=== PATIENT | male | born 1935 | race Caucasian/White ===

== ENCOUNTER 2018-01-12 11:02 | Emergency (ER) | payer MEDICARE, OTHER ==
[2018-01-12 11:12] LABS: Glucose,Whole Blood 223 mg/dL (75-99)
--- NOTE | 2018-01-12 11:29 | ED ---
General Adult HPI - General Chief complaint: Recheck/Abnormal Lab/Rx Stated complaint: hypoglycemia Time Seen by Provider: 01/12/18 11:07 Source: patient, EMS, RN notes reviewed Mode of arrival: EMS Limitations: no limitations - History of Present Illness Initial comments: This is an 82-year-old male presents emergency Department via EMS with complaint of hypoglycemia. Patient states that he remembers leaving the bank states he felt very tired felt that shaky. They staff workers called EMS at that time. Patient's found to have blood sugar of 50 that dropped to 35. Patient was given glucose and at that time. Patient has no complaint this time. They did state that he came around after given medications. Patient denies headache, dizziness, chest pain, shortness breath, nausea, vomiting diarrhea constipation. Patient states he took 40 units of insulin long acting this morning and did not eat. - Related Data Home Medications Medication Instructions Recorded Confirmed Unable To Assess [Unable to Assess] 01/12/18 01/12/18 Allergies Allergy/AdvReac Type Severity Reaction Status Date / Time No Known Allergies Allergy Verified 01/12/18 11:07 Review of Systems ROS Statement: Those systems with pertinent positive or pertinent negative responses have been documented in the HPI. ROS Other: All systems not noted in ROS Statement are negative. Past Medical History Past Medical History: Diabetes Mellitus History of Any Multi-Drug Resistant Organisms: None Reported Past Surgical History: No Surgical Hx Reported Past Psychological History: No Psychological Hx Reported Smoking Status: Never smoker Past Alcohol Use History: None Reported Past Drug Use History: None Reported General Exam Limitations: no limitations General appearance: alert, in no apparent distress Head exam: Present: atraumatic, normocephalic, normal inspection Eye exam: Present: normal appearance, PERRL, EOMI. Absent: scleral icterus, conjunctival injection, periorbital swelling ENT exam: Present: normal exam, normal oropharynx, mucous membranes moist, TM's normal bilaterally Neck exam: Present: normal inspection. Absent: tenderness, meningismus, lymphadenopathy Respiratory exam: Present: normal lung sounds bilaterally. Absent: respiratory distress, wheezes, rales, rhonchi, stridor Cardiovascular Exam: Present: regular rate, normal rhythm, normal heart sounds. Absent: systolic murmur, diastolic murmur, rubs, gallop, clicks GI/Abdominal exam: Present: soft, normal bowel sounds. Absent: distended, tenderness, guarding, rebound, rigid Neurological exam: Present: alert, oriented X3, CN II-XII intact, reflexes normal. Absent: motor sensory deficit Skin exam: Present: warm, dry, intact, normal color. Absent: rash Course Vital Signs 01/12/18 01/12/18 01/12/18 11:04 12:02 13:34 Temperature 97.2 F L Pulse Rate 67 56 L 63 Respiratory 18 17 18 Rate Blood Pressure 124/57 162/69 166/99 O2 Sat by Pulse 97 100 100 Oximetry Medical Decision Making - Medical Decision Making 82-year-old male presents for hyperglycemia. Patient has been stable in the emergency from. He was monitored for 3 hours and had slight drop in his blood sugar though he's had no hyperglycemic events. Patient did eat food here without difficulties and most other complaints. - Lab Data Lab Results 01/12/18 01/12/18 01/12/18 Range/Units 11:07 11:45 12:21 POC Glucose (mg/dL) 223 H 123 H 117 H (75-99) mg/dL POC Glu Mapping Technician ID Maty Denis Pam Gorecki, Joanna 01/12/18 01/12/18 Range/Units 12:59 13:14 POC Glucose (mg/dL) 91 90 (75-99) mg/dL POC Glu Mapping Technician ID Hanane Tejada Joanna Disposition Clinical Impression: Hypoglycemia Disposition: HOME SELF-CARE Condition: Stable Instructions: Hypoglycemia in a Person with Diabetes (ED) Additional Instructions: Please return to the Emergency Department if symptoms worsen or any other concerns. Is patient prescribed a controlled substance at d/c from ED?: No Referrals: None,Stated [Primary Care Provider] - 1-2 days Time of Disposition: 13:55
[2018-01-12 12:13] LABS: Glucose,Whole Blood 123 mg/dL (75-99)
[2018-01-12 13:01] LABS: Glucose,Whole Blood 91 mg/dL (75-99)
[2018-01-12 13:01] LABS: Glucose,Whole Blood 117 mg/dL (75-99)
[2018-01-12 13:16] LABS: Glucose,Whole Blood 90 mg/dL (75-99)
[2018-01-12 13:35] VITALS: RESP 18
[2018-01-12 14:08] LABS: Glucose,Whole Blood 163 mg/dL (75-99)
[2018-01-12 14:13] VITALS: BP 156/70; PULSE 60; TEMP 98
== END 2018-01-12 14:15 | disposition home or self-care (01) ==
LOC: EC 11:02
DX: E11.649 Type 2 diabetes mellitus with hypoglycemia without coma (principal); Z79.4 Long term (current) use of insulin
CPT/HCPCS: 36415; 99285

== ENCOUNTER 2018-02-01 15:31 | Inpatient (IN) | payer MEDICARE, OTHER ==
[2018-02-01] MEDS ORDERED: ONDANSETRON 4 MG/2 ML VIAL IVP STA (15:54)
[2018-02-01] MEDS ORDERED: SODIUM CHLORIDE 0.9% 1,000 ML IV STA ×2 (15:54)
[2018-02-01] MEDS ORDERED: MORPHINE SULFATE 2 MG/ML SYRINGE IV STA (15:54)
[2018-02-01] MEDS ORDERED: PANTOPRAZOLE 40 MG/10 ML VIAL IVP STA (15:54)
--- NOTE | 2018-02-01 16:57 | ED ---
Abdominal Pain HPI - General Source: patient, RN notes reviewed, old records reviewed Mode of arrival: wheelchair Limitations: no limitations - History of Present Illness MD Complaint: abdominal pain <Melva Foster - Last Filed: 02/01/18 18:43> <Marcos Black - Last Filed: 02/01/18 19:09> - General Chief Complaint: Abdominal Pain Stated Complaint: Abd Pain Time Seen by Provider: 02/01/18 15:40 - History of Present Illness Initial Comments: 82-year-old male presents emergency Department chief complaint of diffuse epigastric abdominal pain. He reports he's been taking Tums and had some relief. Within the Patient is recur. He reports sinus has had some darker stools. Denies any fever or chills. No vomiting. He reports he does feel nauseated. He reports this is severe pain throughout his entire abdomen. No significant surgical history. He has never had a colonoscopy. (Melva Foster) - Related Data Home Medications Medication Instructions Recorded Confirmed Unable To Assess [Unable to Assess] 01/12/18 01/12/18 Allergies Allergy/AdvReac Type Severity Reaction Status Date / Time No Known Allergies Allergy Verified 02/01/18 15:38 Review of Systems ROS Other: All systems not noted in ROS Statement are negative. <Melva Foster - Last Filed: 02/01/18 18:43> ROS Other: All systems not noted in ROS Statement are negative. <Marcos Black - Last Filed: 02/01/18 19:09> ROS Statement: Those systems with pertinent positive or pertinent negative responses have been documented in the HPI. Past Medical History Past Medical History: Diabetes Mellitus History of Any Multi-Drug Resistant Organisms: None Reported Past Surgical History: No Surgical Hx Reported Past Psychological History: No Psychological Hx Reported Smoking Status: Never smoker Past Alcohol Use History: None Reported Past Drug Use History: None Reported <Melva Foster - Last Filed: 02/01/18 18:43> General Exam Limitations: no limitations General appearance: alert, in no apparent distress Head exam: Present: atraumatic, normocephalic, normal inspection Eye exam: Present: normal appearance, PERRL, EOMI. Absent: scleral icterus, conjunctival injection, periorbital swelling ENT exam: Present: normal exam, mucous membranes moist Neck exam: Present: normal inspection. Absent: tenderness, meningismus, lymphadenopathy Respiratory exam: Present: normal lung sounds bilaterally. Absent: respiratory distress, wheezes, rales, rhonchi, stridor Cardiovascular Exam: Present: regular rate, normal rhythm, normal heart sounds. Absent: systolic murmur, diastolic murmur, rubs, gallop, clicks GI/Abdominal exam: Present: soft, tenderness (diffuse tenderness, epigastric pain ), normal bowel sounds. Absent: distended, guarding, rebound, rigid, diminished bowel sounds, hyperactive bowel sounds, hypoactive bowel sounds Rectal exam: Present: heme (+) stool, black stool Extremities exam: Present: normal inspection, full ROM, normal capillary refill. Absent: tenderness, pedal edema, joint swelling, calf tenderness Back exam: Present: normal inspection Neurological exam: Present: alert, oriented X3, CN II-XII intact Psychiatric exam: Present: normal affect, normal mood Skin exam: Present: warm, dry, intact, normal color. Absent: rash <Melva Foster - Last Filed: 02/01/18 18:43> <Marcos Black - Last Filed: 02/01/18 19:09> - General Exam Comments Initial Comments: 82 year old male, alert and oriented. No acute distress. (Melva Foster) Course <Melva Foster - Last Filed: 02/01/18 18:43> <Marcos Black - Last Filed: 02/01/18 19:09> Vital Signs 02/01/18 02/01/18 02/01/18 15:35 16:53 17:30 Temperature 98.3 F Pulse Rate 79 63 67 Respiratory 20 16 16 Rate Blood Pressure 188/92 190/90 210/98 O2 Sat by Pulse 99 97 98 Oximetry 02/01/18 18:34 Temperature Pulse Rate 61 Respiratory 16 Rate Blood Pressure 210/98 O2 Sat by Pulse 98 Oximetry - Reevaluation(s) Reevaluation #1: 02/01/18 18:50 PA supervision: I personally saw and examined patient. I reviewed and agree with the PA findings including all diagnostic interpretation treatment plans as written was otherwise stated. I did personally review the physical findings labs and x-rays. I did discuss findings with the patient and with his son who was present. (Marcos Black) Reevaluation #2: 02/01/18 19:09 I did discuss case with Dr. Paiz. (Marcos Black) Medical Decision Making - Lab Data Result diagrams: 02/01/18 16:39 02/01/18 16:39 - Radiology Data Radiology results: report reviewed <Melva Foster - Last Filed: 02/01/18 18:43> - Lab Data Result diagrams: 02/01/18 16:39 02/01/18 16:39 <Marcos Black - Last Filed: 02/01/18 19:09> - Medical Decision Making 82-year-old male with history of diffuse abdominal pain for the past week. He reports he's been taking Tums with some relief. He has diffuse abdominal tenderness. Patient is given IV fluids labwork obtained. He also reports has had dark stools. Patient has not been able to eat or drink due to severe pain. At this time Patient hemoglobin is stable at 11.9. We have no previous lab work to compare from. He does have a positive occult. Also significant ablation a BUN and creatinine. Likely due to dehydration from poor oral intake. Patient was given Protonix and pain medication and reports he feels much better. At this time and would commit the Patient for observation for GI bleed and acute kidney injury. May need to see GI for possibility of a EGD for gastritis or ulcer. (Melva Foster) - Lab Data Lab Results 02/01/18 02/01/18 02/01/18 Range/Units 16:34 16:39 16:39 WBC 8.0 (3.8-10.6) k/uL RBC 4.22 L (4.30-5.90) m/uL Hgb 11.6 L (13.0-17.5) gm/dL Hct 35.3 L (39.0-53.0) % MCV 83.6 (80.0-100.0) fL MCH 27.5 (25.0-35.0) pg MCHC 33.0 (31.0-37.0) g/dL RDW 14.9 (11.5-15.5) % Plt Count 282 (150-450) k/uL Neutrophils % 77 % Lymphocytes % 10 % Monocytes % 10 % Eosinophils % 1 % Basophils % 0 % Neutrophils # 6.1 (1.3-7.7) k/uL Lymphocytes # 0.8 L (1.0-4.8) k/uL Monocytes # 0.8 (0-1.0) k/uL Eosinophils # 0.1 (0-0.7) k/uL Basophils # 0.0 (0-0.2) k/uL PT (9.0-12.0) sec INR (<1.2) APTT (22.0-30.0) sec Sodium 139 (137-145) mmol/L Potassium 4.2 (3.5-5.1) mmol/L Chloride 99 (98-107) mmol/L Carbon Dioxide 30 (22-30) mmol/L Anion Gap 10 mmol/L BUN 33 H (9-20) mg/dL Creatinine 2.00 H (0.66-1.25) mg/dL Est GFR (CKD-EPI)AfAm 35 (>60 ml/min/1.73 sqM) Est GFR (CKD-EPI)NonAf 31 (>60 ml/min/1.73 sqM) Glucose 242 H (74-99) mg/dL Calcium 12.2 H (8.4-10.2) mg/dL Total Bilirubin 0.3 (0.2-1.3) mg/dL AST 19 (17-59) U/L ALT 24 (21-72) U/L Alkaline Phosphatase 74 (38-126) U/L Troponin I (0.000-0.034) ng/mL Total Protein 6.2 L (6.3-8.2) g/dL Albumin 3.4 L (3.5-5.0) g/dL Amylase 38 (30-110) U/L Lipase 48 (23-300) U/L Urine Color Light Yellow Urine Appearance Clear (Clear) Urine pH 5.5 (5.0-8.0) Ur Specific [place] 1.015 (1.001-1.035) Urine Protein Trace H (Negative) Urine Glucose (UA) 2+ H (Negative) Urine Ketones Negative (Negative) Urine Blood Trace H (Negative) Urine Nitrite Negative (Negative) Urine Bilirubin Negative (Negative) Urine Urobilinogen <2.0 (<2.0) mg/dL Ur Leukocyte Esterase Negative (Negative) Urine RBC 6 H (0-5) /hpf Urine WBC 12 H (0-5) /hpf Hyaline Casts 5 H (0-2) /lpf Urine Mucus Rare H (None) /hpf Stool Occult Blood (Negative) 02/01/18 02/01/18 02/01/18 Range/Units 16:39 16:39 17:10 WBC (3.8-10.6) k/uL RBC (4.30-5.90) m/uL Hgb (13.0-17.5) gm/dL Hct (39.0-53.0) % MCV (80.0-100.0) fL MCH (25.0-35.0) pg MCHC (31.0-37.0) g/dL RDW (11.5-15.5) % Plt Count (150-450) k/uL Neutrophils % % Lymphocytes % % Monocytes % % Eosinophils % % Basophils % % Neutrophils # (1.3-7.7) k/uL Lymphocytes # (1.0-4.8) k/uL Monocytes # (0-1.0) k/uL Eosinophils # (0-0.7) k/uL Basophils # (0-0.2) k/uL PT 9.6 (9.0-12.0) sec INR 1.0 (<1.2) APTT 19.7 L (22.0-30.0) sec Sodium (137-145) mmol/L Potassium (3.5-5.1) mmol/L Chloride (98-107) mmol/L Carbon Dioxide (22-30) mmol/L Anion Gap mmol/L BUN (9-20) mg/dL Creatinine (0.66-1.25) mg/dL Est GFR (CKD-EPI)AfAm (>60 ml/min/1.73 sqM) Est GFR (CKD-EPI)NonAf (>60 ml/min/1.73 sqM) Glucose (74-99) mg/dL Calcium (8.4-10.2) mg/dL Total Bilirubin (0.2-1.3) mg/dL AST (17-59) U/L ALT (21-72) U/L Alkaline Phosphatase (38-126) U/L Troponin I <0.012 (0.000-0.034) ng/mL Total Protein (6.3-8.2) g/dL Albumin (3.5-5.0) g/dL Amylase (30-110) U/L Lipase (23-300) U/L Urine Color Urine Appearance (Clear) Urine pH (5.0-8.0) Ur Specific [place] (1.001-1.035) Urine Protein (Negative) Urine Glucose (UA) (Negative) Urine Ketones (Negative) Urine Blood (Negative) Urine Nitrite (Negative) Urine Bilirubin (Negative) Urine Urobilinogen (<2.0) mg/dL Ur Leukocyte Esterase (Negative) Urine RBC (0-5) /hpf Urine WBC (0-5) /hpf Hyaline Casts (0-2) /lpf Urine Mucus (None) /hpf Stool Occult Blood Positive (Negative) 02/01/18 18:05 EKG shows sinus rhythm, incomplete) a mesh 5. EKG. Ventricular rate 65 beats were any repairable 26 no seconds. She gnosticist 108. QTQTC 3-4/339 ms. (Melva Foster) - Radiology Data Nonacute abdomen. Normal appendix. Cholelithiasis. Nonobstructing right renal calculus, small hiatal hernia. Moderate sigmoid diverticulosis. ( Melva Foster) Disposition Is patient prescribed a controlled substance at d/c from ED?: No When asked, does pt state using other controlled substances?: No If prescribed controlled substance>3 days was MAPS reviewed?: No If opioid is for acute pain is fill amount 7 days or less?: No If Rx opioid, was Start Talking consent form obtained?: No Time of Disposition: 18:43 <Melva Foster - Last Filed: 02/01/18 18:43> <Marcos Black - Last Filed: 02/01/18 19:09> Clinical Impression: GI bleed, GORDON (acute kidney injury) Disposition: ADMITTED IP TO THIS HOSP Condition: Good
[2018-02-01 17:00] LABS: Basophils % (A) 0 %; Eosinophils # (A) 0.1 k/uL (0-0.7); Eosinophils % (A) 1 %; HCT 35.3 % (39.0-53.0); HGB 11.6 gm/dL (13.0-17.5); Lymphocytes # (A) 0.8 k/uL (1.0-4.8); Lymphocytes % (A) 10 %; MCH 27.5 pg (25.0-35.0); MCV 83.6 fL (80.0-100.0); Mean Platelet Volume 6.3; Monocytes # (A) 0.8 k/uL (0-1.0); Monocytes % (A) 10 %; Neutrophils # (A) 6.1 k/uL (1.3-7.7); Neutrophils % (A) 77 %; Platelet Count 282 k/uL (150-450); RBC 4.22 m/uL (4.30-5.90); RDW 14.9 % (11.5-15.5)
[2018-02-01 17:09] LABS: Albumin 3.4 g/dL (3.5-5.0); Calcium 12.2 mg/dL (8.4-10.2); Potassium 4.2 mmol/L (3.5-5.1); Total Bilirubin 0.3 mg/dL (0.2-1.3); Total Protein 6.2 g/dL (6.3-8.2)
[2018-02-01 17:11] LABS: Appearance,Urine Clear (Clear); Bilirubin,Urine Negative (Negative); Blood,Urine Trace (Negative); Color,Urine Light Yellow; Glucose,Urine (UA) 2+ (Negative); Hyaline Casts,Urine 5 /lpf (0-2); Ketones,Urine Negative (Negative); Leukocyte Esterase,Urine Negative (Negative); Mucus,Urine Rare /hpf; Nitrite,Urine Negative (Negative); PH, Urine 5.5 (5.0-8.0); Protein,Urine Trace (Negative); RBC,Urine 6 /hpf (0-5); Specific Gravity,Urine 1.015 (1.001-1.035); Urobilinogen,Urine <2.0 mg/dL (<2.0); WBC,Urine 12 /hpf (0-5)
[2018-02-01 17:18] LABS: Prothrombin Time 9.6 sec (9.0-12.0)
[2018-02-01 17:22] LABS: Partial Thromboplastin Time 19.7 sec (22.0-30.0)
--- NOTE | 2018-02-01 17:41 | CT ---
EXAMINATION TYPE: CT abdomen pelvis wo con DATE OF EXAM: 02/01/2018 COMPARISON: Abdominal pain HISTORY: Generalized abdominal pain x 1 1/[address] DLP: 757.9 mGycm Automated exposure control for dose reduction was used. TECHNIQUE: Helical acquisition of images was performed from the lung bases through the pelvis. FINDINGS: Lung bases are clear. There is no pleural effusion. Heart size is normal. Liver spleen pancreas appear normal. There are numerous calcified gallstones. Bile ducts are not dila valentín. There is no adrenal mass. Kidneys have normal size. There is 1.5 cm calculus in the right kidney. The re is no hydronephrosis. Ureters are not dilated. There is no retroperitoneal adenopathy. There is no ascites. Appendix appears normal. There are numerous diverticula in the sigmoid colon. There is no e vidence of diverticulitis. There is no ascites. There is posterior fusion surgery from L3 to S1. I se e no bony destructive process. There is multilevel laminectomy. There is small hiatal hernia. Bladder distends smoothly. There is no evidence of a pelvic mass. There are spondylotic changes in the lumba r spine. IMPRESSION: NONACUTE ABDOMEN. NORMAL APPENDIX. CHOLELITHIASIS. NONOBSTRUCTING RIGHT RENAL CALCULUS. SMALL HIATAL HERNIA. MODERATE SIGMOID DIVERTICUL OSIS.
[2018-02-01] MEDS ORDERED: LABETALOL 5 MG/ML VIAL MDV IVP STA (18:03)
[2018-02-01] MEDS ORDERED: ACETAMINOPHEN TAB 325 MG TAB PO PRN (18:44)
[2018-02-01] MEDS ORDERED: IBUPROFEN 400 MG TAB PO PRN (18:44)
[2018-02-01] MEDS ORDERED: ONDANSETRON 4 MG/2 ML VIAL IVP PRN (18:44)
[2018-02-01] MEDS ORDERED: NALOXONE 0.4 MG/ML 1 ML VIAL IV PRN (18:44)
[2018-02-01] MEDS ORDERED: MORPHINE SULFATE 2 MG/ML SYRINGE IV PRN (18:44)
[2018-02-01] MEDS ORDERED: hydrALAZINE HCL 20 MG/ML 1 ML VIAL IVP STA (18:55)
--- NOTE | 2018-02-01 18:56 | ED ---
Medical Decision Making - Lab Data Result diagrams: 02/01/18 16:39 02/01/18 16:39 Lab Results 02/01/18 02/01/18 02/01/18 Range/Units 16:34 16:39 16:39 WBC 8.0 (3.8-10.6) k/uL RBC 4.22 L (4.30-5.90) m/uL Hgb 11.6 L (13.0-17.5) gm/dL Hct 35.3 L (39.0-53.0) % MCV 83.6 (80.0-100.0) fL MCH 27.5 (25.0-35.0) pg MCHC 33.0 (31.0-37.0) g/dL RDW 14.9 (11.5-15.5) % Plt Count 282 (150-450) k/uL Neutrophils % 77 % Lymphocytes % 10 % Monocytes % 10 % Eosinophils % 1 % Basophils % 0 % Neutrophils # 6.1 (1.3-7.7) k/uL Lymphocytes # 0.8 L (1.0-4.8) k/uL Monocytes # 0.8 (0-1.0) k/uL Eosinophils # 0.1 (0-0.7) k/uL Basophils # 0.0 (0-0.2) k/uL PT (9.0-12.0) sec INR (<1.2) APTT (22.0-30.0) sec Sodium 139 (137-145) mmol/L Potassium 4.2 (3.5-5.1) mmol/L Chloride 99 (98-107) mmol/L Carbon Dioxide 30 (22-30) mmol/L Anion Gap 10 mmol/L BUN 33 H (9-20) mg/dL Creatinine 2.00 H (0.66-1.25) mg/dL Est GFR (CKD-EPI)AfAm 35 (>60 ml/min/1.73 sqM) Est GFR (CKD-EPI)NonAf 31 (>60 ml/min/1.73 sqM) Glucose 242 H (74-99) mg/dL Calcium 12.2 H (8.4-10.2) mg/dL Total Bilirubin 0.3 (0.2-1.3) mg/dL AST 19 (17-59) U/L ALT 24 (21-72) U/L Alkaline Phosphatase 74 (38-126) U/L Troponin I (0.000-0.034) ng/mL Total Protein 6.2 L (6.3-8.2) g/dL Albumin 3.4 L (3.5-5.0) g/dL Amylase 38 (30-110) U/L Lipase 48 (23-300) U/L Urine Color Light Yellow Urine Appearance Clear (Clear) Urine pH 5.5 (5.0-8.0) Ur Specific [place] 1.015 (1.001-1.035) Urine Protein Trace H (Negative) Urine Glucose (UA) 2+ H (Negative) Urine Ketones Negative (Negative) Urine Blood Trace H (Negative) Urine Nitrite Negative (Negative) Urine Bilirubin Negative (Negative) Urine Urobilinogen <2.0 (<2.0) mg/dL Ur Leukocyte Esterase Negative (Negative) Urine RBC 6 H (0-5) /hpf Urine WBC 12 H (0-5) /hpf Hyaline Casts 5 H (0-2) /lpf Urine Mucus Rare H (None) /hpf Stool Occult Blood (Negative) 02/01/18 02/01/18 02/01/18 Range/Units 16:39 16:39 17:10 WBC (3.8-10.6) k/uL RBC (4.30-5.90) m/uL Hgb (13.0-17.5) gm/dL Hct (39.0-53.0) % MCV (80.0-100.0) fL MCH (25.0-35.0) pg MCHC (31.0-37.0) g/dL RDW (11.5-15.5) % Plt Count (150-450) k/uL Neutrophils % % Lymphocytes % % Monocytes % % Eosinophils % % Basophils % % Neutrophils # (1.3-7.7) k/uL Lymphocytes # (1.0-4.8) k/uL Monocytes # (0-1.0) k/uL Eosinophils # (0-0.7) k/uL Basophils # (0-0.2) k/uL PT 9.6 (9.0-12.0) sec INR 1.0 (<1.2) APTT 19.7 L (22.0-30.0) sec Sodium (137-145) mmol/L Potassium (3.5-5.1) mmol/L Chloride (98-107) mmol/L Carbon Dioxide (22-30) mmol/L Anion Gap mmol/L BUN (9-20) mg/dL Creatinine (0.66-1.25) mg/dL Est GFR (CKD-EPI)AfAm (>60 ml/min/1.73 sqM) Est GFR (CKD-EPI)NonAf (>60 ml/min/1.73 sqM) Glucose (74-99) mg/dL Calcium (8.4-10.2) mg/dL Total Bilirubin (0.2-1.3) mg/dL AST (17-59) U/L ALT (21-72) U/L Alkaline Phosphatase (38-126) U/L Troponin I <0.012 (0.000-0.034) ng/mL Total Protein (6.3-8.2) g/dL Albumin (3.5-5.0) g/dL Amylase (30-110) U/L Lipase (23-300) U/L Urine Color Urine Appearance (Clear) Urine pH (5.0-8.0) Ur Specific [place] (1.001-1.035) Urine Protein (Negative) Urine Glucose (UA) (Negative) Urine Ketones (Negative) Urine Blood (Negative) Urine Nitrite (Negative) Urine Bilirubin (Negative) Urine Urobilinogen (<2.0) mg/dL Ur Leukocyte Esterase (Negative) Urine RBC (0-5) /hpf Urine WBC (0-5) /hpf Hyaline Casts (0-2) /lpf Urine Mucus (None) /hpf Stool Occult Blood Positive (Negative) Disposition Clinical Impression: GI bleed, GORDON (acute kidney injury) Disposition: ADMITTED IP TO THIS [facility] Condition: Good Referrals: None,Stated [Primary Care Provider] - 1-2 days Time of Disposition: 18:55
[2018-02-01] MEDS: SODIUM CHLORIDE 0.9% 1,000 ML IV SCH (19:35)
[2018-02-01 20:45] VITALS: BMI 27.1
[2018-02-01 22:11] LABS: Glucose,Whole Blood 204 mg/dL (75-99)
[2018-02-02] MEDS: SODIUM CHLORIDE 0.9% 1,000 ML IV SCH ×3 (05:17→13:51)
[2018-02-02 07:37] LABS: Glucose,Whole Blood 180 mg/dL (75-99)
[2018-02-02] MEDS: PANTOPRAZOLE 40 MG/10 ML VIAL IV SCH (08:38)
[2018-02-02] MEDS: INSULIN ASPART 100 UNIT/ML 1 ML 10 ML VIAL SQ SCH ×4 (08:45→21:49)
--- NOTE | 2018-02-02 10:28 | P.HPIM ---
History of Present Illness 82-year-old male presents emergency Department chief complaint of epigastric abdominal pain progressively getting worse for about 2 weeks and was severe yesterday.. He reports he's been taking Tums and had some relief. Within the Patient is recur. Patient reported dark stools to ER physician and the nurse but he denied any such stools to me. His hemoglobin is fairly stable today. No bowel movements today.. Denies any fever or chills. No vomiting. He cannot really tell me whether if his pain started after eating. When I evaluated the patient patient's abdomen is comparing is soft, CAT scan did show cholelithiasis. And in his dull pain in the mostly in the epigastric area.. He reports this is severe pain throughout his entire abdomen. No significant surgical history. He has never had a colonoscopy. Patient is also found to have elevated creatinine. Nonsteroidal anti-inflammatory medications will be discontinued except for tramadol will use Tylenol for pain. Patient denied any fever chills. Patient baseline creatinine about any ago is 1.2 patient is receiving IV fluids. Will monitor the patient and the leaving here if he doesn't have any dark stools or blood in the stools patient probably can be discharged once his creatinine comes back. I'll leave that and the patient. It's reasonable for him to stay overnight considering his acute renal failure and also patient being a poor historian and with concern of GI bleed. As of now his abdominal pain completely resolved. Patient will need to follow up with the surgery as an outpatient for cholelithiasis and probably gastroenterology if he continues to have pain for upper GI endoscopy as an outpatient. Patient says he's been losing weight as he is not been able to eat well. Review of Systems REVIEW OF SYSTEMS: CONSTITUTIONAL: No fever, no malaise, no fatigue. HEENT: No recent visual problems or hearing problems. Denied any sore throat. CARDIOVASCULAR: No chest pain, orthopnea, PND, no palpitations, no syncope. PULMONARY: No shortness of breath, no cough, no hemoptysis. GASTROINTESTINAL: As mentioned in HPI NEUROLOGICAL: No headaches, no weakness, no numbness. HEMATOLOGICAL: Denies any bleeding or petechiae. GENITOURINARY: Denies any burning micturition, frequency, or urgency. MUSCULOSKELETAL/RHEUMATOLOGICAL: Denies any joint pain, swelling, or any muscle pain. ENDOCRINE: Denies any polyuria or polydipsia. The rest of the 14-point review of systems is negative. Past Medical History Past Medical History: Diabetes Mellitus History of Any Multi-Drug Resistant Organisms: None Reported Past Surgical History: No Surgical Hx Reported Past Anesthesia/Blood Transfusion Reactions: No Reported Reaction Past Psychological History: No Psychological Hx Reported Smoking Status: Never smoker Past Alcohol Use History: None Reported Past Drug Use History: None Reported - Past Family History Daughter(s) Family Medical History: No Reported History Son(s) Family Medical History: No Reported History Medications and Allergies Home Medications Medication Instructions Recorded Confirmed Type Aspirin [Adult Low Dose Aspirin EC] 81 mg PO HS 02/01/18 02/02/18 History Insuln Asp Prt/Insulin Aspart 15 units SQ AC-SUPPER 02/01/18 02/02/18 History [NovoLOG MIX 70-30 VIAL] Insuln Asp Prt/Insulin Aspart 30 units SQ AC-BRKFST 02/01/18 02/02/18 History [NovoLOG MIX 70-30 VIAL] Saw [place] 160 mg PO DAILY 02/01/18 02/02/18 History Simvastatin 40 mg PO HS 02/01/18 02/02/18 History traZODone HCL 100 mg PO HS 02/01/18 02/02/18 History Omeprazole [PriLOSEC] 40 mg PO AC-BRKFST #30 capsule. 02/02/18 Rx Allergies Allergy/AdvReac Type Severity Reaction Status Date / Time No Known Allergies Allergy Verified 02/02/18 08:27 Physical Exam Vitals: Vital Signs Temp Pulse Pulse Resp BP BP Pulse Ox 02/02/18 07:29 98.2 F 59 L 16 124/58 95 02/01/18 20:57 97.8 F 74 16 141/64 98 02/01/18 19:48 98.6 F 62 16 178/80 98 02/01/18 18:34 61 16 210/98 98 02/01/18 17:30 67 16 210/98 98 02/01/18 16:53 63 16 190/90 97 02/01/18 15:35 98.3 F 79 20 188/92 99 Intake and Output 02/01/18 02/02/18 02/02/18 22:59 06:59 14:59 Intake Total 240 960 Output Total 150 700 Balance 90 260 Intake: IV 240 960 Sodium Chloride 0.9% 1, 240 960 000 ml @ 120 mls/hr IV . Q8H20M [facility] Rx#:[id number] Output: Urine 150 700 Other: Voiding Method Toilet Toilet Urinal Urinal Weight 88.451 kg PHYSICAL EXAMINATION: GENERAL: The patient is alert and oriented x3, not in any acute distress. Well developed, well nourished. HEENT: Pupils are round and equally reacting to light. EOMI. No scleral icterus. No conjunctival pallor. Normocephalic, atraumatic. No pharyngeal erythema. No thyromegaly. CARDIOVASCULAR: S1 and S2 present. No murmurs, rubs, or gallops. PULMONARY: Chest is clear to auscultation, no wheezing or crackles. ABDOMEN: Soft, nontender, nondistended, normoactive bowel sounds. No palpable organomegaly. MUSCULOSKELETAL: No joint swelling or deformity. EXTREMITIES: No cyanosis, clubbing, or pedal edema. NEUROLOGICAL: Gross neurological examination did not reveal any focal deficits. SKIN: No rashes. Results CBC & Chem 7: 02/01/18 16:39 02/01/18 16:39 Labs: Abnormal Lab Results - Last 24 Hours (Table) 02/01/18 02/01/18 02/01/18 Range/Units 16:34 16:39 16:39 RBC 4.22 L (4.30-5.90) m/uL Hgb 11.6 L (13.0-17.5) gm/dL Hct 35.3 L (39.0-53.0) % Lymphocytes # 0.8 L (1.0-4.8) k/uL APTT (22.0-30.0) sec BUN 33 H (9-20) mg/dL Creatinine 2.00 H (0.66-1.25) mg/dL Glucose 242 H (74-99) mg/dL POC Glucose (mg/dL) (75-99) mg/dL Calcium 12.2 H (8.4-10.2) mg/dL Total Protein 6.2 L (6.3-8.2) g/dL Albumin 3.4 L (3.5-5.0) g/dL Urine Protein Trace H (Negative) Urine Glucose (UA) 2+ H (Negative) Urine Blood Trace H (Negative) Urine RBC 6 H (0-5) /hpf Urine WBC 12 H (0-5) /hpf Hyaline Casts 5 H (0-2) /lpf Urine Mucus Rare H (None) /hpf 02/01/18 02/01/18 02/02/18 Range/Units 16:39 22:09 07:28 RBC (4.30-5.90) m/uL Hgb (13.0-17.5) gm/dL Hct (39.0-53.0) % Lymphocytes # (1.0-4.8) k/uL APTT 19.7 L (22.0-30.0) sec BUN (9-20) mg/dL Creatinine (0.66-1.25) mg/dL Glucose (74-99) mg/dL POC Glucose (mg/dL) 204 H 180 H (75-99) mg/dL Calcium (8.4-10.2) mg/dL Total Protein (6.3-8.2) g/dL Albumin (3.5-5.0) g/dL Urine Protein (Negative) Urine Glucose (UA) (Negative) Urine Blood (Negative) Urine RBC (0-5) /hpf Urine WBC (0-5) /hpf Hyaline Casts (0-2) /lpf Urine Mucus (None) /hpf Thrombosis Risk Factor Assmnt - Choose All That Apply Any of the Below Risk Factors Present?: Yes Each Factor Represents 1 point: Obesity (BMI >25) Other Risk Factors: Yes Each Risk Factor Represents 3 Points: Age 75 years or older Other congenital or acquired thrombophilia - If yes, enter type in comment: No Thrombosis Risk Factor Assessment Total Risk Factor Score: 4 Thrombosis Risk Factor Assessment Level: Moderate Risk Assessment and Plan Plan: - abdominal pain and epigastric probably related to gastritis, abdominal pain improved I believe is mostly because of Protonix, patient will be discharged on Prilosec. The other differential is cholelithiasis. I do not believe patient has cholecystitis. We will advance the diet to soft diet -Acute renal failure: Prerenal azotemia from poor peripheral intake. Continue with IV fluids. If patient is staying here with The Fluid to 75 ML Per Hour Considering His Age and Volume Overload Concerns -Hypertension -Type 2 Diabetes Mellitus. Continue with home regimen as his blood sugars are well controlled on that at this time. -Hypercalcemia due to intravascular depletion most probably repeat the lab if continues to be elevated the need to be further evaluated
[2018-02-02 10:44] LABS: Calcium 9.2 mg/dL (8.4-10.2); Potassium 3.8 mmol/L (3.5-5.1)
[2018-02-02 10:45] LABS: Basophils % (A) 0 %; Eosinophils # (A) 0.1 k/uL (0-0.7); Eosinophils % (A) 2 %; HCT 30.2 % (39.0-53.0); Lymphocytes # (A) 0.9 k/uL (1.0-4.8); Lymphocytes % (A) 15 %; MCH 26.9 pg (25.0-35.0); MCHC 31.9 g/dL (31.0-37.0); MCV 84.2 fL (80.0-100.0); Mean Platelet Volume 6.5; Monocytes # (A) 0.6 k/uL (0-1.0); Monocytes % (A) 10 %; Neutrophils # (A) 4.3 k/uL (1.3-7.7); Neutrophils % (A) 71 %; Platelet Count 228 k/uL (150-450); RBC 3.58 m/uL (4.30-5.90); RDW 14.8 % (11.5-15.5)
[2018-02-02 10:47] LABS: HGB 9.6 gm/dL (13.0-17.5)
[2018-02-02 11:35] LABS: Glucose,Whole Blood 129 mg/dL (75-99)
[2018-02-02 17:18] LABS: Glucose,Whole Blood 234 mg/dL (75-99)
[2018-02-02 21:13] LABS: Glucose,Whole Blood 239 mg/dL (75-99)
[2018-02-02] MEDS: traMADol 50 MG TAB PO PRN (21:50)
[2018-02-03] MEDS: SODIUM CHLORIDE 0.9% 1,000 ML IV SCH (02:40)
[2018-02-03] MEDS: traMADol 50 MG TAB PO PRN (03:08)
[2018-02-03 07:04] LABS: HCT 29.7 % (39.0-53.0); HGB 9.4 gm/dL (13.0-17.5); MCH 26.8 pg (25.0-35.0); MCHC 31.8 g/dL (31.0-37.0); MCV 84.2 fL (80.0-100.0); Mean Platelet Volume 6.6; Platelet Count 228 k/uL (150-450); RBC 3.52 m/uL (4.30-5.90); RDW 14.8 % (11.5-15.5); WBC 5.8 k/uL (3.8-10.6)
[2018-02-03 07:19] LABS: Glucose,Whole Blood 209 mg/dL (75-99)
[2018-02-03] MEDS: INSULIN ASPART 100 UNIT/ML 1 ML 10 ML VIAL SQ SCH ×2 (07:34→12:48)
[2018-02-03 07:58] VITALS: BP 177/85; PULSE 61; RESP 16; TEMP 97.4
[2018-02-03] MEDS: PANTOPRAZOLE 40 MG/10 ML VIAL IV SCH (10:55)
[2018-02-03 11:38] LABS: Glucose,Whole Blood 214 mg/dL (75-99)
[2018-02-03 12:22] LABS: Albumin 2.6 g/dL (3.5-5.0); Calcium 8.4 mg/dL (8.4-10.2); Potassium 3.8 mmol/L (3.5-5.1); Total Bilirubin 0.3 mg/dL (0.2-1.3); Total Protein 4.9 g/dL (6.3-8.2)
--- NOTE | 2018-02-03 15:45 | P.DS ---
Providers Date of admission: 02/01/18 18:42 Expected date of discharge: 02/03/18 Attending physician: Irvin Lundberg Primary care physician: Stated None Brice Hospital Course: - abdominal pain and epigastric probably related to gastritis, abdominal pain improved I believe is mostly because of Protonix, patient will be discharged on Prilosec. The other differential is cholelithiasis. I do not believe patient has cholecystitis. We will advance the diet to soft diet -Acute renal failure: Prerenal azotemia from poor peripheral intake. Continue with IV fluids. -Hypertension -Type 2 Diabetes Mellitus. -Hypercalcemia due to intravascular depletion most probably, now WNL with IV fluid hydration. Hospital course:82-year-old male presents emergency Department chief complaint of epigastric abdominal pain progressively getting worse for about 2 weeks and was severe yesterday.. He reports he's been taking Tums and had some relief. Within the Patient is recur. Patient reported dark stools to ER physician and the nurse but he denied any such stools to me. His hemoglobin is fairly stable today. No bowel movements today.. Denies any fever or chills. No vomiting. He cannot really tell me whether if his pain started after eating. When I evaluated the patient patient's abdomen is comparing is soft, CAT scan did show cholelithiasis. And in his dull pain in the mostly in the epigastric area.. He reports this is severe pain throughout his entire abdomen. No significant surgical history. He has never had a colonoscopy. Patient is also found to have elevated creatinine. Nonsteroidal anti-inflammatory medications will be discontinued except for tramadol will use Tylenol for pain. Patient denied any fever chills. Patient baseline creatinine about any ago is 1.2 patient is receiving IV fluids. Will monitor the patient and the leaving here if he doesn't have any dark stools or blood in the stools patient probably can be discharged once his creatinine comes back. I'll leave that and the patient. It's reasonable for him to stay overnight considering his acute renal failure and also patient being a poor historian and with concern of GI bleed. As of now his abdominal pain completely resolved. Patient will need to follow up with the surgery as an outpatient for cholelithiasis and probably gastroenterology if he continues to have pain for upper GI endoscopy as an outpatient. Patient says he's been losing weight as he is not been able to eat well. No clinical signs or symptoms of bleeding. No blood in stools, no dark stools. Hemoglobin 9.4. Renal function continued to improve with gentle IV fluid hydration, currently 1.48. Denies abdominal pain. Denies chest pain, palpitations or increased shortness of breath. Denies lightheadedness or dizziness or focal deficits. Significant clinical improvement. Patient is being discharged home in a stable condition with guarded prognosis. EXAMINATION: GENERAL: The patient is alert and oriented x3, not in any acute distress. CARDIOVASCULAR: S1 and S2 present. No murmurs, rubs, or gallops. PULMONARY: Chest is clear to auscultation, no wheezing or crackles. ABDOMEN: Soft, nontender, nondistended, normoactive bowel sounds. No palpable organomegaly. NEUROLOGICAL: Gross neurological examination did not reveal any focal deficits. The impression and plan of care has been dictated as directed. : I performed a history and examination of this patient, discussed the same with the dictator. I agree with the dictator's note ,documented as a scribe. Any additional findings or plans will be noted. Time taken: 35 minutes Patient Condition at Discharge: Stable Plan - Discharge Summary Discharge Rx Participant: No New Discharge Prescriptions: New Omeprazole [PriLOSEC] 40 mg PO AC-BRKFST #30 capsule.dr [place] Insuln Asp Prt/Insulin Aspart [NovoLOG MIX 70-30 VIAL] 30 units SQ AC-BRKFST traZODone HCL 100 mg PO HS Simvastatin 40 mg PO HS Insuln Asp Prt/Insulin Aspart [NovoLOG MIX 70-30 VIAL] 15 units SQ AC-SUPPER Discontinued Saw [place] 160 mg PO DAILY Aspirin [Adult Low Dose Aspirin EC] 81 mg PO HS Discharge Medication List Insuln Asp Prt/Insulin Aspart [NovoLOG MIX 70-30 VIAL] 15 units SQ AC-SUPPER 11/16 [History] Insuln Asp Prt/Insulin Aspart [NovoLOG MIX 70-30 VIAL] 30 units SQ AC-BRKFST 11/16 [History] Simvastatin 40 mg PO HS 02/01/18 [History] traZODone HCL 100 mg PO HS 02/01/18 [History] Omeprazole [PriLOSEC] 40 mg PO AC-BRKFST #30 capsule.dr 02/02/18 [Rx] Follow up Appointment(s)/Referral(s): Gianni Tavarez MD [STAFF PHYSICIAN] - 2 Weeks Obdulio Narvaez MD [STAFF PHYSICIAN] - 3 Days (Patient to call Dr. Narvaez's office Tuesday to schedule follow up appointment. The office is closed at time of discharge. ) Jose Arevalo MD [Medical Doctor] - 2 Weeks Ambulatory/Diagnostic Orders: Complete Blood Count w/diff [LAB.AMB] Time Frame: 3 Days, Location: None Selected Patient Instructions/Handouts: Omeprazole (By mouth), Gastrointestinal Bleeding (DC), Acute Kidney Injury (DC) Activity/Diet/Wound Care/Special Instructions: Aspirin on Hold Consistent Carbohydrate diet Limit activity until follow-up Discharge Disposition: HOME SELF-CARE
== END 2018-02-03 13:25 | disposition home or self-care (01) | DRG 392 ==
LOC: EC 15:31 → 5ONC 18:42
PROVIDERS: ADMIT Internal Medicine; ATTEND Internal Medicine
DX: K29.70 Gastritis, unspecified, without bleeding (principal); N17.9 Acute kidney failure, unspecified; E86.0 Dehydration; E83.52 Hypercalcemia; E11.9 Type 2 diabetes mellitus without complications; K80.20 Calculus of gallbladder without cholecystitis without obstruction; I10 Essential (primary) hypertension; Z79.82 Long term (current) use of aspirin; Z79.4 Long term (current) use of insulin; Z79.899 Other long term (current) drug therapy
CPT/HCPCS: 36415; 74176; 80048; 80053; 81001; 82150; 82272; 83690; 83970; 84484; 85025; 85027; 85610; 85730; 87040; 93005; 96361; 96374; 96375; 99285

== ENCOUNTER 2018-02-05 14:15 | Inpatient (IN) | payer MEDICARE, OTHER ==
[~2018-02-05 14:15] MED LIST: SODIUM CHLORIDE 0.9% 500 ML IV ONE
[2018-02-05] MEDS ORDERED: ACETAMINOPHEN TAB 325 MG TAB PO STA (14:25)
--- NOTE | 2018-02-05 14:44 | ED ---
General Adult HPI - General Source: patient, EMS, RN notes reviewed Mode of arrival: EMS Limitations: no limitations <Melvin Valles - Last Filed: 02/05/18 14:42> <Marcos Meehan - Last Filed: 02/05/18 17:59> - General Stated complaint: ABd Pain Time Seen by Provider: 02/05/18 14:16 - History of Present Illness Initial comments: This is an 82-year-old male presents emergency Department via EMS with chief complaint of left knee pain. Patient states he woke left knee pain and swelling has progressed and gotten worse. Patient states it no trauma no injury. Patient states that he was recently in the hospital for abdominal pain , dehydration and continued injury. Patient states that he has been home and this developed. Patient states she's never had any like this in the past. Patient reports no chest pain or shortness of breath. Patient states she just doesn't feel well patient did not realize that he had a fever at this time. Patient reports no discoloration to his leg. States he has no current abdominal pain. (Melvin Valles) - Related Data Home Medications Medication Instructions Recorded Confirmed Insuln Asp Prt/Insulin Aspart 15 units SQ AC-SUPPER 02/01/18 02/05/18 [NovoLOG MIX 70-30 VIAL] Insuln Asp Prt/Insulin Aspart 30 units SQ AC-BRKFST 02/01/18 02/05/18 [NovoLOG MIX 70-30 VIAL] Simvastatin 40 mg PO HS 02/01/18 02/05/18 traZODone HCL 100 mg PO HS 02/01/18 02/05/18 Previous Rx's Medication Instructions Recorded Omeprazole [PriLOSEC] 40 mg PO AC-BRKFST #30 capsule. 02/02/18 Allergies Allergy/AdvReac Type Severity Reaction Status Date / Time No Known Allergies Allergy Verified 02/05/18 17:08 Review of Systems ROS Other: All systems not noted in ROS Statement are negative. <Melvin Valles - Last Filed: 02/05/18 14:42> ROS Other: All systems not noted in ROS Statement are negative. <Marcos Meehan - Last Filed: 02/05/18 17:59> ROS Statement: Those systems with pertinent positive or pertinent negative responses have been documented in the HPI. Past Medical History Past Medical History: Diabetes Mellitus History of Any Multi-Drug Resistant Organisms: None Reported Past Surgical History: No Surgical Hx Reported Past Anesthesia/Blood Transfusion Reactions: No Reported Reaction Past Psychological History: No Psychological Hx Reported Smoking Status: Never smoker Past Alcohol Use History: None Reported Past Drug Use History: None Reported - Past Family History Daughter(s) Family Medical History: No Reported History Son(s) Family Medical History: No Reported History <Melvin Valles M - Last Filed: 02/05/18 14:42> General Exam Limitations: no limitations General appearance: alert, in no apparent distress Neck exam: Present: normal inspection. Absent: tenderness, meningismus, lymphadenopathy Respiratory exam: Present: normal lung sounds bilaterally. Absent: respiratory distress, wheezes, rales, rhonchi, stridor Cardiovascular Exam: Present: regular rate, normal rhythm, normal heart sounds. Absent: systolic murmur, diastolic murmur, rubs, gallop, clicks GI/Abdominal exam: Present: soft, normal bowel sounds. Absent: distended, tenderness, guarding, rebound, rigid Extremities exam: Present: other (Left knee there is moderate swelling noted, severe pain with range of motion moderate warmth with palpation there is no erythema pedal pulses equal bilaterally there is no calf tenderness) Neurological exam: Present: alert Skin exam: Present: warm, dry, intact, normal color. Absent: rash <Melvin Valles M - Last Filed: 02/05/18 14:42> Vital Signs 02/05/18 02/05/18 14:29 17:02 Temperature 101.8 F H 98 F Pulse Rate 80 69 Respiratory 18 18 Rate Blood Pressure 147/66 129/56 O2 Sat by Pulse 97 95 Oximetry Procedures - Joint Aspiration/Injection Consent Obtained: verbal consent Time Out Performed: Yes Indications: R/O septic arthritis Side of Body: left Joint Aspirated: knee Ultrasound Guidance: No Skin Prep: Povidone-Iodine1% Local Anesthesia Used: Lidocaine 1% Amount of Anesthesia Used (mLs): 7 Needle Size Used: 18G Syringe Size Used: 20cc Fluid Obtained: purulent Total Fluid Obtained (mls): 90 Patient Tolerated Procedure: well Complications: none <Marcos Meehan - Last Filed: 02/05/18 17:59> Medical Decision Making <Melvin Valles - Last Filed: 02/05/18 14:42> - Lab Data Result diagrams: 02/05/18 14:30 02/05/18 14:30 <Marcos Meehan - Last Filed: 02/05/18 17:59> - Medical Decision Making 82-year-old male presenting for evaluation of pain and swelling in the left knee. Patient is febrile with large joint effusion on the left. Elevated white blood cell count, elevated CRP. X-ray shows large joint effusion. Arthrocentesis is performed, results are pending at this time. Additional workup for fever is negative and clean chest x-ray and urinalysis. Patient is started on antibiotics after joint aspiration including ceftriaxone and vancomycin. Case discussed with orthopedics on-call Dr. Millan, patient will be taken to the operating room for washout. Cell count, culture, Gram stain,And crystals are pending. (Marcos Meehan) - Lab Data Lab Results 02/05/18 02/05/18 02/05/18 Range/Units 14:30 14:30 14:30 WBC 14.6 H (3.8-10.6) k/uL RBC 3.92 L (4.30-5.90) m/uL Hgb 10.8 L (13.0-17.5) gm/dL Hct 32.6 L (39.0-53.0) % MCV 83.1 (80.0-100.0) fL MCH 27.6 (25.0-35.0) pg MCHC 33.1 (31.0-37.0) g/dL RDW 14.9 (11.5-15.5) % Plt Count 261 (150-450) k/uL Neutrophils % 89 % Lymphocytes % 5 % Monocytes % 6 % Eosinophils % 0 % Basophils % 0 % Neutrophils # 12.9 H (1.3-7.7) k/uL Lymphocytes # 0.7 L (1.0-4.8) k/uL Monocytes # 0.8 (0-1.0) k/uL Eosinophils # 0.0 (0-0.7) k/uL Basophils # 0.0 (0-0.2) k/uL PT (9.0-12.0) sec INR (<1.2) APTT (22.0-30.0) sec Sodium 140 (137-145) mmol/L Potassium 3.4 L (3.5-5.1) mmol/L Chloride 105 (98-107) mmol/L Carbon Dioxide 24 (22-30) mmol/L Anion Gap 11 mmol/L BUN 17 (9-20) mg/dL Creatinine 1.20 (0.66-1.25) mg/dL Est GFR (CKD-EPI)AfAm 66 (>60 ml/min/1.73 sqM) Est GFR (CKD-EPI)NonAf 57 (>60 ml/min/1.73 sqM) Glucose 81 (74-99) mg/dL Plasma Lactic Acid [place]ilo 1.4 (0.7-2.0) mmol/L Uric Acid 4.0 (3.5-8.5) mg/dL Calcium 8.2 L (8.4-10.2) mg/dL Total Bilirubin 0.5 (0.2-1.3) mg/dL AST 22 (17-59) U/L ALT 21 (21-72) U/L Alkaline Phosphatase 62 (38-126) U/L C-Reactive Protein 84.4 H (<10.0) mg/L Total Protein 5.8 L (6.3-8.2) g/dL Albumin 3.2 L (3.5-5.0) g/dL Urine Color Urine Appearance (Clear) Urine pH (5.0-8.0) Ur Specific [place] (1.001-1.035) Urine Protein (Negative) Urine Glucose (UA) (Negative) Urine Ketones (Negative) Urine Blood (Negative) Urine Nitrite (Negative) Urine Bilirubin (Negative) Urine Urobilinogen (<2.0) mg/dL Ur Leukocyte Esterase (Negative) Urine RBC (0-5) /hpf Urine WBC (0-5) /hpf Hyaline Casts (0-2) /lpf Urine Mucus (None) /hpf 02/05/18 02/05/18 Range/Units 14:30 17:02 WBC (3.8-10.6) k/uL RBC (4.30-5.90) m/uL Hgb (13.0-17.5) gm/dL Hct (39.0-53.0) % MCV (80.0-100.0) fL MCH (25.0-35.0) pg MCHC (31.0-37.0) g/dL RDW (11.5-15.5) % Plt Count (150-450) k/uL Neutrophils % % Lymphocytes % % Monocytes % % Eosinophils % % Basophils % % Neutrophils # (1.3-7.7) k/uL Lymphocytes # (1.0-4.8) k/uL Monocytes # (0-1.0) k/uL Eosinophils # (0-0.7) k/uL Basophils # (0-0.2) k/uL PT 10.7 (9.0-12.0) sec INR 1.1 (<1.2) APTT 20.5 L (22.0-30.0) sec Sodium (137-145) mmol/L Potassium (3.5-5.1) mmol/L Chloride (98-107) mmol/L Carbon Dioxide (22-30) mmol/L Anion Gap mmol/L BUN (9-20) mg/dL Creatinine (0.66-1.25) mg/dL Est GFR (CKD-EPI)AfAm (>60 ml/min/1.73 sqM) Est GFR (CKD-EPI)NonAf (>60 ml/min/1.73 sqM) Glucose (74-99) mg/dL Plasma Lactic Acid [place]ilo (0.7-2.0) mmol/L Uric Acid (3.5-8.5) mg/dL Calcium (8.4-10.2) mg/dL Total Bilirubin (0.2-1.3) mg/dL AST (17-59) U/L ALT (21-72) U/L Alkaline Phosphatase (38-126) U/L C-Reactive Protein (<10.0) mg/L Total Protein (6.3-8.2) g/dL Albumin (3.5-5.0) g/dL Urine Color Yellow Urine Appearance Clear (Clear) Urine pH 6.5 (5.0-8.0) Ur Specific [place] 1.015 (1.001-1.035) Urine Protein 1+ H (Negative) Urine Glucose (UA) Negative (Negative) Urine Ketones Trace H (Negative) Urine Blood Negative (Negative) Urine Nitrite Negative (Negative) Urine Bilirubin Negative (Negative) Urine Urobilinogen <2.0 (<2.0) mg/dL Ur Leukocyte Esterase Negative (Negative) Urine RBC 3 (0-5) /hpf Urine WBC 1 (0-5) /hpf Hyaline Casts 1 (0-2) /lpf Urine Mucus Occasional H (None) /hpf Disposition <Melvin Valles - Last Filed: 02/05/18 14:42> Is patient prescribed a controlled substance at d/c from ED?: No Decision to Admit Reason: Admit from EC Decision Date: 02/05/18 Decision Time: 16:00 <Marcos Meehan - Last Filed: 02/05/18 17:59> Clinical Impression: Septic arthritis Disposition: ADMITTED IP TO THIS HOSP Condition: Stable Referrals: Nonstaff,Physician [REFERRING] - 1-2 days
[2018-02-05 14:47] LABS: Basophils % (A) 0 %; Eosinophils % (A) 0 %; HCT 32.6 % (39.0-53.0); HGB 10.8 gm/dL (13.0-17.5); Lymphocytes # (A) 0.7 k/uL (1.0-4.8); Lymphocytes % (A) 5 %; MCH 27.6 pg (25.0-35.0); MCHC 33.1 g/dL (31.0-37.0); MCV 83.1 fL (80.0-100.0); Mean Platelet Volume 6.4; Monocytes # (A) 0.8 k/uL (0-1.0); Monocytes % (A) 6 %; Neutrophils # (A) 12.9 k/uL (1.3-7.7); Neutrophils % (A) 89 %; Platelet Count 261 k/uL (150-450); RBC 3.92 m/uL (4.30-5.90); RDW 14.9 % (11.5-15.5); WBC 14.6 k/uL (3.8-10.6)
[2018-02-05 14:56] LABS: Albumin 3.2 g/dL (3.5-5.0); C Reactive Protein 84.4 mg/L (<10.0); Calcium 8.2 mg/dL (8.4-10.2); Potassium 3.4 mmol/L (3.5-5.1); Total Bilirubin 0.5 mg/dL (0.2-1.3); Total Protein 5.8 g/dL (6.3-8.2)
--- NOTE | 2018-02-05 15:00 | XR ---
EXAMINATION TYPE: XR knee complete LT DATE OF EXAM: 02/05/2018 COMPARISON: NONE HISTORY: 82-year-old male with left knee swelling, pain TECHNIQUE: 3 views FINDINGS: [id number] tricompartmental degenerative spurring. There is a large knee joint effusion and sug gestion of some synovial calcifications in the suprapatellar pouch. Extensor mechanism itself appears intact. No acute fracture, subluxation, or dislocation seen. IMPRESSION: 1. Large knee joint effusion. If concern for internal derangement, MRI can be performed. Given the pr esence of calcifications in the suprapatellar pouch, gout is an additional consideration. Arthrocente sis can be considered for this or other possible infectious/inflammatory etiologies as clinically ind icated. 2. No acute osseous abnormality seen. [id number] tricompartmental osteoarthrosis.
[2018-02-05 15:01] LABS: INR 1.1 (<1.2); Prothrombin Time 10.7 sec (9.0-12.0)
[2018-02-05 15:03] LABS: Partial Thromboplastin Time 20.5 sec (22.0-30.0)
[2018-02-05] MEDS ORDERED: LIDOCAINE 1% INJ 10MG/ML (20 ML MDV) SQ ONE (15:42)
--- NOTE | 2018-02-05 16:05 | US ---
EXAMINATION TYPE: US venous doppler duplex LE LT DATE OF EXAM: 02/05/2018 3:58 PM COMPARISON: NONE CLINICAL HISTORY: 82-year-old male Pain. Left knee pain. Large amount of edema left knee noticed 2 da ys ago SIDE PERFORMED: Left TECHNIQUE: The lower extremity deep venous system is examined utilizing real time linear array sonog maddison with graded compression, doppler sonography and color-flow sonography. FINDINGS: VESSELS IMAGED: External Iliac Vein (EIV) Common Femoral Vein Deep Femoral Vein Greater Saphenous Vein * Femoral Vein Popliteal Vein Small Saphenous Vein * Proximal Calf Veins (* superficial vessels) Left Leg: No evidence of DVT IMPRESSION: No evidence for DVT within the left lower extremity imaged from the groin to the upper calf.
[2018-02-05] MEDS ORDERED: cefTRIAXone IN SWFI 2,000 MG/20 ML SYRINGE IVP STA (16:11)
[2018-02-05] MEDS ORDERED: VANCOMYCIN IV PER PHARMACY 1 EACH MISC MISCELLANE PRN (16:11)
[2018-02-05] MEDS ORDERED: VANCOMYCIN 1,500 MG in SODIUM CHLORIDE 0.9% 250 ML IVPB STA (16:17)
--- NOTE | 2018-02-05 17:08 | XR ---
EXAMINATION TYPE: XR chest 2V DATE OF EXAM: 02/05/2018 COMPARISON: None HISTORY: 82-year-old male with left leg swelling and pain TECHNIQUE: AP and lateral views FINDINGS: Heart borderline enlarged. Mild elongation/ectasia of the thoracic aorta. Mild interstitial prominenc e mid part be chronic. No consolidation or pleural effusion seen. ACDF hardware. IMPRESSION: 1. Borderline heart size. 2. Interstitial changes may in part be chronic. Correlate for possible bronchitis or asthma.
[2018-02-05 17:18] LABS: Appearance,Urine Clear (Clear); Bilirubin,Urine Negative (Negative); Blood,Urine Negative (Negative); Color,Urine Yellow; Glucose,Urine (UA) Negative (Negative); Hyaline Casts,Urine 1 /lpf (0-2); Ketones,Urine Trace (Negative); Leukocyte Esterase,Urine Negative (Negative); Mucus,Urine Occasional /hpf; Nitrite,Urine Negative (Negative); PH, Urine 6.5 (5.0-8.0); Protein,Urine 1+ (Negative); RBC,Urine 3 /hpf (0-5); Specific Gravity,Urine 1.015 (1.001-1.035); Urobilinogen,Urine <2.0 mg/dL (<2.0); WBC,Urine 1 /hpf (0-5)
[2018-02-05] MEDS ORDERED: NALOXONE 0.4 MG/ML 1 ML VIAL IV PRN (17:56)
[2018-02-05 18:11] LABS: Appearance,BF Cloudy; Color,BF Yellow; Nucleated Cells, Body Fluid 37700 /uL; RBC, Body Fluid 50 /uL
[2018-02-05 18:12] LABS: Mononuclear WBC,Body Fluid 9 %; Polynuclear WBC,Body Fluid 91 %; Total Cells Counted,Body Fluid 100
[2018-02-05] MEDS ORDERED: DEXTROSE 50%-WATER 50 ML SYRINGE IVP ONE (19:12)
[2018-02-05 19:14] LABS: Glucose,Whole Blood 48 mg/dL (75-99)
[2018-02-05 19:15] LABS: Glucose,Whole Blood 48 mg/dL (75-99)
[2018-02-05] MEDS ORDERED: DEXTROSE 50%-WATER 50 ML SYRINGE IVP STA (19:15)
[2018-02-05] MEDS ORDERED: MIDAZOLAM 2 MG/2 ML VIAL ONE (19:42)
[2018-02-05] MEDS ORDERED: fentaNYL (PF) 50 MCG/ML 2 ML AMP ONE (19:42)
[2018-02-05] MEDS ORDERED: SUCCINYLCHOLINE CHLORIDE 100 MG/5 ML SYR IV ONE (19:42)
[2018-02-05] MEDS ORDERED: LIDOCAINE 1% INJ 10MG/ML (20 ML MDV) ONE (19:42)
[2018-02-05] MEDS ORDERED: ePHEDrine SULFATE/0.9% NACL/PF 50 MG/5 ML SYRINGE IV ONE (19:42)
[2018-02-05] MEDS ORDERED: PROPOFOL 10 MG/ML 20 ML VIAL IV ONE (19:42)
--- NOTE | 2018-02-05 19:47 | P.HPOR ---
History of Present Illness H&P Date: 02/05/18 Chief Complaint: Left knee infection Mr. Bauer is an 82-year-old insulin-dependent diabetic male who over the past 24-48 hours as developed increasing left knee redness, swelling, pain, and fever. He presented to the emergency room and I was consulted for further evaluation and management. A tap of his knee showed nearly 40,000 white blood cells with 91 percent neutrophils. Culture has been submitted but is obviously pending. Considering his presentation, I feel that he has an active left knee joint sepsis. Review of Systems Positive for recent fever of 102, sugars are well controlled, no chest pain or shortness of breath, unable to bend knee and significant swelling and pain to left knee Past Medical History Past Medical History: Diabetes Mellitus History of Any Multi-Drug Resistant Organisms: None Reported Past Surgical History: No Surgical Hx Reported Past Anesthesia/Blood Transfusion Reactions: No Reported Reaction Past Psychological History: No Psychological Hx Reported Smoking Status: Never smoker Past Alcohol Use History: None Reported Past Drug Use History: None Reported - Past Family History Daughter(s) Family Medical History: No Reported History Son(s) Family Medical History: No Reported History Medications and Allergies Home Medications Medication Instructions Recorded Confirmed Type Insuln Asp Prt/Insulin Aspart 15 units SQ AC-SUPPER 02/01/18 02/05/18 History [NovoLOG MIX 70-30 VIAL] Insuln Asp Prt/Insulin Aspart 30 units SQ AC-BRKFST 02/01/18 02/05/18 History [NovoLOG MIX 70-30 VIAL] Simvastatin 40 mg PO HS 02/01/18 02/05/18 History traZODone HCL 100 mg PO HS 02/01/18 02/05/18 History Omeprazole [PriLOSEC] 40 mg PO AC-BRKFST #30 capsule. 02/02/18 02/05/18 Rx Allergies Allergy/AdvReac Type Severity Reaction Status Date / Time No Known Allergies Allergy Verified 02/05/18 17:08 Physical Examination Exam is limited to the left lower extremity. He has a large effusion of the left knee, the knee is swollen, and tender to touch with slight warmth. Redness is minimal. He is able to only bend the knee to approximately 10 before significant pain occurs. He cannot bear weight on that left knee. Ligaments are stable. Distal neurovascular exam is normal. Results As above, show a left knee fluid from aspiration yielding 37,700 white blood cells with 91% neutrophils. - Labs Labs: Abnormal Lab Results - Last 24 Hours (Table) 02/05/18 02/05/18 02/05/18 Range/Units 14:30 14:30 14:30 WBC 14.6 H (3.8-10.6) k/uL RBC 3.92 L (4.30-5.90) m/uL Hgb 10.8 L (13.0-17.5) gm/dL Hct 32.6 L (39.0-53.0) % Neutrophils # 12.9 H (1.3-7.7) k/uL Lymphocytes # 0.7 L (1.0-4.8) k/uL APTT 20.5 L (22.0-30.0) sec Potassium 3.4 L (3.5-5.1) mmol/L POC Glucose (mg/dL) (75-99) mg/dL Calcium 8.2 L (8.4-10.2) mg/dL C-Reactive Protein 84.4 H (<10.0) mg/L Total Protein 5.8 L (6.3-8.2) g/dL Albumin 3.2 L (3.5-5.0) g/dL Urine Protein (Negative) Urine Ketones (Negative) Urine Mucus (None) /hpf 02/05/18 02/05/18 02/05/18 Range/Units 17:02 19:11 19:13 WBC (3.8-10.6) k/uL RBC (4.30-5.90) m/uL Hgb (13.0-17.5) gm/dL Hct (39.0-53.0) % Neutrophils # (1.3-7.7) k/uL Lymphocytes # (1.0-4.8) k/uL APTT (22.0-30.0) sec Potassium (3.5-5.1) mmol/L POC Glucose (mg/dL) 48 L 48 L (75-99) mg/dL Calcium (8.4-10.2) mg/dL C-Reactive Protein (<10.0) mg/L Total Protein (6.3-8.2) g/dL Albumin (3.5-5.0) g/dL Urine Protein 1+ H (Negative) Urine Ketones Trace H (Negative) Urine Mucus Occasional H (None) /hpf H & H 02/05/18 Range/Units 14:30 Hgb 10.8 L (13.0-17.5) gm/dL Hct 32.6 L (39.0-53.0) % Coagulation 02/05/18 Range/Units 14:30 INR 1.1 (<1.2) Result Diagrams: 02/05/18 14:30 02/05/18 14:30 - Diagnostic results Knee x-ray: report reviewed, image reviewed Assessment and Plan Assessment: #1 left knee septic arthritis #2 insulin-dependent diabetes mellitus (1) Septic arthritis Narrative/Plan: I have spoken to the patient about the seriousness of this problem and recommended operative intervention. He agrees to proceed and I have described the procedure of arthroscopic irrigation and debridement of the left knee with drain placement in detail. I discussed the steps of the procedure as well as potential risks and Locations as being inclusive of, but not limited to: Bleeding, infection, scarring, discomfort, blood vessel and/or nerve damage, recurrence of the infection, failure to relieve problem, joint distraction due to septic arthritis, osteomyelitis, knee arthrofibrosis or stiffness, inability to walk on the knee, possible need for amputation, loss of life, and other risks. The patient is aware these risks and wishes to proceed with surgery. The consent form has been signed. Current Visit: Yes Status: Acute Code(s): M00.9 - PYOGENIC ARTHRITIS, UNSPECIFIED SNOMED Code(s): 752650547
[2018-02-05] MEDS ORDERED: ceFAZolin 3,000 MG in SODIUM CHLORIDE 0.9% IRRIGATIO 3,000 ML IRRIGATION ONE (20:19)
[2018-02-05 20:51] LABS: Glucose,Whole Blood 132 mg/dL (75-99)
[2018-02-05] MEDS ORDERED: SODIUM CHLORIDE 0.9% 1,000 ML IV ONE (21:00)
[2018-02-05] MEDS: SODIUM CHLORIDE 0.9% 1,000 ML IV SCH (21:31)
--- NOTE | 2018-02-05 22:41 | P.OP ---
Date of Procedure: 02/05/18 Procedure(s) Performed: PREOPERATIVE DIAGNOSES: 1. Left knee septic arthritis POSTOPERATIVE DIAGNOSES: 1. Left knee septic arthritis 2. Positive Insulin dependent diabetes PROCEDURES PERFORMED: 1. Left knee arthroscopic irrigation and debridement (lavage with 3 L normal saline) 2. Left knee Arthroscopic drain placement, Hemovac ANESTHESIA: Gen. POLICEMAN: None COMPLICATIONS: None ESTIMATED BLOOD LOSS: Minimal DISPOSITION: To post-anesthesia care unit INDICATIONS: Mr. Bauer is an 82-year-old male who has unfortunately come down with a case of septic arthritis of his left knee. He presents to the operating today for arthroscopic irrigation and debridement. I discussed with him the steps of the procedure and potential risks and complications as documented in my preoperative note. His questions were answered and he has signed a consent form.. PROCEDURE: After appropriate consent was obtained, the patient was taken to the operating room placed in the supine position. Anesthesia was initiated, and after confirmation of adequate anesthesia, the patient was carefully positioned. Care was taken to make sure that all pressure points were adequately padded. Prepping and draping were completed in the usual aseptic fashion using ChloraPrep. Timeout was called, confirming patient identity, side , procedure, and no antibiotics were administered prior to repeat culture. Pneumo tourniquet was used high on the thigh, and the leg was gently exsanguinated using gravity and the tourniquet was inflated to 300 millimeters mercury. Standard anterior lateral and anterior medial portals were created at the joint line and camera and instrument were inserted into the joint. Gross pus was able to be seen and cultures were taken through the portal. The knee was first drained of fluid arthroscopically and then filled with the arthroscopic normal saline fluid. Visualization of structures took place uneventfully. Noted were: Grade IV arthrosis patellofemoral joint; Grade IV arthrosis medial compartment; Grade III arthrosis lateral compartment; mild synovitis throughout; ACL/PCL normal for age; medial meniscus and lateral meniscus with degenerative changes but no significant unstable tears seen. Approximately 3 liters of normal saline containing 1 gram per liter Cefazolin was circulated throughout the knee for lavage. Partial synovectomy was performed with a shaver mainly in the patellofemoral compartment and suprapatellar pouch. Appearance of the knee was improved. A drain was placed and emerged laterally, connected to suction cannister. Drain stitch was applied. Portals closed with 4-0 monocryl suture and steristrips. Sterile dressing was applied. Patient tolerated the procedure well and taken to recovery room in stable condition. Sponge and needle counts were correct.
[2018-02-06] MEDS ORDERED: MORPHINE SULFATE 2 MG/ML SYRINGE IVP PRN (03:28)
[2018-02-06] MEDS ORDERED: HYDROcodone/APAP 5-325MG 1 EACH TAB PO PRN (03:30)
[2018-02-06] MEDS: HYDROcodone/APAP 5-325MG 1 EACH TAB PO PRN ×4 (03:52→21:29)
[2018-02-06 06:59] LABS: Glucose,Whole Blood 122 mg/dL (75-99)
--- NOTE | 2018-02-06 08:37 | P.PN ---
Subjective Progress Note Date: 02/06/18 Principal diagnosis: Septic arthritis left knee S/p I & D left knee Patient is post op day 1 s/p I & D left knee. Patient has been afebrile since last night. He complains of decreased strength of the left leg. Objective - Vital Signs Vital signs: Vital Signs Temp 98.3 F 02/06/18 07:07 Pulse 73 02/06/18 07:07 Resp 19 02/06/18 07:07 BP 137/68 02/06/18 07:07 Pulse Ox 97 02/06/18 07:07 Intake & Output 02/05/18 02/06/18 02/06/18 18:59 06:59 18:59 Intake Total 400 1301 Output Total 708 Balance 400 593 Weight 88.451 kg Intake: IV 400 51 Intake, IV Titration 1000 Amount Sodium Chloride 0.9% 1, 750 000 ml @ 75 mls/hr IV . [id number] [facility] Rx#:[id number] Vancomycin 1,500 mg In 250 Sodium Chloride 0.9% 250 ml @ 125 mls/hr IVPB Q16H [facility] Rx#:[id number] Oral 250 Output: Drainage 30 Left Knee 30 Urine 675 Estimated Blood Loss 3 Other: Voiding Method Urinal # Voids 3 - Exam 82 yo M lying in bed. Drains and surgical dressings in place. Dressing in clean , dry, intact. Blood present in drain. - Labs CBC & Chem 7: 02/05/18 14:30 02/05/18 14:30 Labs: Abnormal Lab Results - Last 24 Hours (Table) 02/05/18 02/05/18 02/05/18 Range/Units 14:30 14:30 14:30 WBC 14.6 H (3.8-10.6) k/uL RBC 3.92 L (4.30-5.90) m/uL Hgb 10.8 L (13.0-17.5) gm/dL Hct 32.6 L (39.0-53.0) % Neutrophils # 12.9 H (1.3-7.7) k/uL Lymphocytes # 0.7 L (1.0-4.8) k/uL APTT 20.5 L (22.0-30.0) sec Potassium 3.4 L (3.5-5.1) mmol/L POC Glucose (mg/dL) (75-99) mg/dL Calcium 8.2 L (8.4-10.2) mg/dL C-Reactive Protein 84.4 H (<10.0) mg/L Total Protein 5.8 L (6.3-8.2) g/dL Albumin 3.2 L (3.5-5.0) g/dL Urine Protein (Negative) Urine Ketones (Negative) Urine Mucus (None) /hpf 02/05/18 02/05/18 02/05/18 Range/Units 17:02 19:11 19:13 WBC (3.8-10.6) k/uL RBC (4.30-5.90) m/uL Hgb (13.0-17.5) gm/dL Hct (39.0-53.0) % Neutrophils # (1.3-7.7) k/uL Lymphocytes # (1.0-4.8) k/uL APTT (22.0-30.0) sec Potassium (3.5-5.1) mmol/L POC Glucose (mg/dL) 48 L 48 L (75-99) mg/dL Calcium (8.4-10.2) mg/dL C-Reactive Protein (<10.0) mg/L Total Protein (6.3-8.2) g/dL Albumin (3.5-5.0) g/dL Urine Protein 1+ H (Negative) Urine Ketones Trace H (Negative) Urine Mucus Occasional H (None) /hpf 02/05/18 02/06/18 Range/Units 20:49 06:45 WBC (3.8-10.6) k/uL RBC (4.30-5.90) m/uL Hgb (13.0-17.5) gm/dL Hct (39.0-53.0) % Neutrophils # (1.3-7.7) k/uL Lymphocytes # (1.0-4.8) k/uL APTT (22.0-30.0) sec Potassium (3.5-5.1) mmol/L POC Glucose (mg/dL) 132 H 122 H (75-99) mg/dL Calcium (8.4-10.2) mg/dL C-Reactive Protein (<10.0) mg/L Total Protein (6.3-8.2) g/dL Albumin (3.5-5.0) g/dL Urine Protein (Negative) Urine Ketones (Negative) Urine Mucus (None) /hpf Microbiology - Last 24 Hours (Table) 02/05/18 16:21 Gram Stain - Preliminary Knee - Left Body Fluid Culture - Preliminary Assessment and Plan (1) Septic arthritis Current Visit: Yes Status: Acute Code(s): M00.9 - PYOGENIC ARTHRITIS, UNSPECIFIED SNOMED Code(s): 536942410 Plan: Keep dressings intact, keep drain in place today. Continue IV antibiotics, infectious disease consult placed. Will change antibiotics if recommended.
[2018-02-06] MEDS: INSULIN ASPART 100 UNIT/ML 1 ML 10 ML VIAL SQ SCH ×4 (09:16→20:48)
[2018-02-06] MEDS: cefTRIAXone IN SWFI 2,000 MG/20 ML SYRINGE IVP SCH (09:23)
[2018-02-06] MEDS: VANCOMYCIN 1,500 MG in SODIUM CHLORIDE 0.9% 250 ML IVPB SCH (09:30)
[2018-02-06] MEDS: SODIUM CHLORIDE 0.9% 1,000 ML IV SCH ×2 (09:30→20:44)
--- NOTE | 2018-02-06 09:32 | P.CONS ---
History of Present Illness - Reason for Consult Consult date: 02/06/18 Antibiotic recommendations - History of Present Illness This is an 82-year-old male patient gives history of sudden onset of pain to his left knee with redness swelling. He denies any injury, fall or overuse to the knee. He came into [facility] emergency center for evaluation. Venous Doppler study was negative for DVT. X-ray of the left knee showed a large knee joint effusion. Calcifications in the suprapatellar pouch, gout is additional consideration. No acute osseous abnormality seen. 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 White count was 14.6 with fever of 101.8, CRP 84. Patient has been admitted to the hospital in the care of Dr. Millan and on February 05 patient underwent I&D and lavage with Hemovac placement to the left knee. Synovial fluid was cloudy, RBC 50, nucleated cells 37,700, Eliane nuclear WBCs 91, mononuclear WBCs 9. Culture is showing rare gram -positive cocci. He is on IV antibiotics in form of Zosyn and vancomycin. Patient has been nonweightbearing. He states he has significant pain in his knee when he tries to move in bed. He complains of weakness to the lower extremity. Review of Systems All systems: negative Constitutional: Reports chills, Reports fever, Denies anorexia, Denies fatigue, Denies poor appetite Eyes: denies blurred vision, denies pain Ears, nose, mouth and throat: Denies headache, Denies sore throat Cardiovascular: Denies chest pain, Denies lightheadedness, Denies shortness of breath, Denies syncope Respiratory: Denies cough, Denies cough with sputum, Denies dyspnea, Denies excessive sputum, Denies hemoptysis, Denies wheezing Gastrointestinal: Denies abdominal pain, Denies diarrhea, Denies loss of appetite, Denies nausea, Denies vomiting Genitourinary: Denies dysuria Musculoskeletal: Denies frequent falls, Denies gait dysfunction, Denies myalgias Musculoskeletal: left: knee pain, knee stiffness, knee swelling Integumentary: Denies pruritus, Denies rash Neurological: Denies numbness, Denies weakness Psychiatric: Denies anxiety, Denies depression Endocrine: Denies fatigue, Denies weight change Past Medical History Past Medical History: Diabetes Mellitus History of Any Multi-Drug Resistant Organisms: None Reported Past Surgical History: No Surgical Hx Reported Additional Past Surgical History / Comment(s): 01/2018 left knee arthroscopic irrigation and debridement Past Anesthesia/Blood Transfusion Reactions: No Reported Reaction Past Psychological History: No Psychological Hx Reported Smoking Status: Never smoker Past Alcohol Use History: None Reported Additional Past Alcohol Use History / Comment(s): Patient is a lifelong nonsmoker. He denies any illicit drug use or alcohol use. 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 His second one year ago. His grandson, his grandson's and daughter along with a dog live with him. He spends sprague in [place]. Past Drug Use History: None Reported - Past Family History Daughter(s) Family Medical History: No Reported History Son(s) Family Medical History: No Reported History Medications and Allergies Home Medications Medication Instructions Recorded Confirmed Type Insuln Asp Prt/Insulin Aspart 15 units SQ AC-SUPPER 02/01/18 02/05/18 History [NovoLOG MIX 70-30 VIAL] Insuln Asp Prt/Insulin Aspart 30 units SQ AC-BRKFST 02/01/18 02/05/18 History [NovoLOG MIX 70-30 VIAL] Simvastatin 40 mg PO HS 02/01/18 02/05/18 History traZODone HCL 100 mg PO HS 02/01/18 02/05/18 History Omeprazole [PriLOSEC] 40 mg PO AC-BRKFST #30 capsule. 02/02/18 02/05/18 Rx Allergies Allergy/AdvReac Type Severity Reaction Status Date / Time No Known Allergies Allergy Verified 02/05/18 17:08 Physical Exam Vitals: Vital Signs Temp Pulse Pulse Pulse Pulse Resp BP 02/06/18 07:07 98.3 F 73 19 02/06/18 00:15 16 02/05/18 23:53 98.4 F 74 16 02/05/18 22:55 70 02/05/18 22:40 78 02/05/18 22:25 73 02/05/18 22:10 64 02/05/18 21:55 67 02/05/18 21:40 69 02/05/18 21:25 97.8 F 71 16 02/05/18 21:15 71 16 02/05/18 21:00 69 17 02/05/18 20:55 71 16 02/05/18 20:49 16 02/05/18 20:44 97.2 F L 79 18 02/05/18 19:10 98.2 F 65 16 02/05/18 18:25 97.9 F 69 18 156/69 02/05/18 18:08 16 02/05/18 17:02 98 F 69 18 129/56 02/05/18 14:29 101.8 F H 80 18 147/66 BP Pulse Ox 02/06/18 07:07 137/68 97 02/06/18 00:15 02/05/18 23:53 162/80 99 02/05/18 22:55 158/77 02/05/18 22:40 160/74 02/05/18 22:25 157/78 02/05/18 22:10 137/74 02/05/18 21:55 152/75 02/05/18 21:40 154/76 02/05/18 21:25 155/71 97 02/05/18 21:15 158/84 97 02/05/18 21:00 159/83 100 02/05/18 20:55 02/05/18 20:49 99 02/05/18 20:44 156/73 95 02/05/18 19:10 157/75 98 02/05/18 18:25 97 02/05/18 18:08 02/05/18 17:02 95 02/05/18 14:29 97 Intake and Output 02/05/18 02/06/18 02/06/18 22:59 06:59 14:59 Intake Total 501 800 Output Total 253 455 Balance 248 345 Intake: IV 51 Intake, IV Titration 400 600 Amount Sodium Chloride 0.9% 1, 150 600 000 ml @ 75 mls/hr IV . [id number] [facility] Rx#:[id number] Vancomycin 1,500 mg In 250 Sodium Chloride 0.9% 250 ml @ 125 mls/hr IVPB Q16H [facility] Rx#:[id number] Oral 50 200 Output: Drainage 30 Left Knee 30 Urine 250 425 Estimated Blood Loss 3 Other: Voiding Method Urinal # Voids 2 3 Gen: This is an 82-year-old male patient. He is in bed and appears to be comfortable and in no acute distress. HEENT: Head is atraumatic, normocephalic. Pupils equal, round. Sclerae is anicteric. Conjunctiva pink. Mucous members of the mouth are moist. NECK: Supple. No JVD. No lymphadenopathy. No thyromegaly. LUNGS: Clear to auscultation. No wheezes or rhonchi. No intercostal retractions. HEART: Regular rate and rhythm. No murmur. ABDOMEN: Soft. Bowel sounds are present. No masses. No tenderness. EXTREMITIES: No pedal edema. No calf tenderness. Dorsalis pedis is +2 bilaterally. Onychomycosis bilaterally. Large dressing in place to the left knee with Hemovac in place. NEUROLOGICAL: Patient is awake, alert and oriented x3. Cranial nerves 2 through 12 are grossly intact. Results Results: Laboratory Results WBC 14.6 k/uL (3.8-10.6) H 02/05/18 14:30 RBC 3.92 m/uL (4.30-5.90) L 02/05/18 14:30 Hgb 10.8 gm/dL (13.0-17.5) L 02/05/18 14:30 Hct 32.6 % (39.0-53.0) L 02/05/18 14:30 MCV 83.1 fL (80.0-100.0) 02/05/18 14:30 MCH 27.6 pg (25.0-35.0) 02/05/18 14:30 MCHC 33.1 g/dL (31.0-37.0) 02/05/18 14:30 RDW 14.9 % (11.5-15.5) 02/05/18 14:30 Plt Count 261 k/uL (150-450) 02/05/18 14:30 Neutrophils % 89 % 02/05/18 14:30 Lymphocytes % 5 % 02/05/18 14:30 Monocytes % 6 % 02/05/18 14:30 Eosinophils % 0 % 02/05/18 14:30 Basophils % 0 % 02/05/18 14:30 Neutrophils # 12.9 k/uL (1.3-7.7) H 02/05/18 14:30 Lymphocytes # 0.7 k/uL (1.0-4.8) L 02/05/18 14:30 Monocytes # 0.8 k/uL (0-1.0) 02/05/18 14:30 Eosinophils # 0.0 k/uL (0-0.7) 02/05/18 14:30 Basophils # 0.0 k/uL (0-0.2) 02/05/18 14:30 PT 10.7 sec (9.0-12.0) 02/05/18 14:30 INR 1.1 (<1.2) 02/05/18 14:30 APTT 20.5 sec (22.0-30.0) L 02/05/18 14:30 Sodium 140 mmol/L (137-145) 02/05/18 14:30 Potassium 3.4 mmol/L (3.5-5.1) L 02/05/18 14:30 Chloride 105 mmol/L (98-107) 02/05/18 14:30 Carbon Dioxide 24 mmol/L (22-30) 02/05/18 14:30 Anion Gap 11 mmol/L 02/05/18 14:30 BUN 17 mg/dL (9-20) 02/05/18 14:30 Creatinine 1.20 mg/dL (0.66-1.25) 02/05/18 14:30 Est GFR (CKD-EPI)AfAm 66 (>60 ml/min/1.73 sqM) 02/05/18 14:30 Est GFR (CKD-EPI)NonAf 57 (>60 ml/min/1.73 sqM) 02/05/18 14:30 Glucose 81 mg/dL (74-99) 02/05/18 14:30 POC Glucose (mg/dL) 122 mg/dL (75-99) H 02/06/18 06:45 POC Glu Nurse Practical LATONYA Rosie Blanco 02/06/18 06:45 Plasma Lactic Acid Shilo 1.4 mmol/L (0.7-2.0) 02/05/18 14:30 Uric Acid 4.0 mg/dL (3.5-8.5) 02/05/18 14:30 Calcium 8.2 mg/dL (8.4-10.2) L 02/05/18 14:30 Total Bilirubin 0.5 mg/dL (0.2-1.3) 02/05/18 14:30 AST 22 U/L (17-59) 02/05/18 14:30 ALT 21 U/L (21-72) 02/05/18 14:30 Alkaline Phosphatase 62 U/L (38-126) 02/05/18 14:30 C-Reactive Protein 84.4 mg/L (<10.0) H 02/05/18 14:30 Total Protein 5.8 g/dL (6.3-8.2) L 02/05/18 14:30 Albumin 3.2 g/dL (3.5-5.0) L 02/05/18 14:30 Urine Color Yellow 02/05/18 17:02 Urine Appearance Clear (Clear) 02/05/18 17:02 Urine pH 6.5 (5.0-8.0) 02/05/18 17:02 Ur Specific [place] 1.015 (1.001-1.035) 02/05/18 17:02 Urine Protein 1+ (Negative) H 02/05/18 17:02 Urine Glucose (UA) Negative (Negative) 02/05/18 17:02 Urine Ketones Trace (Negative) H 02/05/18 17:02 Urine Blood Negative (Negative) 02/05/18 17:02 Urine Nitrite Negative (Negative) 02/05/18 17:02 Urine Bilirubin Negative (Negative) 02/05/18 17:02 Urine Urobilinogen <2.0 mg/dL (<2.0) 02/05/18 17:02 Ur Leukocyte Esterase Negative (Negative) 02/05/18 17:02 Urine RBC 3 /hpf (0-5) 02/05/18 17:02 Urine WBC 1 /hpf (0-5) 02/05/18 17:02 Hyaline Casts 1 /lpf (0-2) 02/05/18 17:02 Urine Mucus Occasional /hpf (None) H 02/05/18 17:02 Fluid Source Synovial 02/05/18 16:21 Fluid Color Yellow 02/05/18 16:21 Fluid Appearance Cloudy 02/05/18 16:21 Fluid RBC 50 /uL 02/05/18 16:21 Fluid Nucleated Cells 60166 /uL 02/05/18 16:21 Fluid Polynuclear WBCs 91 % 02/05/18 16:21 Fluid Mononuclear WBCs 9 % 02/05/18 16:21 CBC & Chem 7: 02/05/18 14:30 02/05/18 14:30 Labs: Abnormal Lab Results - Last 24 Hours (Table) 02/05/18 02/05/18 02/05/18 Range/Units 14:30 14:30 14:30 WBC 14.6 H (3.8-10.6) k/uL RBC 3.92 L (4.30-5.90) m/uL Hgb 10.8 L (13.0-17.5) gm/dL Hct 32.6 L (39.0-53.0) % Neutrophils # 12.9 H (1.3-7.7) k/uL Lymphocytes # 0.7 L (1.0-4.8) k/uL APTT 20.5 L (22.0-30.0) sec Potassium 3.4 L (3.5-5.1) mmol/L POC Glucose (mg/dL) (75-99) mg/dL Calcium 8.2 L (8.4-10.2) mg/dL C-Reactive Protein 84.4 H (<10.0) mg/L Total Protein 5.8 L (6.3-8.2) g/dL Albumin 3.2 L (3.5-5.0) g/dL Urine Protein (Negative) Urine Ketones (Negative) Urine Mucus (None) /hpf 02/05/18 02/05/18 02/05/18 Range/Units 17:02 19:11 19:13 WBC (3.8-10.6) k/uL RBC (4.30-5.90) m/uL Hgb (13.0-17.5) gm/dL Hct (39.0-53.0) % Neutrophils # (1.3-7.7) k/uL Lymphocytes # (1.0-4.8) k/uL APTT (22.0-30.0) sec Potassium (3.5-5.1) mmol/L POC Glucose (mg/dL) 48 L 48 L (75-99) mg/dL Calcium (8.4-10.2) mg/dL C-Reactive Protein (<10.0) mg/L Total Protein (6.3-8.2) g/dL Albumin (3.5-5.0) g/dL Urine Protein 1+ H (Negative) Urine Ketones Trace H (Negative) Urine Mucus Occasional H (None) /hpf 02/05/18 02/06/18 Range/Units 20:49 06:45 WBC (3.8-10.6) k/uL RBC (4.30-5.90) m/uL Hgb (13.0-17.5) gm/dL Hct (39.0-53.0) % Neutrophils # (1.3-7.7) k/uL Lymphocytes # (1.0-4.8) k/uL APTT (22.0-30.0) sec Potassium (3.5-5.1) mmol/L POC Glucose (mg/dL) 132 H 122 H (75-99) mg/dL Calcium (8.4-10.2) mg/dL C-Reactive Protein (<10.0) mg/L Total Protein (6.3-8.2) g/dL Albumin (3.5-5.0) g/dL Urine Protein (Negative) Urine Ketones (Negative) Urine Mucus (None) /hpf Microbiology - Last 24 Hours (Table) 02/05/18 16:21 Gram Stain - Preliminary Knee - Left Body Fluid Culture - Preliminary Assessment and Plan Plan: This is an 82-year-old male patient who presents with septic arthritis with signs of sepsis with leukocytosis and fever. Patient is currently on antibiotics in form of Rocephin and vancomycin. Wound culture is in progress. Blood cultures status received. Hemoglobin A1c will be checked. Blood sugars have been uncontrolled. Continue supportive care. Further recommendations as patient progresses. The above dictated assessment and findings were discussed with Dr. Saez. The impression and plan of care have been directed as dictated. Lore Dawkins nurse practitioner acting as scribe for Dr. Saez.
[2018-02-06 11:35] LABS: Glucose,Whole Blood 342 mg/dL (75-99)
[2018-02-06 17:00] LABS: Glucose,Whole Blood 344 mg/dL (75-99)
[2018-02-06 20:07] LABS: Glucose,Whole Blood 309 mg/dL (75-99)
--- NOTE | 2018-02-06 21:10 | P.CON ---
Consult Note - . Consult date: 02/06/18 Assessment/Plan:: This is an 82-year-old male patient gives history of sudden onset of pain to his left knee with redness swelling. He denies any injury, fall or overuse to the knee. He came into [facility] emergency [facility] for evaluation. Venous Doppler study was negative for DVT. X-ray of the left knee showed a large knee joint effusion. Calcifications in the suprapatellar pouch, gout is additional consideration. No acute osseous abnormality seen. 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 White count was 14.6 with fever of 101.8, CRP 84. Patient has been admitted to the hospital in the care of Dr. Millan and on February 05 patient underwent I&D and lavage with Hemovac placement to the left knee. Synovial fluid was cloudy, RBC 50, nucleated cells 37,700, Eliane nuclear WBCs 91, mononuclear WBCs 9. Culture is showing rare gram -positive cocci. He is on IV antibiotics in form of Zosyn and vancomycin. Patient has been nonweightbearing. He states he has significant pain in his knee when he tries to move in bed. He complains of weakness to the lower extremity. Please see the consult as dictated by COIL CUTTER Yanick Lore Dawkins. This pleasant gentleman relates that he did have some changes of activity. 2 weddings and were out of town. Spent a good amount of time traveling to [place] in the [facility]. He was also quite active with these activities. Was after the second wedding that he started to have the swelling and discomfort to the left knee. Denies specific trauma but again was a marked increase of his baseline activity. He has noticed been taken the operating room and he has been aspirated and bacteria are being seen. The patient understands that he will require a course of outpatient intravenous antibiotic therapy for home IV antibiotic therapy at discharge. Is very independent gentleman and does not have desire to go to the extended care facility. He does have 2 adult children including his oldest son who lives close by would be able to assist if needed. The culture will help determine best possible choice of antibiotic therapy at discharge. Physical leukocytosis directly related to the septic arthritis of his left knee. 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 Pain is still problematic at this point in time. I agree with the evaluation assessment and plan as dictated by COIL CUTTER Mrs. Lore Dawkins.
[2018-02-07] MEDS: HYDROcodone/APAP 5-325MG 1 EACH TAB PO PRN ×6 (00:59→21:23)
[2018-02-07] MEDS: VANCOMYCIN 1,500 MG in SODIUM CHLORIDE 0.9% 250 ML IVPB SCH ×2 (01:36→17:44)
[2018-02-07 06:50] LABS: Glucose,Whole Blood 160 mg/dL (75-99)
[2018-02-07 08:03] LABS: Calcium 7.3 mg/dL (8.4-10.2); Potassium 3.8 mmol/L (3.5-5.1)
[2018-02-07] MEDS: INSULIN ASPART 100 UNIT/ML 1 ML 10 ML VIAL SQ SCH ×4 (08:12→20:19)
--- NOTE | 2018-02-07 09:36 | P.PN ---
Subjective Progress Note Date: 02/07/18 Principal diagnosis: Septic arthritis left knee S/p I & D left knee Patient is post op day 1 s/p I & D left knee. Patient has been afebrile. He complains of decreased strength of the left leg. Vital signs are stable. Objective - Vital Signs Vital signs: Vital Signs Temp 97.3 F L 02/07/18 08:05 Pulse 74 02/07/18 08:05 Resp 16 02/07/18 08:05 BP 150/68 02/07/18 08:05 Pulse Ox 97 02/07/18 00:33 Intake & Output 02/06/18 02/07/18 02/07/18 18:59 06:59 18:59 Output Total 400 770 Balance -400 -770 Output: Drainage 70 Left Knee 70 Urine 400 700 Other: Voiding Method Urinal - Exam This is a pleasant 82-year-old male in no acute distress. He is alert and oriented 3. Exam of left lower extremity reveals that his drain is intact. There is minimal erythema. He has a 1-2+ effusion. No active drainage from the portal sites. He has full foot and ankle motion without difficulty or pain. Neurovascular status to the lower extremity is intact. - Labs CBC & Chem 7: 02/05/18 14:30 02/07/18 07:29 Labs: Abnormal Lab Results - Last 24 Hours (Table) 02/05/18 02/06/18 02/06/18 Range/Units 14:30 11:32 16:54 Glucose (74-99) mg/dL POC Glucose (mg/dL) 342 H 344 H (75-99) mg/dL Hemoglobin A1c 10.0 H (4.0-6.0) % Calcium (8.4-10.2) mg/dL 02/06/18 02/07/18 02/07/18 Range/Units 20:00 06:43 07:29 Glucose 153 H (74-99) mg/dL POC Glucose (mg/dL) 309 H 160 H (75-99) mg/dL Hemoglobin A1c (4.0-6.0) % Calcium 7.3 L (8.4-10.2) mg/dL Microbiology - Last 24 Hours (Table) 02/05/18 20:35 Gram Stain - Preliminary Knee - Left Wound Culture - Preliminary 02/05/18 14:30 Blood Culture - Preliminary Blood No Growth after 24 hours 02/05/18 16:21 Gram Stain - Preliminary Knee - Left Body Fluid Culture - Preliminary 02/05/18 20:35 Anaerobic Culture - Preliminary Knee - Left Assessment and Plan (1) Septic arthritis Current Visit: Yes Status: Acute Code(s): M00.9 - PYOGENIC ARTHRITIS, UNSPECIFIED SNOMED Code(s): 966111109 Plan: Keep dressings intact, keep drain in place today. Continue IV antibiotics, infectious disease consult placed. Will change antibiotics if recommended.
[2018-02-07 11:35] LABS: Glucose,Whole Blood 235 mg/dL (75-99)
[2018-02-07] MEDS ORDERED: LIDOCAINE 1% INJ 10MG/ML (20 ML MDV) SQ ONE (13:20)
--- NOTE | 2018-02-07 14:28 | IR ---
EXAMINATION TYPE: IR cvc insert >=5 years DATE OF EXAM: 02/07/2018 COMPARISON: NONE CLINICAL HISTORY: Infection Needs long-term intravenous access for antibiotics. PROCEDURE: After informed consent, the skin overlying the left basilic vein was localized with ultrasound and no valentín to be compressible and patent. An ultrasound image was obtained and submitted on the patient's c riddle. The overlying skin was prepped and draped and Lidocaine was used for local anesthesia. A skin luis was made with a scalpel. Access was gained to the vein under ultrasound guidance with a 21 gau ge needle and a 0.018 inch wire was advanced. Access site was dilated with Peel-Away sheath and cath eter tailored to the appropriate length and advanced such that the distal tip is at the cavoatrial ju nction. Spot image was obtained verifying placement. Catheter was fixed to the skin and a sterile d ressing was placed following hemostasis. Catheter was aspirated and flushed with saline. Patient wa s discharged in stable condition without complication.Maximal barrier technique is utilized. Ultraso und image is documented on the chart. Ultrasound used with sterile technique. Fluoro time and fluoroscopic images submitted to document procedure: 66 intraoperative C-arm images, 0.3 minutes fluoroscopy time IMPRESSION: STATUS POST ULTRASOUND AND FLUOROSCOPIC GUIDED PICC LINE PLACEMENT, READY FOR USE. THIS PROCEDURE WAS PERFORMED BY THE UNDERSIGNED.
[2018-02-07] MEDS: cefTRIAXone IN SWFI 2,000 MG/20 ML SYRINGE IVP SCH (14:43)
[2018-02-07] MEDS: SODIUM CHLORIDE 0.9% 1,000 ML IV SCH (14:43)
[2018-02-07 15:07] VITALS: BMI 26.4
[2018-02-07 17:01] LABS: Glucose,Whole Blood 247 mg/dL (75-99)
[2018-02-07 19:52] LABS: Glucose,Whole Blood 237 mg/dL (75-99)
[2018-02-08] MEDS ORDERED: HYDROcodone/APAP 5-325MG 1 EACH TAB ONE (03:20)
[2018-02-08] MEDS: SODIUM CHLORIDE 0.9% 1,000 ML IV SCH ×2 (05:31→17:50)
--- NOTE | 2018-02-08 06:41 | P.PN ---
Subjective Progress Note Date: 02/07/18 This is an 82-year-old male patient gives history of sudden onset of pain to his left knee with redness swelling. He denies any injury, fall or overuse to the knee. He came into [facility] emergency center for evaluation. Venous Doppler study was negative for DVT. X-ray of the left knee showed a large knee joint effusion. Calcifications in the suprapatellar pouch, gout is additional consideration. No acute osseous abnormality seen. 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 White count was 14.6 with fever of 101.8, CRP 84. Patient has been admitted to the hospital in the care of Dr. Millan and on February 05 patient underwent I&D and lavage with Hemovac placement to the left knee. Synovial fluid was cloudy, RBC 50, nucleated cells 37,700, Polynuclear WBCs 91, mononuclear WBCs 9. Culture is showing rare gram- positive cocci. He is on IV antibiotics in form of Zosyn and vancomycin. Patient has been nonweightbearing. He states he has significant pain in his knee when he tries to move in bed. He complains of weakness to the lower extremity. 02/07/2018 patient is still feeling quite poorly with significant amount of pain into the left knee. Still has pain with any attempts for weight bearing, including his position in bed which causes the severe pain in the knee. He is not having significant fevers or chills. IV access became problematic and a PICC line has been placed. Objective - Vital Signs Vital signs: Vital Signs Temp 98.6 F 02/07/18 19:28 Pulse 75 02/07/18 19:28 Resp 16 02/07/18 19:28 BP 153/74 02/07/18 19:28 Pulse Ox 99 02/07/18 15:06 Intake & Output 02/07/18 02/07/18 02/08/18 06:59 18:59 06:59 Intake Total 600 Output Total 770 875 137 Balance -770 -875 -70 Weight 88.451 kg 88.451 kg Intake: Intake, IV Titration 600 Amount Sodium Chloride 0.9% 1, 600 000 ml @ 75 mls/hr IV . [id number] [facility] Rx#:[id number] Output: Drainage 70 75 20 Left Knee 70 75 20 Urine 700 800 650 Other: Voiding Method Urinal Urinal Urinal # Voids 1 1 - Exam Gen: This is an 82-year-old male patient. He is in bed and appears to be comfortable and in no acute distress. HEENT: Head is atraumatic, normocephalic. Pupils equal, round. Sclerae is anicteric. Conjunctiva pink. Mucous members of the mouth are moist. NECK: Supple. No JVD. No lymphadenopathy. No thyromegaly. LUNGS: Clear to auscultation. No wheezes or rhonchi. No intercostal retractions. HEART: Regular rate and rhythm. No murmur. ABDOMEN: Soft. Bowel sounds are present. No masses. No tenderness. EXTREMITIES: No pedal edema. No calf tenderness. Dorsalis pedis is +2 bilaterally. Onychomycosis bilaterally. Large dressing in place to the left knee with Hemovac in place. NEUROLOGICAL: Patient is awake, alert and oriented x3. - Labs CBC & Chem 7: 02/05/18 14:30 02/07/18 07:29 Labs: Abnormal Lab Results - Last 24 Hours (Table) 02/05/18 02/07/18 02/07/18 Range/Units 14:30 06:43 07:29 Glucose 153 H (74-99) mg/dL POC Glucose (mg/dL) 160 H (75-99) mg/dL Hemoglobin A1c 10.0 H (4.0-6.0) % Calcium 7.3 L (8.4-10.2) mg/dL 02/07/18 02/07/18 02/07/18 Range/Units 11:32 16:58 19:49 Glucose (74-99) mg/dL POC Glucose (mg/dL) 235 H 247 H 237 H (75-99) mg/dL Hemoglobin A1c (4.0-6.0) % Calcium (8.4-10.2) mg/dL Microbiology - Last 24 Hours (Table) 02/05/18 16:21 Gram Stain - Preliminary Knee - Left Body Fluid Culture - Preliminary 02/05/18 14:30 Blood Culture - Preliminary Blood No Growth after 48 hours 02/05/18 20:35 Gram Stain - Preliminary Knee - Left Wound Culture - Preliminary Laboratory Results WBC 14.6 k/uL (3.8-10.6) H 02/05/18 14:30 RBC 3.92 m/uL (4.30-5.90) L 02/05/18 14:30 Hgb 10.8 gm/dL (13.0-17.5) L 02/05/18 14:30 Hct 32.6 % (39.0-53.0) L 02/05/18 14:30 MCV 83.1 fL (80.0-100.0) 02/05/18 14:30 MCH 27.6 pg (25.0-35.0) 02/05/18 14:30 MCHC 33.1 g/dL (31.0-37.0) 02/05/18 14:30 RDW 14.9 % (11.5-15.5) 02/05/18 14:30 Plt Count 261 k/uL (150-450) 02/05/18 14:30 Neutrophils % 89 % 02/05/18 14:30 Lymphocytes % 5 % 02/05/18 14:30 Monocytes % 6 % 02/05/18 14:30 Eosinophils % 0 % 02/05/18 14:30 Basophils % 0 % 02/05/18 14:30 Neutrophils # 12.9 k/uL (1.3-7.7) H 02/05/18 14:30 Lymphocytes # 0.7 k/uL (1.0-4.8) L 02/05/18 14:30 Monocytes # 0.8 k/uL (0-1.0) 02/05/18 14:30 Eosinophils # 0.0 k/uL (0-0.7) 02/05/18 14:30 Basophils # 0.0 k/uL (0-0.2) 02/05/18 14:30 PT 10.7 sec (9.0-12.0) 02/05/18 14:30 INR 1.1 (<1.2) 02/05/18 14:30 APTT 20.5 sec (22.0-30.0) L 02/05/18 14:30 Sodium 140 mmol/L (137-145) 02/07/18 07:29 Potassium 3.8 mmol/L (3.5-5.1) 02/07/18 07:29 Chloride 107 mmol/L (98-107) 02/07/18 07:29 Carbon Dioxide 23 mmol/L (22-30) 02/07/18 07:29 Anion Gap 10 mmol/L 02/07/18 07:29 BUN 16 mg/dL (9-20) 02/07/18 07:29 Creatinine 1.23 mg/dL (0.66-1.25) 02/07/18 07:29 Est GFR (CKD-EPI)AfAm 64 (>60 ml/min/1.73 sqM) 02/07/18 07:29 Est GFR (CKD-EPI)NonAf 55 (>60 ml/min/1.73 sqM) 02/07/18 07:29 Glucose 153 mg/dL (74-99) H 02/07/18 07:29 POC Glucose (mg/dL) 237 mg/dL (75-99) H 02/07/18 19:49 POC Glu Life Underwriter ID Almaz Soto 02/07/18 19:[address] Glu mg/dL 77 02/05/18 14:30 Hemoglobin A1c 10.0 % (4.0-6.0) H 02/05/18 14:30 Plasma Lactic Acid Shilo 1.4 mmol/L (0.7-2.0) 02/05/18 14:30 Uric Acid 4.0 mg/dL (3.5-8.5) 02/05/18 14:30 Calcium 7.3 mg/dL (8.4-10.2) L 02/07/18 07:29 Total Bilirubin 0.5 mg/dL (0.2-1.3) 02/05/18 14:30 AST 22 U/L (17-59) 02/05/18 14:30 ALT 21 U/L (21-72) 02/05/18 14:30 Alkaline Phosphatase 62 U/L (38-126) 02/05/18 14:30 C-Reactive Protein 84.4 mg/L (<10.0) H 02/05/18 14:30 Total Protein 5.8 g/dL (6.3-8.2) L 02/05/18 14:30 Albumin 3.2 g/dL (3.5-5.0) L 02/05/18 14:30 Urine Color Yellow 02/05/18 17:02 Urine Appearance Clear (Clear) 02/05/18 17:02 Urine pH 6.5 (5.0-8.0) 02/05/18 17:02 Ur Specific [place]on 1.015 (1.001-1.035) 02/05/18 17:02 Urine Protein 1+ (Negative) H 02/05/18 17:02 Urine Glucose (UA) Negative (Negative) 02/05/18 17:02 Urine Ketones Trace (Negative) H 02/05/18 17:02 Urine Blood Negative (Negative) 02/05/18 17:02 Urine Nitrite Negative (Negative) 02/05/18 17:02 Urine Bilirubin Negative (Negative) 02/05/18 17:02 Urine Urobilinogen <2.0 mg/dL (<2.0) 02/05/18 17:02 Ur Leukocyte Esterase Negative (Negative) 02/05/18 17:02 Urine RBC 3 /hpf (0-5) 02/05/18 17:02 Urine WBC 1 /hpf (0-5) 02/05/18 17:02 Hyaline Casts 1 /lpf (0-2) 02/05/18 17:02 Urine Mucus Occasional /hpf (None) H 02/05/18 17:02 Fluid Source Synovial 02/05/18 16:21 Fluid Color Yellow 02/05/18 16:21 Fluid Appearance Cloudy 02/05/18 16:21 Fluid RBC 50 /uL 02/05/18 16:21 Fluid Nucleated Cells 84141 /uL 02/05/18 16:21 Fluid Polynuclear WBCs 91 % 02/05/18 16:21 Fluid Mononuclear WBCs 9 % 02/05/18 16:21 Synovial Source Left Knee 02/05/18 16:21 Microbiology 02/05/18 16:21 Knee - Left Gram Stain - Preliminary 02/05/18 16:21 Knee - Left Body Fluid Culture - Preliminary 02/05/18 14:30 Blood Blood Culture - Preliminary No Growth after 48 hours 02/05/18 20:35 Knee - Left Gram Stain - Preliminary 02/05/18 20:35 Knee - Left Wound Culture - Preliminary 02/05/18 20:35 Knee - Left Anaerobic Culture - Preliminary Assessment and Plan (1) Septic arthritis Narrative/Plan: This pleasant gentleman relates that he did have some changes of activity. 2 weddings and were out of town. Spent a good amount of time traveling to [place] in the [facility]. He was also quite active with these activities. Was after the second wedding that he started to have the swelling and discomfort to the left knee. Denies specific trauma but again was a marked increase of his baseline activity. He has noticed been taken the operating room and he has been aspirated and bacteria are being seen. The patient understands that he will require a course of outpatient intravenous antibiotic therapy for home IV antibiotic therapy at discharge. Is very independent gentleman and does not have desire to go to the extended care facility. He does have 2 adult children including his oldest son who lives close by would be able to assist if needed. The culture will help determine best possible choice of antibiotic therapy at discharge. The leukocytosis directly related to the septic arthritis of his left knee. 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 Pain is still problematic at this point in time. 02/07/2018 patient continues to have ongoing pain to the knee person with his ability to attempt to bear weight the knee. Orthopedics is following. PICC line has been placed and at this time awaiting final cultures to determine the course of outpatient intravenous antibiotic therapy, may need to go to a facility if he is not able to care for himself. Follow-up of the leukocytosis is in process. Pain control is moderate at best today. Current Visit: Yes Status: Acute Code(s): M00.9 - PYOGENIC ARTHRITIS, UNSPECIFIED SNOMED Code(s): 036529424 (2) Pain in left knee Current Visit: Yes Status: Acute Code(s): M25.562 - PAIN IN LEFT KNEE SNOMED Code(s): 87610113
[2018-02-08 07:17] LABS: Glucose,Whole Blood 249 mg/dL (75-99)
[2018-02-08] MEDS: INSULIN ASPART 100 UNIT/ML 1 ML 10 ML VIAL SQ SCH ×4 (08:00→21:58)
[2018-02-08] MEDS ORDERED: VANCOMYCIN TROUGH DUE 1 EACH MISC MISCELLANE ONE (08:00)
--- NOTE | 2018-02-08 08:53 | P.PN ---
Subjective Progress Note Date: 02/08/18 Principal diagnosis: Septic arthritis left knee S/p I & D left knee Patient is post op day #3 s/p I & D left knee. Patient has been afebrile. PICC line was placed yesterday. He complains of decreased strength of the left leg. He had 95 mL out of his Hemovac since yesterday. Vital signs are stable. Objective - Vital Signs Vital signs: Vital Signs Temp 98.6 F 02/07/18 19:28 Pulse 75 02/07/18 19:28 Resp 16 02/07/18 19:28 BP 153/74 02/07/18 19:28 Pulse Ox 99 02/07/18 15:06 Intake & Output 02/07/18 02/08/18 02/08/18 18:59 06:59 18:59 Intake Total 600 Output Total 875 670 Balance -875 -70 Weight 88.451 kg 88.451 kg Intake: Intake, IV Titration 600 Amount Sodium Chloride 0.9% 1, 600 000 ml @ 75 mls/hr IV . [id number] [facility] Rx#:[id number] Output: Drainage 75 20 Left Knee 75 20 Urine 800 650 Other: Voiding Method Urinal Urinal # Voids 1 1 - Exam This is a pleasant 82-year-old male in no acute distress. He is alert and oriented 3. Exam of left lower extremity reveals that his drain is intact. There is minimal erythema. He has a 1-2+ effusion. No active drainage from the portal sites. He has full foot and ankle motion without difficulty or pain. Neurovascular status to the lower extremity is intact. - Labs CBC & Chem 7: 02/05/18 14:30 02/07/18 07:29 Labs: Abnormal Lab Results - Last 24 Hours (Table) 02/07/18 02/07/18 02/07/18 Range/Units 11:32 16:58 19:49 POC Glucose (mg/dL) 235 H 247 H 237 H (75-99) mg/dL 02/08/18 Range/Units 07:12 POC Glucose (mg/dL) 249 H (75-99) mg/dL Microbiology - Last 24 Hours (Table) 02/05/18 16:21 Gram Stain - Preliminary Knee - Left Body Fluid Culture - Preliminary 02/05/18 14:30 Blood Culture - Preliminary Blood No Growth after 48 hours 02/05/18 20:35 Gram Stain - Preliminary Knee - Left Wound Culture - Preliminary Assessment and Plan (1) Septic arthritis Current Visit: Yes Status: Acute Code(s): M00.9 - PYOGENIC ARTHRITIS, UNSPECIFIED SNOMED Code(s): 817808587 Plan: The clinical findings are discussed the patient. Dressing is changed today. We will keep drain in place today. Continue IV antibiotics per Dr. Saez. Possible discharge to inpatient rehab tomorrow.
[2018-02-08] MEDS: cefTRIAXone IN SWFI 2,000 MG/20 ML SYRINGE IVP SCH (09:12)
[2018-02-08] MEDS: HYDROcodone/APAP 5-325MG 1 EACH TAB PO PRN ×4 (09:13→22:00)
[2018-02-08] MEDS: VANCOMYCIN 1,500 MG in SODIUM CHLORIDE 0.9% 250 ML IVPB SCH (09:14)
[2018-02-08 11:46] LABS: Glucose,Whole Blood 285 mg/dL (75-99)
[2018-02-08 16:52] LABS: Glucose,Whole Blood 338 mg/dL (75-99)
[2018-02-08] MEDS ORDERED: LISINOPRIL 10 MG TAB PO STA (20:20)
[2018-02-08] MEDS ORDERED: amLODIPine 5 MG TAB PO STA (20:20)
[2018-02-08 20:51] LABS: Glucose,Whole Blood 267 mg/dL (75-99)
[2018-02-08] MEDS: DOCUSATE 100 MG CAP PO SCH (21:59)
--- NOTE | 2018-02-09 00:17 | P.PN ---
Subjective Progress Note Date: 02/08/18 This is an 82-year-old male patient gives history of sudden onset of pain to his left knee with redness swelling. He denies any injury, fall or overuse to the knee. He came into [facility] emergency [facility] for evaluation. Venous Doppler study was negative for DVT. X-ray of the left knee showed a large knee joint effusion. Calcifications in the suprapatellar pouch, gout is additional consideration. No acute osseous abnormality seen. 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 White count was 14.6 with fever of 101.8, CRP 84. Patient has been admitted to the hospital in the care of Dr. Millan and on February 05 patient underwent I&D and lavage with Hemovac placement to the left knee. Synovial fluid was cloudy, RBC 50, nucleated cells 37,700, Polynuclear WBCs 91, mononuclear WBCs 9. Culture is showing rare gram- positive cocci. He is on IV antibiotics in form of Zosyn and vancomycin. Patient has been nonweightbearing. He states he has significant pain in his knee when he tries to move in bed. He complains of weakness to the lower extremity. 02/07/2018 patient is still feeling quite poorly with significant amount of pain into the left knee. Still has pain with any attempts for weight bearing, including his position in bed which causes the severe pain in the knee. He is not having significant fevers or chills. IV access became problematic and a PICC line has been placed. 02/08/2018 patient continues to have the left knee pain with difficulties with weightbearing. He is a bit better but will be heading to rehab to complete his course of antibiotic therapy and physical therapy to regain his functional status. Objective - Vital Signs Vital signs: Vital Signs Temp 98.4 F 02/09/18 00:06 Pulse 68 02/09/18 00:06 Resp 16 02/09/18 00:06 BP 142/66 02/09/18 00:06 Pulse Ox 97 02/09/18 00:06 Intake & Output 02/08/18 02/08/18 02/09/18 06:59 18:59 06:59 Intake Total 600 480 220 Output Total 670 1195 175 Balance -70 -715 45 Weight 88.451 kg Intake: Intake, IV Titration 600 Amount Sodium Chloride 0.9% 1, 600 000 ml @ 75 mls/hr IV . [id number] [facility] Rx#:[id number] Oral 480 220 Output: Drainage 20 70 25 Left Knee 20 70 25 Urine 650 1125 150 Other: Voiding Method Urinal Urinal # Voids 1 3 1 - Exam Gen: This is an 82-year-old male patient. He is in bed and appears to be comfortable and in no acute distress. HEENT: Head is atraumatic, normocephalic. Pupils equal, round. Sclerae is anicteric. Conjunctiva pink. Mucous members of the mouth are moist. NECK: Supple. No JVD. No lymphadenopathy. No thyromegaly. LUNGS: Clear to auscultation. No wheezes or rhonchi. No intercostal retractions. HEART: Regular rate and rhythm. No murmur. ABDOMEN: Soft. Bowel sounds are present. No masses. No tenderness. EXTREMITIES: No pedal edema. No calf tenderness. Dorsalis pedis is +2 bilaterally. Onychomycosis bilaterally. Large dressing in place to the left knee with Hemovac in place. Is now less drainage from the Hemovac still has pain with range of motion NEUROLOGICAL: Patient is awake, alert and oriented x3. - Labs CBC & Chem 7: 02/05/18 14:30 02/07/18 07:29 Labs: Abnormal Lab Results - Last 24 Hours (Table) 02/08/18 02/08/18 02/08/18 Range/Units 07:12 11:44 16:40 POC Glucose (mg/dL) 249 H 285 H 338 H (75-99) mg/dL 02/08/18 Range/Units 20:43 POC Glucose (mg/dL) 267 H (75-99) mg/dL Microbiology - Last 24 Hours (Table) 02/05/18 14:30 Blood Culture - Preliminary Blood No Growth after 72 hours 02/05/18 20:35 Anaerobic Culture - Preliminary Knee - Left 02/05/18 20:35 Gram Stain - Final Knee - Left Wound Culture - Final Laboratory Results WBC 14.6 k/uL (3.8-10.6) H 02/05/18 14:30 RBC 3.92 m/uL (4.30-5.90) L 02/05/18 14:30 Hgb 10.8 gm/dL (13.0-17.5) L 02/05/18 14:30 Hct 32.6 % (39.0-53.0) L 02/05/18 14:30 MCV 83.1 fL (80.0-100.0) 02/05/18 14:30 MCH 27.6 pg (25.0-35.0) 02/05/18 14:30 MCHC 33.1 g/dL (31.0-37.0) 02/05/18 14:30 RDW 14.9 % (11.5-15.5) 02/05/18 14:30 Plt Count 261 k/uL (150-450) 02/05/18 14:30 Neutrophils % 89 % 02/05/18 14:30 Lymphocytes % 5 % 02/05/18 14:30 Monocytes % 6 % 02/05/18 14:30 Eosinophils % 0 % 02/05/18 14:30 Basophils % 0 % 02/05/18 14:30 Neutrophils # 12.9 k/uL (1.3-7.7) H 02/05/18 14:30 Lymphocytes # 0.7 k/uL (1.0-4.8) L 02/05/18 14:30 Monocytes # 0.8 k/uL (0-1.0) 02/05/18 14:30 Eosinophils # 0.0 k/uL (0-0.7) 02/05/18 14:30 Basophils # 0.0 k/uL (0-0.2) 02/05/18 14:30 PT 10.7 sec (9.0-12.0) 02/05/18 14:30 INR 1.1 (<1.2) 02/05/18 14:30 APTT 20.5 sec (22.0-30.0) L 02/05/18 14:30 Sodium 140 mmol/L (137-145) 02/07/18 07:29 Potassium 3.8 mmol/L (3.5-5.1) 02/07/18 07:29 Chloride 107 mmol/L (98-107) 02/07/18 07:29 Carbon Dioxide 23 mmol/L (22-30) 02/07/18 07:29 Anion Gap 10 mmol/L 02/07/18 07:29 BUN 16 mg/dL (9-20) 02/07/18 07:29 Creatinine 1.23 mg/dL (0.66-1.25) 02/07/18 07:29 Est GFR (CKD-EPI)AfAm 64 (>60 ml/min/1.73 sqM) 02/07/18 07:29 Est GFR (CKD-EPI)NonAf 55 (>60 ml/min/1.73 sqM) 02/07/18 07:29 Glucose 153 mg/dL (74-99) H 02/07/18 07:29 POC Glucose (mg/dL) 267 mg/dL (75-99) H 02/08/18 20:43 POC Glu [employer] Resource Assessor ID Dianna Baum 02/08/18 20:[address] Glu mg/dL 77 02/05/18 14:30 Hemoglobin A1c 10.0 % (4.0-6.0) H 02/05/18 14:30 Plasma Lactic Acid Shilo 1.4 mmol/L (0.7-2.0) 02/05/18 14:30 Uric Acid 4.0 mg/dL (3.5-8.5) 02/05/18 14:30 Calcium 7.3 mg/dL (8.4-10.2) L 02/07/18 07:29 Total Bilirubin 0.5 mg/dL (0.2-1.3) 02/05/18 14:30 AST 22 U/L (17-59) 02/05/18 14:30 ALT 21 U/L (21-72) 02/05/18 14:30 Alkaline Phosphatase 62 U/L (38-126) 02/05/18 14:30 C-Reactive Protein 84.4 mg/L (<10.0) H 02/05/18 14:30 Total Protein 5.8 g/dL (6.3-8.2) L 02/05/18 14:30 Albumin 3.2 g/dL (3.5-5.0) L 02/05/18 14:30 Urine Color Yellow 02/05/18 17:02 Urine Appearance Clear (Clear) 02/05/18 17:02 Urine pH 6.5 (5.0-8.0) 02/05/18 17:02 Ur Specific [place] 1.015 (1.001-1.035) 02/05/18 17:02 Urine Protein 1+ (Negative) H 02/05/18 17:02 Urine Glucose (UA) Negative (Negative) 02/05/18 17:02 Urine Ketones Trace (Negative) H 02/05/18 17:02 Urine Blood Negative (Negative) 02/05/18 17:02 Urine Nitrite Negative (Negative) 02/05/18 17:02 Urine Bilirubin Negative (Negative) 02/05/18 17:02 Urine Urobilinogen <2.0 mg/dL (<2.0) 02/05/18 17:02 Ur Leukocyte Esterase Negative (Negative) 02/05/18 17:02 Urine RBC 3 /hpf (0-5) 02/05/18 17:02 Urine WBC 1 /hpf (0-5) 02/05/18 17:02 Hyaline Casts 1 /lpf (0-2) 02/05/18 17:02 Urine Mucus Occasional /hpf (None) H 02/05/18 17:02 Fluid Source Synovial 02/05/18 16:21 Fluid Color Yellow 02/05/18 16:21 Fluid Appearance Cloudy 02/05/18 16:21 Fluid RBC 50 /uL 02/05/18 16:21 Fluid Nucleated Cells 21758 /uL 02/05/18 16:21 Fluid Polynuclear WBCs 91 % 02/05/18 16:21 Fluid Mononuclear WBCs 9 % 02/05/18 16:21 Synovial Source Left Knee 02/05/18 16:21 Synovial Crystals 02/05/18 16:21 Vancomycin Trough 11.9 ug/mL 02/08/18 07:15 Microbiology 02/05/18 14:30 Blood Blood Culture - Preliminary No Growth after 72 hours 02/05/18 20:35 Knee - Left Anaerobic Culture - Preliminary 02/05/18 20:35 Knee - Left Gram Stain - Final 02/05/18 20:35 Knee - Left Wound Culture - Final 02/05/18 16:21 Knee - Left Gram Stain - Preliminary 02/05/18 16:21 Knee - Left Body Fluid Culture - Preliminary Assessment and Plan (1) Septic arthritis Narrative/Plan: This pleasant gentleman relates that he did have some changes of activity. 2 weddings and were out of town. Spent a good amount of time traveling to [place] in the [facility]. He was also quite active with these activities. Was after the second wedding that he started to have the swelling and discomfort to the left knee. Denies specific trauma but again was a marked increase of his baseline activity. He has noticed been taken the operating room and he has been aspirated and bacteria are being seen. The patient understands that he will require a course of outpatient intravenous antibiotic therapy for home IV antibiotic therapy at discharge. Is very independent gentleman and does not have desire to go to the extended care facility. He does have 2 adult children including his oldest son who lives close by would be able to assist if needed. The culture will help determine best possible choice of antibiotic therapy at discharge. The leukocytosis directly related to the septic arthritis of his left knee. 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 Pain is still problematic at this point in time. 02/07/2018 patient continues to have ongoing pain to the knee person with his ability to attempt to bear weight the knee. Orthopedics is following. PICC line has been placed and at this time awaiting final cultures to determine the course of outpatient intravenous antibiotic therapy, may need to go to a facility if he is not able to care for himself. Follow-up of the leukocytosis is in process. Pain control is moderate at best today. 02/08/2018 patient is having pain and difficulty bearing weight. He has been followed by orthopedics with no plans for further surgical intervention. Due to his slow progress he'll go to extended care to receive physical therapy and antibiotic therapy. The family is aware of the 40 day timeframe. If he does improve there was complete his course of antibiotic therapy in the office after his discharge. Current Visit: Yes Status: Acute Code(s): M00.9 - PYOGENIC ARTHRITIS, UNSPECIFIED SNOMED Code(s): 665957064 (2) Pain in left knee Current Visit: Yes Status: Acute Code(s): M25.562 - PAIN IN LEFT KNEE SNOMED Code(s): 15925772
[2018-02-09] MEDS: VANCOMYCIN 1,500 MG in SODIUM CHLORIDE 0.9% 250 ML IVPB SCH ×2 (01:42→17:12)
[2018-02-09] MEDS: SODIUM CHLORIDE 0.9% 1,000 ML IV SCH ×2 (01:43→08:07)
[2018-02-09 06:57] LABS: Glucose,Whole Blood 226 mg/dL (75-99)
[2018-02-09] MEDS: LISINOPRIL 10 MG TAB PO SCH (07:58)
[2018-02-09] MEDS: DOCUSATE 100 MG CAP PO SCH ×2 (07:58→19:52)
[2018-02-09] MEDS: cefTRIAXone IN SWFI 2,000 MG/20 ML SYRINGE IVP SCH (07:59)
[2018-02-09] MEDS: INSULIN ASPART 100 UNIT/ML 1 ML 10 ML VIAL SQ SCH ×4 (07:59→22:14)
[2018-02-09 08:01] LABS: Calcium 7.8 mg/dL (8.4-10.2); Potassium 4.3 mmol/L (3.5-5.1)
--- NOTE | 2018-02-09 08:15 | P.CONS ---
History of Present Illness - Reason for Consult Consult date: 02/09/18 Hypertension - Chief Complaint Knee pain. - History of Present Illness This is a consultation on an 82-year-old white male essentially admitted for left knee pain and found to have infected joint. I have consulted because of appropriate medical management for hypertension. I started Zestril and Norvasc today. The patient states no significant chest pain or shortness of breath. No nausea, vomiting or diarrhea. No headache stated. Review of Systems Constitutional: Denies chills, Denies fever Eyes: denies blurred vision, denies pain Ears, nose, mouth and throat: Denies headache, Denies sore throat Cardiovascular: Denies chest pain Respiratory: Denies cough Gastrointestinal: Denies abdominal pain, Denies diarrhea, Denies nausea, Denies vomiting Musculoskeletal: Reports as per HPI, Denies neck stiffness Musculoskeletal: left: knee pain, knee swelling Integumentary: Denies acne Neurological: Denies numbness, Denies weakness Psychiatric: Denies anxiety, Denies depression Endocrine: Denies fatigue, Denies weight change Past Medical History Past Medical History: Diabetes Mellitus History of Any Multi-Drug Resistant Organisms: None Reported Past Surgical History: No Surgical Hx Reported Additional Past Surgical History / Comment(s): 01/2018 left knee arthroscopic irrigation and debridement Past Anesthesia/Blood Transfusion Reactions: No Reported Reaction Past Psychological History: No Psychological Hx Reported Smoking Status: Never smoker Past Alcohol Use History: None Reported Additional Past Alcohol Use History / Comment(s): Patient is a lifelong nonsmoker. He denies any illicit drug use or alcohol use. 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 His second one year ago. His grandson, his grandson's and daughter along with a dog live with him. He spends sprague in [place]. Past Drug Use History: None Reported - Past Family History Daughter(s) Family Medical History: No Reported History Son(s) Family Medical History: No Reported History Medications and Allergies Home Medications Medication Instructions Recorded Confirmed Type Insuln Asp Prt/Insulin Aspart 15 units SQ AC-SUPPER 02/01/18 02/05/18 History [NovoLOG MIX 70-30 VIAL] Insuln Asp Prt/Insulin Aspart 30 units SQ AC-BRKFST 02/01/18 02/05/18 History [NovoLOG MIX 70-30 VIAL] Simvastatin 40 mg PO HS 02/01/18 02/05/18 History traZODone HCL 100 mg PO HS 02/01/18 02/05/18 History Omeprazole [PriLOSEC] 40 mg PO AC-BRKFST #30 capsule. 02/02/18 02/05/18 Rx Allergies Allergy/AdvReac Type Severity Reaction Status Date / Time No Known Allergies Allergy Verified 02/05/18 17:08 Physical Exam Vitals: Vital Signs Temp Pulse Resp BP Pulse Ox 02/09/18 00:06 98.4 F 68 16 142/66 97 02/08/18 20:17 77 17 02/08/18 19:44 71 16 187/76 02/08/18 19:06 98.7 F 77 17 172/83 98 02/08/18 14:49 98.5 F 76 16 167/72 98 02/08/18 08:53 98.8 F 72 16 177/75 98 Intake and Output 02/08/18 02/09/18 02/09/18 22:59 06:59 14:59 Intake Total 1070 1100 Output Total 1100 Balance -30 1100 Intake: Intake, IV Titration 850 1100 Amount Sodium Chloride 0.9% 1, 600 600 000 ml @ 75 mls/hr IV . [id number] [facility] Rx#:[id number] Vancomycin 1,500 mg In 250 500 Sodium Chloride 0.9% 250 ml @ 125 mls/hr IVPB Q16H [facility] Rx#:[id number] Oral 220 Output: Drainage 25 Left Knee 25 Urine 1075 Other: Voiding Method Urinal # Voids 1 2 - Constitutional General appearance: no acute distress - EENT Eyes: EOMI - Neck Neck: no lymphadenopathy - Respiratory Respiratory: bilateral: CTA - Cardiovascular Rhythm: regular Heart sounds: normal: S1, S2 Abnormal Heart Sounds: no S3 Gallop - Gastrointestinal General gastrointestinal: soft, no tenderness - Integumentary Integumentary: normal - Psychiatric Psychiatric: A&O x's 3, appropriate affect Results CBC & Chem 7: 02/05/18 14:30 02/07/18 07:29 Labs: Abnormal Lab Results - Last 24 Hours (Table) 02/08/18 02/08/18 02/08/18 Range/Units 11:44 16:40 20:43 POC Glucose (mg/dL) 285 H 338 H 267 H (75-99) mg/dL 02/09/18 Range/Units 06:54 POC Glucose (mg/dL) 226 H (75-99) mg/dL Microbiology - Last 24 Hours (Table) 02/05/18 14:30 Blood Culture - Preliminary Blood No Growth after 72 hours 02/05/18 20:35 Anaerobic Culture - Preliminary Knee - Left 02/05/18 20:35 Gram Stain - Final Knee - Left Wound Culture - Final Assessment and Plan (1) Hypertension Current Visit: Yes Status: Acute Code(s): I10 - ESSENTIAL (PRIMARY) HYPERTENSION SNOMED Code(s): 32573831 (2) Effusion, left knee Current Visit: Yes Status: Acute Code(s): M25.462 - EFFUSION, LEFT KNEE SNOMED Code(s): 288973049 (3) Septic arthritis Current Visit: Yes Status: Acute Code(s): M00.9 - PYOGENIC ARTHRITIS, UNSPECIFIED SNOMED Code(s): 083811319 Plan: We'll go ahead and start appropriate antihypertensive therapy. Check CMP in a.m. We'll continue to follow. Appreciate consultation. She orders otherwise. Time with Patient: Greater than 30
[2018-02-09] MEDS: HYDROcodone/APAP 5-325MG 1 EACH TAB PO PRN ×2 (08:19→19:52)
[2018-02-09] MEDS ORDERED: amLODIPine 5 MG TAB PO SCH (09:00)
--- NOTE | 2018-02-09 09:21 | P.DS ---
Providers Date of admission: 02/05/18 17:57 Expected date of discharge: 02/09/18 Attending physician: Yuniel Millan Consults: 02/05/18 22:31 Consult Physician Routine Consulting Provider: Taj Saez Consult Reason/Comments: 82 year old patient with septic arthritis Do you want consulting provider notified?: Yes, Notify in am 02/08/18 20:19 Consult Physician Routine Consulting Provider: Obdulio Narvaez Consult Reason/Comments: Medical Management Do you want consulting provider notified?: Already Contacted Primary care physician: Obdulio Narvaez - Discharge Diagnosis(es) (1) Septic arthritis Current Visit: Yes Status: Acute Hospital Course: This is an 82-year-old male admitted to [facility] on 2017 with infection to the left knee. He is taken to surgery on 02/05/2018 for arthroscopic debridement of the left knee. A Hemovac drain was placed. The drain remained in throughout his inpatient stay. Drain is removed on postoperative day #4. The patient has remained afebrile throughout his stay. Cultures are still pending at this point. Gram stain shows Levi positive cocci. The patient had a PICC line insertion on 02/07/2018. His antibiotics are managed by Dr. Saez. The patient is discharged to inpatient rehab on 02/09/2018 in good condition. Patient Condition at Discharge: Stable Plan - Discharge Summary Discharge Rx Participant: No New Discharge Prescriptions: New HYDROcodone/APAP 5-325MG [[place] 5-325] 1 - 2 each PO Q4-6H PRN #90 tab PRN Reason: Pain Sennosides-Docusate Sodium [Senokot-S] 1 tab PO BID #60 tablet No Action Insuln Asp Prt/Insulin Aspart [NovoLOG MIX 70-30 VIAL] 30 units SQ AC-BRKFST traZODone HCL 100 mg PO HS Simvastatin 40 mg PO HS Insuln Asp Prt/Insulin Aspart [NovoLOG MIX 70-30 VIAL] 15 units SQ AC-SUPPER Omeprazole [PriLOSEC] 40 mg PO AC-BRKFST #30 capsule. Discharge Medication List Insuln Asp Prt/Insulin Aspart [NovoLOG MIX 70-30 VIAL] 15 units SQ AC-SUPPER 11/16 [History] Insuln Asp Prt/Insulin Aspart [NovoLOG MIX 70-30 VIAL] 30 units SQ AC-BRKFST 11/16 [History] Simvastatin 40 mg PO HS 02/01/18 [History] traZODone HCL 100 mg PO HS 02/01/18 [History] Omeprazole [PriLOSEC] 40 mg PO AC-BRKFST #30 capsule. 02/02/18 [Rx] HYDROcodone/APAP 5-325MG [[place] 5-325] 1 - 2 each PO Q4-6H PRN #90 tab 02/09/18 [Rx] Sennosides-Docusate Sodium [Senokot-S] 1 tab PO BID #60 tablet 02/09/18 [Rx] Follow up Appointment(s)/Referral(s): Nonstaff,Physician [REFERRING] - 1-2 days Yuniel Millan MD [STAFF PHYSICIAN] - 10 Days Activity/Diet/Wound Care/Special Instructions: Keep a compressive dressing on the left knee. Change dressing daily. May bear weight as tolerated with walker. Antibiotics per infectious disease. Discharge Disposition: TRANSFER TO SNF/ECF
[2018-02-09 11:41] LABS: Glucose,Whole Blood 328 mg/dL (75-99)
[2018-02-09 17:16] LABS: Glucose,Whole Blood 345 mg/dL (75-99)
[2018-02-09 22:40] LABS: Glucose,Whole Blood 246 mg/dL (75-99)
--- NOTE | 2018-02-09 23:16 | P.PN ---
Subjective Progress Note Date: 02/09/18 This is an 82-year-old male patient gives history of sudden onset of pain to his left knee with redness swelling. He denies any injury, fall or overuse to the knee. He came into [facility] emergency center for evaluation. Venous Doppler study was negative for DVT. X-ray of the left knee showed a large knee joint effusion. Calcifications in the suprapatellar pouch, gout is additional consideration. No acute osseous abnormality seen. 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 White count was 14.6 with fever of 101.8, CRP 84. Patient has been admitted to the hospital in the care of Dr. Millan and on February 05 patient underwent I&D and lavage with Hemovac placement to the left knee. Synovial fluid was cloudy, RBC 50, nucleated cells 37,700, Polynuclear WBCs 91, mononuclear WBCs 9. Culture is showing rare gram- positive cocci. He is on IV antibiotics in form of Zosyn and vancomycin. Patient has been nonweightbearing. He states he has significant pain in his knee when he tries to move in bed. He complains of weakness to the lower extremity. 02/07/2018 patient is still feeling quite poorly with significant amount of pain into the left knee. Still has pain with any attempts for weight bearing, including his position in bed which causes the severe pain in the knee. He is not having significant fevers or chills. IV access became problematic and a PICC line has been placed. 02/08/2018 patient continues to have the left knee pain with difficulties with weightbearing. He is a bit better but will be heading to rehab to complete his course of antibiotic therapy and physical therapy to regain his functional status. 02/09/2018 patient continues to have significant pain to the left knee but apparently it is starting to improve slowly at this time status post the drainage and antibiotic therapy.. He is not having severe pain while he is moving the knee in bed. But does have pain with any attempt to ambulate. Denies fevers or chills. Objective - Vital Signs Vital signs: Vital Signs Temp 98.3 F 02/09/18 14:28 Pulse 82 02/09/18 14:28 Resp 17 02/09/18 14:28 BP 160/70 02/09/18 14:28 Pulse Ox 99 02/09/18 14:28 Intake & Output 02/09/18 02/09/18 02/10/18 06:59 18:59 06:59 Intake Total 2170 1350 Output Total 175 Balance 1994 1350 Intake: Intake, IV Titration 1950 600 Amount Sodium Chloride 0.9% 1, 1200 600 000 ml @ 75 mls/hr IV . [id number] OLY Rx#:[id number] Vancomycin 1,500 mg In 750 Sodium Chloride 0.9% 250 ml @ 125 mls/hr IVPB Q16H OLY Rx#:[id number] Oral 220 750 Output: Drainage 25 Left Knee 25 Urine 150 Other: Voiding Method Urinal Urinal # Voids 2 2 - Exam Gen: This is an 82-year-old male patient. He is in bed and appears to be comfortable and in no acute distress. HEENT: Head is atraumatic, normocephalic. Pupils equal, round. Sclerae is anicteric. Conjunctiva pink. Mucous members of the mouth are moist. NECK: Supple. No JVD. No lymphadenopathy. No thyromegaly. LUNGS: Clear to auscultation. No wheezes or rhonchi. No intercostal retractions. HEART: Regular rate and rhythm. No murmur. ABDOMEN: Soft. Bowel sounds are present. No masses. No tenderness. EXTREMITIES: No pedal edema. No calf tenderness. Dorsalis pedis is +2 bilaterally. Onychomycosis bilaterally. Large dressing in place to the left knee with Hemovac in place. Is now less drainage from the Hemovac much less pain with range of motion NEUROLOGICAL: Patient is awake, alert and oriented x3. - Labs CBC & Chem 7: 02/05/18 14:30 02/09/18 07:06 Labs: Abnormal Lab Results - Last 24 Hours (Table) 02/09/18 02/09/18 02/09/18 Range/Units 06:54 07:06 11:15 Glucose 220 H (74-99) mg/dL POC Glucose (mg/dL) 226 H 328 H (75-99) mg/dL Calcium 7.8 L (8.4-10.2) mg/dL 02/09/18 02/09/18 Range/Units 17:13 21:44 Glucose (74-99) mg/dL POC Glucose (mg/dL) 345 H 246 H (75-99) mg/dL Calcium (8.4-10.2) mg/dL Microbiology - Last 24 Hours (Table) 02/05/18 16:21 Gram Stain - Preliminary Knee - Left Body Fluid Culture - Preliminary 02/05/18 14:30 Blood Culture - Preliminary Blood No Growth after 96 hours Laboratory Results WBC 14.6 k/uL (3.8-10.6) H 02/05/18 14:30 RBC 3.92 m/uL (4.30-5.90) L 02/05/18 14:30 Hgb 10.8 gm/dL (13.0-17.5) L 02/05/18 14:30 Hct 32.6 % (39.0-53.0) L 02/05/18 14:30 MCV 83.1 fL (80.0-100.0) 02/05/18 14:30 MCH 27.6 pg (25.0-35.0) 02/05/18 14:30 MCHC 33.1 g/dL (31.0-37.0) 02/05/18 14:30 RDW 14.9 % (11.5-15.5) 02/05/18 14:30 Plt Count 261 k/uL (150-450) 02/05/18 14:30 Neutrophils % 89 % 02/05/18 14:30 Lymphocytes % 5 % 02/05/18 14:30 Monocytes % 6 % 02/05/18 14:30 Eosinophils % 0 % 02/05/18 14:30 Basophils % 0 % 02/05/18 14:30 Neutrophils # 12.9 k/uL (1.3-7.7) H 02/05/18 14:30 Lymphocytes # 0.7 k/uL (1.0-4.8) L 02/05/18 14:30 Monocytes # 0.8 k/uL (0-1.0) 02/05/18 14:30 Eosinophils # 0.0 k/uL (0-0.7) 02/05/18 14:30 Basophils # 0.0 k/uL (0-0.2) 02/05/18 14:30 PT 10.7 sec (9.0-12.0) 02/05/18 14:30 INR 1.1 (<1.2) 02/05/18 14:30 APTT 20.5 sec (22.0-30.0) L 02/05/18 14:30 Sodium 141 mmol/L (137-145) 02/09/18 07:06 Potassium 4.3 mmol/L (3.5-5.1) 02/09/18 07:06 Chloride 106 mmol/L (98-107) 02/09/18 07:06 Carbon Dioxide 25 mmol/L (22-30) 02/09/18 07:06 Anion Gap 10 mmol/L 02/09/18 07:06 BUN 14 mg/dL (9-20) 02/09/18 07:06 Creatinine 1.09 mg/dL (0.66-1.25) 02/09/18 07:06 Est GFR (CKD-EPI)AfAm 74 (>60 ml/min/1.73 sqM) 02/09/18 07:06 Est GFR (CKD-EPI)NonAf 64 (>60 ml/min/1.73 sqM) 02/09/18 07:06 Glucose 220 mg/dL (74-99) H 02/09/18 07:06 POC Glucose (mg/dL) 246 mg/dL (75-99) H 02/09/18 21:44 POC Glu Embossing Clerk ID Grace Akhtar 02/09/18 21:[address] Glu mg/dL 77 02/05/18 14:30 Hemoglobin A1c 10.0 % (4.0-6.0) H 02/05/18 14:30 Plasma Lactic Acid Shilo 1.4 mmol/L (0.7-2.0) 02/05/18 14:30 Uric Acid 4.0 mg/dL (3.5-8.5) 02/05/18 14:30 Calcium 7.8 mg/dL (8.4-10.2) L 02/09/18 07:06 Total Bilirubin 0.5 mg/dL (0.2-1.3) 02/05/18 14:30 AST 22 U/L (17-59) 02/05/18 14:30 ALT 21 U/L (21-72) 02/05/18 14:30 Alkaline Phosphatase 62 U/L (38-126) 02/05/18 14:30 C-Reactive Protein 84.4 mg/L (<10.0) H 02/05/18 14:30 Total Protein 5.8 g/dL (6.3-8.2) L 02/05/18 14:30 Albumin 3.2 g/dL (3.5-5.0) L 02/05/18 14:30 Urine Color Yellow 02/05/18 17:02 Urine Appearance Clear (Clear) 02/05/18 17:02 Urine pH 6.5 (5.0-8.0) 02/05/18 17:02 Ur Specific [place] 1.015 (1.001-1.035) 02/05/18 17:02 Urine Protein 1+ (Negative) H 02/05/18 17:02 Urine Glucose (UA) Negative (Negative) 02/05/18 17:02 Urine Ketones Trace (Negative) H 02/05/18 17:02 Urine Blood Negative (Negative) 02/05/18 17:02 Urine Nitrite Negative (Negative) 02/05/18 17:02 Urine Bilirubin Negative (Negative) 02/05/18 17:02 Urine Urobilinogen <2.0 mg/dL (<2.0) 02/05/18 17:02 Ur Leukocyte Esterase Negative (Negative) 02/05/18 17:02 Urine RBC 3 /hpf (0-5) 02/05/18 17:02 Urine WBC 1 /hpf (0-5) 02/05/18 17:02 Hyaline Casts 1 /lpf (0-2) 02/05/18 17:02 Urine Mucus Occasional /hpf (None) H 02/05/18 17:02 Fluid Source Synovial 02/05/18 16:21 Fluid Color Yellow 02/05/18 16:21 Fluid Appearance Cloudy 02/05/18 16:21 Fluid RBC 50 /uL 02/05/18 16:21 Fluid Nucleated Cells 56559 /uL 02/05/18 16:21 Fluid Polynuclear WBCs 91 % 02/05/18 16:21 Fluid Mononuclear WBCs 9 % 02/05/18 16:21 Synovial Source Left Knee 02/05/18 16:21 Synovial Crystals 02/05/18 16:21 Vancomycin Trough 11.9 ug/mL 02/08/18 07:15 Microbiology 02/05/18 16:21 Knee - Left Gram Stain - Preliminary 02/05/18 16:21 Knee - Left Body Fluid Culture - Preliminary 02/05/18 14:30 Blood Blood Culture - Preliminary No Growth after 96 hours 02/05/18 20:35 Knee - Left Anaerobic Culture - Preliminary 02/05/18 20:35 Knee - Left Gram Stain - Final 02/05/18 20:35 Knee - Left Wound Culture - Final Assessment and Plan (1) Septic arthritis Narrative/Plan: This pleasant gentleman relates that he did have some changes of activity. 2 weddings and were out of town. Spent a good amount of time traveling to [place] in the [facility]. He was also quite active with these activities. Was after the second wedding that he started to have the swelling and discomfort to the left knee. Denies specific trauma but again was a marked increase of his baseline activity. He has noticed been taken the operating room and he has been aspirated and bacteria are being seen. The patient understands that he will require a course of outpatient intravenous antibiotic therapy for home IV antibiotic therapy at discharge. Is very independent gentleman and does not have desire to go to the extended care facility. He does have 2 adult children including his oldest son who lives close by would be able to assist if needed. The culture will help determine best possible choice of antibiotic therapy at discharge. The leukocytosis directly related to the septic arthritis of his left knee. 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 Pain is still problematic at this point in time. 02/07/2018 patient continues to have ongoing pain to the knee person with his ability to attempt to bear weight the knee. Orthopedics is following. PICC line has been placed and at this time awaiting final cultures to determine the course of outpatient intravenous antibiotic therapy, may need to go to a facility if he is not able to care for himself. Follow-up of the leukocytosis is in process. Pain control is moderate at best today. 02/08/2018 patient is having pain and difficulty bearing weight. He has been followed by orthopedics with no plans for further surgical intervention. Due to his slow progress he'll go to extended care to receive physical therapy and antibiotic therapy. The family is aware of the 40 day timeframe. If he does improve there was complete his course of antibiotic therapy in the office after his discharge. 02/09/2018 patient for shall he is starting to have some improvement of his pain. Surgery believes no further surgical intervention is needed. He will complete his 42 days of antibiotic therapy at the [facility] care facility, if he does have a marked improvement he may be able to finish up in the office with the family transporting him there. He'll follow-up with me in the office in 3 and 6 weeks. The family is aware of this plan. Current Visit: Yes Status: Acute Code(s): M00.9 - PYOGENIC ARTHRITIS, UNSPECIFIED SNOMED Code(s): 086348622 (2) Pain in left knee Current Visit: Yes Status: Acute Code(s): M25.562 - PAIN IN LEFT KNEE SNOMED Code(s): 08666414
[2018-02-10 02:35] VITALS: RESP 16
[2018-02-10] MEDS: HYDROcodone/APAP 5-325MG 1 EACH TAB PO PRN (04:04)
[2018-02-10] MEDS: SODIUM CHLORIDE 0.9% 1,000 ML IV SCH ×2 (05:12→10:29)
[2018-02-10 07:54] LABS: Glucose,Whole Blood 261 mg/dL (75-99)
[2018-02-10] MEDS: INSULIN ASPART 100 UNIT/ML 1 ML 10 ML VIAL SQ SCH ×2 (08:11→11:56)
--- NOTE | 2018-02-10 08:20 | P.PN ---
Subjective Progress Note Date: 02/10/18 This is an 82-year-old white male essentially admitted for septic arthritis patient is now postoperatively day for and doing quite well. Otherwise, blood pressure still elevated. I told the patient that the antihypertensive medication could take 2-4 weeks to start bringing his blood pressure down consistently. Otherwise no chest pain or shortness breath. No headache or visual complaints Objective - Vital Signs Vital signs: Vital Signs Temp 98.2 F 02/10/18 02:34 Pulse 57 L 02/10/18 02:34 Resp 16 02/10/18 02:34 BP 182/81 02/10/18 02:34 Pulse Ox 97 02/10/18 02:34 Intake & Output 02/09/18 02/10/18 02/10/18 18:59 06:59 18:59 Intake Total 1350 350 Output Total 300 Balance 1350 50 Intake: Intake, IV Titration 600 350 Amount Sodium Chloride 0.9% 1, 600 350 000 ml @ 75 mls/hr IV . [id number] OLY Rx#:[id number] Oral 750 Output: Urine 300 Other: Voiding Method Urinal Urinal # Voids 2 1 - Constitutional General appearance: Present: average body habitus - EENT Eyes: Absent: abnormal pupil - Respiratory Respiratory: bilateral: CTA - Cardiovascular Rhythm: regular Heart sounds: normal: S1, S2 Abnormal Heart Sounds: Absent: S3 Gallop - Gastrointestinal General gastrointestinal: Present: soft. Absent: tenderness - Integumentary Integumentary: Present: cellulitis - Neurologic Neurologic: Absent: CNII-XII intact - Labs CBC & Chem 7: 02/05/18 14:30 02/09/18 07:06 Labs: Abnormal Lab Results - Last 24 Hours (Table) 02/09/18 02/09/18 02/09/18 Range/Units 11:15 17:13 21:44 POC Glucose (mg/dL) 328 H 345 H 246 H (75-99) mg/dL 02/10/18 Range/Units 07:52 POC Glucose (mg/dL) 261 H (75-99) mg/dL Microbiology - Last 24 Hours (Table) 02/05/18 16:21 Gram Stain - Preliminary Knee - Left Body Fluid Culture - Preliminary 02/05/18 14:30 Blood Culture - Preliminary Blood No Growth after 96 hours Assessment and Plan (1) Hypertension Current Visit: Yes Status: Acute Code(s): I10 - ESSENTIAL (PRIMARY) HYPERTENSION SNOMED Code(s): 46254726 (2) Effusion, left knee Current Visit: Yes Status: Acute Code(s): M25.462 - EFFUSION, LEFT KNEE SNOMED Code(s): 309841440 (3) Septic arthritis Current Visit: Yes Status: Acute Code(s): M00.9 - PYOGENIC ARTHRITIS, UNSPECIFIED SNOMED Code(s): 983035850 Plan: Continue current regimen medication except that we will go ahead and increase Norvasc today. Anticipate discharge once cleared by orthopedics. We'll continue to follow as an outpatient. The patient is to follow-up with me in about 7 days.
[2018-02-10 08:24] VITALS: BP 167/73; PULSE 72; TEMP 98.3
[2018-02-10] MEDS ORDERED: amLODIPine 10 MG TAB PO SCH (09:00)
--- NOTE | 2018-02-10 09:08 | P.PN ---
Progress Note - Text Progress Note Date: 02/10/18 This is an addendum to the discharge summary. Patient's discharge was held yesterday. We're hoping he can go to inpatient rehab today. Please see previous orders and plan.
[2018-02-10] MEDS: VANCOMYCIN 1,500 MG in SODIUM CHLORIDE 0.9% 250 ML IVPB SCH (10:19)
[2018-02-10] MEDS: cefTRIAXone IN SWFI 2,000 MG/20 ML SYRINGE IVP SCH (10:19)
[2018-02-10] MEDS: DOCUSATE 100 MG CAP PO SCH (10:21)
[2018-02-10] MEDS: LISINOPRIL 10 MG TAB PO SCH (10:22)
[2018-02-10 11:21] LABS: Glucose,Whole Blood 314 mg/dL (75-99)
== END 2018-02-10 12:09 | DRG 489 ==
LOC: EC 14:15 → 3SUR 17:57
PROVIDERS: ADMIT Orthopaedic Surgery; ATTEND Orthopaedic Surgery
PROC: 0SBD4ZZ Excision of Left Knee Joint, Percutaneous Endoscopic Approach (ICD-10-PCS; 2018-02-05 19:30)
PROC: 02HV33Z Insertion of Infusion Device into Superior Vena Cava, Percutaneous Approach (ICD-10-PCS; principal; 2018-02-07 13:05)
DX: M00.9 Pyogenic arthritis, unspecified (principal); E11.9 Type 2 diabetes mellitus without complications; I10 Essential (primary) hypertension; M10.9 Gout, unspecified; M17.12 Unilateral primary osteoarthritis, left knee; M65.9 Synovitis and tenosynovitis, unspecified; Z79.4 Long term (current) use of insulin; Z79.899 Other long term (current) drug therapy
CPT/HCPCS: 20610; 36415; 36569; 71046; 76937; 77001; 80048; 80053; 80202; 81001; 83036; 83605; 84550; 85025; 85610; 85730; 86140; 87040; 87070; 87075; 87205; 89050; 89060; 96365; 96366; 96375; 99285

== ENCOUNTER 2018-04-03 14:54 | Emergency (ER) | payer MEDICARE, OTHER ==
[2018-04-03 15:05] LABS: Glucose,Whole Blood 132 mg/dL (75-99)
--- NOTE | 2018-04-03 15:10 | ED ---
General Adult HPI - General Stated complaint: Altered Mental status Time Seen by Provider: 04/03/18 14:55 Source: RN notes reviewed - History of Present Illness Initial comments: This is a 82-year-old male who presents emergency department with past medical history significant for diabetes. Patient comes in after having been found altered by his grandson. Patient was given D50 one amp when his sugar came back in the 40s per EMS since then he been alert and oriented 4. Patient states he did not eat breakfast or lunch today he doesn't know why he just forgot. Patient states he did however take his insulin. Patient denies any symptoms before the incident or after. Patient denies headache patient denies numbness weakness. Patient denies lightheadedness or dizziness. Patient denies any recent fever chills or cough. Patient denies chest pain difficult breathing shortest breath. Patient denies any abdominal pain patient denies nausea vomiting diarrhea. Patient denies any recent injury or trauma. Patient denies dysuria hematuria urinary frequency. - Related Data Home Medications Medication Instructions Recorded Confirmed Insuln Asp Prt/Insulin Aspart 15 units SQ AC-SUPPER 02/01/18 03/21/18 [NovoLOG MIX 70-30 VIAL] Insuln Asp Prt/Insulin Aspart 30 units SQ AC-BRKFST 02/01/18 03/21/18 [NovoLOG MIX 70-30 VIAL] Simvastatin 40 mg PO HS 02/01/18 03/21/18 traZODone HCL 100 mg PO HS 02/01/18 03/21/18 Previous Rx's Medication Instructions Recorded Omeprazole [PriLOSEC] 40 mg PO AC-BRKFST #30 capsule. 02/02/18 HYDROcodone/APAP 5-325MG [[place] 1 - 2 each PO Q4-6H PRN #90 tab 02/09/18 5-325] Sennosides-Docusate Sodium 1 tab PO BID #60 tablet 02/09/18 [Senokot-S] Docusate [Colace] 100 mg PO BID #30 cap 02/10/18 Lisinopril [Zestril] 10 mg PO DAILY #30 tab 02/10/18 Vancomycin 1,500 mg IVPB Q16H #50 bag 02/10/18 amLODIPine [Norvasc] 10 mg PO DAILY #30 tab 02/10/18 Allergies Allergy/AdvReac Type Severity Reaction Status Date / Time No Known Allergies Allergy Verified 03/21/18 09:16 Review of Systems ROS Statement: Those systems with pertinent positive or pertinent negative responses have been documented in the HPI. ROS Other: All systems not noted in ROS Statement are negative. Past Medical History Past Medical History: Diabetes Mellitus History of Any Multi-Drug Resistant Organisms: None Reported Past Surgical History: No Surgical Hx Reported Additional Past Surgical History / Comment(s): 01/2018 left knee arthroscopic irrigation and debridement Past Anesthesia/Blood Transfusion Reactions: No Reported Reaction Smoking Status: Former smoker - Past Family History Daughter(s) Family Medical History: No Reported History Son(s) Family Medical History: No Reported History General Exam - General Exam Comments Initial Comments: GENERAL: Patient is well-developed and well-nourished. Patient is nontoxic and well- hydrated and is in no acute distress. ENT: Neck is soft and supple. No significant lymphadenopathy is noted. Oropharynx is clear. Moist mucous membranes. Neck has full range of motion without eliciting any pain. EYES: The sclera were anicteric and conjunctiva were pink and moist. Extraocular movements were intact and pupils were equal round and reactive to light. Eyelids were unremarkable. PULMONARY: Unlabored respirations. Good breath sounds bilaterally. No audible rales rhonchi or wheezing was noted. CARDIOVASCULAR: There is a regular rate and rhythm without any murmurs gallops or rubs. ABDOMEN: Soft and nontender with normal bowel sounds. No palpable organomegaly was noted. There is no palpable pulsatile mass. SKIN: Skin is clear with no lesions or rashes and otherwise unremarkable. NEUROLOGIC: Patient is alert and oriented x3. Cranial nerves II through XII are grossly intact. Motor and sensory are also intact. Normal speech, volume and content. Symmetrical smile. MUSCULOSKELETAL: Normal extremities with adequate strength and full range of motion. LYMPHATICS: No significant lymphadenopathy is noted PSYCHIATRIC: Normal psychiatric evaluation. Normal interpersonal interactions appears functionally intact in deals appropriately with others. No signs of depression. No signs of anxiety. Course Vital Signs 04/03/18 15:42 Temperature 96.9 F L Pulse Rate 60 Respiratory 18 Rate Blood Pressure 163/74 O2 Sat by Pulse 99 Oximetry Medical Decision Making - Medical Decision Making EKG shows normal sinus rhythm at 73 bpm [place] interval is 200 QRS is under QT intervals 4:30 QTC is 473. Patient's EKG shows no ST segment elevation or depression or T wave abnormalities are noted. Patient ate in the emergency department. - Lab Data Result diagrams: 04/03/18 15:37 04/03/18 15:37 Lab Results 04/03/18 04/03/18 04/03/18 Range/Units 15:03 15:37 15:37 WBC 7.1 (3.8-10.6) k/uL RBC 3.84 L (4.30-5.90) m/uL Hgb 10.1 L (13.0-17.5) gm/dL Hct 31.8 L (39.0-53.0) % MCV 82.7 (80.0-100.0) fL MCH 26.3 (25.0-35.0) pg MCHC 31.9 (31.0-37.0) g/dL RDW 15.8 H (11.5-15.5) % Plt Count 210 (150-450) k/uL Neutrophils % 87 % Lymphocytes % 5 % Monocytes % 7 % Eosinophils % 0 % Basophils % 0 % Neutrophils # 6.2 (1.3-7.7) k/uL Lymphocytes # 0.4 L (1.0-4.8) k/uL Monocytes # 0.5 (0-1.0) k/uL Eosinophils # 0.0 (0-0.7) k/uL Basophils # 0.0 (0-0.2) k/uL Hypochromasia Slight Poikilocytosis Slight Sodium 144 (137-145) mmol/L Potassium 3.3 L (3.5-5.1) mmol/L Chloride 110 H (98-107) mmol/L Carbon Dioxide 26 (22-30) mmol/L Anion Gap 8 mmol/L BUN 14 (9-20) mg/dL Creatinine 1.20 (0.66-1.25) mg/dL Est GFR (CKD-EPI)AfAm 66 (>60 ml/min/1.73 sqM) Est GFR (CKD-EPI)NonAf 57 (>60 ml/min/1.73 sqM) Glucose 110 H (74-99) mg/dL POC Glucose (mg/dL) 132 H (75-99) mg/dL POC Glu [employer] ID Fabiana Uriarte Calcium 8.6 (8.4-10.2) mg/dL Total Bilirubin 0.2 (0.2-1.3) mg/dL AST 21 (17-59) U/L ALT 22 (21-72) U/L Alkaline Phosphatase 77 (38-126) U/L Total Protein 6.0 L (6.3-8.2) g/dL Albumin 3.2 L (3.5-5.0) g/dL 04/03/18 Range/Units 15:50 WBC (3.8-10.6) k/uL RBC (4.30-5.90) m/uL Hgb (13.0-17.5) gm/dL Hct (39.0-53.0) % MCV (80.0-100.0) fL MCH (25.0-35.0) pg MCHC (31.0-37.0) g/dL RDW (11.5-15.5) % Plt Count (150-450) k/uL Neutrophils % % Lymphocytes % % Monocytes % % Eosinophils % % Basophils % % Neutrophils # (1.3-7.7) k/uL Lymphocytes # (1.0-4.8) k/uL Monocytes # (0-1.0) k/uL Eosinophils # (0-0.7) k/uL Basophils # (0-0.2) k/uL Hypochromasia Poikilocytosis Sodium (137-145) mmol/L Potassium (3.5-5.1) mmol/L Chloride (98-107) mmol/L Carbon Dioxide (22-30) mmol/L Anion Gap mmol/L BUN (9-20) mg/dL Creatinine (0.66-1.25) mg/dL Est GFR (CKD-EPI)AfAm (>60 ml/min/1.73 sqM) Est GFR (CKD-EPI)NonAf (>60 ml/min/1.73 sqM) Glucose (74-99) mg/dL POC Glucose (mg/dL) 133 H (75-99) mg/dL POC Glu [employer] ID Fabiana Uriarte Calcium (8.4-10.2) mg/dL Total Bilirubin (0.2-1.3) mg/dL AST (17-59) U/L ALT (21-72) U/L Alkaline Phosphatase (38-126) U/L Total Protein (6.3-8.2) g/dL Albumin (3.5-5.0) g/dL Disposition Clinical Impression: Hypoglycemia Disposition: HOME SELF-CARE Condition: Good Instructions: Hypoglycemia in a Person with Diabetes (ED) Additional Instructions: Patient needs to eat meals on a regular basis. Patient needs to take his blood sugar prior to eating. Is patient prescribed a controlled substance at d/c from ED?: No Referrals: None,Stated [Primary Care Provider] - 1-2 days Time of Disposition: 16:28
[2018-04-03 15:49] VITALS: PULSE 60; RESP 18
[2018-04-03 16:03] LABS: Glucose,Whole Blood 133 mg/dL (75-99)
[2018-04-03 16:05] LABS: Basophils % (A) 0 %; Eosinophils % (A) 0 %; HCT 31.8 % (39.0-53.0); HGB 10.1 gm/dL (13.0-17.5); Hypochromasia Slight; Lymphocytes # (A) 0.4 k/uL (1.0-4.8); Lymphocytes % (A) 5 %; MCH 26.3 pg (25.0-35.0); MCHC 31.9 g/dL (31.0-37.0); MCV 82.7 fL (80.0-100.0); Mean Platelet Volume 6.4; Monocytes # (A) 0.5 k/uL (0-1.0); Monocytes % (A) 7 %; Neutrophils # (A) 6.2 k/uL (1.3-7.7); Neutrophils % (A) 87 %; Platelet Count 210 k/uL (150-450); Poikilocytosis Slight; RBC 3.84 m/uL (4.30-5.90); RDW 15.8 % (11.5-15.5); WBC 7.1 k/uL (3.8-10.6)
[2018-04-03 16:06] LABS: Albumin 3.2 g/dL (3.5-5.0); Calcium 8.6 mg/dL (8.4-10.2); Potassium 3.3 mmol/L (3.5-5.1); Total Bilirubin 0.2 mg/dL (0.2-1.3)
[2018-04-03 17:13] VITALS: BP 165/74; TEMP 96.8
== END 2018-04-03 17:13 | disposition home or self-care (01) ==
LOC: EC 14:54
DX: E11.649 Type 2 diabetes mellitus with hypoglycemia without coma (principal); Z87.891 Personal history of nicotine dependence; Z79.4 Long term (current) use of insulin; Z79.899 Other long term (current) drug therapy
CPT/HCPCS: 36415; 80053; 85025; 93005; 99285

== ENCOUNTER 2022-10-17 09:33 | Inpatient (IN) | payer MEDICARE, OTHER ==
[2022-10-17] MEDS ORDERED: PANTOPRAZOLE 40 MG/10 ML VIAL IVP STA (10:09)
--- NOTE | 2022-10-17 10:25 | ED ---
Nausea/Vomiting/Diarrhea HPI - General Chief complaint: Abdominal Pain Stated complaint: Vomiting Blood Time Seen by Provider: 10/17/22 09:49 Source: patient, RN notes reviewed Mode of arrival: ambulatory Limitations: no limitations - History of Present Illness Initial comments: This is an 86-year-old male who presents to the emergency department for abd ominal pain and vomiting. Patient has dementia and presents with his son, who provides most of the history. His son states that yesterday, he was complaining of abdominal pain. This morning, he had 2 episodes of coffee-ground emesis and seemed to be particularly pale. He had one problem many years ago where he had some gastric ulcers as a result of excessive ibuprofen use. However he has been fine since then and he has not had any ibuprofen in a very long period of time. His son is unsure if he has any changes to his bowel movements. MD complaint: nausea, abdominal pain Description of Vomiting: coffee grounds - Related Data Home Medications Medication Instructions Recorded Confirmed Pioglitazone [Actos] 15 mg PO DAILY 10/17/22 10/17/22 glipiZIDE [Glucotrol] 10 mg PO BID 10/17/22 10/17/22 metFORMIN HCL 1,000 mg PO BID 10/17/22 10/17/22 Allergies Allergy/AdvReac Type Severity Reaction Status Date / Time No Known Allergies Allergy Verified 10/17/22 11:47 Review of Systems ROS Statement: Those systems with pertinent positive or pertinent negative responses have been documented in the HPI. ROS Other: All systems not noted in ROS Statement are negative. Limitations: ROS unobtainable due to patients medical condition Past Medical History Past Medical History: Dementia, Diabetes Mellitus History of Any Multi-Drug Resistant Organisms: None Reported Past Surgical History: No Surgical Hx Reported Additional Past Surgical History / Comment(s): 01/2018 left knee arthroscopic irrigation and debridement Past Anesthesia/Blood Transfusion Reactions: No Reported Reaction Past Psychological History: No Psychological Hx Reported Smoking Status: Never smoker Past Alcohol Use History: Rare Past Drug Use History: None Reported - Past Family History Daughter(s) Family Medical History: No Reported History Son(s) Family Medical History: No Reported History General Exam Limitations: no limitations General appearance: alert, in no apparent distress Head exam: Present: atraumatic, normocephalic, normal inspection Respiratory exam: Present: normal lung sounds bilaterally. Absent: respiratory distress, wheezes, rales, rhonchi, stridor Cardiovascular Exam: Present: regular rate, normal rhythm, normal heart sounds. Absent: systolic murmur, diastolic murmur, rubs, gallop, clicks GI/Abdominal exam: Present: soft, tenderness (mild and diffuse), normal bowel sounds. Absent: distended Neurological exam: Present: alert, oriented X3, CN II-XII intact Psychiatric exam: Present: normal affect, normal mood Skin exam: Present: warm, dry, intact, normal color. Absent: rash Course Vital Signs 10/17/22 10/17/22 10/17/22 09:41 10:09 11:06 Temperature 97.8 F Pulse Rate 106 H 95 96 Respiratory 18 18 18 Rate Blood Pressure 136/82 140/84 138/81 O2 Sat by Pulse 97 94 L 97 Oximetry 10/17/22 10/17/22 13:19 13:52 Temperature Pulse Rate 92 98 Respiratory 18 Rate Blood Pressure 154/88 154/87 O2 Sat by Pulse 97 96 Oximetry Medical Decision Making - Medical Decision Making This is an 86-year-old male who presents to the emergency department for abdominal pain and coffee-ground emesis. Was pt. sent in by a medical professional or institution? @ -No Did you speak to anyone other than the patient for history? @ -His son Did you review nursing and triage notes? @ -Yes, and I agree, it is accurate with regards to the patient's symptoms. Were old charts reviewed? @ -No Differential Diagnosis? @ -Differential Abdominal Pain Men: Appendicitis, cholecystitis, diverticulosis, ischemic bowel, pancreatitis, hepatitis, UTI, gastroenteritis, AAA, incarcerated hernia, bowel obstruction, constipation, inflammatory bowel, hepatitis, peptic ulcer disease, splenic infarction, perforated viscus, testicular torsion, this is not meant to be an all-inclusive list EKG interpreted by me (3pts min.)? @ -Sinus rhythm. Ventricular rate 92 bpm, OK interval 185 ms, QRS duration, 101 ms, QTC [address] interpreted by me (1pt min.)? @ -Computed tomography scan of the abdomen and pelvis obtained. My interpretation reveals multiple dilated small bowel loops with air-fluid levels. What testing was considered but not performed? (CT, X-rays, U/S, labs)? Why? @ -None What meds were considered but not given? Why? @ -None Did you discuss the management of the patient with other professionals? @ -Yes, Dr. Aguilar with [facility], who accepts the patient for admission. Case discussed with Dr. Zamorano as well, who is in agreement with IV fluids, Protonix, Zosyn, and an NG tube. Did you reconcile home meds? @ -No Was smoking cessation discussed for >3mins.? @ -No Was critical care preformed (if so, how long)? @ -No Were there social determinants of health that impacted care today? How? (Homelessness, low income, unemployed, alcoholism, drug addiction, transportation, low edu. Level, literacy, decrease access to med. care, assisted, rehab)? @ -No Was there de-escalation of care discussed even if they declined? (Discuss DNR or withdrawal of care, Hospice)? @ -No What co-morbidities impacted this encounter? (DM, HTN, Smoking, COPD, CAD, Cancer, CVA, Hep., AIDS, mental health diagnosis, sleep apnea, morbid obesity)? @ -Dementia, DM Was patient admitted / discharged? @ -Admitted. Lab work obtained revealing leukocytosis. Glucose is also elevated consistent with the patient's history of diabetes. Additionally, la ctic acid and troponin are elevated as well. Patient denies any chest pain or shortness of breath. Computed tomography scan of the abdomen and pelvis obtained, findings consistent with a high-grade small bowel obstruction. Patient was started on IV fluids, Protonix, and Zosyn. NG tube was also placed and abdominal x-ray confirmed placement. Case discussed with Dr. Zamorano, who is agreeable with the IV fluids, Protonix, Zosyn, and NG tube. Patient admitted to medicine with Gen. surgery listed as consult. Undiagnosed new problem with uncertain prognosis? @ -None Drug Therapy requiring intensive monitoring for toxicity (Heparin, Nitro, Insulin, Cardizem)? @ -None Were any procedures done? @ -None Diagnosis/symptom? @ -Small bowel obstruction Acute, or Chronic, or Acute on Chronic? @ -Acute Uncomplicated (without systemic symptoms) or Complicated (systemic symptoms)? @ -Complicated Side effects of treatment? @ -None Exacerbation, Progression, or Severe Exacerbation] @ -Not applicable Poses a threat to life or bodily function? @ -Yes This case was discussed in detail with the attending ED physician, Dr. Meehan. Presentation, findings, and treatment plan discussed in detail as well. - Lab Data Result diagrams: 10/17/22 10:11 10/17/22 10:11 Lab Results 10/17/22 10/17/22 10/17/22 Range/Units 10:11 10:11 10:11 WBC 11.5 H (3.8-10.6) k/uL RBC 5.19 (4.30-5.90) m/uL Hgb 15.5 (13.0-17.5) gm/dL Hct 46.1 (39.0-53.0) % MCV 88.9 (80.0-100.0) fL MCH 29.9 (25.0-35.0) pg MCHC 33.7 (31.0-37.0) g/dL RDW 14.8 (11.5-15.5) % Plt Count 189 (150-450) k/uL MPV 7.7 Neutrophils % 91 % Lymphocytes % 4 % Monocytes % 5 % Eosinophils % 0 % Basophils % 0 % Neutrophils # 10.4 H (1.3-7.7) k/uL Lymphocytes # 0.4 L (1.0-4.8) k/uL Monocytes # 0.6 (0-1.0) k/uL Eosinophils # 0.0 (0-0.7) k/uL Basophils # 0.0 (0-0.2) k/uL PT 10.8 (9.0-12.0) sec INR 1.0 (<1.2) APTT 22.6 (22.0-30.0) sec Sodium 136 L (137-145) mmol/L Potassium 4.3 (3.5-5.1) mmol/L Chloride 102 (98-107) mmol/L Carbon Dioxide 23 (22-30) mmol/L Anion Gap 11 mmol/L BUN 27 H (9-20) mg/dL Creatinine 1.22 (0.66-1.25) mg/dL Est GFR (CKD-EPI)AfAm 63 (>60 ml/min/1.73 sqM) Est GFR (CKD-EPI)NonAf 54 (>60 ml/min/1.73 sqM) Glucose 406 H (74-99) mg/dL Lactic Ac Sepsis Rflx Plasma Lactic Acid Shilo (0.7-2.0) mmol/L Calcium 9.4 (8.4-10.2) mg/dL Total Bilirubin 1.0 (0.2-1.3) mg/dL AST 27 (17-59) U/L ALT 21 (4-49) U/L Alkaline Phosphatase 84 (38-126) U/L Troponin I (0.000-0.034) ng/mL Total Protein 6.6 (6.3-8.2) g/dL Albumin 3.8 (3.5-5.0) g/dL Amylase 43 (30-110) U/L Lipase 43 (23-300) U/L 10/17/22 10/17/22 10/17/22 Range/Units 10:11 10:11 10:53 WBC (3.8-10.6) k/uL RBC (4.30-5.90) m/uL Hgb (13.0-17.5) gm/dL Hct (39.0-53.0) % MCV (80.0-100.0) fL MCH (25.0-35.0) pg MCHC (31.0-37.0) g/dL RDW (11.5-15.5) % Plt Count (150-450) k/uL MPV Neutrophils % % Lymphocytes % % Monocytes % % Eosinophils % % Basophils % % Neutrophils # (1.3-7.7) k/uL Lymphocytes # (1.0-4.8) k/uL Monocytes # (0-1.0) k/uL Eosinophils # (0-0.7) k/uL Basophils # (0-0.2) k/uL PT (9.0-12.0) sec INR (<1.2) APTT (22.0-30.0) sec Sodium (137-145) mmol/L Potassium (3.5-5.1) mmol/L Chloride (98-107) mmol/L Carbon Dioxide (22-30) mmol/L Anion Gap mmol/L BUN (9-20) mg/dL Creatinine (0.66-1.25) mg/dL Est GFR (CKD-EPI)AfAm (>60 ml/min/1.73 sqM) Est GFR (CKD-EPI)NonAf (>60 ml/min/1.73 sqM) Glucose (74-99) mg/dL Lactic Ac Sepsis Rflx Y Plasma Lactic Acid Shilo 2.6 H* (0.7-2.0) mmol/L Calcium (8.4-10.2) mg/dL Total Bilirubin (0.2-1.3) mg/dL AST (17-59) U/L ALT (4-49) U/L Alkaline Phosphatase (38-126) U/L Troponin I 0.411 H* (0.000-0.034) ng/mL Total Protein (6.3-8.2) g/dL Albumin (3.5-5.0) g/dL Amylase (30-110) U/L Lipase (23-300) U/L - Radiology Data Radiology results: report reviewed, image reviewed Disposition Clinical Impression: Small bowel obstruction Disposition: ADMITTED IP TO THIS HOSP
[2022-10-17 10:26] LABS: Basophils % (A) 0 %; Eosinophils % (A) 0 %; HCT 46.1 % (39.0-53.0); HGB 15.5 gm/dL (13.0-17.5); Lymphocytes # (A) 0.4 k/uL (1.0-4.8); Lymphocytes % (A) 4 %; MCH 29.9 pg (25.0-35.0); MCHC 33.7 g/dL (31.0-37.0); MCV 88.9 fL (80.0-100.0); Mean Platelet Volume 7.7; Monocytes # (A) 0.6 k/uL (0-1.0); Monocytes % (A) 5 %; Neutrophils # (A) 10.4 k/uL (1.3-7.7); Neutrophils % (A) 91 %; Platelet Count 189 k/uL (150-450); RBC 5.19 m/uL (4.30-5.90); RDW 14.8 % (11.5-15.5); WBC 11.5 k/uL (3.8-10.6)
[2022-10-17 10:36] LABS: Albumin 3.8 g/dL (3.5-5.0); Calcium 9.4 mg/dL (8.4-10.2); Potassium 4.3 mmol/L (3.5-5.1); Total Protein 6.6 g/dL (6.3-8.2)
[2022-10-17 10:46] LABS: Partial Thromboplastin Time 22.6 sec (22.0-30.0); Prothrombin Time 10.8 sec (9.0-12.0)
[2022-10-17] MEDS ORDERED: SODIUM CHLORIDE 0.9% 1,000 ML IV STA ×2 (10:56→12:28)
--- NOTE | 2022-10-17 11:46 | CT ---
EXAMINATION TYPE: CT abdomen pelvis w con DATE OF EXAM: 10/17/2022 COMPARISON: 02/01/2018 HISTORY: 86-year-old male Coffee ground emesis TECHNIQUE: Contiguous axial scanning of the abdomen and pelvis following administration of 100 ml Iso anatoliy 300 IV contrast. Delayed images through the kidneys and coronal/sagittal reconstructions perform ed. CT DLP: 1478.2 mGycm Automated exposure control for dose reduction was used. FINDINGS: Heart upper limits of normal in size without pericardial effusion. Tiny hiatal hernia. Mild circumfer ential wall thickening distal esophagus. Scattered calcified mediastinal and hilar lymph nodes sugges ting sequela of prior granulomatous disease. Some strandy scarring and atelectasis in the lower lungs . No pleural effusion. No focal liver lesion. Portal venous system is patent. No biliary ductal dilatation seen. No gallblad afia hydrops. Innumerable tiny stones fill the lumen of the gallbladder. Nodular configuration to the pancreatic tail with punctate calcification appears unchanged from 2018. Adrenal glands, spleen within normal limits. Both kidneys show cortical thinning. Symmetric uptake and excretion of contrast from both kidneys. A few scattered 5 mm and smaller benign cortical cysts are noted on both sides. Some possible focal fold thickening along the anterior wall of the gastric body, axial image 23. Ther e may be some mild adjacent fat stranding, axial image 24. There is a high grade small bowel obstruction at the anterior right lower quadrant, transition point axial image 70 and coronal image 32. Multiple air-fluid levels, small bowel dilatation up to 3.7 cm, reactive mesenteric edema. There is also trace perihepatic and perisplenic ascites and trace interloop ascites. Distal small bow el is collapsed. No mesenteric or retroperitoneal lymphadenopathy. Appendix is normal. Mild scattered colonic diverticulosis, greatest in the sigmoid colon. No definit e pericolonic inflammation. Bladder partially distended. Prostate gland enlargement 5.2 cm wide. Pelvic phleboliths. Mild pelvic ascites. No pelvic lymphadenopathy seen. Both colon post surgical change L3-S1 posterior lumbar fusion. Some anterior spondylosis lower thorac ic spine. Moderate to advanced degenerative disc disease above the fusion at L1-L2. At least moderate spinal canal stenosis at this level. Moderate degenerative change of the hips. IMPRESSION: 1. HIGH-GRADE SMALL BOWEL OBSTRUCTION, TRANSITION POINT ANTERIOR RIGHT LOWER QUADRANT, axial image 70 and coronal image 32. Small bowel dilatation up to 3.7 cm. 2. Reactive mild mesenteric edema. There is also mild abdominopelvic ascites which may be reactive as well. No free air. 3. Possible focal wall thickening along the anterior wall of the gastric body. Correlate for any unde rlying gastritis or peptic ulcer disease. Given patient's symptoms, consider direct visualization to exclude the less likely possibility of neoplasm. 4. Tiny hiatal hernia. Mild circumferential wall thickening of the distal esophagus could reflect ref lux esophagitis. 5. Numerous small gallstones filling the gallbladder. 6. Scattered colonic diverticulosis, greatest in the sigmoid colon. No evidence for acute diverticuli tis.
[2022-10-17] MEDS ORDERED: ACETAMINOPHEN TAB 325 MG TAB PO PRN (12:34)
[2022-10-17] MEDS ORDERED: KETOROLAC 15 MG/ML 1 ML VIAL IVP PRN (12:34)
[2022-10-17] MEDS ORDERED: NALOXONE 0.4 MG/ML 1 ML VIAL IV PRN (12:34)
[2022-10-17] MEDS ORDERED: ONDANSETRON 4 MG/2 ML VIAL IVP PRN (12:34)
[2022-10-17] MEDS ORDERED: IBUPROFEN 400 MG TAB PO PRN (12:34)
[2022-10-17] MEDS: MORPHINE SULFATE 2 MG/ML SYRINGE IV PRN (13:47)
--- NOTE | 2022-10-17 14:46 | XR ---
EXAMINATION TYPE: XR abdomen 1V DATE OF EXAM: 10/17/2022 COMPARISON: NONE HISTORY: Tube placement TECHNIQUE: 2 views supine FINDINGS: There are multiple dilated loops of air and fluid-filled small bowel in the abdomen. There is nasogastric tube and the tip is over the gastric fundus. No evidence of free air. IMPRESSION: Dilated small bowel suggestive of mechanical small bowel obstruction.
[2022-10-17] MEDS ORDERED: DEXTROSE 50% SYRINGE 50 ML IVP PRN ×2 (14:54)
[2022-10-17] MEDS: PIPERACILLIN-TAZOBACTAM 3.375 GM in SODIUM CHLORIDE 0.9% 100 ML IVPB SCH ×2 (16:14→23:45)
[2022-10-17 16:56] LABS: Glucose,Whole Blood 270 mg/dL (70-110)
[2022-10-17 17:41] LABS: Glucose,Whole Blood 318 mg/dL (70-110)
[2022-10-17] MEDS: INSULIN ASPART (NovoLOG) 100 UNIT/ML VIAL SQ SCH ×2 (18:04→21:27)
[2022-10-17 19:45] LABS: Glucose,Whole Blood 276 mg/dL (70-110)
[2022-10-17] MEDS: hydrALAZINE HCL 20 MG/ML 1 ML VIAL IVP PRN (22:32)
--- NOTE | 2022-10-18 00:57 | P.HPIM ---
History of Present Illness H&P Date: 10/17/22 Chief Complaint: Abdominal pain Patient is a 87-year-old male with a known history of diabetes type 2 [id number], dementia presents to ER with complaints of abdominal pain and vomiting. Patient was brought to the hospital by his son. Currently patient has been having abdominal pain and 2 episodes of coffee-ground emesis started last night and today. Patient had history of gastric ulcers due to use of ibuprofen previously. He has been doing well and is not using ibuprofen at this time. Denies any dark-colored stools. No fever no chills. No complaints of chest pain or shortness of breath. CT of the abdomen pelvis showed high-grade small bowel obstruction, transition point anterior right lower quadrant. Reactive mild mesenteric edema, possible focal thickening around the anterior wall of the gastric body correlate for underlying gastritis or peptic ulcer disease. Consider direct visualization to exclude possible neoplasm. Tiny hiatal hernia. Numerous small gallstones filling the gallbladder. Scattered diverticulosis colonic greatest in the sigmoid colon. No evidence of acute diverticulitis. Abdominal x-ray showed dilated small bowel suggestive of mechanical small bowel obstruction. EKG showed sinus rhythm. Laboratory data showed WBC 11.4 hemoglobin 15.5 and platelets 189 neutrophils 10.4 sodium 136 potassium 4.3 chloride 102 bicarb is 23 BUN 27 creatinine 1.22 and blood sugar is 406 and lactic acid 2.6 LFTs not elevated, troponin 0.111, 0.516 and 0.334 Review of Systems Constitutional: Patient denies any fever or chills . no Generalized weakness. Abdomen: Does have nausea and episode of vomiting and abdominal pain. No diarrhea. Cardiovascular: Patient denies any chest pain or short of breath no palpitations. Respiratory: patient denied any cough . no sputum production. No shortness of breath Neurologic: Patient denied any numbness or tingling headache. Musculoskeletal: Patient denies any complaints of joint swelling or deformity. Complete review of systems could not be obtained except As per HPI Past Medical History Past Medical History: Dementia, Diabetes Mellitus History of Any Multi-Drug Resistant Organisms: None Reported Past Surgical History: No Surgical Hx Reported Additional Past Surgical History / Comment(s): 01/2018 left knee arthroscopic irrigation and debridement Past Anesthesia/Blood Transfusion Reactions: No Reported Reaction Past Psychological History: No Psychological Hx Reported Smoking Status: Never smoker Past Alcohol Use History: Rare Past Drug Use History: None Reported - Past Family History Daughter(s) Family Medical History: No Reported History Son(s) Family Medical History: No Reported History Medications and Allergies Home Medications Medication Instructions Recorded Confirmed Type Pioglitazone [Actos] 15 mg PO DAILY 10/17/22 10/17/22 History glipiZIDE [Glucotrol] 10 mg PO BID 10/17/22 10/17/22 History metFORMIN HCL 1,000 mg PO BID 10/17/22 10/17/22 History Allergies Allergy/AdvReac Type Severity Reaction Status Date / Time No Known Allergies Allergy Verified 10/17/22 11:47 Physical Exam Vitals: Vital Signs Temp Pulse Resp BP Pulse Ox 10/17/22 13:52 98 154/87 96 10/17/22 13:19 92 18 154/88 97 10/17/22 11:06 96 18 138/81 97 10/17/22 10:09 95 18 140/84 94 L 10/17/22 09:41 97.8 F 106 H 18 136/82 97 Intake and Output 10/16/22 10/17/22 10/17/22 22:59 06:59 14:59 Other: Weight 95.254 kg PHYSICAL EXAMINATION: Patient is lying in the bed comfortably, no acute distress, awake alert and oriented.. HEENT: Normocephalic. Neck is supple. Pupils reactive. Nostrils clear. Oral cavity is moist. Neck reveals no JVD, carotid bruits, or thyromegaly. CHEST EXAMINATION: Trachea is central. Symmetrical expansion. Lung wiseman clear to auscultation and percussion. CARDIAC: Normal S1, S2 with no gallops. No murmurs ABDOMEN: Soft. Bowel sounds diminished. Nontender. No organomegaly. No a bdominal bruits. Extremities: reveal no edema. No clubbing or cyanosis Neurologically awake, alert, oriented x3 with well-coordinated movements. Mild cognitive impairment no gross focal deficits noted Skin: No rash or skin lesions. Psychiatric: Coperative. Could not be assessed completely., Musculoskeletal: No joint swelling or deformity. Normal range of motion. Results CBC & Chem 7: 10/17/22 10:11 10/17/22 10:11 Labs: Abnormal Lab Results - Last 24 Hours (Table) 10/17/22 10/17/22 10/17/22 Range/Units 10:11 10:11 10:11 WBC 11.5 H (3.8-10.6) k/uL Neutrophils # 10.4 H (1.3-7.7) k/uL Lymphocytes # 0.4 L (1.0-4.8) k/uL Sodium 136 L (137-145) mmol/L BUN 27 H (9-20) mg/dL Glucose 406 H (74-99) mg/dL Plasma Lactic Acid Shilo 2.6 H* (0.7-2.0) mmol/L Troponin I (0.000-0.034) ng/mL 10/17/22 Range/Units 10:11 WBC (3.8-10.6) k/uL Neutrophils # (1.3-7.7) k/uL Lymphocytes # (1.0-4.8) k/uL Sodium (137-145) mmol/L BUN (9-20) mg/dL Glucose (74-99) mg/dL Plasma Lactic Acid Shilo (0.7-2.0) mmol/L Troponin I 0.411 H* (0.000-0.034) ng/mL Thrombosis Risk Factor Assmnt - DVT/VTE Prophylaxis DVT/VTE Prophylaxis: Pharmacologic Prophylaxis ordered Assessment and Plan Assessment: Acute small bowel obstruction. Transition point anterior right lower quadrant. Abdominal pain and vomiting secondary above Lactic acidosis Elevated troponin level Remote history of gastric ulcer due to ibuprofen excessive use. Numerous cholelithiasis Colonic diverticulosis Dementia Diabetes type 2 [id number] uncontrolled with hyperglycemia DVT prophylaxis with heparin subcu Plan: Patient will be continued on IV hydration and nothing by mouth. NG tube insertion to decompress. Continue with IV Protonix and monitor H&H. General surgery and cardiology evaluation. Continue to follow closely. Prognosis is guarded. Time with Patient: Greater than 30
[2022-10-18] MEDS: INSULIN DETEMIR (LEVEMIR) 100 UNIT/ML SYR SQ SCH ×2 (02:39→20:17)
[2022-10-18 06:31] LABS: Glucose,Whole Blood 251 mg/dL (70-110)
[2022-10-18] MEDS: INSULIN ASPART (NovoLOG) 100 UNIT/ML VIAL SQ SCH ×4 (06:42→20:17)
[2022-10-18] MEDS: SODIUM CHLORIDE 0.9% 1,000 ML IV SCH ×2 (06:43→17:10)
[2022-10-18] MEDS: hydrALAZINE HCL 20 MG/ML 1 ML VIAL IVP PRN (06:46)
[2022-10-18] MEDS ORDERED: cloNIDine 0.1 MG/24HR PATCH TRANSDERM SCH (07:00)
[2022-10-18] MEDS ORDERED: HEPARIN SODIUM,PORCINE/PF 5,000 UNIT/0.5 ML SYRINGE SQ SCH (08:00)
[2022-10-18] MEDS ORDERED: PANTOPRAZOLE 40 MG/10 ML VIAL IV SCH (09:00)
[2022-10-18] MEDS: PIPERACILLIN-TAZOBACTAM 3.375 GM in SODIUM CHLORIDE 0.9% 100 ML IVPB SCH ×3 (09:06→23:02)
--- NOTE | 2022-10-18 11:30 | P.CRDCN ---
History of Present Illness Consult date: 10/18/22 History of present illness: HISTORY OF PRESENT ILLNESS: This is a 86-year-old male with a past medical history significant for diabetes. Patient does not follow with a front desk administrator. We have been asked to see the patient in consultation for elevated troponins. Patient examined at the bedside. Patient presented to the hospital with a chief complaint of abdominal pain and vomiting. Patient was found to have a small bowel obstruction and general surgery was consulted. Patient denies history of SBO. He denies any chest pain or pressure. Denies SOB. Denies any previous cardiac history. * EKG reveals sinus mechanism with no signs of acute ischemia. * Abdominal x-ray: Dilated small bowel suggestive of mechanical small bowel obstruction * CT abdomen and pelvis: High-grade small bowel obstruction with transition point anterior right lower quadrant. * Laboratory data: WBC 11.5. Hemoglobin 15.5. Platelet count 189. Sodium 136 and potassium 4.3. BUN 27. Creatinine 1.22. Troponin 0.411. 0.516. 0.334. * Current home cardiac medications include none. REVIEW OF SYSTEMS: At the time of my exam: CONSTITUTIONAL: Denies fever or chills. HEENT: Denies blurred vision, vision changes, or eye pain. Denies hemoptysis CARDIOVASCULAR: Denies chest pain. Denies orthopnea. Denies PND. Denies palpitations RESPIRATORY: Denies shortness of breath. GASTROINTESTINAL: + abdominal pain. Denies nausea or vomiting. HEMATOLOGIC: Denies bleeding disorders. GENITOURINARY: Denies any blood in urine. SKIN: Denies pruitis. Denies rash. PHYSICAL EXAM: VITAL SIGNS: Reviewed. GENERAL: Well-developed in no acute distress. HEENT: Head is normocephalic. Pupils are equal, round. Sclerae anicteric. Mucous membranes of the mouth are moist. Neck supple. No JVD or thyromegaly LUNGS: Respirations even and unlabored. Lungs essentially clear to auscultation bilaterally. HEART: Regular rate and rhythm. S1 and S2 heard. ABDOMEN: Soft. Distended. + tenderness. EXTREMITIES: Normal range of motion. No clubbing or cyanosis. Peripheral pulses intact. 1+ bilateral lower extremity edema NEUROLOGIC: Awake and alert. ASSESSMENT: Abdominal pain Small bowel obstruction Elevated troponin Hypertension Diabetes Dementia PLAN: Patient currently NPO. He has been started on Clonidine patch per primary medicine for elevated BP. Continue to monitor BP Obtain 2D echo to assess cardiac structure and function Obtain lipid panel and hemoglobin A1C Not cleared at this time to undergo surgery from a cardiac standpoint per Dr. Solis Further recommendations pending patient course Nurse practitioner note has been reviewed by physician. Signing provider agrees with the documented findings, assessment, and plan of care. Past Medical History Past Medical History: Dementia, Diabetes Mellitus History of Any Multi-Drug Resistant Organisms: None Reported Past Surgical History: No Surgical Hx Reported Additional Past Surgical History / Comment(s): 01/2018 left knee arthroscopic irrigation and debridement Past Anesthesia/Blood Transfusion Reactions: No Reported Reaction Past Psychological History: No Psychological Hx Reported Smoking Status: Never smoker Past Alcohol Use History: Rare Past Drug Use History: None Reported - Past Family History Daughter(s) Family Medical History: No Reported History Son(s) Family Medical History: No Reported History Medications and Allergies Home Medications Medication Instructions Recorded Confirmed Type Pioglitazone [Actos] 15 mg PO DAILY 10/17/22 10/17/22 History glipiZIDE [Glucotrol] 10 mg PO BID 10/17/22 10/17/22 History metFORMIN HCL 1,000 mg PO BID 10/17/22 10/17/22 History Allergies Allergy/AdvReac Type Severity Reaction Status Date / Time No Known Allergies Allergy Verified 10/17/22 11:47 Physical Exam Vitals: Vital Signs Temp Pulse Pulse Resp BP BP Pulse Ox 10/18/22 04:00 97.8 F 91 14 181/75 98 10/17/22 23:48 98.6 F 92 14 135/75 98 10/17/22 20:00 98.5 F 83 14 170/85 98 10/17/22 19:06 171/78 10/17/22 18:09 189/77 10/17/22 17:35 98.5 F 87 16 189/91 98 10/17/22 17:15 92 18 168/90 96 10/17/22 15:46 89 18 168/90 97 10/17/22 13:52 98 154/87 96 10/17/22 13:19 92 18 154/88 97 10/17/22 11:06 96 18 138/81 97 10/17/22 10:09 95 18 140/84 94 L 10/17/22 09:41 97.8 F 106 H 18 136/82 97 Intake and Output 10/17/22 10/18/22 10/18/22 22:59 06:59 14:59 Output Total 150 Balance -150 Output: Urine 150 Other: Voiding Method Toilet Toilet Urinal Urinal # Voids 3 Results 10/17/22 10:11 10/17/22 10:11 Cardiac Enzymes 10/17/22 10/17/22 10/17/22 Range/Units 10:11 10:11 15:10 AST 27 (17-59) U/L Troponin I 0.411 H* 0.516 H* (0.000-0.034) ng/mL 10/17/22 Range/Units 18:20 AST (17-59) U/L Troponin I 0.334 H* (0.000-0.034) ng/mL Coagulation 10/17/22 Range/Units 10:11 PT 10.8 (9.0-12.0) sec APTT 22.6 (22.0-30.0) sec CBC 10/17/22 Range/Units 10:11 WBC 11.5 H (3.8-10.6) k/uL RBC 5.19 (4.30-5.90) m/uL Hgb 15.5 (13.0-17.5) gm/dL Hct 46.1 (39.0-53.0) % Plt Count 189 (150-450) k/uL Comprehensive Metabolic Panel 10/17/22 Range/Units 10:11 Sodium 136 L (137-145) mmol/L Potassium 4.3 (3.5-5.1) mmol/L Chloride 102 (98-107) mmol/L Carbon Dioxide 23 (22-30) mmol/L BUN 27 H (9-20) mg/dL Creatinine 1.22 (0.66-1.25) mg/dL Glucose 406 H (74-99) mg/dL Calcium 9.4 (8.4-10.2) mg/dL AST 27 (17-59) U/L ALT 21 (4-49) U/L Alkaline Phosphatase 84 (38-126) U/L Total Protein 6.6 (6.3-8.2) g/dL Albumin 3.8 (3.5-5.0) g/dL Current Medications Generic Name Dose Route Start Last Admin Trade Name Freq PRN Reason Stop Dose Admin Acetaminophen 650 mg 10/17/22 12:34 Acetaminophen Tab 325 Mg Tab PO Q6HR PRN Mild Pain or Fever > 100.5 Clonidine HCl 1 patch 10/18/22 07:00 Clonidine 0.1 Mg/24hr Patch TRANSDERM Q7D OLY Dextrose/Water 25 ml 10/17/22 14:54 Dextrose 50% Syringe 50 Ml IVP PER PROTOCOL PRN Hypoglycemia Protocol Dextrose/Water 50 ml 10/17/22 14:54 Dextrose 50% Syringe 50 Ml IVP PER PROTOCOL PRN Hypoglycemia Protocol Heparin Sodium (Porcine) 5,000 unit 10/18/22 08:00 Heparin Sodium,Porcine/Pf 5,000 Unit/0.5 Ml Syringe SQ Q8HR [facility] Hydralazine HCl 5 mg 10/17/22 22:26 10/18/22 06:46 Hydralazine Hcl 20 Mg/Ml 1 Ml Vial IVP 5 mg Q4HR PRN Administration Blood Pressure - High Piperacillin Sod/Tazobactam 100 mls @ 25 mls/hr 10/17/22 16:00 10/17/22 23:45 Sod 3.375 gm/ Sodium Chloride IVPB 25 mls/hr Q8HR OLY Administration Protocol Sodium Chloride 1,000 mls @ 75 mls/hr 10/18/22 01:00 10/18/22 06:43 Saline 0.9% IV 75 mls/hr .[id number] OLY Administration Insulin Aspart 0 unit 10/17/22 17:30 10/18/22 06:42 Insulin Aspart (Novolog) 100 Unit/Ml Vial SQ 3 unit ACHS [facility] Administration Protocol Insulin Detemir 10 unit 10/18/22 01:00 10/18/22 02:39 Insulin Detemir (Levemir) 100 Unit/Ml Syr SQ Not Given HS [facility] Morphine Sulfate 2 mg 10/17/22 12:34 10/17/22 13:47 Morphine Sulfate 2 Mg/Ml Syringe IV 2 mg Q4HR PRN Administration Severe Pain (Scale 7 to 10) Naloxone HCl 0.2 mg 10/17/22 12:34 Naloxone 0.4 Mg/Ml 1 Ml Vial IV Q2M PRN Opioid Reversal Ondansetron HCl 4 mg 10/17/22 12:34 Ondansetron 4 Mg/2 Ml Vial IVP Q8HR PRN Nausea And Vomiting Pantoprazole Sodium 40 mg 10/18/22 09:00 Pantoprazole 40 Mg/10 Ml Vial IV DAILY OLY Intake and Output 10/17/22 10/18/22 10/18/22 22:59 06:59 14:59 Output Total 150 Balance -150 Output: Urine 150 Other: Voiding Method Toilet Toilet Urinal Urinal # Voids 3 10/17/22 10:11 10/17/22 10:11
[2022-10-18 11:48] LABS: Glucose,Whole Blood 213 mg/dL (70-110)
--- NOTE | 2022-10-18 13:27 | P.PN ---
Subjective Patient is a 87-year-old male with a known history of diabetes type 2 [id number], dementia presents to ER with complaints of abdominal pain and vomiting. Patient was brought to the hospital by his son. Currently patient has been having abdominal pain and 2 episodes of coffee-ground emesis started last night and today. Patient had history of gastric ulcers due to use of ibuprofen previously. He has been doing well and is not using ibuprofen at this time. Denies any dark-colored stools. No fever no chills. No complaints of chest pain or shortness of breath. CT of the abdomen pelvis showed high-grade small bowel obstruction, transition point anterior right lower quadrant. Reactive mild mesenteric edema, possible focal thickening around the anterior wall of the gastric body correlate for underlying gastritis or peptic ulcer disease. Consider direct visualization to exclude possible neoplasm. Tiny hiatal hernia. Numerous small gallstones filling the gallbladder. Scattered diverticulosis colonic greatest in the sigmoid colon. No evidence of acute diverticulitis. Abdominal x-ray showed dilated small bowel suggestive of mechanical small bowel obstruction. EKG showed sinus rhythm. Laboratory data showed WBC 11.4 hemoglobin 15.5 and platelets 189 neutrophils 10.4 sodium 136 potassium 4.3 chloride 102 bicarb is 23 BUN 27 creatinine 1.22 and blood sugar is 406 and lactic acid 2.6 LFTs not elevated, troponin 0.111, 0.516 and 0.334 10/18/2022 Patient still had right upper quadrant abdominal pain, still nothing by mouth, he says he has normal bowel movement this morning. Patient with no chest pain or dyspnea. Patient denies any urinary symptoms. Patient denies using NSAIDs prior to hospitalization. His abdomen looks markedly distended. No labs from today. Glucose slightly elevated at 213 Blood pressure is better at 153/75 after started on clonidine patch. Patient continued on Zosyn, normal saline at 75 mm/h and Levemir 10 units. His home diabetic medication on hold occluding metformin, glipizide and Actos Cardiology team on the case for preop evaluation. Surgery team recommended surgical intervention. Objective - Vital Signs Vital signs: Vital Signs Temp 98.4 F 10/18/22 09:00 Pulse 92 10/18/22 09:00 Resp 16 10/18/22 09:00 BP 153/75 10/18/22 09:00 Pulse Ox 99 10/18/22 09:00 FiO2 Intake & Output 10/17/22 10/18/22 10/18/22 18:59 06:59 18:59 Output Total 150 Balance -150 Weight 95.254 kg Output: Urine 150 Other: Voiding Method Toilet Toilet Urinal Urinal # Voids 3 - Exam GENERAL: The patient is alert and oriented x3, not in any acute distress. Well developed, well nourished. HEENT: Pupils are round and equally reacting to light. EOMI. No scleral icterus. No conjunctival pallor. Normocephalic, atraumatic. No pharyngeal erythema. No thyromegaly. CARDIOVASCULAR: S1 and S2 present. No murmurs, rubs, or gallops. PULMONARY: Chest is clear to auscultation, no wheezing or crackles. -ABDOMEN: Soft, nontende upper abdominal tenderness with no rebound tenderness r, distended, normoactive bowel sounds. No palpable organomegaly. MUSCULOSKELETAL: No joint swelling or deformity. EXTREMITIES: No cyanosis, clubbing, or pedal edema. NEUROLOGICAL: Gross neurological examination did not reveal any focal deficits. SKIN: No rashes. no petechiae. - Labs CBC & Chem 7: 10/17/22 10:11 10/17/22 10:11 Labs: Abnormal Lab Results - Last 24 Hours (Table) 10/17/22 10/17/22 10/17/22 Range/Units 15:10 16:46 17:40 POC Glucose (mg/dL) 270 H 318 H (70-110) mg/dL Troponin I 0.516 H* (0.000-0.034) ng/mL 10/17/22 10/17/22 10/18/22 Range/Units 18:20 19:43 06:30 POC Glucose (mg/dL) 276 H 251 H (70-110) mg/dL Troponin I 0.334 H* (0.000-0.034) ng/mL 10/18/22 Range/Units 11:44 POC Glucose (mg/dL) 213 H (70-110) mg/dL Troponin I (0.000-0.034) ng/mL Assessment and Plan Assessment: Acute small bowel obstruction. Transition point anterior right lower quadrant. Suspicion of hematemesis, evidence of gastric wall thickening on computed tomography scan suspicious for gastritis versus peptic ulcer disease Abdominal pain and vomiting secondary above Lactic acidosis Elevated troponin level Remote history of gastric ulcer due to ibuprofen excessive use. Numerous cholelithiasis Colonic diverticulosis Dementia Diabetes type 2 [id number] uncontrolled with hyperglycemia Plan: Patient will be continued on IV hydration and nothing by mouth. NG tube insertion to decompress. Continue with IV Protonix and monitor H&H. Continue Zosyn Cardiology team recommended echo and possible stress test as part of preop evaluation. Surgical team on the case for bowel obstruction but given her patient abnormal stomach vitamins we will consult them for possible EGD General surgery and cardiology evaluation. Labs and medication were reviewed.. Continue same treatment. Continue with symptomatic treatment. Resume home medication. Monitor labs and vitals. DVT and GI prophylaxis. Further recommendations as per clinical course of the patient DVT prophylaxis: Patient already started on Subcutaneous heparin, we will monitor serum hemoglobin Mostly GI Prophylaxis: Pepcid PT/OT: Pending Prognosis is guarded
--- NOTE | 2022-10-18 13:41 | P.GSCN ---
History of Present Illness Consult date: 10/18/22 History of present illness: CHIEF COMPLAINT: Abdominal pain and chest pain HISTORY OF PRESENT ILLNESS: This is a 86-year-old male with history of dementia. He presented to the hospital with complaints of abdominal pain and vomiting. Per chart the son had reported 2 episodes of coffee ground emesis. He was concerned because patient has a known history of gastric ulcer due to ibuprofen use. Patient did have NG tube placed in ER. Patient had pulled out NG tube th is morning. Computed tomography scan had shown evidence of a high-grade small bowel obstruction with transition point in the right lower quadrant. Patient was found to have elevated troponins. He has been seen by cardiology. They have not cleared patient for surgery. PAST MEDICAL HISTORY: See below. Dementia. Diabetes mellitus. History of GI bleed with peptic ulcer disease and NSAID use PAST SURGICAL HISTORY: See below MEDICATIONS: See below ALLERGIES: See below SOCIAL HISTORY: No illicit drug use. REVIEW OF SYSTEMS: CONSTITUTIONAL: Denies fever or chills. HEENT: Denies blurred vision, vision changes, or eye pain. Denies hemoptysis CARDIOVASCULAR: Denies chest pain or pressure. RESPIRATORY: No shortness of breath. GASTROINTESTINAL: See HPI for pertinent findings HEMATOLOGIC: Denies bleeding disorders. GENITOURINARY: Denies any blood in urine or increased urinary frequency. SKIN: Denies pruitis. Denies rash. PHYSICAL EXAM: VITAL SIGNS: Reviewed GENERAL: Well-developed in no acute distress. HEENT: No sclera icterus. Extraocular movements grossly intact. Moist buccal mucosa. Head is atraumatic, normocephalic. No nasal drainage. ABDOMEN: Distended. Tenderness with palpation across the lower abdomen more so on the right lower quadrant NEUROLOGIC: Awake and alert. Confused. LABORATORY DATA: WBC is 11.5 Hgb 15.5 platelets 189 Sodium is 136 potassium 4.3 creatinine 1.2 to Glucose 213 Lactic acid 2.6 down to 1.4 Elevated troponins Lipase 43 LFTs normal IMAGING: Computed tomography scan abdomen and pelvis shows a high-grade small bowel obstruction with transition point anterior right lower quadrant. Reactive mild mesenteric edema. There is also mild abdominal pelvic ascites which may be reactive as well. No free air. Possible focal wall thickening along the anterior wall gastric body. When correlate for any underlying gastritis or pep tic ulcer disease. Given patient's incisions consider direct visualization to exclude less likely possibility of neoplasm. Tiny hiatal hernia. Mild circumferential wall thickening of the distal esophagus could reflect reflux esophagitis. Numerous small gallstones filling the gallbladder. Scattered colonic diverticulosis greatest in the sigmoid colon. No evidence for acute diverticulitis ASSESSMENT: 1. High-grade small bowel obstruction with transition point anterior right lower quadrant 2. Elevated troponins being evaluated by cardiology 3. Possible focal wall thickening along the anterior wall of the gastric body. Correlate for gastritis or peptic ulcer disease noted on computed tomography scan 4. Incidental cholelithiasis PLAN: -Keep patient nothing by mouth -Recommend to replace NG tube for decompression. Patient pulled out NG Tube this morning -Continue IV Protonix -Continue IV fluids -Continue supportive care -Awaiting cardiac clearance for surgical intervention Physician [employer] Top Installer note has been reviewed by physician. Signing provider agrees with the documented findings, assessment, and plan of care. Past Medical History Past Medical History: Dementia, Diabetes Mellitus History of Any Multi-Drug Resistant Organisms: None Reported Past Surgical History: No Surgical Hx Reported Additional Past Surgical History / Comment(s): 01/2018 left knee arthroscopic irrigation and debridement Past Anesthesia/Blood Transfusion Reactions: No Reported Reaction Past Psychological History: No Psychological Hx Reported Smoking Status: Never smoker Past Alcohol Use History: Rare Past Drug Use History: None Reported - Past Family History Daughter(s) Family Medical History: No Reported History Son(s) Family Medical History: No Reported History Medications and Allergies Home Medications Medication Instructions Recorded Confirmed Type Pioglitazone [Actos] 15 mg PO DAILY 10/17/22 10/17/22 History glipiZIDE [Glucotrol] 10 mg PO BID 10/17/22 10/17/22 History metFORMIN HCL 1,000 mg PO BID 10/17/22 10/17/22 History Allergies Allergy/AdvReac Type Severity Reaction Status Date / Time No Known Allergies Allergy Verified 10/17/22 11:47 Surgical - Exam Vital Signs Temp Pulse Resp BP Pulse Ox 97.8 F 106 H 18 136/82 97 10/17/22 09:41 10/17/22 09:41 10/17/22 09:41 10/17/22 09:41 10/17/22 09:41 Results - Labs 10/17/22 10:11 10/17/22 10:11 Abnormal Lab Results - Last 24 Hours (Table) 10/17/22 10/17/22 10/17/22 Range/Units 10:11 10:11 15:10 POC Glucose (mg/dL) (70-110) mg/dL Plasma Lactic Acid Shilo 2.6 H* (0.7-2.0) mmol/L Troponin I 0.411 H* 0.516 H* (0.000-0.034) ng/mL 10/17/22 10/17/22 10/17/22 Range/Units 16:46 17:40 18:20 POC Glucose (mg/dL) 270 H 318 H (70-110) mg/dL Plasma Lactic Acid Shilo (0.7-2.0) mmol/L Troponin I 0.334 H* (0.000-0.034) ng/mL 10/17/22 10/18/22 Range/Units 19:43 06:30 POC Glucose (mg/dL) 276 H 251 H (70-110) mg/dL Plasma Lactic Acid Shilo (0.7-2.0) mmol/L Troponin I (0.000-0.034) ng/mL
--- NOTE | 2022-10-18 13:44 | CA ---
Transthoracic Echo Report Name: Tadeo Bauer Age: 86 Gender: M : 1935 Exam Date: 10/18/2022 11:36 Exam Location: [facility] Ht (in): Wt (lb): Ordering Physician: Maile Cedeno Attending/Referring Phys: [id number], Wilian Administrative Processor Wilma Roper, BAL Procedure CPT: Indications: LV function, abnormal trops Cardiac Hx: Technical Quality: Fair Contrast 1: Total Dose (mL): Contrast 2: Total Dose (mL): MEASUREMENTS (Male / Female) Normal Values 2D ECHO LV Diastolic Diameter PLAX 4.6 cm 4.2 - 5.9 / 3.9 - 5.3 cm LV Systolic Diameter PLAX 3.1 cm IVS Diastolic Thickness 1.0 cm 0.6 - 1.0 / 0.6 - 0.9 cm LVPW Diastolic Thickness 1.3 cm 0.6 - 1.0 / 0.6 - 0.9 cm LV Relative Wall Thickness 0.5 LA Volume 45.7 cm??? 18 - 58 / 22 - 52 cm??? M-MODE Aortic Root Diameter MM 3.7 cm AV Cusp Separation MM 1.9 cm DOPPLER AV Peak Velocity 152.8 cm/s AV Peak Gradient 9.3 mmHg LVOT Peak Velocity 93.4 cm/s LVOT Peak Gradient 3.5 mmHg MV Area PHT 5.2 cm??? Mitral E Point Velocity 50.5 cm/s Mitral A Point Velocity 65.0 cm/s Mitral E to A Ratio 0.8 MV Deceleration Time 145.6 ms TR Peak Velocity 236.7 cm/s TR Peak Gradient 22.4 mmHg FINDINGS Left Ventricle Left ventricular ejection fraction is estimated at 55- 60 %. Left ventricular cavity size normal. Left ventricular wall thickness normal. Right Ventricle Mild right ventricular dilatation. Normal right ventricular global systolic function. Right ventricular systolic pressure within normal limits. Right Atrium normal right atrial size. Left Atrium Normal left atrial size. Mitral Valve Structurally normal mitral valve. Trace mitral regurgitation. Aortic Valve Trileaflet aortic valve. Thickened aortic valve without stenosis. No aortic regurgitation. Mild aortic sclerosis Tricuspid Valve Mild tricuspid regurgitation.structurally normal tricuspid valve. Pulmonic Valve Structurally normal pulmonic valve. Pericardium No pericardial or pleural effusion. Aorta Normal size aortic root and proximal ascending aorta. CONCLUSIONS 1. Normal left ventricle size and systolic function 2. Mild tricuspid regurgitation with normal right-sided pressure 3. Trace mitral regurgitation. Previewed by: Dr. Masood Gomez MD (Electronically Signed) Final Date: 18 October 2022 13:43
[2022-10-18 13:57] LABS: Basophils % (A) 1 %; Eosinophils % (A) 0 %; HCT 42.2 % (39.0-53.0); HGB 14.5 gm/dL (13.0-17.5); Lymphocytes # (A) 0.5 k/uL (1.0-4.8); Lymphocytes % (A) 9 %; MCH 30.6 pg (25.0-35.0); MCHC 34.5 g/dL (31.0-37.0); MCV 88.7 fL (80.0-100.0); Mean Platelet Volume 7.6; Monocytes # (A) 0.9 k/uL (0-1.0); Monocytes % (A) 17 %; Neutrophils # (A) 3.9 k/uL (1.3-7.7); Neutrophils % (A) 71 %; Platelet Count 126 k/uL (150-450); RBC 4.75 m/uL (4.30-5.90); WBC 5.5 k/uL (3.8-10.6)
[2022-10-18 14:18] LABS: Calcium 8.8 mg/dL (8.4-10.2); Potassium 4.1 mmol/L (3.5-5.1)
[2022-10-18] MEDS ORDERED: BENZOCAINE SPRAY 1 CAN MUCOUS MEM PRN (14:55)
[2022-10-18 16:33] LABS: Glucose,Whole Blood 182 mg/dL (70-110)
--- NOTE | 2022-10-18 17:57 | XR ---
EXAMINATION TYPE: XR chest 1V portable DATE OF EXAM: 10/18/2022 5:30 PM COMPARISON: Chest radiographs from 02/05/2018, CT 10/17/2022 TECHNIQUE: XR chest 1V portable Frontal view of the chest. CLINICAL INDICATION:Male, 86 years old with history of NG tube placement; FINDINGS: Lungs/Pleura: Prominent interstitial lung markings are seen scattered throughout the lungs. No eviden ce of focal consolidation, pneumothorax or pleural effusion. Pulmonary vascularity: Unremarkable. Heart/mediastinum: Cardiomediastinal silhouette is unremarkable. Musculoskeletal: No acute osseous pathology. There is fixation hardware in the lower cervical spine. Other findings: None Lines/Tubes: Interval placement of nasogastric and side-port projecting under the diaphragm. IMPRESSION: 1. Nasogastric tube appears to be projecting over the gastric lumen. 2. COPD with chronic interstitial changes.
[2022-10-18 20:08] LABS: Glucose,Whole Blood 141 mg/dL (70-110)
[2022-10-18] MEDS: PANTOPRAZOLE 40 MG/10 ML VIAL IV SCH (20:16)
[2022-10-18] MEDS ORDERED: TEMAZEPAM 7.5 MG CAP PO ONE (22:11)
[2022-10-19 05:55] LABS: Glucose,Whole Blood 165 mg/dL (70-110)
[2022-10-19] MEDS: INSULIN ASPART (NovoLOG) 100 UNIT/ML VIAL SQ SCH ×4 (06:19→20:04)
[2022-10-19] MEDS: SODIUM CHLORIDE 0.9% 1,000 ML IV SCH ×2 (07:03→17:19)
[2022-10-19 07:37] LABS: Appearance,Urine Clear (Clear); Bilirubin,Urine Negative (Negative); Blood,Urine Negative (Negative); Color,Urine Yellow; Glucose,Urine (UA) Trace (Negative); Ketones,Urine 1+ (Negative); Leukocyte Esterase,Urine Negative (Negative); Mucus,Urine Rare /hpf; Nitrite,Urine Negative (Negative); PH, Urine 5.5 (5.0-8.0); Protein,Urine 1+ (Negative); RBC,Urine 1 /hpf (0-5); Specific Gravity,Urine 1.032 (1.001-1.035); Urobilinogen,Urine <2.0 mg/dL (<2.0); WBC,Urine <1 /hpf (0-5)
[2022-10-19] MEDS: PIPERACILLIN-TAZOBACTAM 3.375 GM in SODIUM CHLORIDE 0.9% 100 ML IVPB SCH ×3 (08:50→23:33)
[2022-10-19] MEDS: PANTOPRAZOLE 40 MG/10 ML VIAL IV SCH ×2 (08:51→20:09)
[2022-10-19 11:02] LABS: Bilirubin, Delta 0.4 mg/dL (0.0-0.2); Bilirubin,Unconjugated 0.4 mg/dL (0.0-1.1); Calcium 7.9 mg/dL (8.4-10.2); Potassium 3.9 mmol/L (3.5-5.1); Total Bilirubin 0.8 mg/dL (0.2-1.3); Total Protein 5.5 g/dL (6.3-8.2)
[2022-10-19 11:32] LABS: Basophils % (A) 0 %; Eosinophils % (A) 1 %; HCT 38.4 % (39.0-53.0); HGB 12.9 gm/dL (13.0-17.5); Lymphocytes # (A) 0.6 k/uL (1.0-4.8); Lymphocytes % (A) 14 %; MCH 30.2 pg (25.0-35.0); MCHC 33.7 g/dL (31.0-37.0); MCV 89.6 fL (80.0-100.0); Mean Platelet Volume 7.8; Monocytes # (A) 0.6 k/uL (0-1.0); Monocytes % (A) 14 %; Neutrophils # (A) 2.8 k/uL (1.3-7.7); Neutrophils % (A) 68 %; Platelet Count 142 k/uL (150-450); RBC 4.28 m/uL (4.30-5.90); WBC 4.1 k/uL (3.8-10.6)
[2022-10-19 11:36] LABS: Glucose,Whole Blood 151 mg/dL (70-110)
--- NOTE | 2022-10-19 12:54 | P.PN ---
Subjective Progress Note Date: 10/19/22 HISTORY OF PRESENT ILLNESS: This is a 86-year-old male with a past medical history significant for diabetes. Patient does not follow with a drop forger helper. We have been asked to see the patient in consultation for elevated troponins. Patient examined at the bedside. Patient presented to the hospital with a chief complaint of abdominal pain and vomiting. Patient was found to have a small bowel obstruction and general surgery was consulted. Patient denies history of SBO. He denies any chest pain or pressure. Denies SOB. Denies any previous cardiac history. * EKG reveals sinus mechanism with no signs of acute ischemia. * Abdominal x-ray: Dilated small bowel suggestive of mechanical small bowel obstruction * CT abdomen and pelvis: High-grade small bowel obstruction with transition point anterior right lower quadrant. * Laboratory data: WBC 11.5. Hemoglobin 15.5. Platelet count 189. Sodium 136 and potassium 4.3. BUN 27. Creatinine 1.22. Troponin 0.411. 0.516. 0.334. * Current home cardiac medications include none. 10/19/2022 Patient examined this morning at the bedside. Patient denies chest pain or pressure. He denies shortness of breath. Echocardiogram completed revealing ejection fraction 55-60%, trace MR, mild TR. PHYSICAL EXAM: VITAL SIGNS: Reviewed. GENERAL: Well-developed in no acute distress. HEENT: Head is normocephalic. Pupils are equal, round. Sclerae anicteric. Mucous membranes of the mouth are moist. Neck supple. No JVD or thyromegaly LUNGS: Respirations even and unlabored. Lungs essentially clear to auscultation bilaterally. HEART: Regular rate and rhythm. S1 and S2 heard. ABDOMEN: Soft. Distended. + tenderness. EXTREMITIES: Normal range of motion. No clubbing or cyanosis. Peripheral pulses intact. 1+ bilateral lower extremity edema NEUROLOGIC: Awake and alert. ASSESSMENT: Abdominal pain Small bowel obstruction Elevated troponin, acute coronary syndrome ruled out, likely secondary to above Hypertension Diabetes Dementia PLAN: Patient currently NPO. He has been started on Clonidine patch per primary medicine for elevated BP. Continue to monitor BP Patient is moderate to high risk to undergo surgery from a cardiac standpoint. However, there are no absolute contraindications Further recommendations pending patient course Nurse practitioner note has been reviewed by physician. Signing provider agrees with the documented findings, assessment, and plan of care. Objective - Vital Signs Vital signs: Vital Signs Temp 98.2 F 10/19/22 08:00 Pulse 69 10/19/22 12:00 Resp 16 10/19/22 08:00 BP 150/76 10/19/22 12:00 Pulse Ox 96 10/18/22 20:00 FiO2 Intake & Output 10/18/22 10/19/22 10/19/22 18:59 06:59 18:59 Intake Total 250 Output Total 200 175 Balance -200 -175 250 Intake: Intake, IV Titration 250 Amount Piperacillin-Tazobactam 3 100 .375 gm In Sodium Chloride 0.9% 100 ml @ 25 mls/hr IVPB Q8HR [facility] Rx# :[id number] Sodium Chloride 0.9% 1, 150 000 ml @ 75 mls/hr IV . [id number] [facility] Rx#:[id number] Output: Gastric Drainage 200 Urine 175 Other: Voiding Method Toilet Toilet Urinal Urinal # Voids 1 - Labs CBC & Chem 7: 10/19/22 09:36 10/19/22 09:36 Labs: Abnormal Lab Results - Last 24 Hours (Table) 10/18/22 10/18/22 10/18/22 Range/Units 07:23 13:13 13:13 RBC (4.30-5.90) m/uL Hgb (13.0-17.5) gm/dL Hct (39.0-53.0) % Plt Count 126 L (150-450) k/uL Lymphocytes # 0.5 L (1.0-4.8) k/uL Chloride 110 H (98-107) mmol/L BUN 21 H (9-20) mg/dL Creatinine (0.66-1.25) mg/dL Glucose 208 H (74-99) mg/dL POC Glucose (mg/dL) (70-110) mg/dL Hemoglobin A1c (0.0-6.0) % Calcium (8.4-10.2) mg/dL Delta Bilirubin (0.0-0.2) mg/dL Total Protein (6.3-8.2) g/dL Albumin (3.5-5.0) g/dL Procalcitonin (0.02-0.09) ng/mL Urine Protein 1+ H (Negative) Urine Glucose (UA) Trace H (Negative) Urine Ketones 1+ H (Negative) Urine Mucus Rare H (None) /hpf 10/18/22 10/18/22 10/18/22 Range/Units 14:13 14:13 16:27 RBC (4.30-5.90) m/uL Hgb (13.0-17.5) gm/dL Hct (39.0-53.0) % Plt Count (150-450) k/uL Lymphocytes # (1.0-4.8) k/uL Chloride (98-107) mmol/L BUN (9-20) mg/dL Creatinine (0.66-1.25) mg/dL Glucose (74-99) mg/dL POC Glucose (mg/dL) 182 H (70-110) mg/dL Hemoglobin A1c 7.2 H (0.0-6.0) % Calcium (8.4-10.2) mg/dL Delta Bilirubin (0.0-0.2) mg/dL Total Protein (6.3-8.2) g/dL Albumin (3.5-5.0) g/dL Procalcitonin 0.53 H (0.02-0.09) ng/mL Urine Protein (Negative) Urine Glucose (UA) (Negative) Urine Ketones (Negative) Urine Mucus (None) /hpf 10/18/22 10/19/22 10/19/22 Range/Units 20:06 05:54 09:36 RBC 4.28 L (4.30-5.90) m/uL Hgb 12.9 L (13.0-17.5) gm/dL Hct 38.4 L (39.0-53.0) % Plt Count 142 L (150-450) k/uL Lymphocytes # 0.6 L (1.0-4.8) k/uL Chloride (98-107) mmol/L BUN (9-20) mg/dL Creatinine (0.66-1.25) mg/dL Glucose (74-99) mg/dL POC Glucose (mg/dL) 141 H 165 H (70-110) mg/dL Hemoglobin A1c (0.0-6.0) % Calcium (8.4-10.2) mg/dL Delta Bilirubin (0.0-0.2) mg/dL Total Protein (6.3-8.2) g/dL Albumin (3.5-5.0) g/dL Procalcitonin (0.02-0.09) ng/mL Urine Protein (Negative) Urine Glucose (UA) (Negative) Urine Ketones (Negative) Urine Mucus (None) /hpf 10/19/22 10/19/22 Range/Units 09:36 11:31 RBC (4.30-5.90) m/uL Hgb (13.0-17.5) gm/dL Hct (39.0-53.0) % Plt Count (150-450) k/uL Lymphocytes # (1.0-4.8) k/uL Chloride 108 H (98-107) mmol/L BUN (9-20) mg/dL Creatinine 1.31 H (0.66-1.25) mg/dL Glucose 149 H (74-99) mg/dL POC Glucose (mg/dL) 151 H (70-110) mg/dL Hemoglobin A1c (0.0-6.0) % Calcium 7.9 L (8.4-10.2) mg/dL Delta Bilirubin 0.4 H (0.0-0.2) mg/dL Total Protein 5.5 L (6.3-8.2) g/dL Albumin 3.0 L (3.5-5.0) g/dL Procalcitonin (0.02-0.09) ng/mL Urine Protein (Negative) Urine Glucose (UA) (Negative) Urine Ketones (Negative) Urine Mucus (None) /hpf Microbiology - Last 24 Hours (Table) 10/17/22 16:09 Blood Culture - Preliminary Blood No Growth after 24 hours
--- NOTE | 2022-10-19 13:25 | P.PN ---
Subjective Progress Note Date: 10/19/22 CHIEF COMPLAINT: Abdominal pain HISTORY OF PRESENT ILLNESS: Surgical service following in regards to patient's small bowel obstruction. He pulled out his NG tube again during the night. Patient remains distended. He does have abdominal pain. No nausea or vomiting. Patient evaluated by cardiology regarding elevated troponins. Cardiology has cleared patient to proceed with surgery there is no absolute contraindications for surgery. He is considered moderate to high risk. Afebrile. WBC is 4.1EB 12.9 platelets 142 sodium 141 potassium is 3.9 creatinine 1.31 Patient seen and examined with Dr. francois PHYSICAL EXAM: VITAL SIGNS: Reviewed. GENERAL: Well-developed in no acute distress. HEENT: No sclera icterus. Extraocular movements grossly intact. Moist buccal mucosa. Head is atraumatic, normocephalic. ABDOMEN: Distended. Tenderness to palpation of the lower abdomen on both the right and left sides NEUROLOGIC: Alert and alert ASSESSMENT: 1. High-grade small bowel obstruction with transition point anterior right lower quadrant 2. Elevated troponins being evaluated by cardiology 3. Coffee-ground emesis prior to admission. With computed tomography scan findings of Possible focal wall thickening along the anterior wall of the gastric body. Correlate for gastritis or peptic ulcer disease. 4. Incidental cholelithiasis PLAN: -Patient scheduled for exploratory laparotomy tomorrow with Dr. francois -Reinsert NG tube for decompression -Keep patient nothing by mouth except for ice chips -NPO after midnight -Continue IV antibiotics -Continue IV fluids -Continue supportive care -Continue IV protonix BID -Avoid blood thinners Physician Mental Health Technician note has been reviewed by physician. Signing provider agrees with the documented findings, assessment, and plan of care. Objective - Vital Signs Vital signs: Vital Signs Temp 98.2 F 10/19/22 08:00 Pulse 69 10/19/22 12:00 Resp 16 10/19/22 08:00 BP 150/76 10/19/22 12:00 Pulse Ox 96 10/18/22 20:00 FiO2 Intake & Output 10/18/22 10/19/22 10/19/22 18:59 06:59 18:59 Intake Total 250 Output Total 200 175 Balance -200 -175 250 Intake: Intake, IV Titration 250 Amount Piperacillin-Tazobactam 3 100 .375 gm In Sodium Chloride 0.9% 100 ml @ 25 mls/hr IVPB Q8HR [facility] Rx# :[id number] Sodium Chloride 0.9% 1, 150 000 ml @ 75 mls/hr IV . [id number] [facility] Rx#:[id number] Output: Gastric Drainage 200 Urine 175 Other: Voiding Method Toilet Toilet Urinal Urinal # Voids 1 - Labs CBC & Chem 7: 10/19/22 09:36 10/19/22 09:36 Labs: Abnormal Lab Results - Last 24 Hours (Table) 10/18/22 10/18/22 10/18/22 Range/Units 07:23 13:13 13:13 RBC (4.30-5.90) m/uL Hgb (13.0-17.5) gm/dL Hct (39.0-53.0) % Plt Count 126 L (150-450) k/uL Lymphocytes # 0.5 L (1.0-4.8) k/uL Chloride 110 H (98-107) mmol/L BUN 21 H (9-20) mg/dL Creatinine (0.66-1.25) mg/dL Glucose 208 H (74-99) mg/dL POC Glucose (mg/dL) (70-110) mg/dL Hemoglobin A1c (0.0-6.0) % Calcium (8.4-10.2) mg/dL Delta Bilirubin (0.0-0.2) mg/dL Total Protein (6.3-8.2) g/dL Albumin (3.5-5.0) g/dL Procalcitonin (0.02-0.09) ng/mL Urine Protein 1+ H (Negative) Urine Glucose (UA) Trace H (Negative) Urine Ketones 1+ H (Negative) Urine Mucus Rare H (None) /hpf 10/18/22 10/18/22 10/18/22 Range/Units 14:13 14:13 16:27 RBC (4.30-5.90) m/uL Hgb (13.0-17.5) gm/dL Hct (39.0-53.0) % Plt Count (150-450) k/uL Lymphocytes # (1.0-4.8) k/uL Chloride (98-107) mmol/L BUN (9-20) mg/dL Creatinine (0.66-1.25) mg/dL Glucose (74-99) mg/dL POC Glucose (mg/dL) 182 H (70-110) mg/dL Hemoglobin A1c 7.2 H (0.0-6.0) % Calcium (8.4-10.2) mg/dL Delta Bilirubin (0.0-0.2) mg/dL Total Protein (6.3-8.2) g/dL Albumin (3.5-5.0) g/dL Procalcitonin 0.53 H (0.02-0.09) ng/mL Urine Protein (Negative) Urine Glucose (UA) (Negative) Urine Ketones (Negative) Urine Mucus (None) /hpf 10/18/22 10/19/22 10/19/22 Range/Units 20:06 05:54 09:36 RBC 4.28 L (4.30-5.90) m/uL Hgb 12.9 L (13.0-17.5) gm/dL Hct 38.4 L (39.0-53.0) % Plt Count 142 L (150-450) k/uL Lymphocytes # 0.6 L (1.0-4.8) k/uL Chloride (98-107) mmol/L BUN (9-20) mg/dL Creatinine (0.66-1.25) mg/dL Glucose (74-99) mg/dL POC Glucose (mg/dL) 141 H 165 H (70-110) mg/dL Hemoglobin A1c (0.0-6.0) % Calcium (8.4-10.2) mg/dL Delta Bilirubin (0.0-0.2) mg/dL Total Protein (6.3-8.2) g/dL Albumin (3.5-5.0) g/dL Procalcitonin (0.02-0.09) ng/mL Urine Protein (Negative) Urine Glucose (UA) (Negative) Urine Ketones (Negative) Urine Mucus (None) /hpf 10/19/22 10/19/22 Range/Units 09:36 11:31 RBC (4.30-5.90) m/uL Hgb (13.0-17.5) gm/dL Hct (39.0-53.0) % Plt Count (150-450) k/uL Lymphocytes # (1.0-4.8) k/uL Chloride 108 H (98-107) mmol/L BUN (9-20) mg/dL Creatinine 1.31 H (0.66-1.25) mg/dL Glucose 149 H (74-99) mg/dL POC Glucose (mg/dL) 151 H (70-110) mg/dL Hemoglobin A1c (0.0-6.0) % Calcium 7.9 L (8.4-10.2) mg/dL Delta Bilirubin 0.4 H (0.0-0.2) mg/dL Total Protein 5.5 L (6.3-8.2) g/dL Albumin 3.0 L (3.5-5.0) g/dL Procalcitonin (0.02-0.09) ng/mL Urine Protein (Negative) Urine Glucose (UA) (Negative) Urine Ketones (Negative) Urine Mucus (None) /hpf Microbiology - Last 24 Hours (Table) 10/17/22 16:09 Blood Culture - Preliminary Blood No Growth after 24 hours
[2022-10-19 16:11] LABS: Glucose,Whole Blood 142 mg/dL (70-110)
[2022-10-19] MEDS: LACTATED RINGERS 1,000 ML IV SCH (17:19)
[2022-10-19 20:02] LABS: Glucose,Whole Blood 136 mg/dL (70-110)
[2022-10-19] MEDS: INSULIN DETEMIR (LEVEMIR) 100 UNIT/ML SYR SQ SCH (20:04)
--- NOTE | 2022-10-19 20:11 | P.PN ---
Subjective Patient is a 87-year-old male with a known history of diabetes type 2 [id number], dementia presents to ER with complaints of abdominal pain and vomiting. Patient was brought to the hospital by his son. Currently patient has been having abdominal pain and 2 episodes of coffee-ground emesis started last night and today. Patient had history of gastric ulcers due to use of ibuprofen previously. He has been doing well and is not using ibuprofen at this time. Denies any dark-colored stools. No fever no chills. No complaints of chest pain or shortness of breath. CT of the abdomen pelvis showed high-grade small bowel obstruction, transition point anterior right lower quadrant. Reactive mild mesenteric edema, possible focal thickening around the anterior wall of the gastric body correlate for underlying gastritis or peptic ulcer disease. Consider direct visualization to exclude possible neoplasm. Tiny hiatal hernia. Numerous small gallstones filling the gallbladder. Scattered diverticulosis colonic greatest in the sigmoid colon. No evidence of acute diverticulitis. Abdominal x-ray showed dilated small bowel suggestive of mechanical small bowel obstruction. EKG showed sinus rhythm. Laboratory data showed WBC 11.4 hemoglobin 15.5 and platelets 189 neutrophils 10.4 sodium 136 potassium 4.3 chloride 102 bicarb is 23 BUN 27 creatinine 1.22 and blood sugar is 406 and lactic acid 2.6 LFTs not elevated, troponin 0.111, 0.516 and 0.334 10/18/2022 Patient still had right upper quadrant abdominal pain, still nothing by mouth, he says he has normal bowel movement this morning. Patient with no chest pain or dyspnea. Patient denies any urinary symptoms. Patient denies using NSAIDs prior to hospitalization. His abdomen looks markedly distended. No labs from today. Glucose slightly elevated at 213 Blood pressure is better at 153/75 after started on clonidine patch. Patient continued on Zosyn, normal saline at 75 mm/h and Levemir 10 units. His home diabetic medication on hold occluding metformin, glipizide and Actos Cardiology team on the case for preop evaluation. Surgery team recommended surgical intervention. 10/19/2022 Patient still with signs of bowel obstruction with no improvement, she does not have bowel movement. Minimal abdominal pain but NG tube in place. 1 planned for exploratory laparotomy by surgery team tomorrow Cardiology preop evaluation is appreciated, patient is moderate to high risk but contraindication Blood pressure is better controlled on clonidine. Glucose is controlled. Objective - Vital Signs Vital signs: Vital Signs Temp 98.2 F 10/19/22 14:17 Pulse 74 10/19/22 14:17 Resp 16 10/19/22 14:17 BP 151/75 10/19/22 14:17 Pulse Ox 96 10/18/22 20:00 FiO2 Intake & Output 10/18/22 10/19/22 10/19/22 18:59 06:59 18:59 Intake Total 250 Output Total 200 175 Balance -200 -175 250 Intake: Intake, IV Titration 250 Amount Piperacillin-Tazobactam 3 100 .375 gm In Sodium Chloride 0.9% 100 ml @ 25 mls/hr IVPB Q8HR [facility] Rx# :[id number] Sodium Chloride 0.9% 1, 150 000 ml @ 75 mls/hr IV . [id number] [facility] Rx#:[id number] Output: Gastric Drainage 200 Urine 175 Other: Voiding Method Toilet Toilet Urinal Urinal # Voids 1 - Exam GENERAL: The patient is alert and oriented x3, not in any acute distress. Well developed, well nourished. HEENT: Pupils are round and equally reacting to light. EOMI. No scleral icterus. No conjunctival pallor. Normocephalic, atraumatic. No pharyngeal erythema. No thyromegaly. CARDIOVASCULAR: S1 and S2 present. No murmurs, rubs, or gallops. PULMONARY: Chest is clear to auscultation, no wheezing or crackles. -ABDOMEN: Soft, nontende upper abdominal tenderness with no rebound tenderness r, distended, normoactive bowel sounds. No palpable organomegaly. MUSCULOSKELETAL: No joint swelling or deformity. EXTREMITIES: No cyanosis, clubbing, or pedal edema. NEUROLOGICAL: Gross neurological examination did not reveal any focal deficits. SKIN: No rashes. no petechiae. - Labs CBC & Chem 7: 10/19/22 09:36 10/19/22 09:36 Labs: Abnormal Lab Results - Last 24 Hours (Table) 10/18/22 10/18/22 10/18/22 Range/Units 07:23 14:13 14:13 RBC (4.30-5.90) m/uL Hgb (13.0-17.5) gm/dL Hct (39.0-53.0) % Plt Count (150-450) k/uL Lymphocytes # (1.0-4.8) k/uL Chloride (98-107) mmol/L Creatinine (0.66-1.25) mg/dL Glucose (74-99) mg/dL POC Glucose (mg/dL) (70-110) mg/dL Hemoglobin A1c 7.2 H (0.0-6.0) % Calcium (8.4-10.2) mg/dL Delta Bilirubin (0.0-0.2) mg/dL Total Protein (6.3-8.2) g/dL Albumin (3.5-5.0) g/dL Procalcitonin 0.53 H (0.02-0.09) ng/mL Urine Protein 1+ H (Negative) Urine Glucose (UA) Trace H (Negative) Urine Ketones 1+ H (Negative) Urine Mucus Rare H (None) /hpf 10/18/22 10/18/22 10/19/22 Range/Units 16:27 20:06 05:54 RBC (4.30-5.90) m/uL Hgb (13.0-17.5) gm/dL Hct (39.0-53.0) % Plt Count (150-450) k/uL Lymphocytes # (1.0-4.8) k/uL Chloride (98-107) mmol/L Creatinine (0.66-1.25) mg/dL Glucose (74-99) mg/dL POC Glucose (mg/dL) 182 H 141 H 165 H (70-110) mg/dL Hemoglobin A1c (0.0-6.0) % Calcium (8.4-10.2) mg/dL Delta Bilirubin (0.0-0.2) mg/dL Total Protein (6.3-8.2) g/dL Albumin (3.5-5.0) g/dL Procalcitonin (0.02-0.09) ng/mL Urine Protein (Negative) Urine Glucose (UA) (Negative) Urine Ketones (Negative) Urine Mucus (None) /hpf 10/19/22 10/19/22 10/19/22 Range/Units 09:36 09:36 11:31 RBC 4.28 L (4.30-5.90) m/uL Hgb 12.9 L (13.0-17.5) gm/dL Hct 38.4 L (39.0-53.0) % Plt Count 142 L (150-450) k/uL Lymphocytes # 0.6 L (1.0-4.8) k/uL Chloride 108 H (98-107) mmol/L Creatinine 1.31 H (0.66-1.25) mg/dL Glucose 149 H (74-99) mg/dL POC Glucose (mg/dL) 151 H (70-110) mg/dL Hemoglobin A1c (0.0-6.0) % Calcium 7.9 L (8.4-10.2) mg/dL Delta Bilirubin 0.4 H (0.0-0.2) mg/dL Total Protein 5.5 L (6.3-8.2) g/dL Albumin 3.0 L (3.5-5.0) g/dL Procalcitonin (0.02-0.09) ng/mL Urine Protein (Negative) Urine Glucose (UA) (Negative) Urine Ketones (Negative) Urine Mucus (None) /hpf Microbiology - Last 24 Hours (Table) 10/17/22 16:09 Blood Culture - Preliminary Blood No Growth after 24 hours Assessment and Plan Assessment: Acute small bowel obstruction. Transition point anterior right lower quadrant. Suspicion of hematemesis, evidence of gastric wall thickening on computed tomography scan suspicious for gastritis versus peptic ulcer disease Abdominal pain and vomiting secondary above Lactic acidosis Elevated troponin level Remote history of gastric ulcer due to ibuprofen excessive use. Numerous cholelithiasis Colonic diverticulosis Dementia Diabetes type 2 [id number] uncontrolled with hyperglycemia Plan: Patient will be continued on IV hydration and nothing by mouth. NG tube insertion to decompress. Continue with IV Protonix and monitor H&H. Continue Zosyn Cardiology team recommended evaluation is moderate to high risk.. Surgical team on the case for bowel obstruction with plan for A laparotomy as patient showing no signs of improvement despite conservative treatment over several days. Labs and medication were reviewed.. Continue same treatment. Continue with symptomatic treatment. Resume home medication. Monitor labs and vitals. DVT and GI prophylaxis. Further recommendations as per clinical course of the patient DVT prophylaxis: Patient already started on Subcutaneous heparin, we will monitor serum hemoglobin Mostly GI Prophylaxis: Pepcid PT/OT: Pending Prognosis is guarded
[2022-10-20] MEDS: SODIUM CHLORIDE 0.9% 1,000 ML IV SCH ×2 (06:03→23:42)
[2022-10-20 06:25] LABS: Glucose,Whole Blood 117 mg/dL (70-110)
[2022-10-20] MEDS: INSULIN ASPART (NovoLOG) 100 UNIT/ML VIAL SQ SCH ×4 (06:34→20:09)
[2022-10-20] MEDS ORDERED: HYDROmorphone 0.5 MG/0.5 ML SYRINGE IVP PRN (07:00)
[2022-10-20 08:58] LABS: Basophils % (A) 0 %; Eosinophils # (A) 0.1 k/uL (0-0.7); Eosinophils % (A) 2 %; HGB 12.6 gm/dL (13.0-17.5); Lymphocytes # (A) 0.6 k/uL (1.0-4.8); Lymphocytes % (A) 12 %; MCH 30.6 pg (25.0-35.0); MCHC 34.2 g/dL (31.0-37.0); MCV 89.6 fL (80.0-100.0); Mean Platelet Volume 7.3; Monocytes # (A) 0.6 k/uL (0-1.0); Monocytes % (A) 14 %; Neutrophils # (A) 3.1 k/uL (1.3-7.7); Neutrophils % (A) 70 %; Platelet Count 157 k/uL (150-450); RBC 4.13 m/uL (4.30-5.90); RDW 14.5 % (11.5-15.5); WBC 4.5 k/uL (3.8-10.6)
[2022-10-20 09:11] LABS: Potassium 3.4 mmol/L (3.5-5.1)
[2022-10-20] MEDS: LACTATED RINGERS 1,000 ML IV SCH ×3 (09:52→23:57)
[2022-10-20 10:08] LABS: Glucose,Whole Blood 116 mg/dL (70-110)
[2022-10-20] MEDS ORDERED: MIDAZOLAM 2 MG/2 ML VIAL IVP ONE (10:54)
--- NOTE | 2022-10-20 10:59 | P.PN ---
Subjective Progress Note Date: 10/20/22 HISTORY OF PRESENT ILLNESS: This is a 86-year-old male with a past medical history significant for diabetes. Patient does not follow with a senior care assistant. We have been asked to see the patient in consultation for elevated troponins. Patient examined at the bedside. Patient presented to the hospital with a chief complaint of abdominal pain and vomiting. Patient was found to have a small bowel obstruction and general surgery was consulted. Patient denies history of SBO. He denies any chest pain or pressure. Denies SOB. Denies any previous cardiac history. * EKG reveals sinus mechanism with no signs of acute ischemia. * Abdominal x-ray: Dilated small bowel suggestive of mechanical small bowel obstruction * CT abdomen and pelvis: High-grade small bowel obstruction with transition point anterior right lower quadrant. * Laboratory data: WBC 11.5. Hemoglobin 15.5. Platelet count 189. Sodium 136 and potassium 4.3. BUN 27. Creatinine 1.22. Troponin 0.411. 0.516. 0.334. * Current home cardiac medications include none. 10/19/2022 Patient examined this morning at the bedside. Patient denies chest pain or pressure. He denies shortness of breath. Echocardiogram completed revealing ejection fraction 55-60%, trace MR, mild TR. 10/20/2022 Patient examined this morning at the bedside. multiple family members at the bedside. Patient denies chest pain or pressure. He denies shortness of breath. vital signs are stable. PHYSICAL EXAM: VITAL SIGNS: Reviewed. GENERAL: Well-developed in no acute distress. HEENT: Head is normocephalic. Pupils are equal, round. Sclerae anicteric. Mucous membranes of the mouth are moist. Neck supple. No JVD or thyromegaly LUNGS: Respirations even and unlabored. Lungs essentially clear to auscultation bilaterally. HEART: Regular rate and rhythm. S1 and S2 heard. ABDOMEN: Soft. Distended. + tenderness. EXTREMITIES: Normal range of motion. No clubbing or cyanosis. Peripheral pulses intact. 1+ bilateral lower extremity edema NEUROLOGIC: Awake and alert. ASSESSMENT: Abdominal pain Small bowel obstruction Elevated troponin, acute coronary syndrome ruled out, likely secondary to above Hypertension Diabetes Dementia PLAN: Patient currently NPO. He remains on a Clonidine patch per primary medicine for elevated BP. Continue to monitor BP Patient is moderate to high risk to undergo surgery from a cardiac standpoint. However, there are no absolute contraindications Patient scheduled for exploratory laparotomy today with general surgery Further recommendations pending patient course Nurse practitioner note has been reviewed by physician. Signing provider agrees with the documented findings, assessment, and plan of care. Objective - Vital Signs Vital signs: Vital Signs Temp 98.0 F 10/20/22 09:39 Pulse 65 10/20/22 09:39 Resp 16 10/20/22 09:39 BP 123/58 10/20/22 09:39 Pulse Ox 98 10/20/22 09:39 FiO2 Intake & Output 10/19/22 10/20/22 10/20/22 18:59 06:59 18:59 Intake Total 700 750 Output Total 500 180 Balance 700 250 -180 Intake: Intake, IV Titration 700 750 Amount Piperacillin-Tazobactam 3 100 .375 gm In Sodium Chloride 0.9% 100 ml @ 25 mls/hr IVPB Q8HR [facility] Rx# :[id number] Sodium Chloride 0.9% 1, 600 750 000 ml @ 75 mls/hr IV . [id number] [facility] Rx#:[id number] Oral 0 Output: Urine 500 180 Other: Voiding Method Toilet Toilet Urinal Urinal - Labs CBC & Chem 7: 10/20/22 08:18 10/20/22 08:18 Labs: Abnormal Lab Results - Last 24 Hours (Table) 10/19/22 10/19/22 10/19/22 Range/Units 09:36 09:36 11:31 RBC 4.28 L (4.30-5.90) m/uL Hgb 12.9 L (13.0-17.5) gm/dL Hct 38.4 L (39.0-53.0) % Plt Count 142 L (150-450) k/uL Lymphocytes # 0.6 L (1.0-4.8) k/uL Potassium (3.5-5.1) mmol/L Chloride 108 H (98-107) mmol/L Creatinine 1.31 H (0.66-1.25) mg/dL Glucose 149 H (74-99) mg/dL POC Glucose (mg/dL) 151 H (70-110) mg/dL Calcium 7.9 L (8.4-10.2) mg/dL Delta Bilirubin 0.4 H (0.0-0.2) mg/dL Troponin I (0.000-0.034) ng/mL Total Protein 5.5 L (6.3-8.2) g/dL Albumin 3.0 L (3.5-5.0) g/dL 10/19/22 10/19/22 10/20/22 Range/Units 16:10 20:00 06:23 RBC (4.30-5.90) m/uL Hgb (13.0-17.5) gm/dL Hct (39.0-53.0) % Plt Count (150-450) k/uL Lymphocytes # (1.0-4.8) k/uL Potassium (3.5-5.1) mmol/L Chloride (98-107) mmol/L Creatinine (0.66-1.25) mg/dL Glucose (74-99) mg/dL POC Glucose (mg/dL) 142 H 136 H 117 H (70-110) mg/dL Calcium (8.4-10.2) mg/dL Delta Bilirubin (0.0-0.2) mg/dL Troponin I (0.000-0.034) ng/mL Total Protein (6.3-8.2) g/dL Albumin (3.5-5.0) g/dL 10/20/22 10/20/22 10/20/22 Range/Units 08:18 08:18 09:22 RBC 4.13 L (4.30-5.90) m/uL Hgb 12.6 L (13.0-17.5) gm/dL Hct 37.0 L (39.0-53.0) % Plt Count (150-450) k/uL Lymphocytes # 0.6 L (1.0-4.8) k/uL Potassium 3.4 L (3.5-5.1) mmol/L Chloride 110 H (98-107) mmol/L Creatinine (0.66-1.25) mg/dL Glucose 116 H (74-99) mg/dL POC Glucose (mg/dL) (70-110) mg/dL Calcium 8.0 L (8.4-10.2) mg/dL Delta Bilirubin (0.0-0.2) mg/dL Troponin I 0.043 H* (0.000-0.034) ng/mL Total Protein (6.3-8.2) g/dL Albumin (3.5-5.0) g/dL 10/20/22 Range/Units 10:06 RBC (4.30-5.90) m/uL Hgb (13.0-17.5) gm/dL Hct (39.0-53.0) % Plt Count (150-450) k/uL Lymphocytes # (1.0-4.8) k/uL Potassium (3.5-5.1) mmol/L Chloride (98-107) mmol/L Creatinine (0.66-1.25) mg/dL Glucose (74-99) mg/dL POC Glucose (mg/dL) 116 H (70-110) mg/dL Calcium (8.4-10.2) mg/dL Delta Bilirubin (0.0-0.2) mg/dL Troponin I (0.000-0.034) ng/mL Total Protein (6.3-8.2) g/dL Albumin (3.5-5.0) g/dL Microbiology - Last 24 Hours (Table) 10/17/22 16:09 Blood Culture - Preliminary Blood No Growth after 48 hours
[2022-10-20] MEDS ORDERED: fentaNYL (PF) 50 MCG/ML 2 ML AMP ONE (11:09)
[2022-10-20] MEDS ORDERED: LIDOCAINE 2% INJ 20 MG/ML (2 ML VIAL) ONE (11:09)
[2022-10-20] MEDS ORDERED: NEOSTIGMINE 1 MG/ML 10 ML VIAL ONE (11:09)
[2022-10-20] MEDS ORDERED: ePHEDrine 50 MG/ML 1 ML VIAL ONE (11:09)
[2022-10-20] MEDS ORDERED: ROCURONIUM 10 MG/ML (5 ML VIAL) IV ONE (11:09)
[2022-10-20] MEDS ORDERED: GLYCOPYRROLATE 0.2 MG/ML 2 ML VIAL ONE (11:09)
[2022-10-20] MEDS ORDERED: SUCCINYLCHOLINE CHLORIDE 200 MG/10 ML VIAL IV ONE (11:09)
[2022-10-20] MEDS ORDERED: PHENYLEPHRINE-0.9% NACL SYG 1,000 MCG/10 ML SYRINGE ONE (11:09)
[2022-10-20] MEDS ORDERED: PROPOFOL 10 MG/ML 20 ML VIAL IV ONE (11:09)
[2022-10-20] MEDS ORDERED: SODIUM CHLORIDE 0.9% 50 ML with ceFAZolin 2,000 MG IV ONE ×2 (11:52)
[2022-10-20] MEDS ORDERED: Potassium Replacement Protocol 1 EACH MISC MISCELLANE PRN (11:57)
--- NOTE | 2022-10-20 11:57 | P.PN ---
Subjective Patient is a 87-year-old male with a known history of diabetes type 2 [id number], dementia presents to ER with complaints of abdominal pain and vomiting. Patient was brought to the hospital by his son. Currently patient has been having abdominal pain and 2 episodes of coffee-ground emesis started last night and today. Patient had history of gastric ulcers due to use of ibuprofen previously. He has been doing well and is not using ibuprofen at this time. Denies any dark-colored stools. No fever no chills. No complaints of chest pain or shortness of breath. CT of the abdomen pelvis showed high-grade small bowel obstruction, transition point anterior right lower quadrant. Reactive mild mesenteric edema, possible focal thickening around the anterior wall of the gastric body correlate for underlying gastritis or peptic ulcer disease. Consider direct visualization to exclude possible neoplasm. Tiny hiatal hernia. Numerous small gallstones filling the gallbladder. Scattered diverticulosis colonic greatest in the sigmoid colon. No evidence of acute diverticulitis. Abdominal x-ray showed dilated small bowel suggestive of mechanical small bowel obstruction. EKG showed sinus rhythm. Laboratory data showed WBC 11.4 hemoglobin 15.5 and platelets 189 neutrophils 10.4 sodium 136 potassium 4.3 chloride 102 bicarb is 23 BUN 27 creatinine 1.22 and blood sugar is 406 and lactic acid 2.6 LFTs not elevated, troponin 0.111, 0.516 and 0.334 10/18/2022 Patient still had right upper quadrant abdominal pain, still nothing by mouth, he says he has normal bowel movement this morning. Patient with no chest pain or dyspnea. Patient denies any urinary symptoms. Patient denies using NSAIDs prior to hospitalization. His abdomen looks markedly distended. No labs from today. Glucose slightly elevated at 213 Blood pressure is better at 153/75 after started on clonidine patch. Patient continued on Zosyn, normal saline at 75 mm/h and Levemir 10 units. His home diabetic medication on hold occluding metformin, glipizide and Actos Cardiology team on the case for preop evaluation. Surgery team recommended surgical intervention. 10/19/2022 Patient still with signs of bowel obstruction with no improvement, she does not have bowel movement. Minimal abdominal pain but NG tube in place. 1 planned for exploratory laparotomy by surgery team tomorrow Cardiology preop evaluation is appreciated, patient is moderate to high risk but contraindication Blood pressure is better controlled on clonidine. Glucose is controlled. 10/20/2022 I saw the patient this morning before he goes to surgery. His symptoms and plan for expiratory laparotomy. Blood pressure is controlled. No fever. Labs look stable. Troponin is coming down today. Patient with no active chest pain. Also he remains on Zosyn and normal saline with Protonix, sugar looks controlled. Objective - Vital Signs Vital signs: Vital Signs Temp 98.0 F 10/20/22 09:39 Pulse 60 10/20/22 11:07 Resp 16 10/20/22 11:07 BP 119/56 10/20/22 11:07 Pulse Ox 95 10/20/22 11:07 FiO2 Intake & Output 10/19/22 10/20/22 10/20/22 18:59 06:59 18:59 Intake Total 700 750 550 Output Total 500 180 Balance 700 250 370 Intake: IV 550 Intake, IV Titration 700 750 Amount Piperacillin-Tazobactam 3 100 .375 gm In Sodium Chloride 0.9% 100 ml @ 25 mls/hr IVPB Q8HR [facility] Rx# :[id number] Sodium Chloride 0.9% 1, 600 750 000 ml @ 75 mls/hr IV . [id number] [facility] Rx#:[id number] Oral 0 Output: Urine 500 180 Other: Voiding Method Toilet Toilet Toilet Urinal Urinal Urinal - Exam GENERAL: The patient is alert and oriented x3, not in any acute distress. Well developed, well nourished. HEENT: Pupils are round and equally reacting to light. EOMI. No scleral icterus. No conjunctival pallor. Normocephalic, atraumatic. No pharyngeal erythema. No thyromegaly. CARDIOVASCULAR: S1 and S2 present. No murmurs, rubs, or gallops. PULMONARY: Chest is clear to auscultation, no wheezing or crackles. -ABDOMEN: Soft, nontende upper abdominal tenderness with no rebound tenderness r, distended, normoactive bowel sounds. No palpable organomegaly. MUSCULOSKELETAL: No joint swelling or deformity. EXTREMITIES: No cyanosis, clubbing, or pedal edema. NEUROLOGICAL: Gross neurological examination did not reveal any focal deficits. SKIN: No rashes. no petechiae. - Labs CBC & Chem 7: 10/20/22 08:18 10/20/22 08:18 Labs: Abnormal Lab Results - Last 24 Hours (Table) 10/19/22 10/19/22 10/20/22 Range/Units 16:10 20:00 06:23 RBC (4.30-5.90) m/uL Hgb (13.0-17.5) gm/dL Hct (39.0-53.0) % Lymphocytes # (1.0-4.8) k/uL Potassium (3.5-5.1) mmol/L Chloride (98-107) mmol/L Glucose (74-99) mg/dL POC Glucose (mg/dL) 142 H 136 H 117 H (70-110) mg/dL Calcium (8.4-10.2) mg/dL Troponin I (0.000-0.034) ng/mL 10/20/22 10/20/22 10/20/22 Range/Units 08:18 08:18 09:22 RBC 4.13 L (4.30-5.90) m/uL Hgb 12.6 L (13.0-17.5) gm/dL Hct 37.0 L (39.0-53.0) % Lymphocytes # 0.6 L (1.0-4.8) k/uL Potassium 3.4 L (3.5-5.1) mmol/L Chloride 110 H (98-107) mmol/L Glucose 116 H (74-99) mg/dL POC Glucose (mg/dL) (70-110) mg/dL Calcium 8.0 L (8.4-10.2) mg/dL Troponin I 0.043 H* (0.000-0.034) ng/mL 10/20/22 Range/Units 10:06 RBC (4.30-5.90) m/uL Hgb (13.0-17.5) gm/dL Hct (39.0-53.0) % Lymphocytes # (1.0-4.8) k/uL Potassium (3.5-5.1) mmol/L Chloride (98-107) mmol/L Glucose (74-99) mg/dL POC Glucose (mg/dL) 116 H (70-110) mg/dL Calcium (8.4-10.2) mg/dL Troponin I (0.000-0.034) ng/mL Microbiology - Last 24 Hours (Table) 10/17/22 16:09 Blood Culture - Preliminary Blood No Growth after 48 hours Assessment and Plan Assessment: Acute small bowel obstruction. Transition point anterior right lower quadrant. Suspicion of hematemesis, evidence of gastric wall thickening on computed raegan ography scan suspicious for gastritis versus peptic ulcer disease Abdominal pain and vomiting secondary above Lactic acidosis Elevated troponin level Remote history of gastric ulcer due to ibuprofen excessive use. Numerous cholelithiasis Colonic diverticulosis Dementia Diabetes type 2 ysp-[id number]-[id number] uncontrolled with hyperglycemia Plan: Patient will be continued on IV hydration and nothing by mouth. NG tube insertion to decompress. Continue with IV Protonix and monitor H&H. Continue Zosyn Cardiology team recommended evaluation is moderate to high risk.. Surgical team on the case for bowel obstruction with plan for A laparotomy as patient showing no signs of improvement despite conservative treatment over several days. Labs and medication were reviewed.. Continue same treatment. Continue with symptomatic treatment. Resume home medication. Monitor labs and vitals. DVT and GI prophylaxis. Further recommendations as per clinical course of the patient DVT prophylaxis: Patient already started on Subcutaneous heparin, we will monitor serum hemoglobin Mostly GI Prophylaxis: Pepcid PT/OT: Pending Prognosis is guarded
[2022-10-20] MEDS ORDERED: LACTATED RINGERS 1,000 ML IV ONE ×2 (12:12→12:33)
[2022-10-20] MEDS ORDERED: METOCLOPRAMIDE 5 MG/ML 2 ML VIAL IVP PRN (12:33)
[2022-10-20] MEDS ORDERED: ONDANSETRON 4 MG/2 ML VIAL IVP PRN (12:33)
[2022-10-20] MEDS ORDERED: NALOXONE 0.4 MG/ML 1 ML VIAL IV PRN (12:33)
--- NOTE | 2022-10-20 12:33 | P.OP ---
Date of Procedure: 10/20/22 Preoperative Diagnosis: Small bowel obstruction Postoperative Diagnosis: Small bowel obstruction due to internal hernia from adhesion Procedure(s) Performed: Lysis of adhesion Partial omentectomy Anesthesia: SAMANTHA Surgeon: Elmo Zamorano Estimated Blood Loss (ml): 20 Pathology: other (Omentum) Condition: stable Disposition: PACU Description of Procedure: The patient's placed on the operative table in the supine position. He received general anesthesia. His abdomen was prepped and draped usual fashion. A midline skin incision was made at the umbilicus. Patient appears umbilical hernia scar. The left cautery the subcutaneous tissues divided. The fascia was divided in the midline. There were adhesions to the previous umbilical hernia site. These were taken down with sharp dissection. The small bowel appeared to be dilated. There is approximately 100 mL of ascites in the pleural cavity. This was aspirated. The small bowel was then run from the ligament of Treitz towards the terminal ileum. And in the right lower quadrant there was adhesive band causing a closed loop obstruction. This was divided with finger fracture. The bowel was then run to the cecum. There is no other obstruction seen. The abdomen was irrigated there is no bleeding seen. The fascia was closed with looped #1 PDS suture. Skin was closed cassy. Patient tolerated the procedure well was sent to recovery room in stable condition.
[2022-10-20 12:45] LABS: Glucose,Whole Blood 125 mg/dL (70-110)
[2022-10-20] MEDS: PIPERACILLIN-TAZOBACTAM 3.375 GM in SODIUM CHLORIDE 0.9% 100 ML IVPB SCH ×3 (15:12→23:57)
[2022-10-20] MEDS: PANTOPRAZOLE 40 MG/10 ML VIAL IV SCH ×2 (15:12→20:02)
[2022-10-20] MEDS: HYDROmorphone 1 MG/ML 1 ML SYRINGE IVP PRN ×3 (15:17→23:58)
[2022-10-20 16:33] LABS: Glucose,Whole Blood 110 mg/dL (70-110)
[2022-10-20 19:58] LABS: Glucose,Whole Blood 125 mg/dL (70-110)
[2022-10-20] MEDS: INSULIN DETEMIR (LEVEMIR) 100 UNIT/ML SYR SQ SCH (20:09)
[2022-10-21] MEDS ORDERED: DEXTROSE 5% IN WATER 250 ML with AMIODARONE 300 MG IV ONE (01:54)
[2022-10-21 06:18] LABS: Glucose,Whole Blood 201 mg/dL (70-110)
[2022-10-21] MEDS: INSULIN ASPART (NovoLOG) 100 UNIT/ML VIAL SQ SCH ×4 (06:40→20:05)
[2022-10-21 08:43] LABS: Basophils % (A) 0 %; Eosinophils % (A) 0 %; HCT 40.9 % (39.0-53.0); HGB 13.5 gm/dL (13.0-17.5); Lymphocytes # (A) 0.4 k/uL (1.0-4.8); Lymphocytes % (A) 4 %; MCH 30.2 pg (25.0-35.0); MCHC 32.9 g/dL (31.0-37.0); MCV 91.5 fL (80.0-100.0); Mean Platelet Volume 7.7; Monocytes # (A) 0.9 k/uL (0-1.0); Monocytes % (A) 9 %; Neutrophils # (A) 8.3 k/uL (1.3-7.7); Neutrophils % (A) 86 %; Platelet Count 179 k/uL (150-450); RBC 4.47 m/uL (4.30-5.90); RDW 14.9 % (11.5-15.5); WBC 9.7 k/uL (3.8-10.6)
[2022-10-21 08:56] LABS: Calcium 7.7 mg/dL (8.4-10.2); Potassium 3.9 mmol/L (3.5-5.1)
[2022-10-21] MEDS: PIPERACILLIN-TAZOBACTAM 3.375 GM in SODIUM CHLORIDE 0.9% 100 ML IVPB SCH ×3 (09:19→23:10)
[2022-10-21] MEDS: ENOXAPARIN 40 MG/0.4 ML SYRINGE SQ SCH (09:19)
[2022-10-21 09:20] VITALS: BMI 28.5
[2022-10-21] MEDS: SODIUM CHLORIDE 0.9% 1,000 ML IV SCH (09:20)
[2022-10-21] MEDS: HYDROmorphone 1 MG/ML 1 ML SYRINGE IVP PRN ×3 (09:20→19:31)
[2022-10-21] MEDS: PANTOPRAZOLE 40 MG/10 ML VIAL IV SCH ×2 (09:20→20:05)
--- NOTE | 2022-10-21 11:31 | P.PN ---
Subjective Patient is a 87-year-old male with a known history of diabetes type 2 [id number]-[id number], dementia presents to ER with complaints of abdominal pain and vomiting. Patient was brought to the hospital by his son. Currently patient has been having abdominal pain and 2 episodes of coffee-ground emesis started last night and today. Patient had history of gastric ulcers due to use of ibuprofen previously. He has been doing well and is not using ibuprofen at this time. Denies any dark-colored stools. No fever no chills. No complaints of chest pain or shortness of breath. CT of the abdomen pelvis showed high-grade small bowel obstruction, transition point anterior right lower quadrant. Reactive mild mesenteric edema, possible focal thickening around the anterior wall of the gastric body correlate for underlying gastritis or peptic ulcer disease. Consider direct visualization to exclude possible neoplasm. Tiny hiatal hernia. Numerous small gallstones filling the gallbladder. Scattered diverticulosis colonic greatest in the sigmoid colon. No evidence of acute diverticulitis. Abdominal x-ray showed dilated small bowel suggestive of mechanical small bowel obstruction. EKG showed sinus rhythm. Laboratory data showed WBC 11.4 hemoglobin 15.5 and platelets 189 neutrophils 10.4 sodium 136 potassium 4.3 chloride 102 bicarb is 23 BUN 27 creatinine 1.22 and blood sugar is 406 and lactic acid 2.6 LFTs not elevated, troponin 0.111, 0.516 and 0.334 10/18/2022 Patient still had right upper quadrant abdominal pain, still nothing by mouth, he says he has normal bowel movement this morning. Patient with no chest pain or dyspnea. Patient denies any urinary symptoms. Patient denies using NSAIDs prior to hospitalization. His abdomen looks markedly distended. No labs from today. Glucose slightly elevated at 213 Blood pressure is better at 153/75 after started on clonidine patch. Patient continued on Zosyn, normal saline at 75 mm/h and Levemir 10 units. His home diabetic medication on hold occluding metformin, glipizide and Actos Cardiology team on the case for preop evaluation. Surgery team recommended surgical intervention. 10/19/2022 Patient still with signs of bowel obstruction with no improvement, she does not have bowel movement. Minimal abdominal pain but NG tube in place. 1 planned for exploratory laparotomy by surgery team tomorrow Cardiology preop evaluation is appreciated, patient is moderate to high risk but contraindication Blood pressure is better controlled on clonidine. Glucose is controlled. 10/20/2022 I saw the patient this morning before he goes to surgery. His symptoms and plan for expiratory laparotomy. Blood pressure is controlled. No fever. Labs look stable. Troponin is coming down today. Patient with no active chest pain. Also he remains on Zosyn and normal saline with Protonix, sugar looks controlled. 10/21/2022 patient status post surgical intervention of his abdomen for lysis of adhesions, today postop day #1. Patient abdomen feels better, surgical wound vertical maxx sed with wound VAC in a Place, dressing and a Place, NG tube also replaced with back aspirate obtained. Patient looks awake and comfortable with no significant pain, no other new complaints. He is hemodynamically stable. Creatinine went up slightly 1.5. Glucose controlled Patient is on Zosyn and normal saline at 75 mL/h Objective - Vital Signs Vital signs: Vital Signs Temp 98.1 F 10/21/22 08:00 Pulse 84 10/21/22 08:00 Resp 18 10/21/22 08:00 BP 154/75 10/21/22 08:00 Pulse Ox 94 L 10/21/22 08:00 FiO2 Intake & Output 10/20/22 10/21/22 10/21/22 18:59 06:59 18:59 Intake Total 1850 Output Total 300 825 Balance 1550 -825 Weight 95.5 kg 95.5 kg Intake: IV 1250 Intake, IV Titration 600 Amount Lactated Ringers 1,000 ml 500 @ 125 mls/hr IV .Q8H [facility] Rx#:[id number] Piperacillin-Tazobactam 3 100 .375 gm In Sodium Chloride 0.9% 100 ml @ 25 mls/hr IVPB Q8HR [facility] Rx# :[id number] Output: Gastric Drainage 150 Urine 280 675 Estimated Blood Loss 20 Other: Voiding Method Toilet Indwelling Catheter Indwelling Catheter Urinal - Exam GENERAL: The patient is alert and oriented x3, not in any acute distress. Well developed, well nourished. HEENT: Pupils are round and equally reacting to light. EOMI. No scleral icterus. No conjunctival pallor. Normocephalic, atraumatic. No pharyngeal erythema. No thyromegaly. CARDIOVASCULAR: S1 and S2 present. No murmurs, rubs, or gallops. PULMONARY: Chest is clear to auscultation, no wheezing or crackles. -ABDOMEN: Soft, nontende upper abdominal tenderness with no rebound tenderness r, distended, normoactive bowel sounds. No palpable organomegaly. NG tube in place. Surgical wound closed with wound VAC in place MUSCULOSKELETAL: No joint swelling or deformity. EXTREMITIES: No cyanosis, clubbing, or pedal edema. NEUROLOGICAL: Gross neurological examination did not reveal any focal deficits. SKIN: No rashes. no petechiae. - Labs CBC & Chem 7: 10/21/22 08:03 10/21/22 08:03 Labs: Abnormal Lab Results - Last 24 Hours (Table) 10/20/22 10/20/22 10/21/22 Range/Units 12:43 19:55 06:17 Neutrophils # (1.3-7.7) k/uL Lymphocytes # (1.0-4.8) k/uL Chloride (98-107) mmol/L Carbon Dioxide (22-30) mmol/L BUN (9-20) mg/dL Creatinine (0.66-1.25) mg/dL Glucose (74-99) mg/dL POC Glucose (mg/dL) 125 H 125 H 201 H (70-110) mg/dL Calcium (8.4-10.2) mg/dL 10/21/22 10/21/22 Range/Units 08:03 08:03 Neutrophils # 8.3 H (1.3-7.7) k/uL Lymphocytes # 0.4 L (1.0-4.8) k/uL Chloride 108 H (98-107) mmol/L Carbon Dioxide 20 L (22-30) mmol/L BUN 21 H (9-20) mg/dL Creatinine 1.50 H (0.66-1.25) mg/dL Glucose 209 H (74-99) mg/dL POC Glucose (mg/dL) (70-110) mg/dL Calcium 7.7 L (8.4-10.2) mg/dL Microbiology - Last 24 Hours (Table) 10/17/22 16:09 Blood Culture - Preliminary Blood No Growth after 72 hours Assessment and Plan Assessment: Acute small bowel obstruction. Transition point anterior right lower quadrant. Status post lysis of adhesions. Postop day #1 Suspicion of hematemesis, evidence of gastric wall thickening on computed tomography scan suspicious for gastritis versus peptic ulcer disease Abdominal pain and vomiting secondary above Lactic acidosis Elevated troponin level Remote history of gastric ulcer due to ibuprofen excessive use. Numerous cholelithiasis Colonic diverticulosis Dementia Diabetes type 2 cfe-utyxsvn-hiakaetcu uncontrolled with hyperglycemia Plan: Keep monitoring kidney function tomorrow closely, if it worsened and then c onsider nephrology consult Patient will be continued on IV hydration and nothing by mouth. NG tube insertion to decompress. Continue with IV Protonix and monitor H&H. Continue Zosyn Cardiology team recommended evaluation is moderate to high risk.. Surgical team on the case Labs and medication were reviewed.. Continue same treatment. Continue with symptomatic treatment. Resume home medication. Monitor labs and vitals. DVT and GI prophylaxis. Further recommendations as per clinical course of the patient DVT prophylaxis: Patient already started on Subcutaneous heparin, we will monitor serum hemoglobin Mostly GI Prophylaxis: Pepcid PT/OT: Pending Prognosis is guarded
[2022-10-21 11:41] LABS: Glucose,Whole Blood 199 mg/dL (70-110)
--- NOTE | 2022-10-21 12:12 | P.PN ---
Subjective Progress Note Date: 10/21/22 HISTORY OF PRESENT ILLNESS: This is a 86-year-old male with a past medical history significant for diabetes. Patient does not follow with a peripheral vascular tech. We have been asked to see the patient in consultation for elevated troponins. Patient examined at the bedside. Patient presented to the hospital with a chief complaint of abdominal pain and vomiting. Patient was found to have a small bowel obstruction and general surgery was consulted. Patient denies history of SBO. He denies any chest pain or pressure. Denies SOB. Denies any previous cardiac history. * EKG reveals sinus mechanism with no signs of acute ischemia. * Abdominal x-ray: Dilated small bowel suggestive of mechanical small bowel obstruction * CT abdomen and pelvis: High-grade small bowel obstruction with transition point anterior right lower quadrant. * Laboratory data: WBC 11.5. Hemoglobin 15.5. Platelet count 189. Sodium 136 and potassium 4.3. BUN 27. Creatinine 1.22. Troponin 0.411. 0.516. 0.334. * Current home cardiac medications include none. 10/19/2022 Patient examined this morning at the bedside. Patient denies chest pain or pressure. He denies shortness of breath. Echocardiogram completed revealing ejection fraction 55-60%, trace MR, mild TR. 10/20/2022 Patient examined this morning at the bedside. multiple family members at the bedside. Patient denies chest pain or pressure. He denies shortness of breath. vital signs are stable. 10/21/2022 Patient examined this morning at the bedside. Patient is status post exploratory laparotomy with lysis of adhesions. Patient denies chest pain or pressure. He denies shortness of breath. Patient went into atrial fibrillation postoperatively. This morning he is maintaining sinus mechanism. Patient remains nothing by mouth with NG tube present. PHYSICAL EXAM: VITAL SIGNS: Reviewed. GENERAL: Well-developed in no acute distress. HEENT: Head is normocephalic. Pupils are equal, round. Sclerae anicteric. Mucous membranes of the mouth are moist. Neck supple. No JVD or thyromegaly LUNGS: Respirations even and unlabored. Lungs essentially clear to auscultation bilaterally. HEART: Regular rate and rhythm. S1 and S2 heard. EXTREMITIES: Normal range of motion. No clubbing or cyanosis. Peripheral pulses intact. 1+ bilateral lower extremity edema ASSESSMENT: Abdominal pain Small bowel obstruction, status post exploratory lap with lysis of adhesions New onset paroxysmal atrial atrial fibrillation with RVR Elevated troponin, acute coronary syndrome ruled out, likely secondary to above Hypertension Diabetes Dementia PLAN: Patient currently NPO. He remains on a Clonidine patch per primary medicine for elevated BP. Continue to monitor BP Continue telemetry monitoring When patient is able to tolerate oral medications and cleared by general surgery, recommend anticoagulation with Eliquis 2.5 mg twice a day Will add metoprolol 12.5 mg twice a day when able to tolerate oral medications Further recommendations pending patient course Nurse practitioner note has been reviewed by physician. Signing provider agrees with the documented findings, assessment, and plan of care. Objective - Vital Signs Vital signs: Vital Signs Temp 98.1 F 10/21/22 08:00 Pulse 84 10/21/22 08:00 Resp 18 10/21/22 08:00 BP 154/75 10/21/22 08:00 Pulse Ox 94 L 10/21/22 08:00 FiO2 Intake & Output 10/20/22 10/21/22 10/21/22 18:59 06:59 18:59 Intake Total 1850 Output Total 300 825 Balance 1550 -825 Weight 95.5 kg 95.5 kg Intake: IV 1250 Intake, IV Titration 600 Amount Lactated Ringers 1,000 ml 500 @ 125 mls/hr IV .Q8H [facility] Rx#:[id number] Piperacillin-Tazobactam 3 100 .375 gm In Sodium Chloride 0.9% 100 ml @ 25 mls/hr IVPB Q8HR [facility] Rx# :[id number] Output: Gastric Drainage 150 Urine 280 675 Estimated Blood Loss 20 Other: Voiding Method Toilet Indwelling Catheter Indwelling Catheter Urinal - Labs CBC & Chem 7: 10/21/22 08:03 10/21/22 08:03 Labs: Abnormal Lab Results - Last 24 Hours (Table) 10/20/22 10/20/22 10/21/22 Range/Units 12:43 19:55 06:17 Neutrophils # (1.3-7.7) k/uL Lymphocytes # (1.0-4.8) k/uL Chloride (98-107) mmol/L Carbon Dioxide (22-30) mmol/L BUN (9-20) mg/dL Creatinine (0.66-1.25) mg/dL Glucose (74-99) mg/dL POC Glucose (mg/dL) 125 H 125 H 201 H (70-110) mg/dL Calcium (8.4-10.2) mg/dL 10/21/22 10/21/22 10/21/22 Range/Units 08:03 08:03 11:39 Neutrophils # 8.3 H (1.3-7.7) k/uL Lymphocytes # 0.4 L (1.0-4.8) k/uL Chloride 108 H (98-107) mmol/L Carbon Dioxide 20 L (22-30) mmol/L BUN 21 H (9-20) mg/dL Creatinine 1.50 H (0.66-1.25) mg/dL Glucose 209 H (74-99) mg/dL POC Glucose (mg/dL) 199 H (70-110) mg/dL Calcium 7.7 L (8.4-10.2) mg/dL Microbiology - Last 24 Hours (Table) 10/17/22 16:09 Blood Culture - Preliminary Blood No Growth after 72 hours
--- NOTE | 2022-10-21 13:34 | P.PN ---
Subjective Progress Note Date: 10/21/22 CHIEF COMPLAINT: Abdominal pain HISTORY OF PRESENT ILLNESS: Small bowel obstruction due to internal hernia from adhesions status post lysis of adhesion and partial omentectomy. Postop day #1. Patient has NG tube still in place with 600 mL bile output to the night.. The patient did go into atrial fibrillation with rapid ventricular response during the night and has returned to sinus rhythm. He is being followed by cardiology. They're recommending Eliquis when patient can tolerate oral medication. Patient reports that his abdominal pain is better. His pain is more incisional. He denies any nausea. No bowel activity. Afebrile. WBC is 9.7 Hgb is up to 13.5 platelets 179 sodium is 142 potassium 3.9 creatinine 1.50 Patient seen and examined with Dr. francois PHYSICAL EXAM: VITAL SIGNS: Reviewed. GENERAL: Well-developed in no acute distress. HEENT: No sclera icterus. Extraocular movements grossly intact. Moist buccal mucosa. Head is atraumatic, normocephalic. ABDOMEN: Distended. Tenderness to palpation of the lower abdomen on both the right and left sides NEUROLOGIC: Alert and alert ASSESSMENT: 1. High-grade small bowel obstruction with transition point anterior right lo wer quadrant 2. Elevated troponins being evaluated by cardiology 3. Coffee-ground emesis prior to admission. With computed tomography scan findings of Possible focal wall thickening along the anterior wall of the gastric body. Correlate for gastritis or peptic ulcer disease. 4. Incidental cholelithiasis PLAN: -Reglan added -Continue NG tube for decompression -Keep patient nothing by mouth except for ice -Continue IV antibiotics -Continue IV fluids at 125ml/hr -Continue supportive care -Continue IV protonix BID -Avoid blood thinners for Afib today. Reevaluate tomorrow. -Continue Lovenox for DVT prophylaxis Physician Pcu Rn note has been reviewed by physician. Signing provider agrees with the documented findings, assessment, and plan of care. Objective - Vital Signs Vital signs: Vital Signs Temp 98.1 F 10/21/22 08:00 Pulse 84 10/21/22 08:00 Resp 18 10/21/22 08:00 BP 154/75 10/21/22 08:00 Pulse Ox 94 L 10/21/22 08:00 FiO2 Intake & Output 10/20/22 10/21/22 10/21/22 18:59 06:59 18:59 Intake Total 1850 Output Total 300 825 Balance 1550 -825 Weight 95.5 kg 95.5 kg Intake: IV 1250 Intake, IV Titration 600 Amount Lactated Ringers 1,000 ml 500 @ 125 mls/hr IV .Q8H [facility] Rx#:[id number] Piperacillin-Tazobactam 3 100 .375 gm In Sodium Chloride 0.9% 100 ml @ 25 mls/hr IVPB Q8HR [facility] Rx# :[id number] Output: Gastric Drainage 150 Urine 280 675 Estimated Blood Loss 20 Other: Voiding Method Toilet Indwelling Catheter Indwelling Catheter Urinal - Labs CBC & Chem 7: 10/21/22 08:03 10/21/22 08:03 Labs: Abnormal Lab Results - Last 24 Hours (Table) 10/20/22 10/21/22 10/21/22 Range/Units 19:55 06:17 08:03 Neutrophils # 8.3 H (1.3-7.7) k/uL Lymphocytes # 0.4 L (1.0-4.8) k/uL Chloride (98-107) mmol/L Carbon Dioxide (22-30) mmol/L BUN (9-20) mg/dL Creatinine (0.66-1.25) mg/dL Glucose (74-99) mg/dL POC Glucose (mg/dL) 125 H 201 H (70-110) mg/dL Calcium (8.4-10.2) mg/dL 10/21/22 10/21/22 Range/Units 08:03 11:39 Neutrophils # (1.3-7.7) k/uL Lymphocytes # (1.0-4.8) k/uL Chloride 108 H (98-107) mmol/L Carbon Dioxide 20 L (22-30) mmol/L BUN 21 H (9-20) mg/dL Creatinine 1.50 H (0.66-1.25) mg/dL Glucose 209 H (74-99) mg/dL POC Glucose (mg/dL) 199 H (70-110) mg/dL Calcium 7.7 L (8.4-10.2) mg/dL Microbiology - Last 24 Hours (Table) 10/17/22 16:09 Blood Culture - Preliminary Blood No Growth after 72 hours
[2022-10-21] MEDS: METOCLOPRAMIDE 5 MG/ML 2 ML VIAL IVP SCH ×3 (14:31→23:09)
[2022-10-21 16:13] LABS: Glucose,Whole Blood 169 mg/dL (70-110)
[2022-10-21] MEDS: LACTATED RINGERS 1,000 ML IV SCH (18:32)
[2022-10-21 20:02] LABS: Glucose,Whole Blood 154 mg/dL (70-110)
[2022-10-21] MEDS: INSULIN DETEMIR (LEVEMIR) 100 UNIT/ML SYR SQ SCH (20:05)
[2022-10-22] MEDS: hydrALAZINE HCL 20 MG/ML 1 ML VIAL IVP PRN (01:14)
[2022-10-22] MEDS ORDERED: DEXTROSE 5% IN WATER 100 ML with AMIODARONE 150 MG IV ONE (01:44)
[2022-10-22] MEDS ORDERED: AMIODARONE 360 MG in DEXTROSE 5% IN WATER 200 ML IV ONE ×2 (01:53)
[2022-10-22] MEDS: HYDROmorphone 1 MG/ML 1 ML SYRINGE IVP PRN ×4 (02:05→23:42)
[2022-10-22] MEDS: LACTATED RINGERS 1,000 ML IV SCH ×4 (02:34→18:15)
[2022-10-22] MEDS: METOCLOPRAMIDE 5 MG/ML 2 ML VIAL IVP SCH ×4 (05:56→23:01)
[2022-10-22 06:24] LABS: Glucose,Whole Blood 129 mg/dL (70-110)
[2022-10-22] MEDS: INSULIN ASPART (NovoLOG) 100 UNIT/ML VIAL SQ SCH ×4 (06:27→20:13)
[2022-10-22] MEDS: AMIODARONE 450 MG in DEXTROSE 5% IN WATER 250 ML IV SCH ×4 (08:00→21:41)
[2022-10-22 08:59] LABS: Basophils % (A) 0 %; Eosinophils % (A) 0 %; HCT 40.2 % (39.0-53.0); HGB 13.4 gm/dL (13.0-17.5); Lymphocytes # (A) 0.4 k/uL (1.0-4.8); Lymphocytes % (A) 4 %; MCH 30.4 pg (25.0-35.0); MCHC 33.2 g/dL (31.0-37.0); MCV 91.4 fL (80.0-100.0); Mean Platelet Volume 7.9; Monocytes # (A) 0.8 k/uL (0-1.0); Monocytes % (A) 8 %; Neutrophils # (A) 9.1 k/uL (1.3-7.7); Neutrophils % (A) 87 %; Platelet Count 176 k/uL (150-450); RBC 4.39 m/uL (4.30-5.90); WBC 10.6 k/uL (3.8-10.6)
[2022-10-22 09:19] LABS: Calcium 7.6 mg/dL (8.4-10.2); Potassium 3.3 mmol/L (3.5-5.1)
[2022-10-22] MEDS: PANTOPRAZOLE 40 MG/10 ML VIAL IV SCH ×2 (09:46→20:15)
[2022-10-22] MEDS: PIPERACILLIN-TAZOBACTAM 3.375 GM in SODIUM CHLORIDE 0.9% 100 ML IVPB SCH ×3 (10:26→23:01)
[2022-10-22] MEDS: APIXABAN 2.5 MG TABLET PO SCH ×2 (10:26→20:15)
[2022-10-22] MEDS: METOPROLOL TARTRATE 50 MG TAB PO SCH ×2 (10:26→20:15)
--- NOTE | 2022-10-22 10:29 | P.PN ---
Subjective Progress Note Date: 10/22/22 HISTORY OF PRESENT ILLNESS: This is a 86-year-old male with a past medical history significant for diabetes. 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 We have been asked to see the patient in consultation for elevated troponins. Patient examined at the bedside. Patient presented to the hospital with a chief complaint of abdominal pain and vomiting. Patient was found to have a small bowel obstruction and general surgery was consulted. Patient denies history of SBO. He denies any chest pain or pressure. Denies SOB. Denies any previous cardiac history. * EKG reveals sinus mechanism with no signs of acute ischemia. * Abdominal x-ray: Dilated small bowel suggestive of mechanical small bowel obstruction * CT abdomen and pelvis: High-grade small bowel obstruction with transition point anterior right lower quadrant. * Laboratory data: WBC 11.5. Hemoglobin 15.5. Platelet count 189. Sodium 136 and potassium 4.3. BUN 27. Creatinine 1.22. Troponin 0.411. 0.516. 0.334. * Current home cardiac medications include none. 10/19/2022 Patient examined this morning at the bedside. Patient denies chest pain or pressure. He denies shortness of breath. Echocardiogram completed revealing ejection fraction 55-60%, trace MR, mild TR. 10/20/2022 Patient examined this morning at the bedside. multiple family members at the bedside. Patient denies chest pain or pressure. He denies shortness of breath. vital signs are stable. 10/21/2022 Patient examined this morning at the bedside. Patient is status post exploratory laparotomy with lysis of adhesions. Patient denies chest pain or pressure. He denies shortness of breath. Patient went into atrial fibrillation postoperatively. This morning he is maintaining sinus mechanism. Patient remains nothing by mouth with NG tube present. 10/22/2022 Patient examined this morning. He is sitting up in the chair. Patient is going in and out of atrial fibrillation. He is currently in atrial fibrillation at the time of examination. He denies chest pain or pressure. He denies shortness of breath. PHYSICAL EXAM: VITAL SIGNS: Reviewed. GENERAL: Well-developed in no acute distress. HEENT: Head is normocephalic. Pupils are equal, round. Sclerae anicteric. Mucous membranes of the mouth are moist. Neck supple. No JVD or thyromegaly LUNGS: Respirations even and unlabored. Lungs essentially clear to auscultation bilaterally. HEART: Regular rate and rhythm. S1 and S2 heard. EXTREMITIES: Normal range of motion. No clubbing or cyanosis. Peripheral pulses intact. 1+ bilateral lower extremity edema ASSESSMENT: Abdominal pain Small bowel obstruction, status post exploratory lap with lysis of adhesions New onset paroxysmal atrial atrial fibrillation with RVR Elevated troponin, acute coronary syndrome ruled out, likely secondary to above Hypertension Diabetes Dementia PLAN: Patient has been cleared to begin anticoagulation from a surgical standpoint. Will begin Eliquis 2.5mg BID per Dr Solis Add metoprolol 50 mg twice a day Discontinue clonidine patch Continue IV amiodarone until current infusion is finished Continue telemetry monitoring Further recommendations pending patient course Nurse practitioner note has been reviewed by physician. Signing provider agrees with the documented findings, assessment, and plan of care. Objective - Vital Signs Vital signs: Vital Signs Temp 98.2 F 10/22/22 08:00 Pulse 80 10/22/22 08:00 Resp 18 10/22/22 08:00 BP 135/76 10/22/22 08:00 Pulse Ox 95 10/22/22 08:00 FiO2 Intake & Output 10/21/22 10/22/22 10/22/22 18:59 06:59 18:59 Intake Total 20 Output Total 775 1000 Balance -775 -1000 20 Weight 95.5 kg Intake: IV 20 Invasive Line 5 10 Invasive Line 6 10 Output: Gastric Drainage 400 450 Urine 375 550 Stool 0 Urine/Stool Mix 0 Oral Regurgitation 0 Other 0 Other: Voiding Method Indwelling Catheter Indwelling Catheter Indwelling Catheter # Voids 0 # Bowel Movements 0 - Labs CBC & Chem 7: 10/22/22 08:02 10/22/22 08:02 Labs: Abnormal Lab Results - Last 24 Hours (Table) 10/21/22 10/21/22 10/21/22 Range/Units 11:39 16:11 19:59 Neutrophils # (1.3-7.7) k/uL Lymphocytes # (1.0-4.8) k/uL Potassium (3.5-5.1) mmol/L Chloride (98-107) mmol/L Glucose (74-99) mg/dL POC Glucose (mg/dL) 199 H 169 H 154 H (70-110) mg/dL Calcium (8.4-10.2) mg/dL 10/22/22 10/22/22 10/22/22 Range/Units 06:18 08:02 08:02 Neutrophils # 9.1 H (1.3-7.7) k/uL Lymphocytes # 0.4 L (1.0-4.8) k/uL Potassium 3.3 L (3.5-5.1) mmol/L Chloride 112 H (98-107) mmol/L Glucose 116 H (74-99) mg/dL POC Glucose (mg/dL) 129 H (70-110) mg/dL Calcium 7.6 L (8.4-10.2) mg/dL Microbiology - Last 24 Hours (Table) 10/17/22 16:09 Blood Culture - Preliminary Blood No Growth after 96 hours
[2022-10-22] MEDS: ENOXAPARIN 40 MG/0.4 ML SYRINGE SQ SCH (10:45)
[2022-10-22 11:39] LABS: Glucose,Whole Blood 144 mg/dL (70-110)
[2022-10-22] MEDS ORDERED: POTASSIUM CHLORIDE ER 20 MEQ TAB.ER PO STA (12:43)
--- NOTE | 2022-10-22 12:46 | P.PN ---
Subjective Progress Note Date: 10/22/22 CHIEF COMPLAINT: Abdominal pain HISTORY OF PRESENT ILLNESS: Small bowel obstruction due to internal hernia from adhesions status post lysis of adhesion and partial omentectomy. Postop day #2. Patient pulled out NG tube again. He did have 450 ML output through the night. He had been tachycardic and is back in A. fib. He is followed by cardiology. Patient sitting up in chair. Pain controlled. Denies any nausea or vomiting. No flatus. Afebrile. Heart rate currently 66 WBC is 10.6 Hgb 13.4 platelets 176 sodium was 141 potassium 3.3 creatinine 1.11 Patient seen and examined with Dr. francois PHYSICAL EXAM: VITAL SIGNS: Reviewed. GENERAL: Well-developed in no acute distress. HEENT: No sclera icterus. Extraocular movements grossly intact. Moist buccal mucosa. Head is atraumatic, normocephalic. ABDOMEN: Distended. Tenderness to palpation of the lower abdomen on both the right and left sides NEUROLOGIC: Alert and alert ASSESSMENT: 1. SBO due to internal hernia from adhesions status post lysis of adhesion and partial omentectomy 2. Coffee-ground emesis prior to admission. With computed tomography scan findings of Possible focal wall thickening along the anterior wall of the gastric body. Correlate for gastritis or peptic ulcer disease. 3. Afib 4. Hypokalemia PLAN: -Okay to keep NG tube out -Keep patient nothing by mouth except for ice chips, popsicles and medication -Okay to start Eliquis from surgical -Continue Reglan added -Continue IV antibiotics -Continue IV fluids -Replace potassium -Continue supportive care -Continue IV protonix BID -Encouraged patient to increase activity level -Encouraged patient to use incentive spirometer Physician Barber Apprentice note has been reviewed by physician. Signing provider agrees with the documented findings, assessment, and plan of care. Objective - Vital Signs Vital signs: Vital Signs Temp 98.2 F 10/22/22 12:00 Pulse 66 10/22/22 12:00 Resp 16 10/22/22 12:00 BP 140/65 10/22/22 12:00 Pulse Ox 97 10/22/22 12:00 FiO2 Intake & Output 10/21/22 10/22/22 10/22/22 18:59 06:59 18:59 Intake Total 20 Output Total 775 1000 Balance -775 -1000 20 Weight 95.5 kg 95.5 kg Intake: IV 20 Invasive Line 5 10 Invasive Line 6 10 Output: Gastric Drainage 400 450 Urine 375 550 Stool 0 Urine/Stool Mix 0 Oral Regurgitation 0 Other 0 Other: Voiding Method Indwelling Catheter Indwelling Catheter Indwelling Catheter # Voids 0 # Bowel Movements 0 - Labs CBC & Chem 7: 10/22/22 08:02 10/22/22 08:02 Labs: Abnormal Lab Results - Last 24 Hours (Table) 10/21/22 10/21/22 10/22/22 Range/Units 16:11 19:59 06:18 Neutrophils # (1.3-7.7) k/uL Lymphocytes # (1.0-4.8) k/uL Potassium (3.5-5.1) mmol/L Chloride (98-107) mmol/L Glucose (74-99) mg/dL POC Glucose (mg/dL) 169 H 154 H 129 H (70-110) mg/dL Calcium (8.4-10.2) mg/dL 10/22/22 10/22/22 10/22/22 Range/Units 08:02 08:02 11:35 Neutrophils # 9.1 H (1.3-7.7) k/uL Lymphocytes # 0.4 L (1.0-4.8) k/uL Potassium 3.3 L (3.5-5.1) mmol/L Chloride 112 H (98-107) mmol/L Glucose 116 H (74-99) mg/dL POC Glucose (mg/dL) 144 H (70-110) mg/dL Calcium 7.6 L (8.4-10.2) mg/dL Microbiology - Last 24 Hours (Table) 10/17/22 16:09 Blood Culture - Preliminary Blood No Growth after 96 hours
[2022-10-22] MEDS ORDERED: Potassium Replacement Protocol 1 EACH MISC MISCELLANE PRN (14:56)
[2022-10-22 15:01] LABS: Appearance,Urine Cloudy (Clear); Bilirubin,Urine 1+ (Negative); Blood,Urine Large (Negative); Color,Urine Yellow; Glucose,Urine (UA) Negative (Negative); Ketones,Urine 1+ (Negative); Leukocyte Esterase,Urine Small (Negative); Mucus,Urine Rare /hpf; Nitrite,Urine Negative (Negative); Protein,Urine 2+ (Negative); RBC,Urine 151 /hpf (0-5); Specific Gravity,Urine 1.031 (1.001-1.035); Squamous Epithelial Cell,Urine <1 /hpf (0-4); Urobilinogen,Urine <2.0 mg/dL (<2.0); WBC,Urine 15 /hpf (0-5)
[2022-10-22 16:33] LABS: Glucose,Whole Blood 121 mg/dL (70-110)
[2022-10-22] MEDS: SODIUM CHLORIDE 0.9% 1,000 ML IV SCH (19:55)
[2022-10-22 20:12] LABS: Glucose,Whole Blood 123 mg/dL (70-110)
[2022-10-22] MEDS: INSULIN DETEMIR (LEVEMIR) 100 UNIT/ML SYR SQ SCH (20:15)
--- NOTE | 2022-10-22 21:13 | P.CONS ---
History of Present Illness - Reason for Consult Consult date: 10/22/22 Urinary tract infection Requesting physician: Lizzy Du - Chief Complaint Abdominal pain x few days - History of Present Illness Patient is a 86-year-old male with a past medical history significant for diabetes mellitus dementia presenting to the ER on 10/17/2022 that is about 5 days ago for abdominal pain and vomiting patient did have a CT of abdominal pe lvis which did shows high-grade small bowel obstruction transition point in the right lower quadrant patient on presentation to the hospital was afebrile and no fever has been recorded during this hospital stay patient did have a mild elevated white count admission subsequent normalized kidney function has been normal liver exams are normal patient did have a UA on 10/19/2019 that was negative patient was taken to the OR on 10/20/2022 and this patient who is status post laparotomy with partial omentectomy lysis of adhesion no mention of any perforation patient was noticed to have some blood in his Whitley catheter and more cloudy sediment UA was sent which was small LE 15 WBC concerning for UTI Rocephin was added to his antibiotic regimen of Zosyn infectious disease was consulted for further management of antibiotic therapy patient did mention his abdominal pain seemed to have decreased in intensity patient did have some nausea but no vomiting no chest pain or shortness with occasional cough he did have some irritation with a Whitley catheter but no other urinary symptoms Review of Systems Positive point has been mentioned in the HPI rest of the systems are negative Past Medical History Past Medical History: Dementia, Diabetes Mellitus, Hyperlipidemia Additional Past Medical History / Comment(s): prior admission for sepsis unknown cause History of Any Multi-Drug Resistant Organisms: None Reported Past Surgical History: No Surgical Hx Reported Additional Past Surgical History / Comment(s): 01/2018 left knee arthroscopic irrigation and debridement Past Anesthesia/Blood Transfusion Reactions: No Reported Reaction Past Psychological History: No Psychological Hx Reported Smoking Status: Never smoker Past Alcohol Use History: Rare Additional Past Alcohol Use History / Comment(s): Patient is a lifelong nonsmoker. He denies any illicit drug use or alcohol use. 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 His second one year ago. His grandson, his grandson's and daughter along with a dog live with him. He spends sprague in [place]. Past Drug Use History: None Reported - Past Family History Daughter(s) Family Medical History: No Reported History Son(s) Family Medical History: No Reported History Medications and Allergies Home Medications Medication Instructions Recorded Confirmed Type Pioglitazone [Actos] 15 mg PO DAILY 10/17/22 10/17/22 History glipiZIDE [Glucotrol] 10 mg PO BID 10/17/22 10/17/22 History metFORMIN HCL 1,000 mg PO BID 10/17/22 10/17/22 History Apixaban [Eliquis] 2.5 mg PO BID #60 tab 10/22/22 Rx Acetaminophen Tab [Tylenol Tab] 650 mg PO Q4H PRN #30 tablet 10/27/22 Rx HYDROcodone/APAP 5-325MG [[place] 1 tab PO Q6HR PRN 3 Days #12 tab NS 10/27/22 Rx 5-325] Losartan [Cozaar] 75 mg PO DAILY #45 tab 10/27/22 Rx Pantoprazole Sodium [Protonix] 40 mg PO BID #60 tab 10/27/22 Rx carvediloL [Coreg] 25 mg PO BID #60 tablet 10/27/22 Rx Allergies Allergy/AdvReac Type Severity Reaction Status Date / Time Penicillins Allergy Unknown Verified 10/20/22 10:09 Childhood Physical Exam Vitals: Vital Signs Temp Pulse Pulse Resp BP Pulse Ox 10/22/22 16:00 97.8 F 72 18 151/78 96 10/22/22 14:00 66 16 10/22/22 12:00 98.2 F 66 16 140/65 97 10/22/22 11:50 98.2 F 66 16 140/65 97 10/22/22 08:00 98.2 F 80 18 135/76 95 10/22/22 07:55 80 10/22/22 07:10 98.2 F 80 17 135/70 95 10/22/22 02:59 138 H 132/77 10/22/22 02:45 120 H 132/75 10/22/22 02:29 111 H 112/79 10/22/22 02:14 129 H 109/72 10/22/22 01:59 123 H 144/78 10/22/22 01:17 116 H 166/106 10/21/22 23:24 98.4 F 81 18 153/71 93 L 03/23/23 20:38 160/79 10/21/22 19:44 98.6 F 83 18 178/74 95 Intake and Output 10/22/22 10/22/22 10/22/22 06:59 14:59 22:59 Intake Total 220 Output Total 1000 150 Balance -1000 70 Intake: IV 20 Invasive Line 5 10 Invasive Line 6 10 Oral 200 Output: Gastric Drainage 450 Urine 550 150 Other: Voiding Method Indwelling Catheter Indwelling Catheter # Bowel Movements 0 Weight 95.5 kg GENERAL DESCRIPTION: Elderly male lying in bed, no distress. No tachypnea or accessory muscle of respiration use. HEENT: Shows Pallor , no scleral icterus. Oral mucous membrane is dry. No pharyngeal erythema or thrush NECK: Trachea central, no thyromegaly. LUNGS: Unlabored breathing. Clear to auscultation anteriorly. No wheeze or crackle. HEART: S1, S2, regular rate and rhythm. No loud murmur ABDOMEN: Soft, no tenderness , guarding or rigidity, no organomegaly EXTREMITIES: No edema of feet. SKIN: No rash, no masses palpable. NEUROLOGICAL: The patient is awake, alert, oriented x3, mood and affect normal. Results CBC & Chem 7: 10/26/22 07:42 10/27/22 07:17 Labs: Abnormal Lab Results - Last 24 Hours (Table) 10/21/22 10/22/22 10/22/22 Range/Units 19:59 06:18 08:02 Neutrophils # (1.3-7.7) k/uL Lymphocytes # (1.0-4.8) k/uL Potassium 3.3 L (3.5-5.1) mmol/L Chloride 112 H (98-107) mmol/L Glucose 116 H (74-99) mg/dL POC Glucose (mg/dL) 154 H 129 H (70-110) mg/dL Calcium 7.6 L (8.4-10.2) mg/dL Urine Protein (Negative) Urine Ketones (Negative) Urine Blood (Negative) Urine Bilirubin (Negative) Ur Leukocyte Esterase (Negative) Urine RBC (0-5) /hpf Urine WBC (0-5) /hpf Urine Mucus (None) /hpf 10/22/22 10/22/22 10/22/22 Range/Units 08:02 11:15 11:35 Neutrophils # 9.1 H (1.3-7.7) k/uL Lymphocytes # 0.4 L (1.0-4.8) k/uL Potassium (3.5-5.1) mmol/L Chloride (98-107) mmol/L Glucose (74-99) mg/dL POC Glucose (mg/dL) 144 H (70-110) mg/dL Calcium (8.4-10.2) mg/dL Urine Protein 2+ H (Negative) Urine Ketones 1+ H (Negative) Urine Blood Large H (Negative) Urine Bilirubin 1+ H (Negative) Ur Leukocyte Esterase Small H (Negative) Urine RBC 151 H (0-5) /hpf Urine WBC 15 H (0-5) /hpf Urine Mucus Rare H (None) /hpf Microbiology - Last 24 Hours (Table) 10/17/22 16:09 Blood Culture - Preliminary Blood No Growth after 96 hours Assessment and Plan (1) UTI (urinary tract infection) Status: Acute Code(s): N39.0 - URINARY TRACT INFECTION, SITE NOT SPECIFIED SNOMED Code(s): 71900730 Plan: 1patient presented to hospital with abdominal pain and vomiting in this patient has been diagnosed with small bowel obstruction status post laparotomy with partial omentectomy lysis of adhesion patient did have a urine retention requiring Whitley catheter and evidence of some hematuria possibly traumatic and a positive UA possible component of UTI likely from the gram-negative pathogen 2-patient to continue with Zosyn while waiting for the culture to finalize no need for Rocephin which should be discontinued Son at the bedside question concern answered We will follow on clinical condition and cultures to further adjust medication if needed Thank you for this consultation we will follow the patient along with you Time with Patient: Greater than 30
[2022-10-23] MEDS: METOCLOPRAMIDE 5 MG/ML 2 ML VIAL IVP SCH ×4 (05:33→23:31)
[2022-10-23] MEDS: SODIUM CHLORIDE 0.9% 1,000 ML IV SCH ×2 (05:33→12:44)
--- NOTE | 2022-10-23 06:09 | P.PN ---
Subjective Progress Note Date: 10/23/22 Principal diagnosis: Paroxysmal atrial fibrillation The patient is a pleasant 86-year-old gentleman who was admitted to the hospital with abdominal discomfort and was diagnosed with small bowel obstruction. We consulted to see the patient for atrial fibrillation with RVR and subsequently the patient was converted to normal sinus mechanism. Further investigation including an echocardiogram was performed and showed normal LV function was no significant valvular abnormalities. October 232022 The patient was seen and evaluated this morning. He has been maintaining normal sinus mechanism. Surgery was uneventful. He is on oral anticoagulation as well as beta kacey. The examination revealed stable vital signs with a regular rhythm. Assessment Small bowel obstruction status post surgery Paroxysmal atrial fibrillation Multiple comorbid conditions Plan Continue the current medical regimen Follow-up with the patient Objective - Vital Signs Vital signs: Vital Signs Temp 98.4 F 10/23/22 03:18 Pulse 69 10/23/22 03:18 Resp 20 10/23/22 03:18 BP 158/84 10/23/22 03:18 Pulse Ox 96 10/23/22 03:18 FiO2 Intake & Output 10/22/22 10/22/22 10/23/22 06:59 18:59 06:59 Intake Total 220 228.06 Output Total 1000 350 750 Balance -1000 -130 -521.94 Weight 95.5 kg Intake: IV 20 Invasive Line 5 10 Invasive Line 6 10 Intake, IV Titration 228.06 Amount Amiodarone 450 mg In 228.06 Dextrose 5% in Water 250 ml @ 0.5 MG/MIN 16.667 mls/hr IV .Q15H [facility] Rx#: [id number] Oral 200 Output: Gastric Drainage 450 Urine 550 350 750 Uretheral (Whitley) 250 Stool 0 Other: Voiding Method Indwelling Catheter Indwelling Catheter Indwelling Catheter # Bowel Movements 0 - Labs CBC & Chem 7: 10/22/22 08:02 10/22/22 08:02 Labs: Abnormal Lab Results - Last 24 Hours (Table) 10/22/22 10/22/22 10/22/22 Range/Units 06:18 08:02 08:02 Neutrophils # 9.1 H (1.3-7.7) k/uL Lymphocytes # 0.4 L (1.0-4.8) k/uL Potassium 3.3 L (3.5-5.1) mmol/L Chloride 112 H (98-107) mmol/L Glucose 116 H (74-99) mg/dL POC Glucose (mg/dL) 129 H (70-110) mg/dL Calcium 7.6 L (8.4-10.2) mg/dL Urine Protein (Negative) Urine Ketones (Negative) Urine Blood (Negative) Urine Bilirubin (Negative) Ur Leukocyte Esterase (Negative) Urine RBC (0-5) /hpf Urine WBC (0-5) /hpf Urine Mucus (None) /hpf 10/22/22 10/22/22 10/22/22 Range/Units 11:15 11:35 16:32 Neutrophils # (1.3-7.7) k/uL Lymphocytes # (1.0-4.8) k/uL Potassium (3.5-5.1) mmol/L Chloride (98-107) mmol/L Glucose (74-99) mg/dL POC Glucose (mg/dL) 144 H 121 H (70-110) mg/dL Calcium (8.4-10.2) mg/dL Urine Protein 2+ H (Negative) Urine Ketones 1+ H (Negative) Urine Blood Large H (Negative) Urine Bilirubin 1+ H (Negative) Ur Leukocyte Esterase Small H (Negative) Urine RBC 151 H (0-5) /hpf Urine WBC 15 H (0-5) /hpf Urine Mucus Rare H (None) /hpf 10/22/22 Range/Units 20:11 Neutrophils # (1.3-7.7) k/uL Lymphocytes # (1.0-4.8) k/uL Potassium (3.5-5.1) mmol/L Chloride (98-107) mmol/L Glucose (74-99) mg/dL POC Glucose (mg/dL) 123 H (70-110) mg/dL Calcium (8.4-10.2) mg/dL Urine Protein (Negative) Urine Ketones (Negative) Urine Blood (Negative) Urine Bilirubin (Negative) Ur Leukocyte Esterase (Negative) Urine RBC (0-5) /hpf Urine WBC (0-5) /hpf Urine Mucus (None) /hpf Microbiology - Last 24 Hours (Table) 10/17/22 16:09 Blood Culture - Preliminary Blood No Growth after 120 hours
[2022-10-23 06:13] LABS: Glucose,Whole Blood 84 mg/dL (70-110)
[2022-10-23] MEDS: INSULIN ASPART (NovoLOG) 100 UNIT/ML VIAL SQ SCH ×4 (06:14→21:01)
--- NOTE | 2022-10-23 06:48 | PN ---
PROGRESS NOTE DATE OF SERVICE: 10/23/2022 SUBJECTIVE: This 86-year-old gentleman admitted with partial small bowel obstruction, also had some hematemesis. The patient had lysis of adhesion. No chest pain. No palpitations. No fever. OBJECTIVE: VITAL SIGNS: Pulse is 66, blood pressure 130/46, respirations 16. CHEST: Few scattered rhonchi. CARDIOVASCULAR: S1 and S2. ABDOMEN: Status post surgery. LABORATORY DATA: Reviewed. ASSESSMENT: 1. Acute small bowel obstruction, status post lysis of adhesion. 2. Hematemesis. 3. Lactic acidosis. 4. Remote history of gastric ulcer. 5. Dementia. 6. Multiple medical issues. RECOMMENDATIONS: Recommend to continue current medications. Continue symptomatic treatment. Repeat labs. Otherwise, supplement potassium. Guarded prognosis because of multiple complex medical issues, and further recommendations to follow. MMODL / IJN: [id number] /
[2022-10-23] MEDS: PIPERACILLIN-TAZOBACTAM 3.375 GM in SODIUM CHLORIDE 0.9% 100 ML IVPB SCH ×2 (08:21→16:57)
[2022-10-23] MEDS: APIXABAN 2.5 MG TABLET PO SCH ×2 (08:21→20:15)
[2022-10-23] MEDS: METOPROLOL TARTRATE 50 MG TAB PO SCH ×2 (08:21→20:14)
[2022-10-23] MEDS: PANTOPRAZOLE 40 MG/10 ML VIAL IV SCH ×2 (08:21→20:15)
[2022-10-23 10:15] LABS: Basophils % (A) 0 %; Eosinophils % (A) 0 %; HCT 39.6 % (39.0-53.0); Lymphocytes # (A) 0.4 k/uL (1.0-4.8); Lymphocytes % (A) 4 %; MCH 30.1 pg (25.0-35.0); MCHC 32.8 g/dL (31.0-37.0); MCV 91.8 fL (80.0-100.0); Mean Platelet Volume 7.4; Monocytes # (A) 0.7 k/uL (0-1.0); Monocytes % (A) 7 %; Neutrophils # (A) 8.8 k/uL (1.3-7.7); Neutrophils % (A) 88 %; Platelet Count 183 k/uL (150-450); RBC 4.31 m/uL (4.30-5.90); RDW 14.8 % (11.5-15.5)
[2022-10-23 10:27] LABS: Calcium 7.4 mg/dL (8.4-10.2); Potassium 3.5 mmol/L (3.5-5.1)
--- NOTE | 2022-10-23 11:19 | P.PN ---
Subjective Progress Note Date: 10/23/22 Principal diagnosis: Small bowel obstruction Patient says he doing well today. Denies nausea. No pain. He has not had flatus Objective - Vital Signs Vital signs: Vital Signs Temp 98.1 F 10/23/22 11:05 Pulse 65 10/23/22 11:05 Resp 16 10/23/22 11:05 BP 150/74 10/23/22 11:05 Pulse Ox 96 10/23/22 11:05 FiO2 Intake & Output 10/22/22 10/23/22 10/23/22 18:59 06:59 18:59 Intake Total 220 228.06 Output Total 350 750 Balance -130 -521.94 Weight 95.5 kg Intake: IV 20 Invasive Line 5 10 Invasive Line 6 10 Intake, IV Titration 228.06 Amount Amiodarone 450 mg In 228.06 Dextrose 5% in Water 250 ml @ 0.5 MG/MIN 16.667 mls/hr IV .Q15H [facility] Rx#: [id number] Oral 200 Output: Urine 350 750 Uretheral (Whitley) 250 Stool 0 Other: Voiding Method Indwelling Catheter Indwelling Catheter Urinal # Bowel Movements 0 - Exam Abdomen: Soft, mild distention, dressing clean and dry, minimal tenderness - Labs CBC & Chem 7: 10/23/22 09:07 10/23/22 09:07 Labs: Abnormal Lab Results - Last 24 Hours (Table) 10/22/22 10/22/22 10/22/22 Range/Units 11:15 11:35 16:32 Neutrophils # (1.3-7.7) k/uL Lymphocytes # (1.0-4.8) k/uL Chloride (98-107) mmol/L Glucose (74-99) mg/dL POC Glucose (mg/dL) 144 H 121 H (70-110) mg/dL Calcium (8.4-10.2) mg/dL Urine Protein 2+ H (Negative) Urine Ketones 1+ H (Negative) Urine Blood Large H (Negative) Urine Bilirubin 1+ H (Negative) Ur Leukocyte Esterase Small H (Negative) Urine RBC 151 H (0-5) /hpf Urine WBC 15 H (0-5) /hpf Urine Mucus Rare H (None) /hpf 10/22/22 10/23/22 10/23/22 Range/Units 20:11 09:07 09:07 Neutrophils # 8.8 H (1.3-7.7) k/uL Lymphocytes # 0.4 L (1.0-4.8) k/uL Chloride 110 H (98-107) mmol/L Glucose 58 L (74-99) mg/dL POC Glucose (mg/dL) 123 H (70-110) mg/dL Calcium 7.4 L (8.4-10.2) mg/dL Urine Protein (Negative) Urine Ketones (Negative) Urine Blood (Negative) Urine Bilirubin (Negative) Ur Leukocyte Esterase (Negative) Urine RBC (0-5) /hpf Urine WBC (0-5) /hpf Urine Mucus (None) /hpf Microbiology - Last 24 Hours (Table) 10/17/22 16:09 Blood Culture - Preliminary Blood No Growth after 120 hours Assessment and Plan (1) Small bowel obstruction Narrative/Plan: 86-year-old male doing well after recent lysis of adhesions. Keep nothing by mouth. Ambulate. Will follow. Current Visit: Yes Status: Acute Code(s): K56.609 - UNSP INTESTNL OBST, UNSP TO PARTIAL VERSUS COMPLETE OBST SNOMED Code(s): 929277599
[2022-10-23 12:02] LABS: Glucose,Whole Blood 63 mg/dL (70-110)
[2022-10-23 12:16] LABS: Glucose,Whole Blood 113 mg/dL (70-110)
--- NOTE | 2022-10-23 15:31 | P.PN ---
Subjective Progress Note Date: 10/23/22 Principal diagnosis: Catheter associated UTI Patient is a 86-year-old male with a past medical history significant for diabetes mellitus dementia presenting to the ER on 10/17/2022 that is about 5 days ago for abdominal pain and vomiting patient did have a CT of abdominal pelvis which did shows high-grade small bowel obstruction transition point in the right lower quadrant, patient is status post nephrotomy lysis of adhesions he was noticed to have a cloudy urine with indwelling Whitley catheter urine has been sent came back positive for stomach sent on today's evaluation that is 10/23/2022, the patient denies having any fever or any chills his breathing comfortably on room air denies any chest pain or shortness of breath or cough no abdominal pain is currently controlled Objective - Vital Signs Vital signs: Vital Signs Temp 98.1 F 10/23/22 11:05 Pulse 65 10/23/22 11:05 Resp 16 10/23/22 11:05 BP 150/74 10/23/22 11:05 Pulse Ox 96 10/23/22 11:05 FiO2 Intake & Output 10/22/22 10/23/22 10/23/22 18:59 06:59 18:59 Intake Total 220 228.06 Output Total 350 750 Balance -130 -521.94 Weight 95.5 kg Intake: IV 20 Invasive Line 5 10 Invasive Line 6 10 Intake, IV Titration 228.06 Amount Amiodarone 450 mg In 228.06 Dextrose 5% in Water 250 ml @ 0.5 MG/MIN 16.667 mls/hr IV .Q15H [facility] Rx#: [id number] Oral 200 Output: Urine 350 750 Uretheral (Whitley) 250 Stool 0 Other: Voiding Method Indwelling Catheter Indwelling Catheter Urinal # Bowel Movements 0 - Exam GENERAL DESCRIPTION: An elderly male lying in bed in no distress RESPIRATORY SYSTEM: Unlabored breathing , decreased breath sounds at bases HEART: S1 S2 regular rate and rhythm , ABDOMEN: Soft , no tenderness EXTREMITIES: No edema feet - Labs CBC & Chem 7: 10/23/22 09:07 10/23/22 09:07 Labs: Abnormal Lab Results - Last 24 Hours (Table) 10/22/22 10/22/22 10/22/22 Range/Units 11:15 16:32 20:11 Neutrophils # (1.3-7.7) k/uL Lymphocytes # (1.0-4.8) k/uL Chloride (98-107) mmol/L Glucose (74-99) mg/dL POC Glucose (mg/dL) 121 H 123 H (70-110) mg/dL Calcium (8.4-10.2) mg/dL Urine Protein 2+ H (Negative) Urine Ketones 1+ H (Negative) Urine Blood Large H (Negative) Urine Bilirubin 1+ H (Negative) Ur Leukocyte Esterase Small H (Negative) Urine RBC 151 H (0-5) /hpf Urine WBC 15 H (0-5) /hpf Urine Mucus Rare H (None) /hpf 10/23/22 10/23/22 10/23/22 Range/Units 09:07 09:07 11:54 Neutrophils # 8.8 H (1.3-7.7) k/uL Lymphocytes # 0.4 L (1.0-4.8) k/uL Chloride 110 H (98-107) mmol/L Glucose 58 L (74-99) mg/dL POC Glucose (mg/dL) 63 L (70-110) mg/dL Calcium 7.4 L (8.4-10.2) mg/dL Urine Protein (Negative) Urine Ketones (Negative) Urine Blood (Negative) Urine Bilirubin (Negative) Ur Leukocyte Esterase (Negative) Urine RBC (0-5) /hpf Urine WBC (0-5) /hpf Urine Mucus (None) /hpf 10/23/22 Range/Units 12:14 Neutrophils # (1.3-7.7) k/uL Lymphocytes # (1.0-4.8) k/uL Chloride (98-107) mmol/L Glucose (74-99) mg/dL POC Glucose (mg/dL) 113 H (70-110) mg/dL Calcium (8.4-10.2) mg/dL Urine Protein (Negative) Urine Ketones (Negative) Urine Blood (Negative) Urine Bilirubin (Negative) Ur Leukocyte Esterase (Negative) Urine RBC (0-5) /hpf Urine WBC (0-5) /hpf Urine Mucus (None) /hpf Microbiology - Last 24 Hours (Table) 10/17/22 16:09 Blood Culture - Preliminary Blood No Growth after 120 hours Assessment and Plan (1) UTI (urinary tract infection) Current Visit: Yes Status: Acute Code(s): N39.0 - URINARY TRACT INFECTION, SITE NOT SPECIFIED SNOMED Code(s): 10192341 Plan: 1patient presented to hospital with abdominal pain and vomiting in this patient has been diagnosed with small bowel obstruction status post laparotomy with partial omentectomy lysis of adhesion patient did have a urine retention requiring Whitley catheter and evidence of some hematuria possibly traumatic and a positive UA possible component of UTI likely from the gram-negative pathogen 2-patient to continue with Zosyn while waiting for the culture to finalize and monitor his clinical course closely Time with Patient: Less than 30
--- NOTE | 2022-10-23 15:48 | HP ---
HISTORY AND PHYSICAL HISTORY OF PRESENT ILLNESS: This 86-year-old gentleman admitted with small-bowel obstruction who also had atrial fibrillation. No chest pain, no palpitations, no fever. PHYSICAL EXAMINATION: VITAL SIGNS: Pulse is 65, blood pressure 150/70, and respirations 16. CHEST: Clear to auscultation. CARDIOVASCULAR: S1, S2 regular. ABDOMEN: Soft. Minimal distention. LABORATORY DATA: Reviewed. ASSESSMENT: 1. Acute small-bowel obstruction, status post lysis of adhesions. 2. Atrial fibrillation. 3. Hematemesis history. 4. Lactic acidosis. 5. History of gastric ulcer. 6. Dementia. 7. Multiple medical issues. RECOMMENDATIONS: Recommended to continue current management and continue symptomatic treatment. Closely follow with surgery and Cardiology. The patient is currently on Cordarone as well and with blockers. Prognosis guarded. Further recommendations to follow. MMODL / ANDRIAN: [id number] /
[2022-10-23] MEDS: hydrALAZINE HCL 20 MG/ML 1 ML VIAL IVP PRN (16:58)
[2022-10-23 17:09] LABS: Glucose,Whole Blood 99 mg/dL (70-110)
[2022-10-23] MEDS: LACTATED RINGERS 1,000 ML IV SCH (18:30)
[2022-10-23 20:13] LABS: Glucose,Whole Blood 94 mg/dL (70-110)
[2022-10-23] MEDS: QUEtiapine 25 MG TAB PO PRN (20:14)
[2022-10-23] MEDS: INSULIN DETEMIR (LEVEMIR) 100 UNIT/ML SYR SQ SCH (21:02)
[2022-10-24] MEDS: PIPERACILLIN-TAZOBACTAM 3.375 GM in SODIUM CHLORIDE 0.9% 100 ML IVPB SCH ×4 (00:20→23:05)
[2022-10-24] MEDS: SODIUM CHLORIDE 0.9% 1,000 ML IV SCH ×4 (00:37→23:08)
[2022-10-24] MEDS: METOCLOPRAMIDE 5 MG/ML 2 ML VIAL IVP SCH ×4 (05:48→23:05)
[2022-10-24 06:18] LABS: Glucose,Whole Blood 80 mg/dL (70-110)
[2022-10-24] MEDS: INSULIN ASPART (NovoLOG) 100 UNIT/ML VIAL SQ SCH ×4 (06:28→20:18)
--- NOTE | 2022-10-24 08:03 | P.PN ---
Subjective Progress Note Date: 10/24/22 Principal diagnosis: Paroxysmal atrial fibrillation The patient is a pleasant 86-year-old gentleman who was admitted to the hospital with abdominal discomfort and was diagnosed with small bowel obstruction. We consulted to see the patient for atrial fibrillation with RVR and subsequently the patient was converted to normal sinus mechanism. Further investigation including an echocardiogram was performed and showed normal LV function was no significant valvular abnormalities. October 232022 The patient was seen and evaluated this morning. He has been maintaining normal sinus mechanism. Surgery was uneventful. He is on oral anticoagulation as well as beta kacey. The examination revealed stable vital signs with a regular rhythm. October 242022 The patient was seen this morning. He is maintaining normal sinus mechanism. He is asymptomatic. He is hypertensive and the pressure seems to be consistent with stage II hypertension. Currently he is only on beta kacey for the atrial fibrillation. I'm going to add an ARB with losartan since he is diabetic. Going to add losartan at 25 mg by mouth daily. Assessment Small bowel obstruction status post surgery Paroxysmal atrial fibrillation Hypertension Plan Continue the current medical regimen Add losartan to the current medical regimen Continue beta kacey and oral anticoagulation Follow-up with the patient Objective - Vital Signs Vital signs: Vital Signs Temp 98.0 F 10/24/22 07:52 Pulse 66 10/24/22 07:57 Resp 16 10/24/22 07:57 BP 166/72 10/24/22 07:52 Pulse Ox 97 10/24/22 07:52 FiO2 Intake & Output 10/23/22 10/24/22 10/24/22 18:59 06:59 18:59 Output Total 100 0 Balance -100 0 Output: Urine 100 Stool 0 0 Other: Voiding Method Urinal Urinal Urinal Diaper Diaper # Voids 0 - Labs CBC & Chem 7: 10/23/22 09:07 10/23/22 09:07 Labs: Abnormal Lab Results - Last 24 Hours (Table) 10/23/22 10/23/22 10/23/22 Range/Units 09:07 09:07 11:54 Neutrophils # 8.8 H (1.3-7.7) k/uL Lymphocytes # 0.4 L (1.0-4.8) k/uL Chloride 110 H (98-107) mmol/L Glucose 58 L (74-99) mg/dL POC Glucose (mg/dL) 63 L (70-110) mg/dL Calcium 7.4 L (8.4-10.2) mg/dL 10/23/22 Range/Units 12:14 Neutrophils # (1.3-7.7) k/uL Lymphocytes # (1.0-4.8) k/uL Chloride (98-107) mmol/L Glucose (74-99) mg/dL POC Glucose (mg/dL) 113 H (70-110) mg/dL Calcium (8.4-10.2) mg/dL Microbiology - Last 24 Hours (Table) 10/17/22 16:09 Blood Culture - Final Blood No Growth after 144 hours
[2022-10-24] MEDS: PANTOPRAZOLE 40 MG/10 ML VIAL IV SCH ×2 (08:38→20:16)
[2022-10-24] MEDS: APIXABAN 2.5 MG TABLET PO SCH ×2 (08:39→20:16)
[2022-10-24] MEDS: LOSARTAN 25 MG TAB PO SCH (08:39)
[2022-10-24] MEDS: METOPROLOL TARTRATE 50 MG TAB PO SCH ×2 (08:39→20:16)
--- NOTE | 2022-10-24 10:19 | P.PN ---
Subjective Progress Note Date: 10/24/22 Principal diagnosis: Small bowel obstruction Patient without new complaints. Denies abdominal pain. No flatus or bowel movement. Denies nausea or vomiting. He is ambulating to the bathroom but not in the hallways. Objective - Vital Signs Vital signs: Vital Signs Temp 98.0 F 10/24/22 07:52 Pulse 66 10/24/22 07:57 Resp 16 10/24/22 07:57 BP 166/72 10/24/22 07:52 Pulse Ox 97 10/24/22 07:52 FiO2 Intake & Output 10/23/22 10/24/22 10/24/22 18:59 06:59 18:59 Output Total 100 0 Balance -100 0 Output: Urine 100 Stool 0 0 Other: Voiding Method Urinal Urinal Urinal Diaper Diaper # Voids 0 - Exam Abdomen: Soft, mild distention, dressing clean and dry, nontender - Labs CBC & Chem 7: 10/23/22 09:07 10/23/22 09:07 Labs: Abnormal Lab Results - Last 24 Hours (Table) 10/23/22 10/23/22 10/23/22 Range/Units 09:07 11:54 12:14 Chloride 110 H (98-107) mmol/L Glucose 58 L (74-99) mg/dL POC Glucose (mg/dL) 63 L 113 H (70-110) mg/dL Calcium 7.4 L (8.4-10.2) mg/dL Microbiology - Last 24 Hours (Table) 10/17/22 16:09 Blood Culture - Final Blood No Growth after 144 hours Assessment and Plan (1) Small bowel obstruction Narrative/Plan: Patient seems to be doing fairly well. Increase activity. Keep nothing by mouth until bowel function returns. We'll consult physical therapy if not already seeing the patient. Current Visit: Yes Status: Acute Code(s): K56.609 - UNSP INTESTNL OBST, UNSP TO PARTIAL VERSUS COMPLETE OBST SNOMED Code(s): 805384847
[2022-10-24 11:36] LABS: Glucose,Whole Blood 76 mg/dL (70-110)
--- NOTE | 2022-10-24 14:27 | P.PN ---
Subjective Progress Note Date: 10/24/22 Principal diagnosis: Catheter associated UTI Patient is a 86-year-old male with a past medical history significant for diabetes mellitus dementia presenting to the ER on 10/17/2022 that is about 5 days ago for abdominal pain and vomiting patient did have a CT of abdominal pelvis which did shows high-grade small bowel obstruction transition point in the right lower quadrant, patient is status post nephrotomy lysis of adhesions he was noticed to have a cloudy urine with indwelling Whitley catheter urine has been sent came back positive on today's evaluation that is 10/24/2022, the patient remains to be afebrile, the patient is breathing comfortably on room air, the patient denies any chest pain or shortness of breath or cough no abdominal pain is currently controlled Objective - Vital Signs Vital signs: Vital Signs Temp 97.9 F 10/24/22 11:50 Pulse 67 10/24/22 11:50 Resp 16 10/24/22 11:50 BP 160/74 10/24/22 11:50 Pulse Ox 96 10/24/22 11:50 FiO2 Intake & Output 10/23/22 10/24/22 10/24/22 18:59 06:59 18:59 Output Total 100 0 Balance -100 0 Output: Urine 100 Stool 0 0 Other: Voiding Method Urinal Urinal Urinal Diaper Diaper # Voids 0 1 - Exam GENERAL DESCRIPTION: An elderly male lying in bed in no distress RESPIRATORY SYSTEM: Unlabored breathing , decreased breath sounds at bases HEART: S1 S2 regular rate and rhythm , ABDOMEN: Soft , no tenderness EXTREMITIES: No edema feet - Labs CBC & Chem 7: 10/23/22 09:07 10/23/22 09:07 Labs: Microbiology - Last 24 Hours (Table) 10/17/22 16:09 Blood Culture - Final Blood No Growth after 144 hours Assessment and Plan (1) UTI (urinary tract infection) Current Visit: Yes Status: Acute Code(s): N39.0 - URINARY TRACT INFECTION, SITE NOT SPECIFIED SNOMED Code(s): 12929136 Plan: 1patient presented to hospital with abdominal pain and vomiting in this patient has been diagnosed with small bowel obstruction status post laparotomy with partial omentectomy lysis of adhesion patient did have a urine retention requiring Whitley catheter and evidence of some hematuria possibly traumatic and a positive UA possible component of UTI likely from the gram-negative pathogen, no urine culture has been done 2-patient to continue with Zosyn and we will repeat his UA and culture Time with Patient: Less than 30
--- NOTE | 2022-10-24 14:31 | P.PN ---
Subjective Progress Note Date: 10/24/22 Patient is a 86-year-old male with a past medical history significant for diabetes mellitus dementia presenting to the ER on 10/17/2022 for abdominal pain and vomiting patient did have a CT of abdominal pelvis which did shows high-grade small bowel obstruction transition point in the right lower quadrant, patient is status post laparotomy lysis of adhesions . Patient currently being seen by general surgery, ID and cardiology. 10/24. Patient seen and examined. Denies abdominal pain. No acute issues overnight. Vital signs stable REVIEW OF SYSTEMS: CONSTITUTIONAL: No fever, no malaise,. CARDIOVASCULAR: No chest pain, no palpitations, no syncope. PULMONARY: No shortness of breath, no cough, GASTROINTESTINAL: No diarrhea, no nausea, no vomiting, no abdominal pain. NEUROLOGICAL: No headaches, no weakness, PHYSICAL EXAMINATION: GENERAL: The patient is alert and oriented x3, not in any acute distress. Well developed, well nourished. HEENT: Pupils are round and equally reacting to light. EOMI. No scleral icterus. No conjunctival pallor. Normocephalic, atraumatic. No pharyngeal erythema. No thyromegaly. CARDIOVASCULAR: S1 and S2 present. No murmurs, rubs, or gallops. PULMONARY: Chest is clear to auscultation, no wheezing or crackles. ABDOMEN: Soft, nontender, nondistended, normoactive bowel sounds. No palpable organomegaly. MUSCULOSKELETAL: No joint swelling or deformity. EXTREMITIES: No cyanosis, clubbing, or pedal edema. NEUROLOGICAL: Gross neurological examination did not reveal any focal deficits. SKIN: No rashes. Assessment and plan Small bowel obstruction Possible atrial fibrillation Hypertension Catheter associated UTI Plan; Monitor vital signs Monitor CBC Monitor CMP Continue telemetry monitoring Cardiology had added losartan. Continue Lopressor Eliquis Follow-up on urine cultures Continue IV Zosyn Follow-up on ID recommendations Currently nothing by mouth, advance diet per general surgery Objective - Vital Signs Vital signs: Vital Signs Temp 98.0 F 10/24/22 07:52 Pulse 66 10/24/22 07:57 Resp 16 10/24/22 07:57 BP 166/72 10/24/22 07:52 Pulse Ox 97 10/24/22 07:52 FiO2 Intake & Output 10/23/22 10/24/22 10/24/22 18:59 06:59 18:59 Output Total 100 0 Balance -100 0 Output: Urine 100 Stool 0 0 Other: Voiding Method Urinal Urinal Urinal Diaper Diaper # Voids 0 - Labs CBC & Chem 7: 10/23/22 09:07 10/23/22 09:07 Labs: Abnormal Lab Results - Last 24 Hours (Table) 10/23/22 10/23/22 10/23/22 Range/Units 09:07 09:07 11:54 Neutrophils # 8.8 H (1.3-7.7) k/uL Lymphocytes # 0.4 L (1.0-4.8) k/uL Chloride 110 H (98-107) mmol/L Glucose 58 L (74-99) mg/dL POC Glucose (mg/dL) 63 L (70-110) mg/dL Calcium 7.4 L (8.4-10.2) mg/dL 10/23/22 Range/Units 12:14 Neutrophils # (1.3-7.7) k/uL Lymphocytes # (1.0-4.8) k/uL Chloride (98-107) mmol/L Glucose (74-99) mg/dL POC Glucose (mg/dL) 113 H (70-110) mg/dL Calcium (8.4-10.2) mg/dL Microbiology - Last 24 Hours (Table) 10/17/22 16:09 Blood Culture - Final Blood No Growth after 144 hours
[2022-10-24 16:25] LABS: Glucose,Whole Blood 96 mg/dL (70-110)
[2022-10-24 16:59] LABS: Appearance,Urine Clear (Clear); Bilirubin,Urine Negative (Negative); Blood,Urine Moderate (Negative); Color,Urine Light Yellow; Glucose,Urine (UA) Negative (Negative); Ketones,Urine 2+ (Negative); Leukocyte Esterase,Urine Negative (Negative); Nitrite,Urine Negative (Negative); Protein,Urine Trace (Negative); RBC,Urine 81 /hpf (0-5); Specific Gravity,Urine 1.014 (1.001-1.035); Squamous Epithelial Cell,Urine <1 /hpf (0-4); Urobilinogen,Urine <2.0 mg/dL (<2.0); WBC,Urine 2 /hpf (0-5)
[2022-10-24] MEDS: LACTATED RINGERS 1,000 ML IV SCH (18:50)
[2022-10-24 20:17] LABS: Glucose,Whole Blood 121 mg/dL (70-110)
[2022-10-24] MEDS: QUEtiapine 25 MG TAB PO PRN (20:17)
[2022-10-24] MEDS: INSULIN DETEMIR (LEVEMIR) 100 UNIT/ML SYR SQ SCH (20:18)
[2022-10-24] MEDS: NYSTATIN 100,000 UNIT/GM POWD 15 GM TOPICAL SCH (20:18)
[2022-10-25] MEDS: SODIUM CHLORIDE 0.9% 1,000 ML IV SCH (04:09)
[2022-10-25] MEDS: hydrALAZINE HCL 20 MG/ML 1 ML VIAL IVP PRN (04:09)
[2022-10-25] MEDS: METOCLOPRAMIDE 5 MG/ML 2 ML VIAL IVP SCH ×3 (05:56→17:16)
[2022-10-25 06:01] LABS: Glucose,Whole Blood 107 mg/dL (70-110)
[2022-10-25] MEDS: INSULIN ASPART (NovoLOG) 100 UNIT/ML VIAL SQ SCH ×4 (06:11→21:27)
[2022-10-25 07:34] LABS: Basophils % (A) 0 %; Eosinophils # (A) 0.1 k/uL (0-0.7); Eosinophils % (A) 1 %; HCT 35.5 % (39.0-53.0); Lymphocytes # (A) 0.5 k/uL (1.0-4.8); Lymphocytes % (A) 7 %; MCH 29.9 pg (25.0-35.0); MCHC 33.8 g/dL (31.0-37.0); MCV 88.6 fL (80.0-100.0); Mean Platelet Volume 7.2; Monocytes # (A) 0.7 k/uL (0-1.0); Monocytes % (A) 10 %; Neutrophils % (A) 81 %; Platelet Count 208 k/uL (150-450); RBC 4.01 m/uL (4.30-5.90); RDW 14.7 % (11.5-15.5); WBC 7.3 k/uL (3.8-10.6)
[2022-10-25 07:47] LABS: Albumin 2.4 g/dL (3.5-5.0); Calcium 6.8 mg/dL (8.4-10.2); Total Bilirubin 0.7 mg/dL (0.2-1.3); Total Protein 4.6 g/dL (6.3-8.2)
[2022-10-25] MEDS: PIPERACILLIN-TAZOBACTAM 3.375 GM in SODIUM CHLORIDE 0.9% 100 ML IVPB SCH ×2 (08:10→17:16)
[2022-10-25] MEDS: METOPROLOL TARTRATE 50 MG TAB PO SCH ×2 (08:11→21:26)
[2022-10-25] MEDS: LOSARTAN 25 MG TAB PO SCH (08:11)
[2022-10-25] MEDS: APIXABAN 2.5 MG TABLET PO SCH ×2 (08:11→21:26)
[2022-10-25] MEDS: PANTOPRAZOLE 40 MG/10 ML VIAL IV SCH ×2 (08:11→21:44)
[2022-10-25] MEDS ORDERED: LOSARTAN 25 MG TAB PO STA (09:11)
[2022-10-25] MEDS ORDERED: cloNIDine 0.2 MG/24HR PATCH TRANSDERM SCH (09:15)
[2022-10-25 11:41] LABS: Glucose,Whole Blood 119 mg/dL (70-110)
--- NOTE | 2022-10-25 12:12 | P.PN ---
Subjective Progress Note Date: 10/25/22 CHIEF COMPLAINT: Abdominal pain HISTORY OF PRESENT ILLNESS: Small bowel obstruction due to internal hernia from adhesions status post lysis of adhesion and partial omentectomy. Postop day #5. Patient is lying in bed comfortably. Denies any pain. Patient has had bowel movement and is having a lot of flatus. Denies any nausea or vomiting. Afebrile. WBC is 7.3 hgb 12 plt 208 na 141 potassium 3.0 creatinine 0.94 PHYSICAL EXAM: VITAL SIGNS: Reviewed. GENERAL: Well-developed in no acute distress. HEENT: No sclera icterus. Extraocular movements grossly intact. Moist buccal mucosa. Head is atraumatic, normocephalic. ABDOMEN: Abdomen soft. nontender. Prevana wound vac has shadowing on the d istal aspect of the dressing NEUROLOGIC: Alert and alert ASSESSMENT: 1. SBO due to internal hernia from adhesions status post lysis of adhesion and partial omentectomy 2. Coffee-ground emesis prior to admission. With computed tomography scan findings of Possible focal wall thickening along the anterior wall of the gastric body. Correlate for gastritis or peptic ulcer disease. 3. Afib 4. Hypokalemia PLAN: -Remove Prevana wound vac. Cover incision with gauze and ABD -Advance diet to clear liquids -Replace potassium -Continue Reglan -Discontinue IV fluids -Continue supportive care -Continue IV protonix BID -Encouraged patient to increase activity level -Encouraged patient to use incentive spirometer Physician Animal Sticker note has been reviewed by physician. Signing provider agrees with the documented findings, assessment, and plan of care. I have personally seen and examined the patient, reviewed the [employer]PA[employer] SUPERVISOR /PAs history, exam and MDM and agree with the assessment and plan as written. Based on total visit time, I have performed more than 50% of the visit. As above: Patient doing better today. He is having stools. Continue advancing diet. Ambulate. Abdominal dressing change. Objective - Vital Signs Vital signs: Vital Signs Temp 97.6 F 10/25/22 08:19 Pulse 81 10/25/22 08:19 Resp 18 10/25/22 08:19 BP 175/64 10/25/22 08:19 Pulse Ox 96 10/25/22 08:19 FiO2 Intake & Output 10/24/22 10/25/22 10/25/22 18:59 06:59 18:59 Output Total 0 400 50 Balance 0 -400 -50 Output: Urine 400 50 Stool 0 Other: Voiding Method Urinal Diaper Diaper External Catheter # Voids 2 2 # Bowel Movements 1 - Labs CBC & Chem 7: 10/25/22 06:58 10/25/22 06:58 Labs: Abnormal Lab Results - Last 24 Hours (Table) 10/24/22 10/24/22 10/25/22 Range/Units 16:30 20:15 06:58 RBC 4.01 L (4.30-5.90) m/uL Hgb 12.0 L (13.0-17.5) gm/dL Hct 35.5 L (39.0-53.0) % Lymphocytes # 0.5 L (1.0-4.8) k/uL Potassium (3.5-5.1) mmol/L Chloride (98-107) mmol/L Carbon Dioxide (22-30) mmol/L Glucose (74-99) mg/dL POC Glucose (mg/dL) 121 H (70-110) mg/dL Calcium (8.4-10.2) mg/dL Total Protein (6.3-8.2) g/dL Albumin (3.5-5.0) g/dL Urine Protein Trace H (Negative) Urine Ketones 2+ H (Negative) Urine Blood Moderate H (Negative) Urine RBC 81 H (0-5) /hpf 10/25/22 Range/Units 06:58 RBC (4.30-5.90) m/uL Hgb (13.0-17.5) gm/dL Hct (39.0-53.0) % Lymphocytes # (1.0-4.8) k/uL Potassium 3.0 L (3.5-5.1) mmol/L Chloride 112 H (98-107) mmol/L Carbon Dioxide 18 L (22-30) mmol/L Glucose 104 H (74-99) mg/dL POC Glucose (mg/dL) (70-110) mg/dL Calcium 6.8 L (8.4-10.2) mg/dL Total Protein 4.6 L (6.3-8.2) g/dL Albumin 2.4 L (3.5-5.0) g/dL Urine Protein (Negative) Urine Ketones (Negative) Urine Blood (Negative) Urine RBC (0-5) /hpf
[2022-10-25] MEDS: NYSTATIN 100,000 UNIT/GM POWD 15 GM TOPICAL SCH ×2 (12:45→21:29)
[2022-10-25] MEDS: POTASSIUM CHLORIDE ER 20 MEQ TAB.ER PO SCH ×3 (12:46→17:16)
--- NOTE | 2022-10-25 12:46 | P.PN ---
Subjective Progress Note Date: 10/25/22 Paroxysmal atrial fibrillation The patient is a pleasant 86-year-old gentleman who was admitted to the hospital with abdominal discomfort and was diagnosed with small bowel obstruction. We consulted to see the patient for atrial fibrillation with RVR and subsequently the patient was converted to normal sinus mechanism. Further investigation including an echocardiogram was performed and showed normal LV function was no significant valvular abnormalities. October 232022 The patient was seen and evaluated this morning. He has been maintaining normal sinus mechanism. Surgery was uneventful. He is on oral anticoagulation as well as beta kacey. The examination revealed stable vital signs with a regular rhythm. October 242022 The patient was seen this morning. He is maintaining normal sinus mechanism. He is asymptomatic. He is hypertensive and the pressure seems to be consistent with stage II hypertension. Currently he is only on beta kacey for the atrial fibrillation. I'm going to add an ARB with losartan since he is diabetic. Going to add losartan at 25 mg by mouth daily. 10/25 Patient is seen today on the cardiac stepdown unit. He states his abdomen is much better. He still has abdominal distention and patient is still nothing by mouth. He denies having chest pain. No palpitations, no lightheadedness or dizziness. Blood pressure remains elevated today heart rate is in the 60s to 80s. Pulse ox 96% on room air. door manager is sinus rhythm. Physical Examination Gen: This is an 86-year-old male. He is resting but appears to be comfortable and in no acute distress. HEENT: Head is atraumatic, normocephalic. Pupils equal, round. Sclerae is ani cteric. LUNGS: Clear to auscultation. No wheezes or rhonchi. No intercostal retractions. HEART: Regular rate and rhythm. No murmur. ABDOMEN: Distended. EXTREMITIES: No pedal edema. No calf tenderness. NEUROLOGICAL: Patient is awake, alert and oriented x3. Assessment Small bowel obstruction status post surgery Paroxysmal atrial fibrillation Hypertension Plan Continue the current medical regimen Increase losartan to 50 mg daily starting tomorrow Add Catapres patch 0.2 mg today as patient is still nothing by mouth. Continue beta kacey and oral anticoagulation Monitor blood pressure closely Follow-up with the patient Nurse practitioner note has been reviewed, I agree with the documented findings and plan of care. Patient was seen and examined. Objective - Vital Signs Vital signs: Vital Signs Temp 97.6 F 10/25/22 08:19 Pulse 81 10/25/22 08:19 Resp 18 10/25/22 08:19 BP 175/64 10/25/22 08:19 Pulse Ox 96 10/25/22 08:19 FiO2 Intake & Output 10/24/22 10/25/22 10/25/22 18:59 06:59 18:59 Output Total 0 400 50 Balance 0 -400 -50 Output: Urine 400 50 Stool 0 Other: Voiding Method Urinal Diaper Diaper External Catheter # Voids 2 2 # Bowel Movements 1 - Labs CBC & Chem 7: 10/25/22 06:58 10/25/22 06:58 Labs: Abnormal Lab Results - Last 24 Hours (Table) 10/24/22 10/24/22 10/25/22 Range/Units 16:30 20:15 06:58 RBC 4.01 L (4.30-5.90) m/uL Hgb 12.0 L (13.0-17.5) gm/dL Hct 35.5 L (39.0-53.0) % Lymphocytes # 0.5 L (1.0-4.8) k/uL Potassium (3.5-5.1) mmol/L Chloride (98-107) mmol/L Carbon Dioxide (22-30) mmol/L Glucose (74-99) mg/dL POC Glucose (mg/dL) 121 H (70-110) mg/dL Calcium (8.4-10.2) mg/dL Total Protein (6.3-8.2) g/dL Albumin (3.5-5.0) g/dL Urine Protein Trace H (Negative) Urine Ketones 2+ H (Negative) Urine Blood Moderate H (Negative) Urine RBC 81 H (0-5) /hpf 10/25/22 10/25/22 Range/Units 06:58 11:39 RBC (4.30-5.90) m/uL Hgb (13.0-17.5) gm/dL Hct (39.0-53.0) % Lymphocytes # (1.0-4.8) k/uL Potassium 3.0 L (3.5-5.1) mmol/L Chloride 112 H (98-107) mmol/L Carbon Dioxide 18 L (22-30) mmol/L Glucose 104 H (74-99) mg/dL POC Glucose (mg/dL) 119 H (70-110) mg/dL Calcium 6.8 L (8.4-10.2) mg/dL Total Protein 4.6 L (6.3-8.2) g/dL Albumin 2.4 L (3.5-5.0) g/dL Urine Protein (Negative) Urine Ketones (Negative) Urine Blood (Negative) Urine RBC (0-5) /hpf
--- NOTE | 2022-10-25 14:16 | P.PN ---
Subjective Progress Note Date: 10/25/22 Patient is a 86-year-old male with a past medical history significant for diabetes mellitus dementia presenting to the ER on 10/17/2022 for abdominal pain and vomiting patient did have a CT of abdominal pelvis which did shows high-grade small bowel obstruction transition point in the right lower quadrant, patient is status post laparotomy lysis of adhesions . Patient currently being seen by general surgery, ID and cardiology. 10/24. Patient seen and examined. Denies abdominal pain. No acute issues overnight. Vital signs stable 10/25. Patient seen and examined. Passing gas. Had a bowel movement. No acute issues overnight REVIEW OF SYSTEMS: CONSTITUTIONAL: No fever, no malaise,. CARDIOVASCULAR: No chest pain, no palpitations, no syncope. PULMONARY: No shortness of breath, no cough, GASTROINTESTINAL: No diarrhea, no nausea, no vomiting, no abdominal pain. NEUROLOGICAL: No headaches, no weakness, PHYSICAL EXAMINATION: GENERAL: The patient is alert and oriented x3, not in any acute distress. Well developed, well nourished. HEENT: Pupils are round and equally reacting to light. EOMI. No scleral icterus. No conjunctival pallor. Normocephalic, atraumatic. No pharyngeal erythema. No thyromegaly. CARDIOVASCULAR: S1 and S2 present. No murmurs, rubs, or gallops. PULMONARY: Chest is clear to auscultation, no wheezing or crackles. ABDOMEN: Soft, nontender, nondistended, normoactive bowel sounds. No palpable organomegaly. MUSCULOSKELETAL: No joint swelling or deformity. EXTREMITIES: No cyanosis, clubbing, or pedal edema. NEUROLOGICAL: Gross neurological examination did not reveal any focal deficits. SKIN: No rashes. Assessment and plan Small bowel obstruction Possible atrial fibrillation Hypertension Catheter associated UTI Plan; Monitor vital signs Monitor CBC Monitor CMP Continue telemetry monitoring Continue losartan. Patient started on clonidine patch Continue Lopressor Eliquis Follow-up on urine cultures Continue IV Zosyn Follow-up on ID recommendations Currently nothing by mouth, advance diet per general surgery Objective - Vital Signs Vital signs: Vital Signs Temp 97.6 F 10/25/22 08:19 Pulse 81 10/25/22 08:19 Resp 18 10/25/22 08:19 BP 175/64 10/25/22 08:19 Pulse Ox 96 10/25/22 08:19 FiO2 Intake & Output 10/24/22 10/25/22 10/25/22 18:59 06:59 18:59 Output Total 0 400 50 Balance 0 -400 -50 Output: Urine 400 50 Stool 0 Other: Voiding Method Urinal Diaper Diaper External Catheter # Voids 2 2 # Bowel Movements 1 - Labs CBC & Chem 7: 10/25/22 06:58 10/25/22 06:58 Labs: Abnormal Lab Results - Last 24 Hours (Table) 10/24/22 10/24/22 10/25/22 Range/Units 16:30 20:15 06:58 RBC 4.01 L (4.30-5.90) m/uL Hgb 12.0 L (13.0-17.5) gm/dL Hct 35.5 L (39.0-53.0) % Lymphocytes # 0.5 L (1.0-4.8) k/uL Potassium (3.5-5.1) mmol/L Chloride (98-107) mmol/L Carbon Dioxide (22-30) mmol/L Glucose (74-99) mg/dL POC Glucose (mg/dL) 121 H (70-110) mg/dL Calcium (8.4-10.2) mg/dL Total Protein (6.3-8.2) g/dL Albumin (3.5-5.0) g/dL Urine Protein Trace H (Negative) Urine Ketones 2+ H (Negative) Urine Blood Moderate H (Negative) Urine RBC 81 H (0-5) /hpf 10/25/22 Range/Units 06:58 RBC (4.30-5.90) m/uL Hgb (13.0-17.5) gm/dL Hct (39.0-53.0) % Lymphocytes # (1.0-4.8) k/uL Potassium 3.0 L (3.5-5.1) mmol/L Chloride 112 H (98-107) mmol/L Carbon Dioxide 18 L (22-30) mmol/L Glucose 104 H (74-99) mg/dL POC Glucose (mg/dL) (70-110) mg/dL Calcium 6.8 L (8.4-10.2) mg/dL Total Protein 4.6 L (6.3-8.2) g/dL Albumin 2.4 L (3.5-5.0) g/dL Urine Protein (Negative) Urine Ketones (Negative) Urine Blood (Negative) Urine RBC (0-5) /hpf
[2022-10-25 16:26] LABS: Glucose,Whole Blood 294 mg/dL (70-110)
--- NOTE | 2022-10-25 18:44 | P.PN ---
Subjective Progress Note Date: 10/25/22 Principal diagnosis: Catheter associated UTI Patient is a 86-year-old male with a past medical history significant for diabetes mellitus dementia presenting to the ER on 10/17/2022 that is about 5 days ago for abdominal pain and vomiting patient did have a CT of abdominal pelvis which did shows high-grade small bowel obstruction transition point in the right lower quadrant, patient is status post nephrotomy lysis of adhesions he was noticed to have a cloudy urine with indwelling Whitley catheter urine has been sent came back positive on today's evaluation that is 10/25/2022, the patient continues to be afebrile, the patient is breathing comfortably on room air, the patient denies any chest pain or shortness of breath or cough, the patient denies any abdominal pain no nausea no vomiting the patient Whitley catheter has been discontinued Objective - Vital Signs Vital signs: Vital Signs Temp 97.6 F 10/25/22 08:19 Pulse 81 10/25/22 08:19 Resp 18 10/25/22 08:19 BP 175/64 10/25/22 08:19 Pulse Ox 96 10/25/22 08:19 FiO2 Intake & Output 10/24/22 10/25/22 10/25/22 18:59 06:59 18:59 Output Total 0 400 50 Balance 0 -400 -50 Weight 95.5 kg Output: Urine 400 50 Stool 0 Other: Voiding Method Urinal Diaper Diaper External Catheter # Voids 2 2 # Bowel Movements 1 - Exam GENERAL DESCRIPTION: An elderly male lying in bed in no distress RESPIRATORY SYSTEM: Unlabored breathing , decreased breath sounds at bases HEART: S1 S2 regular rate and rhythm , ABDOMEN: Soft , no tenderness EXTREMITIES: No edema feet - Labs CBC & Chem 7: 10/25/22 06:58 10/25/22 06:58 Labs: Abnormal Lab Results - Last 24 Hours (Table) 10/24/22 10/24/22 10/25/22 Range/Units 16:30 20:15 06:58 RBC 4.01 L (4.30-5.90) m/uL Hgb 12.0 L (13.0-17.5) gm/dL Hct 35.5 L (39.0-53.0) % Lymphocytes # 0.5 L (1.0-4.8) k/uL Potassium (3.5-5.1) mmol/L Chloride (98-107) mmol/L Carbon Dioxide (22-30) mmol/L Glucose (74-99) mg/dL POC Glucose (mg/dL) 121 H (70-110) mg/dL Calcium (8.4-10.2) mg/dL Total Protein (6.3-8.2) g/dL Albumin (3.5-5.0) g/dL Urine Protein Trace H (Negative) Urine Ketones 2+ H (Negative) Urine Blood Moderate H (Negative) Urine RBC 81 H (0-5) /hpf 10/25/22 10/25/22 Range/Units 06:58 11:39 RBC (4.30-5.90) m/uL Hgb (13.0-17.5) gm/dL Hct (39.0-53.0) % Lymphocytes # (1.0-4.8) k/uL Potassium 3.0 L (3.5-5.1) mmol/L Chloride 112 H (98-107) mmol/L Carbon Dioxide 18 L (22-30) mmol/L Glucose 104 H (74-99) mg/dL POC Glucose (mg/dL) 119 H (70-110) mg/dL Calcium 6.8 L (8.4-10.2) mg/dL Total Protein 4.6 L (6.3-8.2) g/dL Albumin 2.4 L (3.5-5.0) g/dL Urine Protein (Negative) Urine Ketones (Negative) Urine Blood (Negative) Urine RBC (0-5) /hpf Assessment and Plan (1) UTI (urinary tract infection) Current Visit: Yes Status: Acute Code(s): N39.0 - URINARY TRACT INFECTION, SITE NOT SPECIFIED SNOMED Code(s): 59292502 Plan: 1patient presented to hospital with abdominal pain and vomiting in this patient has been diagnosed with small bowel obstruction status post laparotomy with partial omentectomy lysis of adhesion patient did have a urine retention requiring Whitley catheter and evidence of some hematuria possibly traumatic and a positive UA possible component of UTI likely from the gram-negative pathogen, no urine culture were not done on the initial UA however the patient did have a repeat urine obtained yesterday which is relatively clear indicating adequate treatment of underlying UTI on Zosyn which can be discontinued on discharge Time with Patient: Less than 30
[2022-10-25 20:24] LABS: Glucose,Whole Blood 267 mg/dL (70-110)
[2022-10-25] MEDS: INSULIN DETEMIR (LEVEMIR) 100 UNIT/ML SYR SQ SCH (21:27)
[2022-10-25] MEDS: LACTATED RINGERS 1,000 ML IV SCH (22:24)
[2022-10-26] MEDS: METOCLOPRAMIDE 5 MG/ML 2 ML VIAL IVP SCH ×5 (00:37→23:47)
[2022-10-26] MEDS: PIPERACILLIN-TAZOBACTAM 3.375 GM in SODIUM CHLORIDE 0.9% 100 ML IVPB SCH ×3 (00:44→17:08)
[2022-10-26] MEDS ORDERED: Potassium Replacement Protocol 1 EACH MISC MISCELLANE PRN ×2 (05:07→23:13)
[2022-10-26] MEDS: POTASSIUM CHLORIDE ER 20 MEQ TAB.ER PO SCH ×3 (05:12→23:44)
[2022-10-26 06:15] LABS: Glucose,Whole Blood 88 mg/dL (70-110)
[2022-10-26] MEDS: INSULIN ASPART (NovoLOG) 100 UNIT/ML VIAL SQ SCH ×4 (06:25→20:53)
[2022-10-26] MEDS: hydrALAZINE HCL 20 MG/ML 1 ML VIAL IVP PRN (07:02)
[2022-10-26 08:20] LABS: HCT 35.7 % (39.0-53.0); MCH 29.7 pg (25.0-35.0); MCHC 33.5 g/dL (31.0-37.0); MCV 88.8 fL (80.0-100.0); Mean Platelet Volume 7.2; Platelet Count 229 k/uL (150-450); RBC 4.02 m/uL (4.30-5.90); RDW 14.8 % (11.5-15.5); WBC 7.4 k/uL (3.8-10.6)
[2022-10-26 08:40] LABS: Calcium 7.3 mg/dL (8.4-10.2); Magnesium 1.3 mg/dL (1.6-2.3)
[2022-10-26] MEDS: APIXABAN 2.5 MG TABLET PO SCH ×2 (09:25→20:52)
[2022-10-26] MEDS: LOSARTAN 50 MG TAB PO SCH (09:25)
[2022-10-26] MEDS: PANTOPRAZOLE 40 MG/10 ML VIAL IV SCH ×2 (09:28→20:52)
[2022-10-26] MEDS: NYSTATIN 100,000 UNIT/GM POWD 15 GM TOPICAL SCH ×2 (09:28→20:53)
[2022-10-26] MEDS: carvediloL 12.5 MG TAB PO SCH ×2 (09:28→17:08)
--- NOTE | 2022-10-26 11:05 | P.PN ---
Subjective Progress Note Date: 10/26/22 Paroxysmal atrial fibrillation The patient is a pleasant 86-year-old gentleman who was admitted to the hospital with abdominal discomfort and was diagnosed with small bowel obstruction. We consulted to see the patient for atrial fibrillation with RVR and subsequently the patient was converted to normal sinus mechanism. Further investigation including an echocardiogram was performed and showed normal LV function was no significant valvular abnormalities. October 232022 The patient was seen and evaluated this morning. He has been maintaining normal sinus mechanism. Surgery was uneventful. He is on oral anticoagulation as well as beta kacey. The examination revealed stable vital signs with a regular rhythm. October 242022 The patient was seen this morning. He is maintaining normal sinus mechanism. He is asymptomatic. He is hypertensive and the pressure seems to be consistent with stage II hypertension. Currently he is only on beta kacey for the atrial fibrillation. I'm going to add an ARB with losartan since he is diabetic. Going to add losartan at 25 mg by mouth daily. 10/25 Patient is seen today on the cardiac stepdown unit. He states his abdomen is much better. He still has abdominal distention and patient is still nothing by mouth. He denies having chest pain. No palpitations, no lightheadedness or dizziness. Blood pressure remains elevated today heart rate is in the 60s to 80s. Pulse ox 96% on room air. traffic monitor specialist is sinus rhythm. 10/26 Telemetry has been sinus rhythm. Blood pressure readings are elevated 161/69. Telemetry is a sinus rhythm. Repeat blood work reveals hemoglobin of 12. Potassium is 3, BUN 7 creatinine 1.14. Physical Examination Gen: This is an 86-year-old male. He is resting andt appears to be comfortable and in no acute distress. HEENT: Head is atraumatic, normocephalic. Pupils equal, round. Sclerae is an icteric. LUNGS: Clear to auscultation. No wheezes or rhonchi. No intercostal retractions. HEART: Regular rate and rhythm. No murmur. EXTREMITIES: No pedal edema. No calf tenderness. NEUROLOGICAL: Patient is awake, alert and oriented x3. Assessment Small bowel obstruction status post surgery Paroxysmal atrial fibrillation Hypertension Plan Continue the current medical regimen Continue increased dose of losartan 50 mg daily Continue Catapres patch 0.2 mg Discontinue metoprolol and start patient on Coreg 12.5 mg twice daily Continue oral anticoagulation Monitor blood pressure closely Follow-up with the patient Nurse practitioner note has been reviewed, I agree with the documented findings and plan of care. Patient was seen and examined. Objective - Vital Signs Vital signs: Vital Signs Temp 98.1 F 10/26/22 04:00 Pulse 79 10/26/22 04:00 Resp 14 10/26/22 04:00 BP 161/69 10/26/22 04:00 Pulse Ox 95 10/26/22 04:00 FiO2 Intake & Output 10/25/22 10/26/22 10/26/22 18:59 06:59 18:59 Intake Total 598 240 Output Total 52 75 50 Balance 546 -75 190 Weight 95.5 kg Intake: Oral 598 240 Output: Urine 50 75 50 Stool 2 0 Urine/Stool Mix 0 Emesis 0 Oral Regurgitation 0 Other 0 Other: Voiding Method Toilet Toilet Urinal Urinal Diaper Diaper # Voids 2 1 1 # Bowel Movements 1 - Labs CBC & Chem 7: 10/26/22 07:42 10/26/22 07:42 Labs: Abnormal Lab Results - Last 24 Hours (Table) 10/25/22 10/25/22 10/25/22 Range/Units 11:39 16:24 20:20 RBC (4.30-5.90) m/uL Hgb (13.0-17.5) gm/dL Hct (39.0-53.0) % Potassium (3.5-5.1) mmol/L POC Glucose (mg/dL) 119 H 294 H 267 H (70-110) mg/dL 10/25/22 10/26/22 Range/Units 21:50 07:42 RBC 4.02 L (4.30-5.90) m/uL Hgb 12.0 L (13.0-17.5) gm/dL Hct 35.7 L (39.0-53.0) % Potassium 3.3 L (3.5-5.1) mmol/L POC Glucose (mg/dL) (70-110) mg/dL
--- NOTE | 2022-10-26 11:09 | P.PN ---
Subjective Progress Note Date: 10/26/22 CHIEF COMPLAINT: Abdominal pain HISTORY OF PRESENT ILLNESS: Small bowel obstruction due to internal hernia from adhesions status post lysis of adhesion and partial omentectomy. Postop day #6. Patient is lying in bed comfortably. Denies any pain. Patient continues to have bowel movements and flatus. He is currently on a full liquid diet. He reports no abdominal pain. He still feels mildly bloated. Afebrile. Elevated blood pressure. Cardiology has adjusted medications. WBC is 7.4 Hgb stable at 12.0 platelets 229 sodium is 142 potassium 3.0 creatinine 1.14 magnesium 1.3 PHYSICAL EXAM: VITAL SIGNS: Reviewed. GENERAL: Well-developed in no acute distress. HEENT: No sclera icterus. Extraocular movements grossly intact. Moist buccal mucosa. Head is atraumatic, normocephalic. ABDOMEN: Abdomen soft. nontender. Incision site clean dry and intact. There is minimal dried serosanguineous drainage noted on incisional dressing NEUROLOGIC: Alert and awake ASSESSMENT: 1. SBO due to internal hernia from adhesions status post lysis of adhesion and partial omentectomy 2. Coffee-ground emesis prior to admission. With computed tomography scan findings of Possible focal wall thickening along the anterior wall of the gastric body. Correlate for gastritis or peptic ulcer disease. 3. Afib 4. Hypokalemia 5. Hypomagnesemia PLAN: -Continue full liquid diet -Encouraged patient to increase activity -Replace potassium and magnesium -Continue Reglan -Continue supportive care -Continue IV protonix BID -Encouraged patient to increase activity level -Encouraged patient to use incentive spirometer -DVT prophylaxis O[employer] Physician Graduate Student note has been reviewed by physician. Signing provider agrees with the documented findings, assessment, and plan of care. I have personally seen and examined the patient, reviewed the CUSTOMER ACQUISITION SPECIALIST /PAs history, exam and MDM and agree with the assessment and plan as written. Based on total visit time, I have performed more than 50% of the visit. As above: Patient had some shortness of breath earlier today. Denies abdominal pain. No nausea or vomiting. Tolerating full liquid diet. He did have some loose stools. Will advance diet to low fiber at this time. Continue pulmonary workup. We'll follow. Objective - Vital Signs Vital signs: Vital Signs Temp 97.5 F L 10/26/22 09:30 Pulse 85 10/26/22 09:30 Resp 18 10/26/22 09:30 BP 170/84 10/26/22 09:30 Pulse Ox 96 10/26/22 09:30 FiO2 Intake & Output 10/25/22 10/26/22 10/26/22 18:59 06:59 18:59 Intake Total 598 240 Output Total 52 75 50 Balance 546 -75 190 Weight 95.5 kg Intake: Oral 598 240 Output: Urine 50 75 50 Stool 2 0 Urine/Stool Mix 0 Emesis 0 Oral Regurgitation 0 Other 0 Other: Voiding Method Toilet Toilet Urinal Urinal Diaper Diaper # Voids 2 1 1 # Bowel Movements 1 - Labs CBC & Chem 7: 10/26/22 07:42 10/26/22 07:42 Labs: Abnormal Lab Results - Last 24 Hours (Table) 10/25/22 10/25/22 10/25/22 Range/Units 11:39 16:24 20:20 RBC (4.30-5.90) m/uL Hgb (13.0-17.5) gm/dL Hct (39.0-53.0) % Potassium (3.5-5.1) mmol/L Chloride (98-107) mmol/L BUN (9-20) mg/dL Glucose (74-99) mg/dL POC Glucose (mg/dL) 119 H 294 H 267 H (70-110) mg/dL Calcium (8.4-10.2) mg/dL Magnesium (1.6-2.3) mg/dL 10/25/22 10/26/22 10/26/22 Range/Units 21:50 07:42 07:42 RBC 4.02 L (4.30-5.90) m/uL Hgb 12.0 L (13.0-17.5) gm/dL Hct 35.7 L (39.0-53.0) % Potassium 3.3 L 3.0 L (3.5-5.1) mmol/L Chloride 110 H (98-107) mmol/L BUN 7 L (9-20) mg/dL Glucose 73 L (74-99) mg/dL POC Glucose (mg/dL) (70-110) mg/dL Calcium 7.3 L (8.4-10.2) mg/dL Magnesium 1.3 L (1.6-2.3) mg/dL
[2022-10-26 11:44] LABS: Glucose,Whole Blood 138 mg/dL (70-110)
[2022-10-26] MEDS ORDERED: Magnesium Replacement Protocol 1 EACH MISC MISCELLANE PRN (13:29)
--- NOTE | 2022-10-26 13:32 | P.PN ---
Subjective Progress Note Date: 10/26/22 Patient is a 86-year-old male with a past medical history significant for diabetes mellitus dementia presenting to the ER on 10/17/2022 for abdominal pain and vomiting patient did have a CT of abdominal pelvis which did shows high-grade small bowel obstruction transition point in the right lower quadrant, patient is status post laparotomy lysis of adhesions . Patient currently being seen by general surgery, ID and cardiology. 10/24. Patient seen and examined. Denies abdominal pain. No acute issues overnight. Vital signs stable 10/25. Patient seen and examined. Passing gas. Had a bowel movement. No acute issues overnight 10/26. Patient seen and examined. Potassium this morning is 3, magnesium is 1.3. Replacement ordered. Denies abdominal pain. Current tolerating liquid diet. REVIEW OF SYSTEMS: CONSTITUTIONAL: No fever, no malaise,. CARDIOVASCULAR: No chest pain, no palpitations, no syncope. PULMONARY: No shortness of breath, no cough, GASTROINTESTINAL: No diarrhea, no nausea, no vomiting, no abdominal pain. NEUROLOGICAL: No headaches, no weakness, PHYSICAL EXAMINATION: GENERAL: The patient is alert and oriented x3, not in any acute distress. Well developed, well nourished. HEENT: Pupils are round and equally reacting to light. EOMI. No scleral icterus. No conjunctival pallor. Normocephalic, atraumatic. No pharyngeal erythema. No th yromegaly. CARDIOVASCULAR: S1 and S2 present. No murmurs, rubs, or gallops. PULMONARY: Chest is clear to auscultation, no wheezing or crackles. ABDOMEN: Soft, nontender, nondistended, normoactive bowel sounds. No palpable organomegaly. MUSCULOSKELETAL: No joint swelling or deformity. EXTREMITIES: No cyanosis, clubbing, or pedal edema. NEUROLOGICAL: Gross neurological examination did not reveal any focal deficits. SKIN: No rashes. Assessment and plan Small bowel obstruction Possible atrial fibrillation Hypertension Catheter associated UTI Plan; Monitor vital signs Monitor CBC Monitor CMP Continue telemetry monitoring Continue losartan. Continue clonidine patch Lopressor was switched to Coreg, continue Eliquis Follow-up on urine cultures Continue IV Zosyn Follow-up on ID recommendations Currently on full liquid diet, advance diet per surgery. Objective - Vital Signs Vital signs: Vital Signs Temp 97.9 F 10/26/22 12:00 Pulse 73 10/26/22 12:00 Resp 16 10/26/22 12:00 BP 148/55 10/26/22 12:00 Pulse Ox 96 10/26/22 12:00 FiO2 Intake & Output 10/25/22 10/26/22 10/26/22 18:59 06:59 18:59 Intake Total 598 240 Output Total 52 75 50 Balance 546 -75 190 Weight 95.5 kg Intake: Oral 598 240 Output: Urine 50 75 50 Stool 2 0 0 Urine/Stool Mix 0 Emesis 0 Oral Regurgitation 0 Other 0 Other: Voiding Method Toilet Toilet Toilet Urinal Urinal Urinal Diaper Diaper Diaper # Voids 2 1 1 # Bowel Movements 1 - Labs CBC & Chem 7: 10/26/22 07:42 10/26/22 07:42 Labs: Abnormal Lab Results - Last 24 Hours (Table) 10/25/22 10/25/22 10/25/22 Range/Units 16:24 20:20 21:50 RBC (4.30-5.90) m/uL Hgb (13.0-17.5) gm/dL Hct (39.0-53.0) % Potassium 3.3 L (3.5-5.1) mmol/L Chloride (98-107) mmol/L BUN (9-20) mg/dL Glucose (74-99) mg/dL POC Glucose (mg/dL) 294 H 267 H (70-110) mg/dL Calcium (8.4-10.2) mg/dL Magnesium (1.6-2.3) mg/dL 10/26/22 10/26/22 10/26/22 Range/Units 07:42 07:42 11:42 RBC 4.02 L (4.30-5.90) m/uL Hgb 12.0 L (13.0-17.5) gm/dL Hct 35.7 L (39.0-53.0) % Potassium 3.0 L (3.5-5.1) mmol/L Chloride 110 H (98-107) mmol/L BUN 7 L (9-20) mg/dL Glucose 73 L (74-99) mg/dL POC Glucose (mg/dL) 138 H (70-110) mg/dL Calcium 7.3 L (8.4-10.2) mg/dL Magnesium 1.3 L (1.6-2.3) mg/dL
[2022-10-26] MEDS: MAGNESIUM SULFATE-D5W PMX 1 GM in DEXTROSE/WATER 1 100ML.BAG IVPB SCH ×5 (13:37→23:45)
[2022-10-26] MEDS ORDERED: ALBUTEROL NEBULIZED 2.5 MG/3 ML INHALATION PRN (14:39)
[2022-10-26] MEDS: ALBUTEROL NEBULIZED 2.5 MG/3 ML INHALATION SCH ×2 (14:59→20:33)
--- NOTE | 2022-10-26 15:02 | XR ---
EXAMINATION TYPE: XR chest 1V portable DATE OF EXAM: 10/26/2022 HISTORY: Shortness of breath. COMPARISON: 10/18/2022 TECHNIQUE: Single view of the chest is submitted. FINDINGS: Demonstrated are scattered senescent parenchymal change. There is no evidence for focal infiltrate. The heart is stable. Hilar and mediastinal structures are within normal limits. Degenerative changes are seen of the dorsal spine. IMPRESSION: 1. Chronic changes without evidence for acute pulmonary disease.
[2022-10-26 16:38] LABS: Glucose,Whole Blood 304 mg/dL (70-110)
[2022-10-26] MEDS: LACTATED RINGERS 1,000 ML IV SCH (17:09)
[2022-10-26 20:17] LABS: Glucose,Whole Blood 309 mg/dL (70-110)
--- NOTE | 2022-10-26 20:50 | P.PN ---
Subjective Progress Note Date: 10/26/22 Principal diagnosis: Catheter associated UTI Patient is a 86-year-old male with a past medical history significant for diabetes mellitus dementia presenting to the ER on 10/17/2022 that is about 5 days ago for abdominal pain and vomiting patient did have a CT of abdominal pelvis which did shows high-grade small bowel obstruction transition point in the right lower quadrant, patient is status post nephrotomy lysis of adhesions he was noticed to have a cloudy urine with indwelling Whitley catheter urine has been sent came back positive on today's evaluation that is 10/26/2022, the patient remains to be afebrile, the patient is breathing comfortably on room air, the patient denies any chest pain or shortness of breath or cough, the patient abdominal pain has resolved, the patient denies nausea no vomiting, patient been tolerating his diet which has been advanced the patient Whitley catheter has been discontinued and the patient seemed to be urinating Objective - Vital Signs Vital signs: Vital Signs Temp 97.9 F 10/26/22 12:00 Pulse 73 10/26/22 12:00 Resp 16 10/26/22 12:00 BP 148/55 10/26/22 12:00 Pulse Ox 96 10/26/22 12:00 FiO2 Intake & Output 10/25/22 10/26/22 10/26/22 18:59 06:59 18:59 Intake Total 598 240 Output Total 52 75 50 Balance 546 -75 190 Weight 95.5 kg Intake: Oral 598 240 Output: Urine 50 75 50 Stool 2 0 0 Urine/Stool Mix 0 Emesis 0 Oral Regurgitation 0 Other 0 Other: Voiding Method Toilet Toilet Toilet Urinal Urinal Urinal Diaper Diaper Diaper # Voids 2 1 1 # Bowel Movements 1 - Exam GENERAL DESCRIPTION: An elderly male lying in bed in no distress RESPIRATORY SYSTEM: Unlabored breathing , decreased breath sounds at bases HEART: S1 S2 regular rate and rhythm , ABDOMEN: Soft , no tenderness EXTREMITIES: No edema feet - Labs CBC & Chem 7: 10/26/22 07:42 10/26/22 07:42 Labs: Abnormal Lab Results - Last 24 Hours (Table) 10/25/22 10/25/22 10/25/22 Range/Units 16:24 20:20 21:50 RBC (4.30-5.90) m/uL Hgb (13.0-17.5) gm/dL Hct (39.0-53.0) % Potassium 3.3 L (3.5-5.1) mmol/L Chloride (98-107) mmol/L BUN (9-20) mg/dL Glucose (74-99) mg/dL POC Glucose (mg/dL) 294 H 267 H (70-110) mg/dL Calcium (8.4-10.2) mg/dL Magnesium (1.6-2.3) mg/dL 10/26/22 10/26/22 10/26/22 Range/Units 07:42 07:42 11:42 RBC 4.02 L (4.30-5.90) m/uL Hgb 12.0 L (13.0-17.5) gm/dL Hct 35.7 L (39.0-53.0) % Potassium 3.0 L (3.5-5.1) mmol/L Chloride 110 H (98-107) mmol/L BUN 7 L (9-20) mg/dL Glucose 73 L (74-99) mg/dL POC Glucose (mg/dL) 138 H (70-110) mg/dL Calcium 7.3 L (8.4-10.2) mg/dL Magnesium 1.3 L (1.6-2.3) mg/dL Assessment and Plan (1) UTI (urinary tract infection) Current Visit: Yes Status: Acute Code(s): N39.0 - URINARY TRACT INFECTION, SITE NOT SPECIFIED SNOMED Code(s): 10888285 Plan: 1patient presented to hospital with abdominal pain and vomiting in this patient has been diagnosed with small bowel obstruction status post laparotomy with partial omentectomy lysis of adhesion patient did have a urine retention requiring Whitley catheter and evidence of some hematuria possibly traumatic and a positive UA possible component of UTI likely from the gram-negative pathogen, no urine culture were not done on the initial UA however the patient have a repeat urine obtained which is relatively clear indicating adequate treatment of underlying UTI 2-may continue the patient on Zosyn for his possible abdominal process which can be discontinued on discharge Time with Patient: Less than 30
[2022-10-26] MEDS: QUEtiapine 25 MG TAB PO PRN (20:52)
[2022-10-26] MEDS: INSULIN DETEMIR (LEVEMIR) 100 UNIT/ML SYR SQ SCH (20:52)
[2022-10-27] MEDS: MORPHINE SULFATE 2 MG/ML SYRINGE IV PRN (00:25)
[2022-10-27] MEDS: PIPERACILLIN-TAZOBACTAM 3.375 GM in SODIUM CHLORIDE 0.9% 100 ML IVPB SCH ×2 (00:55→09:21)
[2022-10-27] MEDS: POTASSIUM CHLORIDE ER 20 MEQ TAB.ER PO SCH (04:24)
[2022-10-27 05:59] LABS: Glucose,Whole Blood 69 mg/dL (70-110)
[2022-10-27] MEDS: INSULIN ASPART (NovoLOG) 100 UNIT/ML VIAL SQ SCH ×2 (06:01→12:30)
[2022-10-27] MEDS: carvediloL 12.5 MG TAB PO SCH (06:06)
[2022-10-27] MEDS: METOCLOPRAMIDE 5 MG/ML 2 ML VIAL IVP SCH (06:07)
[2022-10-27 06:13] LABS: Glucose,Whole Blood 67 mg/dL (70-110)
[2022-10-27 06:26] LABS: Glucose,Whole Blood 76 mg/dL (70-110)
[2022-10-27] MEDS: ALBUTEROL NEBULIZED 2.5 MG/3 ML INHALATION SCH ×2 (08:14→11:14)
[2022-10-27 08:38] LABS: Calcium 7.3 mg/dL (8.4-10.2); Magnesium 2.1 mg/dL (1.6-2.3); Potassium 3.6 mmol/L (3.5-5.1)
[2022-10-27] MEDS: LOSARTAN 50 MG TAB PO SCH (09:21)
[2022-10-27] MEDS: PANTOPRAZOLE 40 MG/10 ML VIAL IV SCH (09:21)
[2022-10-27] MEDS: APIXABAN 2.5 MG TABLET PO SCH (09:21)
[2022-10-27] MEDS: NYSTATIN 100,000 UNIT/GM POWD 15 GM TOPICAL SCH (09:29)
--- NOTE | 2022-10-27 11:20 | P.PN ---
Subjective Progress Note Date: 10/27/22 Paroxysmal atrial fibrillation The patient is a pleasant 86-year-old gentleman who was admitted to the hospital with abdominal discomfort and was diagnosed with small bowel obstruction. We consulted to see the patient for atrial fibrillation with RVR and subsequently the patient was converted to normal sinus mechanism. Further investigation including an echocardiogram was performed and showed normal LV function was no significant valvular abnormalities. October 232022 The patient was seen and evaluated this morning. He has been maintaining normal sinus mechanism. Surgery was uneventful. He is on oral anticoagulation as well as beta kacey. The examination revealed stable vital signs with a regular rhythm. October 242022 The patient was seen this morning. He is maintaining normal sinus mechanism. He is asymptomatic. He is hypertensive and the pressure seems to be consistent with stage II hypertension. Currently he is only on beta kacey for the atrial fibrillation. I'm going to add an ARB with losartan since he is diabetic. Going to add losartan at 25 mg by mouth daily. 10/25 Patient is seen today on the cardiac stepdown unit. He states his abdomen is much better. He still has abdominal distention and patient is still nothing by mouth. He denies having chest pain. No palpitations, no lightheadedness or dizziness. Blood pressure remains elevated today heart rate is in the 60s to 80s. Pulse ox 96% on room air. campus monitor is sinus rhythm. 10/26 Telemetry has been sinus rhythm. Blood pressure readings are elevated 161/69. Telemetry is a sinus rhythm. Repeat blood work reveals hemoglobin of 12. Potassium is 3, BUN 7 creatinine 1.14. 10/27 Patient is seen today in follow-up. Blood pressure readings are improved. He is scheduled for discharge home today so we have made further blood pressure medication changes to eliminate the Catapres patch. Patient denies any complaints. He is on a regular diet. No chest pain or shortness of breath. Physical Examination Gen: This is an 86-year-old male. He is resting andt appears to be comfortable and in no acute distress. HEENT: Head is atraumatic, normocephalic. Pupils equal, round. Sclerae is anicteric. LUNGS: Clear to auscultation. No wheezes or rhonchi. No intercostal retraction s. HEART: Regular rate and rhythm. No murmur. EXTREMITIES: No pedal edema. No calf tenderness. NEUROLOGICAL: Patient is awake, alert and oriented x3. Assessment Small bowel obstruction status post surgery Paroxysmal atrial fibrillation Hypertension Plan Increase losartan to 75 mg daily Patient to discontinue Catapres patch tomorrow morning Continue Coreg but increase dose to 25 mg twice daily Continue oral anticoagulation Patient may follow-up in the office with Dr. Solis in 2 weeks. Nurse practitioner note has been reviewed, I agree with the documented findings and plan of care. Patient was seen and examined. Objective - Vital Signs Vital signs: Vital Signs Temp 98.0 F 10/27/22 08:10 Pulse 75 10/27/22 08:27 Resp 19 10/27/22 08:10 BP 113/63 10/27/22 08:10 Pulse Ox 97 10/27/22 08:10 FiO2 Intake & Output 10/26/22 10/27/22 10/27/22 18:59 06:59 18:59 Intake Total 1160 180 Output Total 50 Balance 1110 180 Intake: Intake, IV Titration 500 Amount Magnesium Sulfate-D5w Pmx 300 1 gm In Dextrose/Water 1 100ml.bag @ 100 mls/hr IVPB Q1H [facility] Rx#: [id number] Piperacillin-Tazobactam 3 200 .375 gm In Sodium Chloride 0.9% 100 ml @ 25 mls/hr IVPB Q8HR [facility] Rx# :[id number] Oral 660 180 Output: Urine 50 Stool 0 Other: Voiding Method Toilet Diaper Urinal Diaper # Voids 1 2 # Bowel Movements 1 0 - Labs CBC & Chem 7: 10/26/22 07:42 10/27/22 07:17 Labs: Abnormal Lab Results - Last 24 Hours (Table) 10/26/22 10/26/22 10/26/22 Range/Units 11:42 16:36 20:13 Chloride (98-107) mmol/L BUN (9-20) mg/dL Creatinine (0.66-1.25) mg/dL Glucose (74-99) mg/dL POC Glucose (mg/dL) 138 H 304 H 309 H (70-110) mg/dL Calcium (8.4-10.2) mg/dL 10/27/22 10/27/22 10/27/22 Range/Units 05:58 06:11 07:17 Chloride 111 H (98-107) mmol/L BUN 8 L (9-20) mg/dL Creatinine 1.31 H (0.66-1.25) mg/dL Glucose 112 H (74-99) mg/dL POC Glucose (mg/dL) 69 L 67 L (70-110) mg/dL Calcium 7.3 L (8.4-10.2) mg/dL
--- NOTE | 2022-10-27 11:32 | P.PN ---
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 Postop day #7. Patient is lying in bed comfortably. Denies any abdominal pain. Patient continues to have bowel movements and flatus. He is tolerating a low fiber diet. Patient had some shortness of breath yesterday. This has improved. He is on room air. Chest x-ray was negative. Afebrile. Potassium 3-3.6 creatinine 1.31 magnesium is up from 1.3-2.1 PHYSICAL EXAM: VITAL SIGNS: Reviewed. GENERAL: Well-developed in no acute distress. HEENT: No sclera icterus. Extraocular movements grossly intact. Moist buccal mucosa. Head is atraumatic, normocephalic. ABDOMEN: Soft. Nontender nondistended. Minimal erythema at incision site. no drainage. NEUROLOGIC: Alert and awake ASSESSMENT: 1. SBO due to internal hernia from adhesions status post lysis of adhesion and partial omentectomy 2. Coffee-ground emesis prior to admission. Resolved. With computed tomography scan findings of Possible focal wall thickening along the anterior wall of the gastric body. Correlate for gastritis or peptic ulcer disease. 3. Afib 4. Hypokalemia resolved 5. Hypomagnesemia resolved PLAN: -Patient can be discharged from surgical standpoint when medically cleared -Continue PPI at discharge -Continue low fiber diet -Try to have patient shower today prior to discharge -Encouraged patient to increase activity -Encouraged patient to use incentive spirometer -DVT prophylaxis Oli Physician Brake Lining Maker note has been reviewed by physician. Signing provider agrees with the documented findings, assessment, and plan of care. Objective - Vital Signs Vital signs: Vital Signs Temp 98.0 F 10/27/22 08:10 Pulse 63 10/27/22 11:25 Resp 19 10/27/22 08:10 BP 113/63 10/27/22 08:10 Pulse Ox 97 10/27/22 08:10 FiO2 Intake & Output 10/26/22 10/27/22 10/27/22 18:59 06:59 18:59 Intake Total 1160 180 Output Total 50 Balance 1110 180 Intake: Intake, IV Titration 500 Amount Magnesium Sulfate-D5w Pmx 300 1 gm In Dextrose/Water 1 100ml.bag @ 100 mls/hr IVPB Q1H [facility] Rx#: [id number] Piperacillin-Tazobactam 3 200 .375 gm In Sodium Chloride 0.9% 100 ml @ 25 mls/hr IVPB Q8HR [facility] Rx# :[id number] Oral 660 180 Output: Urine 50 Stool 0 Other: Voiding Method Toilet Diaper Urinal Diaper # Voids 1 2 # Bowel Movements 1 0 - Labs CBC & Chem 7: 10/26/22 07:42 10/27/22 07:17 Labs: Abnormal Lab Results - Last 24 Hours (Table) 10/26/22 10/26/22 10/26/22 Range/Units 11:42 16:36 20:13 Chloride (98-107) mmol/L BUN (9-20) mg/dL Creatinine (0.66-1.25) mg/dL Glucose (74-99) mg/dL POC Glucose (mg/dL) 138 H 304 H 309 H (70-110) mg/dL Calcium (8.4-10.2) mg/dL 10/27/22 10/27/22 10/27/22 Range/Units 05:58 06:11 07:17 Chloride 111 H (98-107) mmol/L BUN 8 L (9-20) mg/dL Creatinine 1.31 H (0.66-1.25) mg/dL Glucose 112 H (74-99) mg/dL POC Glucose (mg/dL) 69 L 67 L (70-110) mg/dL Calcium 7.3 L (8.4-10.2) mg/dL
[2022-10-27 11:47] LABS: Glucose,Whole Blood 236 mg/dL (70-110)
--- NOTE | 2022-10-27 12:14 | P.DS ---
Providers Date of admission: 10/17/22 13:02 Expected date of discharge: 10/27/22 Attending physician: Karl Aguilar MD Consults: 10/17/22 12:34 Consult Physician Urgent Consulting Provider: Elmo Zamorano Consult Reason/Comments: Small bowel obstruction Do you want consulting provider notified?: Yes 10/17/22 13:12 Consult Physician Urgent Consulting Provider: Bahman Welsh Consult Reason/Comments: elevated troponin Do you want consulting provider notified?: Yes 10/18/22 13:24 Consult Physician Urgent Consulting Provider: Elmo Zamorano Consult Reason/Comments: hematamesis, thick stomach wall Do you want consulting provider notified?: Yes 10/22/22 16:23 Consult Physician Routine Consulting Provider: Cherelle Willams Consult Reason/Comments: UTI Do you want consulting provider notified?: Yes Primary care physician: Stated None Hospital Course: Discharge diagnoses; Hospital course; Patient is a 86-year-old male with a past medical history significant for diabetes mellitus dementia presenting to the ER on 10/17/2022 for abdominal pain and vomiting patient did have a CT of abdominal pelvis which did shows high-grade small bowel obstruction transition point in the right lower quadrant, patient is status post laparotomy lysis of adhesions . Patient currently being seen by general surgery, ID and cardiology. 10/24. Patient seen and examined. Denies abdominal pain. No acute issues overnight. Vital signs stable 10/25. Patient seen and examined. Passing gas. Had a bowel movement. No acute issues overnight 10/26. Patient seen and examined. Potassium this morning is 3, magnesium is 1.3. Replacement ordered. Denies abdominal pain. Current tolerating liquid diet. 10/27. Patient is tolerating diet. Surgery cleared the patient for discharge. ID recommended discharging on oral Ceftin for 5 days. Cardiology recommended discharging patient on oral losartan, Eliquis and Coreg PHYSICAL EXAMINATION: GENERAL: The patient is alert and oriented x3, not in any acute distress. Well developed, well nourished. HEENT: Pupils are round and equally reacting to light. EOMI. No scleral icterus. No conjunctival pallor. Normocephalic, atraumatic. No pharyngeal erythema. No thyromegaly. CARDIOVASCULAR: S1 and S2 present. No murmurs, rubs, or gallops. PULMONARY: Chest is clear to auscultation, no wheezing or crackles. ABDOMEN: Soft, nontender, nondistended, normoactive bowel sounds. No palpable organomegaly. Surgical incision seen MUSCULOSKELETAL: No joint swelling or deformity. EXTREMITIES: No cyanosis, clubbing, or pedal edema. NEUROLOGICAL: Gross neurological examination did not reveal any focal deficits. SKIN: No rashes. Patient Condition at Discharge: Stable Plan - Discharge Summary New Discharge Prescriptions: New Losartan [Cozaar] 75 mg PO DAILY #45 tab Apixaban [Eliquis] 2.5 mg PO BID #60 tab carvediloL [Coreg] 25 mg PO BID #60 tablet Pantoprazole Sodium [Protonix] 40 mg PO BID #60 tab Acetaminophen Tab [Tylenol Tab] 650 mg PO Q4H PRN #30 tablet PRN Reason: Pain Continue metFORMIN HCL 1,000 mg PO BID glipiZIDE [Glucotrol] 10 mg PO BID Pioglitazone [Actos] 15 mg PO DAILY Discharge Medication List Pioglitazone [Actos] 15 mg PO DAILY 10/17/22 [History] glipiZIDE [Glucotrol] 10 mg PO BID 10/17/22 [History] metFORMIN HCL 1,000 mg PO BID 10/17/22 [History] Apixaban [Eliquis] 2.5 mg PO BID #60 tab 10/22/22 [Rx] Acetaminophen Tab [Tylenol Tab] 650 mg PO Q4H PRN #30 tablet 10/27/22 [Rx] Losartan [Cozaar] 75 mg PO DAILY #45 tab 10/27/22 [Rx] Pantoprazole Sodium [Protonix] 40 mg PO BID #60 tab 10/27/22 [Rx] carvediloL [Coreg] 25 mg PO BID #60 tablet 10/27/22 [Rx] Follow up Appointment(s)/Referral(s): Shira Solis MD [STAFF PHYSICIAN] - 2 Weeks None,Stated [Primary Care Provider] - 1-2 days Elmo Zamorano MD [STAFF PHYSICIAN] - 1 Week Patient Instructions/Handouts: Bowel Obstruction (DC), Urinary Tract Infection in Older Adults (DC) Activity/Diet/Wound Care/Special Instructions: No lifting over 10 pounds Shower daily. No soaking or tub baths for 2 weeks Very light activity until you are reevaluated at your follow up appointment with your surgeon Discharge Disposition: TRANSFER TO SNF/ECF
[2022-10-27 13:30] VITALS: BP 121/74; PULSE 64; RESP 18; TEMP 98.1
[2022-10-27] MEDS ORDERED: carvediloL 12.5 MG TAB PO SCH (17:30)
[2022-10-27] MEDS ORDERED: LOSARTAN 50 MG TAB PO SCH (21:00)
[2022-10-28] MEDS ORDERED: LOSARTAN 50 MG TAB PO SCH (09:00)
--- NOTE | 2022-10-29 08:06 | CDI ---
Documentation Clarification Form Date: 10/29/22 From: Lisa Strong Admit Date: 10/17/2022 1:02:00 PM Patient Name: Tadeo Bauer Visit Number: [id number] Discharge Date: 10/27/2022 1:13:00 PM ATTENTION: The Clinical Documentation Specialists (CDI) and [facility] Coding Staff appreciate your assistance in clarifying documentation. Please respond to the clarification below the line at the bottom and electronically sign. The CDI & [facility] Coding staff will review the response and follow-up if needed. Please note: Queries are made part of the Legal Health Record. If you have any questions, please contact the author of this message via ITS. Dr. Dionicio Spaulding, The patient has with abdominal pain and coffee-ground emesis. Based on this information and the findings below, is there an additional diagnosis that is clinically appropriate for this patient? History/Risk Factors: Dementia, T2DM w hyperglycemia, COPD, HTN, HLD, prior sepsis Clinical Indicators: Lactic acidosis WBC: 11.5 (10/17) Neutrophils: 10.4 (10/17) Lactic acid: 2.6 (10/17) Blood cultures: No growth Vitals signs: T 97.8, P 106, R 18, BP 136/82, O2 Sat 94 (10/17) Antibiotics: IV Zoysn, IV Rocephin IV Bolus: yes Is there an additional diagnosis that is clinically appropriate for this patient? [ x] Sepsis, present on admission [ ] Sepsis, developed during stay, not present on admission [ ] Sepsis ruled out [ ] SIRS, without underlying infectious process [ ] Other, please specify [ ] Unable to determine SIRS Criteria: 2 or more of the following may indicate SIRS Temperature < 96.8F (36C) or > 101.0F (38.3C) Heart Rate > 90 bpm Respiratory Rate > 20 breaths/min or PaCO2 < 32 mmHg White Blood Cell Count > 12,000 or < 4,000 cells/mm3 or > 10% bands MTDD
--- NOTE | 2022-10-29 08:18 | CDI ---
Documentation Clarification Form Date: 10/29/22 From: Lisa Strong Admit Date: 10/17/2022 1:02:00 PM Patient Name: Tadeo Bauer Visit Number: [id number] Discharge Date: 10/27/2022 1:13:00 PM ATTENTION: The Clinical Documentation Specialists (CDI) and [facility] Coding Staff appreciate your assistance in clarifying documentation. Please respond to the clarification below the line at the bottom and electronically sign. The CDI & [facility] Coding staff will review the response and follow-up if needed. Please note: Queries are made part of the Legal Health Record. If you have any questions, please contact the author of this message via ITS. Dr. Dionicio Spaulding, Your patient has troponin level(s) of: 0.411, 0.513, 0.334, and 0.043 (10/17- 10/18) Please clarify if there is an additional diagnosis and/or clinical significance related to this value. Patient history/risk factors: Dementia, T2DM w hyperglycemia, COPD, HTN, HLD, prior sepsis Clinical indicators: Elevated troponins. Acute coronary syndrome ruled out, likely secondary to hypertension. Treatment: EKG, 2d echo, Clonidine patch Is there an additional diagnosis and/or clinical significance related to the above lab result/information: [ x ] Type 2 NE due to (specify cause ____) [ ] Non-ischemic myocardial injury [ ] No additional diagnosis/Not clinically significant [ ] Other, please specify [ ] Unable to determine MTDD
--- NOTE | 2022-10-31 16:48 | P.PN ---
Subjective Progress Note Date: 10/27/22 Principal diagnosis: Catheter associated UTI Patient is a 86-year-old male with a past medical history significant for diabetes mellitus dementia presenting to the ER on 10/17/2022 that is about 5 days ago for abdominal pain and vomiting patient did have a CT of abdominal pelvis which did shows high-grade small bowel obstruction transition point in the right lower quadrant, patient is status post nephrotomy lysis of adhesions he was noticed to have a cloudy urine with indwelling Whitley catheter urine has been sent came back positive on today's evaluation that is 10/27/2022, the patient continues to be afebrile, the patient is breathing comfortably on room air, the patient denies any chest pain or shortness of breath or cough, the patient abdominal pain has resolved, the patient denies nausea no vomiting, patient been tolerating his diet and the patient has been able to urinate after discontinuation of the Whitley catheter Objective - Vital Signs Vital signs: Vital Signs Temp 98.0 F 10/27/22 08:10 Pulse 63 10/27/22 11:25 Resp 19 10/27/22 08:10 BP 113/63 10/27/22 08:10 Pulse Ox 97 10/27/22 08:10 FiO2 Intake & Output 10/26/22 10/27/22 10/27/22 18:59 06:59 18:59 Intake Total 1160 360 Output Total 50 Balance 1110 360 Intake: Intake, IV Titration 500 Amount Magnesium Sulfate-D5w Pmx 300 1 gm In Dextrose/Water 1 100ml.bag @ 100 mls/hr IVPB Q1H [facility] Rx#: [id number] Piperacillin-Tazobactam 3 200 .375 gm In Sodium Chloride 0.9% 100 ml @ 25 mls/hr IVPB Q8HR [facility] Rx# :[id number] Oral 660 360 Output: Urine 50 Stool 0 Other: Voiding Method Toilet Diaper Urinal Diaper # Voids 1 2 # Bowel Movements 1 0 - Exam GENERAL DESCRIPTION: An elderly male lying in bed in no distress RESPIRATORY SYSTEM: Unlabored breathing , decreased breath sounds at bases HEART: S1 S2 regular rate and rhythm , ABDOMEN: Soft , no tenderness EXTREMITIES: No edema feet - Labs CBC & Chem 7: 10/26/22 07:42 10/27/22 07:17 Labs: Abnormal Lab Results - Last 24 Hours (Table) 10/26/22 10/26/22 10/27/22 Range/Units 16:36 20:13 05:58 Chloride (98-107) mmol/L BUN (9-20) mg/dL Creatinine (0.66-1.25) mg/dL Glucose (74-99) mg/dL POC Glucose (mg/dL) 304 H 309 H 69 L (70-110) mg/dL Calcium (8.4-10.2) mg/dL 10/27/22 10/27/22 10/27/22 Range/Units 06:11 07:17 11:46 Chloride 111 H (98-107) mmol/L BUN 8 L (9-20) mg/dL Creatinine 1.31 H (0.66-1.25) mg/dL Glucose 112 H (74-99) mg/dL POC Glucose (mg/dL) 67 L 236 H (70-110) mg/dL Calcium 7.3 L (8.4-10.2) mg/dL Assessment and Plan (1) UTI (urinary tract infection) Status: Acute Code(s): N39.0 - URINARY TRACT INFECTION, SITE NOT SPECIFIED SNOMED Code(s): 07976464 Plan: 1patient presented to hospital with abdominal pain and vomiting in this patient has been diagnosed with small bowel obstruction status post laparotomy with partial omentectomy lysis of adhesion patient did have a urine retention requiring Whitley catheter and evidence of some hematuria possibly traumatic and a positive UA possible component of UTI likely from the gram-negative pathogen, no urine culture were not done on the initial UA however the patient have a repeat urine obtained which is relatively clear indicating adequate treatment of underlying UTI Patient has received adequate antibiotic therapy and is no need for any antibiotic on discharge discussed with the admitting team Time with Patient: Less than 30
== END 2022-10-27 13:13 | DRG 853 ==
LOC: EC 09:33 → 3SCARD 13:02
PROVIDERS: ADMIT Internal Medicine; ATTEND Internal Medicine
PROC: 0D9670Z Drainage of Stomach with Drainage Device, Via Natural or Artificial Opening (ICD-10-PCS; 2022-10-17)
PROC: 0DN80ZZ Release Small Intestine, Open Approach (ICD-10-PCS; principal; 2022-10-20 10:25)
PROC: 0DBU0ZZ Excision of Omentum, Open Approach (ICD-10-PCS; principal; 2022-10-20 10:25)
PROC: 05HC33Z Insertion of Infusion Device into Left Basilic Vein, Percutaneous Approach (ICD-10-PCS; 2022-10-22)
DX: A41.9 Sepsis, unspecified organism (principal); I21.A1 Myocardial infarction type 2; N39.0 Urinary tract infection, site not specified; T83.518A Infection and inflammatory reaction due to other urinary catheter, initial encounter; K56.51 Intestinal adhesions [bands], with partial obstruction; K92.0 Hematemesis; R18.8 Other ascites; F03.90 Unspecified dementia, unspecified severity, without behavioral disturbance, psychotic disturbance, mood disturbance, and anxiety; I48.0 Paroxysmal atrial fibrillation; E11.65 Type 2 diabetes mellitus with hyperglycemia; J44.9 Chronic obstructive pulmonary disease, unspecified; Z28.310 Unvaccinated for COVID-19; I10 Essential (primary) hypertension; E87.6 Hypokalemia; E83.42 Hypomagnesemia; E78.5 Hyperlipidemia, unspecified; K80.20 Calculus of gallbladder without cholecystitis without obstruction; K57.30 Diverticulosis of large intestine without perforation or abscess without bleeding; K44.9 Diaphragmatic hernia without obstruction or gangrene; R31.9 Hematuria, unspecified; R33.9 Retention of urine, unspecified; Z79.84 Long term (current) use of oral hypoglycemic drugs; Z87.11 Personal history of peptic ulcer disease; Y84.6 Urinary catheterization as the cause of abnormal reaction of the patient, or of later complication, without mention of misadventure at the time of the procedure; Z88.0 Allergy status to penicillin
CPT/HCPCS: 36410; 36415; 71045; 74018; 74177; 76937; 80048; 80053; 80076; 81001; 82150; 83036; 83605; 83690; 83735; 84132; 84145; 84484; 85025; 85027; 85610; 85730; 87040; 88305; 93005; 93306; 94640; 96374; 96375; 99285

== ENCOUNTER 2022-11-29 10:16 | Observation (INO) | payer MEDICARE ==
[2022-11-29] MEDS ORDERED: PANTOPRAZOLE 40 MG/10 ML VIAL IVP STA (10:57)
[2022-11-29] MEDS ORDERED: SODIUM CHLORIDE 0.9% 500 ML 500 ML IV STA (10:57)
[2022-11-29] MEDS ORDERED: ONDANSETRON 4 MG/2 ML VIAL IVP STA (10:57)
[2022-11-29] MEDS ORDERED: HYDROmorphone 0.5 MG/0.5 ML SYRINGE IVP STA (10:58)
[2022-11-29 11:25] LABS: Basophils % (A) 0 %; Eosinophils % (A) 0 %; HGB 13.4 gm/dL (13.0-17.5); Lymphocytes # (A) 0.9 k/uL (1.0-4.8); Lymphocytes % (A) 7 %; MCH 29.2 pg (25.0-35.0); MCHC 33.5 g/dL (31.0-37.0); MCV 87.2 fL (80.0-100.0); Mean Platelet Volume 6.9; Monocytes # (A) 0.9 k/uL (0-1.0); Monocytes % (A) 7 %; Neutrophils # (A) 10.1 k/uL (1.3-7.7); Neutrophils % (A) 84 %; Platelet Count 213 k/uL (150-450); RBC 4.59 m/uL (4.30-5.90); RDW 14.8 % (11.5-15.5)
--- NOTE | 2022-11-29 11:26 | ED ---
General Adult HPI - General Chief complaint: GI Bleed Stated complaint: poss GI bleed Time Seen by Provider: 11/29/22 10:37 Source: patient, RN notes reviewed, old records reviewed Mode of arrival: ambulatory Limitations: no limitations - History of Present Illness Initial comments: 86-year-old male presenting for evaluation of abdominal pain, distention, vomiting. Patient had bowel obstruction requiring lysis of adhesions approximately one month ago. Over the past several days she's had a decreased appetite and developed vomiting this morning which was dark according to corn detasseler who is at bedside. His last bowel movement was yesterday. He is not currently on any anticoagulation. He does complain of abdominal pain and distention. - Related Data Home Medications Medication Instructions Recorded Confirmed Pioglitazone [Actos] 15 mg PO DAILY 10/17/22 11/29/22 glipiZIDE [Glucotrol] 10 mg PO BID 10/17/22 11/29/22 metFORMIN HCL 1,000 mg PO BID 10/17/22 11/29/22 Previous Rx's Medication Instructions Recorded Apixaban [Eliquis] 2.5 mg PO BID #60 tab 10/22/22 Acetaminophen Tab [Tylenol Tab] 650 mg PO Q4H PRN #30 tablet 10/27/22 Losartan [Cozaar] 75 mg PO DAILY #45 tab 10/27/22 carvediloL [Coreg] 25 mg PO BID #60 tablet 10/27/22 Allergies Allergy/AdvReac Type Severity Reaction Status Date / Time Penicillins Allergy Unknown Verified 11/29/22 12:44 Childhood Review of Systems ROS Statement: Those systems with pertinent positive or pertinent negative responses have been documented in the HPI. ROS Other: All systems not noted in ROS Statement are negative. Past Medical History Past Medical History: Dementia, Diabetes Mellitus, Hyperlipidemia Additional Past Medical History / Comment(s): prior admission for sepsis unknown cause History of Any Multi-Drug Resistant Organisms: None Reported Past Surgical History: No Surgical Hx Reported Additional Past Surgical History / Comment(s): 01/2018 left knee arthroscopic irrigation and debridement, surgery for bowel obstruction. Past Anesthesia/Blood Transfusion Reactions: No Reported Reaction Past Psychological History: No Psychological Hx Reported Smoking Status: Never smoker Past Alcohol Use History: Rare Past Drug Use History: None Reported - Past Family History Daughter(s) Family Medical History: No Reported History Son(s) Family Medical History: No Reported History General Exam Limitations: no limitations General appearance: alert, in no apparent distress Head exam: Present: atraumatic, normocephalic Eye exam: Present: normal appearance, PERRL ENT exam: Present: mucous membranes dry Neck exam: Present: normal inspection. Absent: tenderness, meningismus Respiratory exam: Present: normal lung sounds bilaterally. Absent: respiratory distress, wheezes Cardiovascular Exam: Present: regular rate, normal rhythm GI/Abdominal exam: Present: distended, tenderness, diminished bowel sounds. A bsent: guarding, rebound, rigid Extremities exam: Present: normal inspection, normal capillary refill. Absent: pedal edema Neurological exam: Present: alert, oriented X3, CN II-XII intact. Absent: motor sensory deficit Psychiatric exam: Present: normal affect, normal mood Skin exam: Present: warm, dry, intact. Absent: cyanosis, diaphoretic Course Vital Signs 11/29/22 11/29/22 11/29/22 10:22 11:32 12:15 Temperature 98 F Pulse Rate 110 H 96 86 Respiratory 18 16 16 Rate Blood Pressure 148/91 150/90 145/86 O2 Sat by Pulse 98 98 95 Oximetry EKG Findings - EKG Comments: EKG Findings:: EKG: Sinus rhythm left axis deviation, rate of 91, ID interval 184, QRS duration 97, QTC 411, no ST segment elevation Medical Decision Making - Medical Decision Making Was pt. sent in by a medical professional or institution (ROE Alicia, INTERACTIVE MEDIA MARKETING SPECIALIST, urgent care, hospital, or [place] [facility] facility...) When possible be specific @ -No Did you speak to anyone other than the patient for history (EMS, parent, family, police, friend...)? What history was obtained from this source @ -No Did you review nursing and triage notes (agree or disagree)? Why? @ -I reviewed and agree with nursing and triage notes Were old charts reviewed (outside hosp., previous admission, EMS record, old EKG, old radiological studies, urgent care reports/EKG's, [place] [facility] facility records)? Report findings @ Previous admission and surgical documentation Differential Diagnosis (chest pain, altered mental status, abdominal pain women, abdominal pain men, vaginal bleeding, weakness, fever, dyspnea, syncope, headache, dizziness, GI bleed, back pain, seizure, CVA, palpatations, mental health, musculoskeletal)? @ -not applicable EKG interpreted by me (3pts min.). @ -As above X-rays interpreted by me (1pt min.). @ -None done CT interpreted by me (1pt min.). @ -Negative for small bowel obstruction, incidental findings. U/S interpreted by me (1pt. min.). @ -None done What testing was considered but not performed or refused? (CT, X-rays, U/S, labs)? Why? @ -None What meds were considered but not given or refused? Why? @ -None Did you discuss the management of the patient with other professionals (professionals i.e. DrYanick, PA, INTERACTIVE MEDIA MARKETING SPECIALIST, lab, RT, psych nurse, social work assistant, diazo technician, teacher, special service officer, telephonic nurse case manager)? Give summary @ Dr. Zamorano Was smoking cessation discussed for >3mins.? @ -No Was critical care preformed (if so, how long)? @ -No Were there social determinants of health that impacted care today? How? (Homelessness, low income, unemployed, alcoholism, drug addiction, transportation, low edu. Level, literacy, decrease access to med. care, half-way, rehab)? @ -No Was there de-escalation of care discussed even if they declined (Discuss DNR or withdrawal of care, Hospice)? DNR status @ -No What co-morbidities impacted this encounter? (DM, HTN, Smoking, COPD, CAD, Cancer, CVA, ARF, Chemo, Hep., AIDS, mental health diagnosis, sleep apnea, morbid obesity)? @ -None Was patient admitted / discharged? Hospital course, mention meds given and route, prescriptions, significant lab abnormalities, going to OR and other pertinent info. @ -86-year-old male presents for evaluation abdominal pain distention and vomiting. Patient does have abdominal distention and tenderness on exam. His hemodynamics are stable. Laboratory testing reveals stable hemoglobin, normal electrolytes. CT shows incidental findings without small bowel obstruction. Patient will be admitted for symptom control and evaluation by his surgeon. Undiagnosed new problem with uncertain prognosis? @ -No Drug Therapy requiring intensive monitoring for toxicity (Heparin, Nitro, Insulin, Cardizem)? @ -No Were any procedures done? @ -No Diagnosis/symptom? @ Abdominal pain and vomiting Acute, or Chronic, or Acute on Chronic? @ acute Uncomplicated (without systemic symptoms) or Complicated (systemic symptoms)? @ -Complicated Side effects of treatment? @ -No Exacerbation, Progression, or Severe Exacerbation? @ -No Poses a threat to life or bodily function? How? (Chest pain, USA, [place], pneumonia, PE, COPD, DKA, ARF, appy, cholecystitis, CVA, Diverticulitis, Homicidal, Suicidal, threat to staff... and all critical care pts) @ -[Yes, worsening abdominal pain, vomiting, volume loss, GI hemorrhage. - Lab Data Result diagrams: 11/29/22 11:02 11/29/22 11:02 Lab Results 11/29/22 11/29/22 11/29/22 Range/Units 11:02 11: 11:02 WBC 12.0 H (3.8-10.6) k/uL RBC 4.59 (4.30-5.90) m/uL Hgb 13.4 (13.0-17.5) gm/dL Hct 40.0 (39.0-53.0) % MCV 87.2 (80.0-100.0) fL MCH 29.2 (25.0-35.0) pg MCHC 33.5 (31.0-37.0) g/dL RDW 14.8 (11.5-15.5) % Plt Count 213 (150-450) k/uL MPV 6.9 Neutrophils % 84 % Lymphocytes % 7 % Monocytes % 7 % Eosinophils % 0 % Basophils % 0 % Neutrophils # 10.1 H (1.3-7.7) k/uL Lymphocytes # 0.9 L (1.0-4.8) k/uL Monocytes # 0.9 (0-1.0) k/uL Eosinophils # 0.0 (0-0.7) k/uL Basophils # 0.0 (0-0.2) k/uL PT (9.0-12.0) sec INR (<1.2) APTT (22.0-30.0) sec Sodium 136 L (137-145) mmol/L Potassium 4.3 (3.5-5.1) mmol/L Chloride 102 (98-107) mmol/L Carbon Dioxide 24 (22-30) mmol/L Anion Gap 10 mmol/L BUN 16 (9-20) mg/dL Creatinine 1.04 (0.66-1.25) mg/dL Est GFR (CKD-EPI)AfAm 76 (>60 ml/min/1.73 sqM) Est GFR (CKD-EPI)NonAf 66 (>60 ml/min/1.73 sqM) Glucose 302 H (74-99) mg/dL Plasma Lactic Acid Shilo 1.6 (0.7-2.0) mmol/L Calcium 8.7 (8.4-10.2) mg/dL Total Bilirubin 0.8 (0.2-1.3) mg/dL AST 27 (17-59) U/L ALT 15 (4-49) U/L Alkaline Phosphatase 88 (38-126) U/L Total Protein 7.0 (6.3-8.2) g/dL Albumin 3.8 (3.5-5.0) g/dL Lipase 176 (23-300) U/L Urine Color Urine Appearance (Clear) Urine pH (5.0-8.0) Ur Specific Sharon (1.001-1.035) Urine Protein (Negative) Urine Glucose (UA) (Negative) Urine Ketones (Negative) Urine Blood (Negative) Urine Nitrite (Negative) Urine Bilirubin (Negative) Urine Urobilinogen (<2.0) mg/dL Ur Leukocyte Esterase (Negative) 11/29/22 11/29/22 Range/Units 11:02 11:02 WBC (3.8-10.6) k/uL RBC (4.30-5.90) m/uL Hgb (13.0-17.5) gm/dL Hct (39.0-53.0) % MCV (80.0-100.0) fL MCH (25.0-35.0) pg MCHC (31.0-37.0) g/dL RDW (11.5-15.5) % Plt Count (150-450) k/uL MPV Neutrophils % % Lymphocytes % % Monocytes % % Eosinophils % % Basophils % % Neutrophils # (1.3-7.7) k/uL Lymphocytes # (1.0-4.8) k/uL Monocytes # (0-1.0) k/uL Eosinophils # (0-0.7) k/uL Basophils # (0-0.2) k/uL PT 10.7 (9.0-12.0) sec INR 1.0 (<1.2) APTT 22.6 (22.0-30.0) sec Sodium (137-145) mmol/L Potassium (3.5-5.1) mmol/L Chloride (98-107) mmol/L Carbon Dioxide (22-30) mmol/L Anion Gap mmol/L BUN (9-20) mg/dL Creatinine (0.66-1.25) mg/dL Est GFR (CKD-EPI)AfAm (>60 ml/min/1.73 sqM) Est GFR (CKD-EPI)NonAf (>60 ml/min/1.73 sqM) Glucose (74-99) mg/dL Plasma Lactic Acid Shilo (0.7-2.0) mmol/L Calcium (8.4-10.2) mg/dL Total Bilirubin (0.2-1.3) mg/dL AST (17-59) U/L ALT (4-49) U/L Alkaline Phosphatase (38-126) U/L Total Protein (6.3-8.2) g/dL Albumin (3.5-5.0) g/dL Lipase (23-300) U/L Urine Color Yellow Urine Appearance Clear (Clear) Urine pH 6.5 (5.0-8.0) Ur Specific Sharon 1.011 (1.001-1.035) Urine Protein Trace H (Negative) Urine Glucose (UA) 3+ H (Negative) Urine Ketones Trace H (Negative) Urine Blood Negative (Negative) Urine Nitrite Negative (Negative) Urine Bilirubin Negative (Negative) Urine Urobilinogen <2.0 (<2.0) mg/dL Ur Leukocyte Esterase Negative (Negative) Disposition Clinical Impression: Abdominal pain, Vomiting Disposition: ADMITTED IP TO THIS HOSP Condition: Stable Is patient prescribed a controlled substance at d/c from ED?: No Referrals: Mary Rivera III, MD [Primary Care Provider] - 1-2 days Time of Disposition: 12:50
[2022-11-29 11:40] LABS: Albumin 3.8 g/dL (3.5-5.0); Calcium 8.7 mg/dL (8.4-10.2); Total Bilirubin 0.8 mg/dL (0.2-1.3)
[2022-11-29 11:47] LABS: Potassium 4.3 mmol/L (3.5-5.1)
[2022-11-29 11:54] LABS: Partial Thromboplastin Time 22.6 sec (22.0-30.0); Prothrombin Time 10.7 sec (9.0-12.0)
[2022-11-29 12:00] LABS: Appearance,Urine Clear (Clear); Bilirubin,Urine Negative (Negative); Blood,Urine Negative (Negative); Color,Urine Yellow; Glucose,Urine (UA) 3+ (Negative); Ketones,Urine Trace (Negative); Leukocyte Esterase,Urine Negative (Negative); Nitrite,Urine Negative (Negative); PH, Urine 6.5 (5.0-8.0); Protein,Urine Trace (Negative); Specific Gravity,Urine 1.011 (1.001-1.035); Urobilinogen,Urine <2.0 mg/dL (<2.0)
--- NOTE | 2022-11-29 12:22 | CT ---
EXAMINATION TYPE: CT abdomen pelvis wo con CT DLP: 973.8 mGycm, Automated exposure control for dose reduction was used. DATE OF EXAM: 11/29/2022 12:07 PM COMPARISON: CT abdomen pelvis most recent from 10/17/2022 . CLINICAL INDICATION:Male, 86 years old with history of abdominal pain; Coffee ground emesis. TECHNIQUE: Standard CT of the abdomen and pelvis without IV or oral contrast. Lack of IV or oral co ntrast limits evaluation of solid and hollow organ viscera. Coronal and sagittal reformats were perfo rmed. FINDINGS: LOWER CHEST: The visualized lung bases demonstrates of subsegmental atelectasis. Calcification granul otilio demonstrated within the lingula. ABDOMEN LIVER: Visualized portions demonstrate unremarkable noncontrast appearance. GALLBLADDER AND BILE DUCTS: Multiple gallstones identified without surrounding inflammatory changes. No biliary dilatation. PANCREAS: Atrophy identified without shadowing inflammatory changes. Similar nodular configuration to the pancreatic tail with punctate calcification. SPLEEN: Unremarkable noncontrast appearance. ADRENAL GLANDS: Unremarkable noncontrast appearance. KIDNEYS AND URETERS: No evidence of hydronephrosis or renal calculus. Bilateral cortical thinning wit h nonspecific bilateral perinephric fat stranding. PELVIS BLADDER: Incompletely distended but grossly unremarkable. REPRODUCTIVE: Coarse calcifications of the prostate gland are identified. Calcification of the bilate ral vas deferens. ABDOMEN & PELVIS STOMACH AND BOWEL: Small hiatal hernia, duodenum is unremarkable. Mild circumferential wall thickenin g of the visualized distal esophagus redemonstrated. Distal colonic diverticulosis without evidence f or acute diverticulitis. The appendix is within normal limits. No evidence of bowel obstruction. PERITONEUM: No evidence of pneumoperitoneum or free fluid. VASCULATURE: No evidence of aortic aneurysm. MUSCULOSKELETAL: No acute osseous abnormalities . Postsurgical changes from posterior lumbar fusion L 3-L5. Moderate degenerative changes of both hips. LYMPH NODES: No gross evidence for lymphadenopathy. SOFT TISSUE/ABDOMINAL WALL: Postsurgical changes along the anterior, wall. IMPRESSION: 1. Small hiatal hernia with mild circumferential wall thickening of the distal esophagus which again could reflect reflux esophagitis. 2. Cholelithiasis. 3. Colonic diverticulosis without evidence for acute diverticulitis.
[2022-11-29] MEDS ORDERED: HYDROmorphone 0.5 MG/0.5 ML SYRINGE IVP PRN (12:47)
[2022-11-29] MEDS ORDERED: HYDROmorphone 1 MG/ML 1 ML SYRINGE IVP PRN (12:47)
[2022-11-29] MEDS ORDERED: NALOXONE 0.4 MG/ML 1 ML VIAL IV PRN (12:47)
[2022-11-29] MEDS ORDERED: ONDANSETRON 4 MG/2 ML VIAL IVP PRN (12:47)
[2022-11-29] MEDS: SODIUM CHLORIDE 0.9% 1,000 ML IV SCH (13:41)
--- NOTE | 2022-11-29 15:41 | P.GSHP ---
History of Present Illness H&P Date: 11/29/22 CHIEF COMPLAINT: Vomiting blood HISTORY OF PRESENT ILLNESS: This 86-year-old male who presents to the hospital with complaints of vomiting blood 2. Per patient's caregiver patient had a decreased appetite starting on Tuesday. And then began vomiting today. His last bowel movement was yesterday. He is not on any anticoagulation. Patient had recent lysis of adhesions in September for small bowel obstruction due to internal hernia from adhesions with Dr. Francois. Patient seen and examined with Dr. francois PAST MEDICAL HISTORY: Dementia, diabetes, hyperlipidemia PAST SURGICAL HISTORY: See below MEDICATIONS: See below ALLERGIES: See below SOCIAL HISTORY: No illicit drug use. REVIEW OF SYSTEMS: CONSTITUTIONAL: Denies fever or chills. HEENT: Denies blurred vision, vision changes, or eye pain. Denies hemoptysis CARDIOVASCULAR: Denies chest pain or pressure. RESPIRATORY: No shortness of breath. GASTROINTESTINAL: See HPI for pertinent findings HEMATOLOGIC: Denies bleeding disorders. GENITOURINARY: Denies any blood in urine or increased urinary frequency. SKIN: Denies pruitis. Denies rash. PHYSICAL EXAM: VITAL SIGNS: Reviewed GENERAL: Well-developed in no acute distress. HEENT: No sclera icterus. Extraocular movements grossly intact. Moist buccal mucosa. Head is atraumatic, normocephalic. No nasal drainage. ABDOMEN: Soft. Nondistended. Nontender NEUROLOGIC: Alert and oriented. Cranial nerves II through XII grossly intact. IMAGING: Computed tomography scan shown small hiatal hernia with mild circumferential wall thickening of the distal esophagus which again could reflect reflux esophagitis. Cholelithiasis. Colonic diverticulosis without evidence of acute diverticulitis. LABS: WBC is 12 Hgb 13.4 platelets 213 INR 1.0 Sodium 136 potassium is 4.3 creatinine 1.04 Lactic acid 1.6 LFTs and lipase within normal range Urinalysis no evidence of infection ASSESSMENT: 1. Hematemesis 2. Esophagitis with evidence of mild circumferential wall thickening of the distal esophagus could reflect esophagitis on CT PLAN: -Patient to scheduled for EGD on -Keep patient nothing by mouth -Continue IV Protonix -Continue IV fluids -Continue supportive care Thank you for this consultation Physician Log Stacker Operator note has been reviewed by physician. Signing provider agrees with the documented findings, assessment, and plan of care. Past Medical History Past Medical History: Dementia, Diabetes Mellitus, Hyperlipidemia Additional Past Medical History / Comment(s): prior admission for sepsis unknown cause History of Any Multi-Drug Resistant Organisms: None Reported Past Surgical History: No Surgical Hx Reported Additional Past Surgical History / Comment(s): 01/2018 left knee arthroscopic irrigation and debridement, surgery for bowel obstruction. Past Anesthesia/Blood Transfusion Reactions: No Reported Reaction Past Psychological History: No Psychological Hx Reported Smoking Status: Never smoker Past Alcohol Use History: Rare Past Drug Use History: None Reported - Past Family History Daughter(s) Family Medical History: No Reported History Son(s) Family Medical History: No Reported History Medications and Allergies Home Medications Medication Instructions Recorded Confirmed Type Pioglitazone [Actos] 15 mg PO DAILY 10/17/22 11/29/22 History glipiZIDE [Glucotrol] 10 mg PO BID 10/17/22 11/29/22 History metFORMIN HCL 1,000 mg PO BID 10/17/22 11/29/22 History Acetaminophen Tab [Tylenol Tab] 650 mg PO Q4H PRN #30 tablet 10/27/22 11/29/22 Rx Allergies Allergy/AdvReac Type Severity Reaction Status Date / Time Penicillins Allergy Unknown Verified 11/29/22 12:44 Childhood Surgical - Exam Vital Signs Temp Pulse Resp BP Pulse Ox 98 F 110 H 18 148/91 98 11/29/22 10:22 11/29/22 10:22 11/29/22 10:22 11/29/22 10:22 11/29/22 10:22 Results - Labs 11/29/22 11:02 11/29/22 11:02 Abnormal Lab Results - Last 24 Hours (Table) 11/29/22 11/29/22 11/29/22 Range/Units 11:02 11:02 11:02 WBC 12.0 H (3.8-10.6) k/uL Neutrophils # 10.1 H (1.3-7.7) k/uL Lymphocytes # 0.9 L (1.0-4.8) k/uL Sodium 136 L (137-145) mmol/L Glucose 302 H (74-99) mg/dL Urine Protein Trace H (Negative) Urine Glucose (UA) 3+ H (Negative) Urine Ketones Trace H (Negative) Diabetes panel 11/29/22 Range/Units 11:02 Sodium 136 L (137-145) mmol/L Potassium 4.3 (3.5-5.1) mmol/L Chloride 102 (98-107) mmol/L Carbon Dioxide 24 (22-30) mmol/L BUN 16 (9-20) mg/dL Creatinine 1.04 (0.66-1.25) mg/dL Glucose 302 H (74-99) mg/dL Calcium 8.7 (8.4-10.2) mg/dL AST 27 (17-59) U/L ALT 15 (4-49) U/L Alkaline Phosphatase 88 (38-126) U/L Total Protein 7.0 (6.3-8.2) g/dL Albumin 3.8 (3.5-5.0) g/dL Calcium panel 11/29/22 Range/Units 11:02 Calcium 8.7 (8.4-10.2) mg/dL Albumin 3.8 (3.5-5.0) g/dL Pituitary panel 11/29/22 Range/Units 11:02 Sodium 136 L (137-145) mmol/L Potassium 4.3 (3.5-5.1) mmol/L Chloride 102 (98-107) mmol/L Carbon Dioxide 24 (22-30) mmol/L BUN 16 (9-20) mg/dL Creatinine 1.04 (0.66-1.25) mg/dL Glucose 302 H (74-99) mg/dL Calcium 8.7 (8.4-10.2) mg/dL Adrenal panel 11/29/22 Range/Units 11:02 Sodium 136 L (137-145) mmol/L Potassium 4.3 (3.5-5.1) mmol/L Chloride 102 (98-107) mmol/L Carbon Dioxide 24 (22-30) mmol/L BUN 16 (9-20) mg/dL Creatinine 1.04 (0.66-1.25) mg/dL Glucose 302 H (74-99) mg/dL Calcium 8.7 (8.4-10.2) mg/dL Total Bilirubin 0.8 (0.2-1.3) mg/dL AST 27 (17-59) U/L ALT 15 (4-49) U/L Alkaline Phosphatase 88 (38-126) U/L Total Protein 7.0 (6.3-8.2) g/dL Albumin 3.8 (3.5-5.0) g/dL
[2022-11-29] MEDS ORDERED: DEXTROSE 50% SYRINGE 50 ML IVP PRN ×2 (17:06)
[2022-11-29 17:16] LABS: Glucose,Whole Blood 219 mg/dL (70-110)
[2022-11-29] MEDS: INSULIN ASPART (NovoLOG) 100 UNIT/ML VIAL SQ SCH ×2 (18:08→20:40)
[2022-11-29 20:02] LABS: Glucose,Whole Blood 186 mg/dL (70-110)
[2022-11-29] MEDS: PANTOPRAZOLE 40 MG/10 ML VIAL IV SCH (20:41)
[2022-11-30] MEDS: SODIUM CHLORIDE 0.9% 1,000 ML IV SCH ×2 (03:50→15:39)
[2022-11-30 07:08] LABS: Glucose,Whole Blood 118 mg/dL (70-110)
[2022-11-30] MEDS: INSULIN ASPART (NovoLOG) 100 UNIT/ML VIAL SQ SCH ×4 (07:49→20:57)
[2022-11-30 09:03] LABS: HCT 37.9 % (39.6-50.0); HGB 12.1 g/dL (13.0-17.0); MCHC 31.9 g/dL (32.0-37.0); MCV 90.9 fL (80.0-97.0); Mean Platelet Volume 9.2 fL (9.5-12.2); NRBC Per 100 WBC 0 /100 WBCS (0.0-0.0); Platelet Count 180 X 10*3/uL (140-440); RBC 4.17 X 10*6/uL (4.40-5.60); RDW 14.9 % (11.5-14.5); WBC 9.25 X 10*3/uL (4.50-10.00)
[2022-11-30 09:13] LABS: African American GFR (CKD) 60.9 (60.0-200.0); Anion Gap 10.3 mmol/L (10.00-18.00); BUN/Creat Ratio 8.64 Ratio (12.00-20.00); Blood Urea Nitrogen 10.8 mg/dL (9.0-27.0); Calcium 8.7 mg/dL (8.7-10.3); Carbon Dioxide 26.3 mmol/L (20.0-27.5); Non-African American GFR(CKD) 52.5 (60.0-200.0); Potassium 4.2 mmol/L (3.5-5.5)
[2022-11-30] MEDS: PANTOPRAZOLE 40 MG/10 ML VIAL IV SCH ×2 (09:21→20:16)
[2022-11-30 11:27] LABS: Glucose,Whole Blood 118 mg/dL (70-110)
--- NOTE | 2022-11-30 13:52 | P.PN ---
Subjective Progress Note Date: 11/30/22 CHIEF COMPLAINT: Hematemesis HISTORY OF PRESENT ILLNESS: Patient denies any abdominal pain. He's had no further vomiting. He is requesting that the EGD be sooner. He is having flatus. Tolerating a clear liquid diet. Afebrile. WBC has come down from 12- 9.25 hemoglobin stable at 12.1 platelets 180 creatinine 1.3 PHYSICAL EXAM: VITAL SIGNS: Reviewed. GENERAL: Well-developed in no acute distress. HEENT: No sclera icterus. Extraocular movements grossly intact. Moist buccal mucosa. Head is atraumatic, normocephalic. ABDOMEN: Soft. Nondistended. Nontender. NEUROLOGIC: Alert and oriented. Cranial nerves II through XII grossly intact. ASSESSMENT: 1. Hematemesis 2. Esophagitis with evidence of mild circumferential wall thickening of the distal esophagus could reflect esophagitis on CT PLAN: -Patient scheduled for EGD tomorrow, 12/01/2022 -NPO after midnight -Continue IV Protonix Physician Packing Floor Worker note has been reviewed by physician. Signing provider agrees with the documented findings, assessment, and plan of care. Objective - Vital Signs Vital signs: Vital Signs Temp 98.0 F 11/30/22 07:03 Pulse 79 11/30/22 07:03 Resp 18 11/30/22 07:03 BP 164/75 11/30/22 07:03 Pulse Ox 98 11/30/22 07:03 FiO2 Intake & Output 11/29/22 11/30/22 11/30/22 18:59 06:59 18:59 Intake Total 225 250 Balance 225 250 Weight 90.718 kg Intake: Intake, IV Titration 225 Amount Sodium Chloride 0.9% 1, 225 000 ml @ 75 mls/hr IV . [id number] [facility] Rx#:[id number] Oral 250 Other: Voiding Method Toilet Toilet Toilet Diaper Diaper Diaper # Voids 2 - Labs CBC & Chem 7: 11/30/22 05:27 11/30/22 05:27 Labs: Abnormal Lab Results - Last 24 Hours (Table) 11/29/22 11/29/22 11/30/22 Range/Units 17:15 19:51 05:27 RBC 4.17 L (4.40-5.60) X 10*6/uL Hgb 12.1 L (13.0-17.0) g/dL Hct 37.9 L (39.6-50.0) % MCHC 31.9 L (32.0-37.0) g/dL RDW 14.9 H (11.5-14.5) % MPV 9.2 L (9.5-12.2) fL Est GFR (CKD-EPI)NonAf (60.0-200.0) BUN/Creatinine Ratio (12.00-20.00) Ratio Glucose (70-110) mg/dL POC Glucose (mg/dL) 219 H 186 H (70-110) mg/dL 11/30/22 11/30/22 11/30/22 Range/Units 05:27 07:06 11:23 RBC (4.40-5.60) X 10*6/uL Hgb (13.0-17.0) g/dL Hct (39.6-50.0) % MCHC (32.0-37.0) g/dL RDW (11.5-14.5) % MPV (9.5-12.2) fL Est GFR (CKD-EPI)NonAf 52.5 L (60.0-200.0) BUN/Creatinine Ratio 8.64 L (12.00-20.00) Ratio Glucose 114 H (70-110) mg/dL POC Glucose (mg/dL) 118 H 118 H (70-110) mg/dL
[2022-11-30 17:20] LABS: Glucose,Whole Blood 183 mg/dL (70-110)
[2022-11-30 20:22] LABS: Glucose,Whole Blood 189 mg/dL (70-110)
--- NOTE | 2022-12-01 05:29 | P.CONS ---
History of Present Illness - Reason for Consult Consult date: 11/30/22 Medical management, hematemesis - History of Present Illness This is a 86-year-old male who presented to the emergency department with abdominal pain and distention along with hematemesis. Patient recently had lysis of adhesions secondary to small bowel obstruction with general surgery in September. Patient has noted a decrease in appetite with occasional nausea and had an episode of possible coffee-ground emesis. Patient does have history of dementia, diabetes mellitus, hyperlipidemia and follows with Dr. Rivera in the outpatient setting. Patient was admitted to general surgery for abdominal pain and distention with hematemesis. Review Of Systems: Constitutional: No fever, no chills, no night sweats. No weight change. No weakness, fatigue or lethargy. No daytime sleepiness. EENT: No headache. No blurred vision or double vision, no loss of vision. No loss of Hearing, no ringing in the ears, no dizziness. No nasal drainage or congestion. No epistaxis. No sore throat. Lungs: No shortness of breath, cough, no sputum production. No wheezing. Cardiovascular: No chest pain, no lower extremity edema. No palpitations. No paroxysmal nocturnal dyspnea. No orthopnea. No lightheadedness or dizziness. No syncopal episodes. Abdominal: No abdominal pain. No nausea, vomiting. No diarrhea. No consti pation. No bloody or tarry stools.. Reports loss of appetite. Genitourinary: No dysuria, increased frequency, urgency. No urinary retention. Musculoskeletal: No myalgias. No muscle weakness, no gait dysfunction, no frequent falls. No back pain. No neck pain. Integumentary: No wounds, no lesions. No rash or pruritus. No unusual bruising. No change in hair or nails. Neurologic: No aphasia. No facial droop. No change in mentation. No head injury. No headache. No paralysis. No paresthesia. Psychiatric: No depression. No anxiety. No mood swings. Endocrine: No abnormal blood sugars. No weight change. No excessive sweating or thirst. No cold intolerance. PHYSICAL EXAMINATION: GENERAL: The patient is alert and oriented x2-3, Well developed, well nourished. HEENT: Pupils are round and equally reacting to light. EOMI. no scleral icterus. No conjunctival pallor. Normocephalic, atraumatic. No pharyngeal erythema. No thyromegaly. CARDIOVASCULAR: S1 and S2 muffled PULMONARY: diminished breath sounds bilaterally with no wheezing or rhonchi noted. ABDOMEN: soft. Nontender on exam. non-distended, normoactive bowel sounds. No palpable organomegaly. MUSCULOSKELETAL: No joint swelling or deformity. EXTREMITIES: No cyanosis, clubbing, or pedal edema. NEUROLOGICAL: Gross neurological examination did not reveal any focal deficits. SKIN: No rashes. Assessment: Hematemesis Esophagitis is noted on CT History of recent lysis of adhesions secondary to small bowel obstruction in September 2022 Hyperlipidemia Diabetes mellitus Dementia GI prophylaxis DVT prophylaxis Full code Plan: Recommend to continue with current medications and management per general surgery services. Patient was on nothing by mouth and transitioned up to clear liquids with general surgery planning on possible EGD tomorrow. Patient has had no further episodes of nausea or vomiting and denies abdominal pain and diabetes advanced to full liquids. Patient will be nothing by mouth at midnight for the EGD. Will follow-up report Home medications reviewed and resumed as appropriate Recommend follow-up labs in the a.m. Thank you kindly for this consultation. We will continue to follow with you during hospitalization. The impression and plan of care has been dictated by Lizzy Du, nurse practitioner as directed. Dr. Lundberg. I have performed a history and examination and MDM of this patient, discussed the same with the dictator, and agree with the dictator's assessment and plan as written ,documented as a scribe. Based on total visit time, I have performed more than 50% of the visit. Any additional findings or plans will be noted. Past Medical History Past Medical History: Dementia, Diabetes Mellitus, Hyperlipidemia Additional Past Medical History / Comment(s): prior admission for sepsis unknown cause History of Any Multi-Drug Resistant Organisms: None Reported Past Surgical History: No Surgical Hx Reported Additional Past Surgical History / Comment(s): 01/2018 left knee arthroscopic irrigation and debridement, surgery for bowel obstruction. Past Anesthesia/Blood Transfusion Reactions: No Reported Reaction Past Psychological History: No Psychological Hx Reported Smoking Status: Never smoker Past Alcohol Use History: Rare Past Drug Use History: None Reported - Past Family History Daughter(s) Family Medical History: No Reported History Son(s) Family Medical History: No Reported History Medications and Allergies Home Medications Medication Instructions Recorded Confirmed Type Pioglitazone [Actos] 15 mg PO DAILY 10/17/22 11/29/22 History glipiZIDE [Glucotrol] 10 mg PO BID 10/17/22 11/29/22 History metFORMIN HCL 1,000 mg PO BID 10/17/22 11/29/22 History Acetaminophen Tab [Tylenol Tab] 650 mg PO Q4H PRN #30 tablet 10/27/22 11/29/22 Rx Allergies Allergy/AdvReac Type Severity Reaction Status Date / Time Penicillins Allergy Unknown Verified 11/29/22 12:44 Childhood Physical Exam Vitals: Vital Signs Temp Pulse Resp BP Pulse Ox 12/01/22 01:41 98.4 F 86 15 110/66 96 11/30/22 20:00 100 15 11/30/22 18:57 97.5 F L 100 15 122/69 97 11/30/22 14:38 98.3 F 71 18 151/67 97 11/30/22 07:03 98.0 F 79 18 164/75 98 Intake and Output 11/30/22 11/30/22 12/01/22 14:59 22:59 06:59 Intake Total 900 Balance 900 Intake: Intake, IV Titration 900 Amount Sodium Chloride 0.9% 1, 900 000 ml @ 75 mls/hr IV . [id number] [facility] Rx#:[id number] Other: Voiding Method Toilet Toilet Diaper Diaper # Voids 2 Results CBC & Chem 7: 11/30/22 05:27 11/30/22 05:27 Labs: Abnormal Lab Results - Last 24 Hours (Table) 11/30/22 11/30/22 11/30/22 Range/Units 05:27 05:27 07:06 RBC 4.17 L (4.40-5.60) X 10*6/uL Hgb 12.1 L (13.0-17.0) g/dL Hct 37.9 L (39.6-50.0) % MCHC 31.9 L (32.0-37.0) g/dL RDW 14.9 H (11.5-14.5) % MPV 9.2 L (9.5-12.2) fL Est GFR (CKD-EPI)NonAf 52.5 L (60.0-200.0) BUN/Creatinine Ratio 8.64 L (12.00-20.00) Ratio Glucose 114 H (70-110) mg/dL POC Glucose (mg/dL) 118 H (70-110) mg/dL 11/30/22 11/30/22 11/30/22 Range/Units 11:23 17:19 20:20 RBC (4.40-5.60) X 10*6/uL Hgb (13.0-17.0) g/dL Hct (39.6-50.0) % MCHC (32.0-37.0) g/dL RDW (11.5-14.5) % MPV (9.5-12.2) fL Est GFR (CKD-EPI)NonAf (60.0-200.0) BUN/Creatinine Ratio (12.00-20.00) Ratio Glucose (70-110) mg/dL POC Glucose (mg/dL) 118 H 183 H 189 H (70-110) mg/dL
[2022-12-01] MEDS ORDERED: ACETAMINOPHEN TAB 325 MG TAB PO PRN (05:30)
[2022-12-01] MEDS: SODIUM CHLORIDE 0.9% 1,000 ML IV SCH (06:50)
[2022-12-01 07:07] LABS: Glucose,Whole Blood 136 mg/dL (70-110)
[2022-12-01] MEDS: INSULIN ASPART (NovoLOG) 100 UNIT/ML VIAL SQ SCH ×2 (07:53→11:53)
[2022-12-01] MEDS: PANTOPRAZOLE 40 MG/10 ML VIAL IV SCH (08:06)
[2022-12-01 08:24] VITALS: RESP 16
[2022-12-01 10:53] LABS: HCT 39.4 % (39.6-50.0); HGB 12.7 g/dL (13.0-17.0); MCH 29.1 pg (27.0-32.0); MCHC 32.2 g/dL (32.0-37.0); MCV 90.2 fL (80.0-97.0); Mean Platelet Volume 9.4 fL (9.5-12.2); NRBC Per 100 WBC 0 /100 WBCS (0.0-0.0); Platelet Count 174 X 10*3/uL (140-440); RBC 4.37 X 10*6/uL (4.40-5.60); RDW 14.9 % (11.5-14.5); WBC 6.88 X 10*3/uL (4.50-10.00)
[2022-12-01] MEDS ORDERED: PROPOFOL 10 MG/ML 20 ML VIAL IV ONE (10:54)
[2022-12-01] MEDS ORDERED: LIDOCAINE 2% INJ 20 MG/ML (2 ML VIAL) ONE (10:54)
[2022-12-01] MEDS ORDERED: IV FLUID CONTINUATION 400 ML IV ONE ×2 (11:04)
--- NOTE | 2022-12-01 11:05 | P.OP ---
Date of Procedure: 12/01/22 Preoperative Diagnosis: Epigastric pain Postoperative Diagnosis: Duodenitis Mild gastritis Hiatal hernia Significant esophagitis Procedure(s) Performed: EGD Anesthesia: MAC Surgeon: Elmo Zamorano Pathology: other (Duodenum, antrum, esophagus) Condition: stable Disposition: PACU Description of Procedure: The patient's placed on the endoscopy table in the lateral position. He received IV sedation. The gastro-/oropharynx passed in the esophagus and stomach. Scope was placed through the pylorus. The first and second portion of the duodenum appeared moderately inflamed. A biopsies performed. Scope back the antrum this was minimal inflamed. A biopsies performed. Scope was then retroflexed and the remainder some appeared normal. Patient is small sliding hiatal hernia. The GE junction was at 38 cm. The distal esophagus had significant inflammation. This was biopsied. The proximal esophagus appeared normal. Scope withdrawn for patient.
[2022-12-01 11:25] LABS: BUN/Creat Ratio 7.83 Ratio (12.00-20.00); Blood Urea Nitrogen 9.4 mg/dL (9.0-27.0); Calcium 8.5 mg/dL (8.7-10.3); Non-African American GFR(CKD) 55.2 (60.0-200.0); Potassium 3.9 mmol/L (3.5-5.5)
[2022-12-01 11:44] LABS: Glucose,Whole Blood 139 mg/dL (70-110)
[2022-12-01 12:54] VITALS: BP 134/75; PULSE 76; TEMP 98.4
--- NOTE | 2022-12-01 13:23 | P.DS ---
Providers Date of admission: 11/29/22 12:47 Expected date of discharge: 12/01/22 Attending physician: Elmo Zamorano Consults: 11/29/22 15:47 Consult Physician Routine Consulting Provider: Isiah Melendez Consult Reason/Comments: medical management Do you want consulting provider notified?: Yes Primary care physician: Mary Rivera Hospital Course: Discharge diagnosis 1. Epigastric pain status post EGD revealing duodenitis, mild gastritis, hiatal hernia, significant esophagitis Hospital course This 86-year-old male who presents to the hospital with complaints of vomiting blood 2 with decreased appetite. Patient status post EGD revealing duodenitis, mild gastritis, hiatal hernia and significant esophagitis. Patient placed on Protonix. Patient has had no further vomiting. He is tolerating diet. His pain has resolved. He is stable for discharge. Please refer to chart for any further details. Physician Strainer Tender note has been reviewed by physician. Signing provider agrees with the documented findings, assessment, and plan of care. Patient Condition at Discharge: Stable Plan - Discharge Summary Discharge Rx Participant: Yes New Discharge Prescriptions: New Omeprazole [PriLOSEC] 40 mg PO DAILY #30 cap Continue metFORMIN HCL 1,000 mg PO BID glipiZIDE [Glucotrol] 10 mg PO BID Pioglitazone [Actos] 15 mg PO DAILY Acetaminophen Tab [Tylenol] 650 mg PO Q4H PRN #30 tablet PRN Reason: Pain Discharge Medication List Pioglitazone [Actos] 15 mg PO DAILY 10/17/22 [History] glipiZIDE [Glucotrol] 10 mg PO BID 10/17/22 [History] metFORMIN HCL 1,000 mg PO BID 10/17/22 [History] Acetaminophen Tab [Tylenol] 650 mg PO Q4H PRN #30 tablet 10/27/22 [Rx] Omeprazole [PriLOSEC] 40 mg PO DAILY #30 cap 12/01/22 [Rx] Follow up Appointment(s)/Referral(s): Mary Rivera III, MD [Primary Care Provider] - 1-2 days Elmo Zamorano MD [STAFF PHYSICIAN] - 1 Week Discharge/Stand Alone Forms: Who Do I Call?, Adult Foster Assisted List, Assisted Living Facilities, Community Resources, Help In The Home, [employer] Discharge Disposition: HOME SELF-CARE
--- NOTE | 2022-12-01 19:33 | P.PN ---
Subjective Progress Note Date: 12/01/22 - Reason for Consult Consult date: 11/30/22 Medical management, hematemesis - History of Present Illness This is a 86-year-old male who presented to the emergency department with abdominal pain and distention along with hematemesis. Patient recently had lysis of adhesions secondary to small bowel obstruction with general surgery in September. Patient has noted a decrease in appetite with occasional nausea and had an episode of possible coffee-ground emesis. Patient does have history of dementia, diabetes mellitus, hyperlipidemia and follows with Dr. Rivera in the outpatient setting. Patient was admitted to general surgery for abdominal pain and distention with hematemesis. 12/01/2022 Patient is seen and evaluated in follow-up today currently awaiting to undergo EGD with general surgery. Patient is currently nothing by mouth and labs are stable. Patient is maintained on IV Protonix twice daily. Patient denies any further episodes of emesis denies abdominal pain and reports to passing gas. Patient did have a bowel movement yesterday. Review of systems: Constitutional: No reports of fatigue, fever, or chills Cardiovascular: No reports of chest pain or palpitations Respiratory: No reports of shortness of breath or cough GI: No reports of nausea, vomiting, or diarrhea : No reports of dysuria or retention Neurovascular: No reports of weakness or numbness All medications have been reviewed PHYSICAL EXAMINATION: GENERAL: The patient is alert and oriented x2-3, Well developed, well nourished. HEENT: Pupils are round and equally reacting to light. EOMI. no scleral icterus. No conjunctival pallor. Normocephalic, atraumatic. No pharyngeal erythema. No thyromegaly. CARDIOVASCULAR: S1 and S2 muffled PULMONARY: diminished breath sounds bilaterally with no wheezing or rhonchi noted. ABDOMEN: soft. Nontender on exam. non-distended, normoactive bowel sounds. No palpable organomegaly. MUSCULOSKELETAL: No joint swelling or deformity. EXTREMITIES: No cyanosis, clubbing, or pedal edema. NEUROLOGICAL: Gross neurological examination did not reveal any focal deficits. SKIN: No rashes. Assessment: Hematemesis, one episode, secondary to significant esophagitis as noted on EGD Esophagitis as noted on EGD with duodenitis, small sliding hiatal hernia and mild gastritis History of recent lysis of adhesions secondary to small bowel obstruction in September 2022 Hyperlipidemia Diabetes mellitus Dementia GI prophylaxis DVT prophylaxis Full code Plan: Recommend to continue with current medications and management per general surgery services. Patient underwent EGD showing small sliding hiatal hernia with esophagitis and duodenitis as well as mild gastritis and being resumed on diet. Patient will continue PPI and is stable for discharge. And will be going home today. Patient follow-up with general surgery outpatient for biopsy results as well as primary care provider Thank you kindly for this consultation. We will continue to follow with you during hospitalization. The impression and plan of care has been dictated by Lizzy Du, nurse practitioner as directed. Dr. Lundberg. I have performed a history and examination and MDM of this patient, discussed the same with the dictator, and agree with the dictator's assessment and plan as written ,documented as a scribe. Based on total visit time, I have performed more than 50% of the visit. Any additional findings or plans will be noted. Objective - Vital Signs Vital signs: Vital Signs Temp 98.4 F 12/01/22 12:00 Pulse 76 12/01/22 12:00 Resp 16 12/01/22 12:00 BP 134/75 12/01/22 12:00 Pulse Ox 97 12/01/22 12:00 FiO2 Intake & Output 11/30/22 12/01/22 12/01/22 18:59 06:59 18:59 Intake Total 900 100 Balance 900 100 Intake: IV 100 Intake, IV Titration 900 Amount Sodium Chloride 0.9% 1, 900 000 ml @ 75 mls/hr IV . [id number] [facility] Rx#:[id number] Other: Voiding Method Toilet Toilet Toilet Diaper Diaper Diaper # Voids 2 - Labs CBC & Chem 7: 12/01/22 06:25 12/01/22 06:25 Labs: Abnormal Lab Results - Last 24 Hours (Table) 11/30/22 11/30/22 12/01/22 Range/Units 17:19 20:20 06:25 RBC 4.37 L (4.40-5.60) X 10*6/uL Hgb 12.7 L (13.0-17.0) g/dL Hct 39.4 L (39.6-50.0) % RDW 14.9 H (11.5-14.5) % MPV 9.4 L (9.5-12.2) fL Chloride (96-109) mmol/L Est GFR (CKD-EPI)NonAf (60.0-200.0) BUN/Creatinine Ratio (12.00-20.00) Ratio Glucose (70-110) mg/dL POC Glucose (mg/dL) 183 H 189 H (70-110) mg/dL Calcium (8.7-10.3) mg/dL 12/01/22 12/01/22 12/01/22 Range/Units 06:25 07:06 11:43 RBC (4.40-5.60) X 10*6/uL Hgb (13.0-17.0) g/dL Hct (39.6-50.0) % RDW (11.5-14.5) % MPV (9.5-12.2) fL Chloride 110 H (96-109) mmol/L Est GFR (CKD-EPI)NonAf 55.2 L (60.0-200.0) BUN/Creatinine Ratio 7.83 L (12.00-20.00) Ratio Glucose 146 H (70-110) mg/dL POC Glucose (mg/dL) 136 H 139 H (70-110) mg/dL Calcium 8.5 L (8.7-10.3) mg/dL
== END 2022-12-01 16:23 | disposition home or self-care (01) ==
LOC: SUPCPDRO 10:16 → EC 10:16 → 5NMEDONC 12:47 → INTOOBSV 12:47 → 5NMEDONC 14:28
PROVIDERS: ADMIT Surgery; ATTEND Surgery
DX: K29.80 Duodenitis without bleeding (principal); K29.50 Unspecified chronic gastritis without bleeding; K22.10 Ulcer of esophagus without bleeding; K44.9 Diaphragmatic hernia without obstruction or gangrene; F03.90 Unspecified dementia, unspecified severity, without behavioral disturbance, psychotic disturbance, mood disturbance, and anxiety; E78.5 Hyperlipidemia, unspecified; E11.9 Type 2 diabetes mellitus without complications; Z79.84 Long term (current) use of oral hypoglycemic drugs; Z79.01 Long term (current) use of anticoagulants; Z79.899 Other long term (current) drug therapy; Z88.0 Allergy status to penicillin
CPT/HCPCS: 96372 ×2; 96376 ×3; 96374; 96375; 99285; 36415; 93005; 86900; 86901; 88305; 80053; 80048 ×2; 83605; 83690; 85025; 85027 ×2; 85610; 85730; 86850; 81003; 74176; 43239; G0378 ×4; J2405; J2704; C9113 ×3; J1170; J2001